=== PATIENT | male | born 1935 | race Caucasian/White ===

== ENCOUNTER 2016-05-10 13:24 | Inpatient (IN) | payer OTHER ==
[~2016-05-10] VITALS: Ht 167.6 cm; Wt 73.0 kg
[~2016-05-10 13:24] MED LIST: ACET-1256 PO; AMLO2.5T PO; ASPEC81 PO; ATRIN6 NAE; AZIT250T5 PO; CALCTAB13 PO; EVER0.5T PO; MAGNTAB4 PO; MULT-506 PO; OMEP40CA PO; PRAV20TA PO; PRED-301 PO; REPA1TAB42 PO; SULF1TAB92 PO; TACR1CAP PO; TAMS0.4C59 PO; TERA5CAP PO; [UNRECOGNIZED DRUG - OTHER] PO
[2016-05-10] MEDS ORDERED: SODIUM CHLORIDE 0.9% 1000ML 1,000 ML IV STA ×2 (14:53)
[2016-05-10] MEDS ORDERED: ONDANSETRON INJ 2 MG/ML 2 ML VIAL IV STA (14:53)
[2016-05-10] MEDS ORDERED: PROMETHAZINE HCL INJ 12.5 MG in SODIUM CHLORIDE 0.9% 50ML 50 ML IV STA ×2 (14:54→18:03)
--- NOTE | 2016-05-10 15:19 | DIAGNOSTIC IMAGING REPORT ---
CHEST ONE VIEW PORTABLE CLINICAL HISTORY: Weakness. Nausea. COMPARISON STUDY: 05/15/2014 FINDINGS: The heart is enlarged. There are surgical clips in the left hilar region. There is persistent extensive right lung airspace opacification. There is a mobile right pleural fluid present.[ IMPRESSION: 1. Persistent right lung volume loss, interstitial thickening, airspace opacities, and probable pleural fluid. 2. No evidence of focal pulmonary consolidation within the left lung 3. The examination remains essentially unchanged. Electronically signed by: Paul Weinstein M.D. 05/10/2016 3:18 PM
[2016-05-10] MEDS ORDERED: REPA2TAB13 PO ×2 (15:24→15:25)
[2016-05-10] MEDS ORDERED: AMLO-110 PO (15:26)
[2016-05-10] MEDS ORDERED: PRAV20TA PO (15:31)
[2016-05-10] MEDS ORDERED: TACR1CAP PO (15:39)
[2016-05-10 16:03] LABS: BASO % 0.1 %; BASO ABS # 0.01 K/uL (0-0.2); COMPLETE YES; HEMATOCRIT 44.1 % (42-52); IG% 0.3 %; LYMPH % 2.6 %; LYMPH ABS # 0.27 K/uL (1.2-3.4); MEAN CELL VOLUME 80.6 fL (80-100); MEAN CORPUSCULAR HEMOGLOBIN 28.9 pg (25-34); MEAN CORPUSCULAR HGB CONC 35.8 g/dl (32-36); MEAN PLATELET VOLUME 9.3 fL (7.4-10.4); MONO % 3.8 %; NEUT % 92.2 %; PLATELET COUNT 143 K/uL (130-400); RED BLOOD COUNT 5.47 M/uL (4.7-6.1); WHITE BLOOD COUNT 10.23 K/uL (4.8-10.8)
[2016-05-10 16:11] LABS: PROTHROMBIN TIME (PATIENT) 10.7 SECONDS (9.0-12.0)
[2016-05-10 16:13] LABS: ALT/SGPT 29 U/L (12-78); BLOOD UREA NITROGEN 42 mg/dl (7-18); BUN/CREATININE RATIO 18.1 (10-20); CALCIUM 9.4 mg/dl (8.5-10.1); CARBON DIOXIDE 28 mmol/L (21-32); CHLORIDE 100 mmol/L (98-107); GLUCOSE 174 mg/dl (70-99); MAGNESIUM 1.8 mg/dl (1.8-2.4); POTASSIUM 4.7 mmol/L (3.5-5.1); SODIUM 137 mmol/L (136-145)
[2016-05-10 16:22] LABS: ALKALINE PHOSPHATASE 82 U/L (45-117); AST/SGOT 25 U/L (15-37); THYROID STIMULATING HORMONE 0.938 uIu/ml (0.300-4.500)
[2016-05-10] MEDS ORDERED: SODIUM CHLORIDE 0.9% 1000ML 1,000 ML IV SCH (20:00)
[2016-05-10] MEDS ORDERED: ONDANSETRON INJ 2 MG/ML 2 ML VIAL IV PRN (20:30)
[2016-05-10] MEDS ORDERED: ALUMINUM/MAGNESIUM/SIMETH (MAALOX MAX) 30 ML UDC PO PRN (20:30)
[2016-05-10] MEDS ORDERED: MAGNESIUM HYDROXIDE SUSP 30 ML UDC PO PRN (20:30)
[2016-05-10] MEDS ORDERED: ACETAMINOPHEN 325 MG TAB PO PRN (20:30)
[2016-05-10] MEDS: INSULIN ASPART 100 UNITS/ML 3 ML PEN SC SCH (21:00)
[2016-05-10] MEDS ORDERED: GLUCOSE 10 TABS/TUBE PO PRN (21:30)
[2016-05-10] MEDS ORDERED: DEXTROSE 50% 50 ML SYR IV PRN (21:30)
[2016-05-10] MEDS ORDERED: GLUCAGON FOR INJ 1 MG VIAL SQ PRN (21:30)
[2016-05-10] MEDS ORDERED: GLUCOSE 40% GEL 15 GM TUBE PO PRN (21:30)
[2016-05-10 21:59] VITALS: BP 182/79; PULSE 100; TEMP 38.4; O2SAT 93
[2016-05-10] MEDS: MAGNESIUM CHLORIDE 64MG DELAYED REL TAB PO SCH (22:25)
[2016-05-10] MEDS: TACROLIMUS 1 MG CAP PO SCH (22:25)
[2016-05-10] MEDS: ASPIRIN 81 MG ECTAB PO SCH (22:25)
[2016-05-10] MEDS: HYDROCORTISONE IV 100 MG in SYRINGE 0 ML IV SCH (22:25)
[2016-05-10] MEDS: HEPARIN SOD 5000 UNIT/0.5 ML CARP SQ SCH (22:31)
[2016-05-10] MEDS: SODIUM CHLORIDE 0.9% 1000ML 1,000 ML IV SCH (22:32)
[2016-05-10 23:02] VITALS: Ht 167.6 cm; Wt 73.0 kg
[2016-05-10 23:31] VITALS: BP 149/84; PULSE 92; TEMP 38.4; O2SAT 96
--- NOTE | 2016-05-10 23:36 | HISTORY & PHYSICAL EXAMINATION ---
DATE OF ADMISSION: 05/10/2016 REASON FOR ADMISSION: SIRS syndrome and gastroenteritis possibly infectious. CHIEF COMPLAINT: Chills, diarrhea. HISTORY OF PRESENT ILLNESS: Mr. 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 Reportedly, the patient and his who also has an admission to our facility began feeling ill approximately one day ago with abdominal pain and diffuse watery diarrhea. The patient has no real new pulmonary symptoms. He frequently has a cough, productive of white to yellow sputum. It has only been mildly different for him. The patient and his are both travelling for the last two days prior to admission and then they did return home and ate a leftover turkey. The patient and his both began having epigastric pain and diarrhea. This patient, however, began vomiting also; the vomitus was clear. He was having shakes and rigors in the ER when I evaluated him. 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 He has dyslipidemia. He is on rotating antibiotics. He has got GERD. He has got BPH. SOCIAL HISTORY: He has no history of drugs, cigarettes or alcohol use. He is and resides with his . FAMILY HISTORY: Also positive for pulmonary fibrosis, cardiac disease and diabetes. HOME MEDICATIONS: Azithromycin 250 three times a week; Bactrim 400/80 two times a week; multivitamin once a day; prednisone 5 a day; Prandin 2 mg at lunch, 4 mg at breakfast and supper; calcium D; ipratropium nasal spray, amlodipine 5 a day; aspirin 81 a day; magnesium chloride 64 a day; omeprazole 40 a day; pravastatin 40 a day; tacrolimus 1.5 mg in the morning and 1 mg at night; tamsulosin 0.4 a day and terazosin 5 a day. REVIEW OF SYSTEMS: Currently positive for abdominal pain, nausea, vomiting, diarrhea and shaking chills. PHYSICAL EXAMINATION: GENERAL: He looks ill. VITAL SIGNS: Temperature 38.4, pulse 100, respirations 22, BP 182/79 and O2 sats 93. HEENT: PERRL. EOMI. Oropharynx has dry mucous membranes. NECK: Without lymphadenopathy. Trachea is midline. LUNGS: He has transmitted breath sounds to the right lung although it is absent. His left lung has good breath sounds. No focal air loss. ABDOMEN: With normoactive bowel sounds, it is soft. It is minorly tender in the periumbilical area. There is no rebound or guarding. EXTREMITIES: With edema just below his sock line on both feet. Otherwise, there is no cyanosis. NEUROLOGIC: Awake, alert and appropriate. Cranial nerves II-XII are intact. Blood cultures are obtained. Stool cultures are pending. Chest x-ray shows as mentioned the obliterated right lung with volume loss, interstitial thickening and possible pleural fluid. The left lung is without consolidation. ASSESSMENT: This is an 81-year-old male, who is immunosuppressed; here with systemic inflammatory response syndrome like picture with diarrheal illness. PLAN: Because of the patient is immunosuppressed state and possibility that his atrophic right lung could create an infectious process, given the fact that he has got some minor changes in his sputum he will be covered broadly with antibiotics currently until his disease cultures are obtained. We will use levofloxacin and cefepime at this point in time. Stool cultures will be obtained including C. diff and blood cultures are pending. For his acute on chronic renal failure, he will be hydrated with intravenous fluids. His baseline creatinine is around 1.7. He is currently at 2.3. Regarding his immunosuppressed state, we will continue his tacrolimus. We will hold his rotating antibiotics, being that he is on new antibiotics. We will cover him with stress dose steroids He is on prednisone 5 mg a day. The stress dose steroids would be 100 mg q. 8 hours. DVT prevention is heparin. The patient is a full code. MTDD
[2016-05-10 23:57] LABS: URINE APPEARANCE CLEAR (CLEAR); URINE BILIRUBIN NEG (NEG); URINE COLOR YELLOW; URINE NITRITE NEG (NEG); URINE PH 6.5 (4.5-7.5); URINE SPECIFIC GRAVITY 1.016 (1.000-1.030); UROBILINOGEN NEG (NEG)
[2016-05-10 23:59] LABS: MANUAL MICROSCOPIC REQUIRED? NO; REVIEW REQ? NO
[2016-05-11] MEDS: PANTOprazole INJ 40 MG in SYRINGE 0 ML IV SCH ×3 (00:15→21:05)
--- NOTE | 2016-05-11 01:00 | EMERGENCY ROOM VISIT NOTE ---
History Report prepared by Tyeibpiter: Mona Mariee Under the Supervision of: Dr. Bijan Porras M.D. First contact with patient: 14:36 Chief Complaint: DIARRHEA Stated Complaint: NAUSEA, DIARRHEA-TRANSPLANT PATEINT Nursing Triage Summary: Triage Note: Pt reports nausea, vomitting, diarrhea since 0700 today. History of Present Illness The patient is an 81 year old male who presents to the Emergency Room with complaints of persistent vomiting and diarrhea that started around 0700 this morning. He is accompanied by his , who is also sick, and his daughter. The patient reports he experienced episodes of both vomiting and diarrhea "at least 50 times". He complains of some minor back pain that was worsened by the vomiting. He also feels "extremely weak" and has still been vomiting here in the ED. The patient's states they both ate leftover turkey with gravy recently, and she thinks that may have caused their symptoms. The patient underwent a single lung transplant 11 years ago at [facility] for a history of pulmonary fibrosis, and is still on medications for the transplant. He states he did not take any medications at home for his symptoms. His daughter notes he was sick with similar symptoms about 2 years ago, and had to eventually be transferred to [facility]. He denies LOC, headache, fevers, chills, diaphoresis, visual changes, neck pain, chest pain, breathing difficulties, abdominal pain, melena, hematochezia, urinary symptoms, numbness, lymphadenopathy, rash, or other complaints. The patient's also reports his legs have been swelling more than normal recently. Source of History: patient, family, spouse/significant other () Onset: 0700 this morning Position: abdomen Timing: other (persistent) Associated Symptoms: + back pain, + nausea, + weakness Review of Systems See HPI for pertinent positives and negatives. A total of ten systems were reviewed and were otherwise negative. Past Medical & Surgical Medical Problems: (1) DIAB LORRAINE WO COMPL, TYPE II OR UNSPEC TYPE, UNCONTROLLED (2) HX-BRONCHOGENIC MALIGNAN (3) IDIOPATHIC PULMONARY FIBROSIS (4) LUNG TRANSPLANT STATUS (5) SIRS (systemic inflammatory response syndrome) Social History Smoking Status: Never Smoker Smokeless Tobacco Use: No Alcohol Use: none Drug Use: none Marital Status: Housing Status: lives with significant other Occupation Status: retired Current/Historical Medications Scheduled Amlodipine (Norvasc), 5 MG PO DAILY Aspirin Enteric Coated (Ecotrin Or Generic *), 81 MG PO QPM Azithromycin (Zithromax), 250 MG PO 3XWK Calcium Carbonate-Vitamin D (Os-Javier 500 Plus D), 500 MG PO BID Magnesium Chloride (Slow-Mag Tab), 64 MG PO BID Multivitamin (Multivitamin), 1 TAB PO DAILY Omeprazole (Prilosec), 40 MG PO DAILY Pravastatin (Pravachol ), 40 MG PO DAILY Prednisone (Prednisone), 5 MG PO DAILY Repaglinide (Prandin), 4 MG PO BID Repaglinide (Prandin), 2 MG PO DAILY Tacrolimus (Prograf Unknown Dose), 1.5 MG PO DAILY Tacrolimus (Prograf), 1 MG PO QPM Tamsulosin Hcl (Flomax), 0.4 MG PO DAILY Terazosin (Hytrin), 5 MG PO DAILY Trimethoprim/Sulfamethoxazole (Bactrim 400MG/80MG), 1 TAB PO 2XWK Scheduled PRN Ipratropium [place] (Ipratropium [place]), 2 SPRAYS RENAN QID PRN for Nasal Congestion Allergies Coded Allergies: No Known Allergies (Verified , 05/10/16) Physical Exam Vital Signs Date Time Temp Pulse Resp B/P Pulse Ox O2 Delivery O2 Flow Rate FiO2 05/10/16 20:04 100 20 93 05/10/16 20:01 149/97 05/10/16 19:34 98 19 95 05/10/16 19:28 182/104 05/10/16 19:04 89 27 95 05/10/16 18:59 166/95 05/10/16 18:34 90 17 05/10/16 18:29 139/86 05/10/16 18:24 92 30 05/10/16 17:59 164/90 05/10/16 17:54 88 26 92 05/10/16 17:29 150/95 05/10/16 17:24 89 26 96 05/10/16 17:03 101 16 163/93 97 05/10/16 16:58 163/93 05/10/16 16:54 94 25 97 05/10/16 16:28 170/91 05/10/16 16:25 90 05/10/16 16:24 90 27 95 05/10/16 15:58 144/89 05/10/16 15:54 91 Room Air 05/10/16 13:46 36.9 78 18 147/90 92 Room Air Physical Exam GENERAL: Awake, alert, tired-appearing, in no acute distress HENT: Normocephalic, atraumatic. Oropharynx unremarkable. Dry mucous membranes. EYES: Normal conjunctiva. Sclera non-icteric. NECK: Supple. No nuchal rigidity. FROM. No JVD. RESPIRATORY: Clear to auscultation. CARDIAC: Regular rate, normal rhythm. Extremities warm and well perfused. Pulses equal. ABDOMEN: Soft, non-distended. No tenderness to palpation. No rebound or guarding. No masses. RECTAL: Deferred. MUSCULOSKELETAL: Chest examination reveals no tenderness. The back is symmetrical on inspection without obvious abnormality. There is no CVA tenderness to palpation. No joint edema. LOWER EXTREMITIES: Calves are equal size bilaterally and non-tender. 1+ pedal edema. No discoloration. NEURO: Normal sensorium. No sensory or motor deficits noted. SKIN: No rash or jaundice noted. Medical Decision & Procedures ER Provider Diagnostic Interpretation: This X-Ray was reviewed and interpreted by myself and the radiologist. CHEST ONE VIEW PORTABLE CLINICAL HISTORY: Weakness. Nausea. COMPARISON STUDY: 05/15/2014 FINDINGS: The heart is enlarged. There are surgical clips in the left hilar region. There is persistent extensive right lung airspace opacification. There is a mobile right pleural fluid present. IMPRESSION: 1. Persistent right lung volume loss, interstitial thickening, airspace opacities, and probable pleural fluid. 2. No evidence of focal pulmonary consolidation within the left lung 3. The examination remains essentially unchanged. Electronically signed by: Paul Weinstein M.D. 05/10/2016 3:18 PM Laboratory Results 05/10/16 15:41 Red Blood Count 5.47, Mean Corpuscular Volume 80.6, Mean Corpuscular Hemoglobin 28.9, Mean Corpuscular Hemoglobin Concent 35.8, Mean Platelet Volume 9.3, Neutrophils (%) (Auto) 92.2, Lymphocytes (%) (Auto) 2.6, Monocytes (%) (Auto) 3.8, Eosinophils (%) (Auto) 1.0, Basophils (%) (Auto) 0.1, Neutrophils # (Auto) 9.43, Lymphocytes # (Auto) 0.27, Monocytes # (Auto) 0.39, Eosinophils # (Auto) 0.10, Basophils # (Auto) 0.01 05/10/16 15:41 Test 05/10/16 15:41 White Blood Count 10.23 K/uL (4.8-10.8) Red Blood Count 5.47 M/uL (4.7-6.1) Hemoglobin 15.8 g/dL (14.0-18.0) Hematocrit 44.1 % (42-52) Mean Corpuscular Volume 80.6 fL (80-100) Mean Corpuscular Hemoglobin 28.9 pg (25-34) Mean Corpuscular Hemoglobin Concent 35.8 g/dl (32-36) Platelet Count 143 K/uL (130-400) Mean Platelet Volume 9.3 fL (7.4-10.4) Neutrophils (%) (Auto) 92.2 % Lymphocytes (%) (Auto) 2.6 % Monocytes (%) (Auto) 3.8 % Eosinophils (%) (Auto) 1.0 % Basophils (%) (Auto) 0.1 % Neutrophils # (Auto) 9.43 K/uL (1.4-6.5) Lymphocytes # (Auto) 0.27 K/uL (1.2-3.4) Monocytes # (Auto) 0.39 K/uL (0.11-0.59) Eosinophils # (Auto) 0.10 K/uL (0-0.5) Basophils # (Auto) 0.01 K/uL (0-0.2) RDW Standard Deviation 43.6 fL (36.4-46.3) RDW Coefficient of Variation 15.1 % (11.5-14.5) Immature Granulocyte % (Auto) 0.3 % Immature Granulocyte # (Auto) 0.03 K/uL (0.00-0.02) Prothrombin Time 10.7 SECONDS (9.0-12.0) Prothromb Time International Ratio 1.0 (0.9-1.1) Activated Partial Thromboplast Time 26.6 SECONDS (21.0-31.0) Partial Thromboplastin Ratio 1.0 Anion Gap 9.0 mmol/L (3-11) Est Creatinine Clear Calc Drug Dose 23.6 ml/min Estimated GFR () 29.8 Estimated GFR (Non- 25.7 BUN/Creatinine Ratio 18.1 (10-20) Calcium Level 9.4 mg/dl (8.5-10.1) Magnesium Level 1.8 mg/dl (1.8-2.4) Total Bilirubin 0.7 mg/dl (0.2-1) Direct Bilirubin 0.2 mg/dl (0-0.2) Aspartate Amino Transf (AST/SGOT) 25 U/L (15-37) Alanine Aminotransferase (ALT/SGPT) 29 U/L (12-78) Alkaline Phosphatase 82 U/L (45-117) Total Creatine Kinase 55 U/L (39-308) Creatine Kinase MB < 0.5 ng/ml (0.5-3.6) Creatine Kinase MB Ratio (0-3.0) Troponin I < 0.015 ng/ml (0-0.045) Total Protein 7.6 gm/dl (6.4-8.2) Albumin 4.1 gm/dl (3.4-5.0) Lipase 258 U/L (73-393) Thyroid Stimulating Hormone (TSH) 0.938 uIu/ml (0.300-4.500) Laboratory results reviewed by me Medications Administered Medications (Trade) Dose Ordered Sig/Ernie Route Start Time Stop Time Status Last Admin Dose Admin Sodium Chloride 1,000 ml @ 125 mls/hr Q8H STAT IV 05/10/16 14:53 05/10/16 21:55 DC 05/10/16 18:14 125 MLS/HR Sodium Chloride 1,000 ml @ 999 mls/hr Q1H1M STAT IV 05/10/16 14:53 05/10/16 15:53 DC 05/10/16 14:53 999 MLS/HR Promethazine HCl 12.5 mg/Sodium Chloride 50.5 ml @ 204 mls/hr NOW STAT IV 05/10/16 14:54 05/10/16 15:08 DC 05/10/16 14:54 204 MLS/HR Promethazine HCl/ Sodium Chloride (Phenergan Inj/ Nss 50ml) 50.5 ml @ 204 mls/hr NOW STAT IV 05/10/16 18:03 05/10/16 18:17 DC 05/10/16 18:03 204 MLS/HR ECG Indication: other (Flu like symptoms) Rate (beats per minute): 94 Rhythm: normal sinus (normal sinus rhythm) Findings: no acute ischemic change, no ectopy Comparison ECG Date: Prolonged QT is no longer present when compared to previous EKG ED Course 1441: The patient was evaluated in room C11B. A complete history and physical exam was performed. 1453: Zofran 4 mg IV, NSS 1000 ml @ 999 mls/hr IV, NSS 1000 ml @ 125 mls/hr IV. 1454: Promethazine HCl 12.5 mg/NSS 50.5 ml @ 204 mls/hr IV. 1628: I reevaluated the patient. He is feeling a little bit better and resting comfortably. 1800: I reevaluated the patient. He has just vomited again. I will put in more medication orders. I discussed my plan for him to remain in the hospital for further evaluation and management and he and his family verbalized complete understanding and agreement. 1803: Promethazine HCl 12.5 mg/NSS 50.5 ml @ 204 mls/hr IV. 1808: I discussed the patient's case with Dr. Taveras, [facility] Hospitalist. The patient will be further evaluated. Medical Decision Triage Nursing notes reviewed. The patient's presentation and history were concerning for nausea, vomiting, and diarrhea. Etiologies such as gastroenteritis, food borne illness, infections, obstruction , pancreatitis, appendicitis, diverticulitis, inflammatory bowel disease, GI bleed, biliary pathology, toxicologic as well as others were entertained. The patient was evaluated. The patient was hydrated. He was given IV Phenergan. On reassessment he was feeling somewhat better. The patient had an unremarkable CBC. He did have acute kidney injury noted on his chemistry panel with a creatinine going from 1.7-2.3. LFTs and lipase were unremarkable. Cardiac markers were negative. The patient then developed additional nausea and vomiting. He was given additional IV Phenergan. Given his history of immunosuppression and symptoms with his acute kidney injury further evaluation and management was felt to be appropriate in the hospital. The family was in agreement as well as the patient. Consultation was made with internal medicine for further management. I gave my usual and customary discussion regarding this issue. The chart was completed utilizing [employer] voice recognition software. Grammatical errors, random word insertions, pronoun errors, and incomplete sentences are an occasional consequence of this system due to software limitations, ambient noise, and hardware issues. Any formal questions or concerns about the content, text, or information contained within the body of this dictation should be directly addressed to the physician for clarification. Consults Time Called: 1801 Consulting Physician: Dr. Taveras, [facility] Hospitalist Returned Call: 1807 I discussed the patients case with Dr. Taveras [facility] Hospitalist. The patient will be further evaluated. Impression Primary Impression: Nausea, vomiting, and diarrhea Additional Impressions: Dehydration, Acute kidney injury Scribe Attestation The scribe's documentation has been prepared under my direction and personally reviewed by me in its entirety. I confirm that the note above accurately reflects all work, treatment, procedures, and medical decision making performed by me. Departure Information Dispostion Being Evaluated By Hospitalist Referrals Eber Sands M.D. (PCP) Patient Instructions A Signature Page, My [facility]
[2016-05-11 04:24] VITALS: TEMP 36.7
[2016-05-11] MEDS: HYDROCORTISONE IV 100 MG in SYRINGE 0 ML IV SCH ×2 (06:24→14:28)
[2016-05-11] MEDS: SODIUM CHLORIDE 0.9% 1000ML 1,000 ML IV SCH ×2 (06:25→15:38)
[2016-05-11 07:40] VITALS: BP 147/73; PULSE 52; TEMP 36.3; O2SAT 96
[2016-05-11 08:34] LABS: HEMATOCRIT 36.5 % (42-52); MEAN CORPUSCULAR HEMOGLOBIN 28.1 pg (25-34); MEAN CORPUSCULAR HGB CONC 34.2 g/dl (32-36); PLATELET COUNT 126 K/uL (130-400); RED BLOOD COUNT 4.45 M/uL (4.7-6.1); WHITE BLOOD COUNT 6.87 K/uL (4.8-10.8)
[2016-05-11 08:50] LABS: BUN/CREATININE RATIO 18.4 (10-20); CALCIUM 8.1 mg/dl (8.5-10.1); CREATININE 2.3 mg/dl (0.60-1.40); MAGNESIUM 1.8 mg/dl (1.8-2.4); POTASSIUM 4.7 mmol/L (3.5-5.1)
[2016-05-11] MEDS: AMLODIPINE BESYLATE 5 MG TAB PO SCH (08:51)
[2016-05-11] MEDS: TAMSULOSIN HCL 0.4 MG CAP PO SCH (08:51)
[2016-05-11] MEDS: TACROLIMUS 0.5 MG CAP PO SCH (08:52)
[2016-05-11] MEDS: MAGNESIUM CHLORIDE 64MG DELAYED REL TAB PO SCH ×2 (08:52→21:05)
[2016-05-11] MEDS: INSULIN ASPART 100 UNITS/ML 3 ML PEN SC SCH ×4 (09:00→21:03)
[2016-05-11] MEDS ORDERED: PRAVASTATIN SOD 40 MG TAB PO SCH (09:00)
[2016-05-11] MEDS ORDERED: PANTOprazole SOD 40 MG TAB PO SCH (09:00)
[2016-05-11] MEDS: HEPARIN SOD 5000 UNIT/0.5 ML CARP SQ SCH ×2 (09:01→21:01)
--- NOTE | 2016-05-11 11:55 | Pulmonary Consultation ---
History General Date of Service: May 11, 2016. Stated Complaint: Food poisoning HPI The patient is a 81 year old male who presents to [facility] with complaints of SIRS. The patient's primary care provider is Eber Sands M.D.. Very pleasant 81-year-old gentleman admitted for nausea, vomiting and associated diarrhea. 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 Patient was admitted after he and his within an hour of each other started having severe nausea, vomiting and diarrhea. This was notably after ingesting turkey saved from the holidays. There was no associated prodromal syndrome such as fever, chills, sore throat, mucous production or productive sputum. The patient had no change in his respiratory status over the last week. With the current interventions over the last 24 outpatient notes he is 90% better and almost back to his baseline. Review of Systems Constitutional: reports: weakness Eyes: reports: no symptoms ENT: reports: no symptoms Cardiovascular: reports: no symptoms Respiratory: reports: no symptoms Gastrointestinal: reports: as stated in HPI Genitourinary - Male: reports: no symptoms Musculoskeletal: reports: no symptoms Integumentary: reports: no symptoms Neurologic: reports: no symptoms Psychiatric: reports: no symptoms Endocrine: no symptoms Hematologic / Lymphatic: no symptoms Allergic / Immunologic: no symptoms Past Medical History Past Medical History: 1) Lung transplant August/2005 2) Usual interstitial pneumonitis 3) adenocarcinoma of the lung (T4N1M0: IIIA) a. Right upper lobe lobectomy 2008 b. 4 rounds of chemotherapy therapy 4) Diabetes 2 5) Dyslipidemia 6) GERD 7) Benign prostatic hypertrophy 8) Chronic kidney disease stage III with baseline creatinine 1.9 10) nonocclusive coronary artery disease with history of paroxysmal atrial fibrillation 11) hypertension 12) rectal leakage Past Surgical History: 1) Left hemithorax pulmonary transplant 2005 2) Right upper lobe lobectomy 2008 Family History 1) Pulmonary fibrosis 2) Cardiac disease 3) Diabetes Social History 1) and lives with his 2) No history of cigarette or alcohol use 3) retired Hx Tobacco Use In Past Year?: No Smoking Status: Never Smoker Marital status: Occupational Status: retired Immunizations History of Influenza Vaccine: No Influenza Vaccine Date: Feb 16, 2005 History of Tetanus Vaccine?: Unknown History of Pneumococcal: Yes Pneumococcal Date: Feb 22, 2011 History of Hepatitis B Vaccine: Unknown History of MDRO History of MDRO: No Allergies Coded Allergies: No Known Allergies (Verified , 05/10/16) Current Medications Reported Home Medications Medications Dose Route/Sig Max Daily Dose Days Date Category Dose Instructions Prograf (Tacrolimus) 1 Mg Cap 1 Mg PO QPM 05/10/16 Reported Pravachol (Pravastatin Sodium) 20 Mg Tab 40 Mg PO DAILY 05/10/16 Reported Norvasc (Amlodipine Besylate) 5 Mg Tab 5 Mg PO DAILY 05/10/16 Reported Prandin (Repaglinide) 2 Mg Tab 2 Mg PO DAILY 05/10/16 Reported take 2 mg at supper Prandin (Repaglinide) 2 Mg Tab 4 Mg PO BID 05/10/16 Reported take 4 mg in the morning and at lunch time Prilosec (Omeprazole) 40 Mg Capcr 40 Mg PO DAILY 05/15/14 Reported Ipratropium [place] 75 Sprays/15 Ml [place] 2 Sprays RENAN QID PRN 05/13/14 Reported Prograf Unknown Dose (Tacrolimus) Cap 1.5 Mg PO DAILY 02/22/12 Reported Slow-Mag Tab (Magnesium Chloride) 64 Mg Tabcr 64 Mg PO BID 02/22/[address] IN LUNCH AND DINNER FOR THE WEEK BEGINNING EACH FRIDAY Bactrim 400MG/80MG (Trimethoprim/Sulfamethoxazole) Tab 1 Tab PO 2XWK 02/22/12 Reported TAKES 80MG MON. and .FRI Hytrin (Terazosin HCl) 5 Mg Cap 5 Mg PO DAILY 02/22/12 Reported Os-Javier 500 Plus D (Calcium Carbonate-Vitamin D) 1 Tab Tab 500 Mg PO BID 02/22/12 Reported Flomax (Tamsulosin Hcl) 0.4 Mg Cap 0.4 Mg PO DAILY 02/22/12 Reported Zithromax (Azithromycin) 250 Mg Tab 250 Mg PO 3XWK 02/22/12 Reported [id number] Multivitamin (Multivitamins) Tab 1 Tab PO DAILY 02/17/08 Reported Prednisone 5 Mg Tab 5 Mg PO DAILY 02/17/08 Reported Ecotrin Or Generic * (Aspirin) 81 Mg Ectab 81 Mg PO QPM 02/17/08 Reported Physical Physical Exam Vital Signs: Date Time Temp Pulse Resp B/P Pulse Ox O2 Delivery O2 Flow Rate FiO2 05/11/16 08:00 Room Air 05/11/16 07:40 36.3 52 18 147/73 96 Room Air 05/11/16 04:24 36.7 05/11/16 00:15 Room Air 05/10/16 23:31 38.4 92 21 149/84 96 Room Air 05/10/16 23:02 Room Air 05/10/16 21:59 38.4 100 22 182/79 93 Room Air 05/10/16 21:28 36.9 99 22 145/86 95 05/10/16 20:40 99 05/10/16 20:34 96 22 95 05/10/16 20:28 145/86 05/10/16 20:04 100 20 93 05/10/16 20:01 149/97 05/10/16 19:34 98 19 95 05/10/16 19:28 182/104 05/10/16 19:04 89 27 95 05/10/16 18:59 166/95 05/10/16 18:34 90 17 05/10/16 18:29 139/86 05/10/16 18:24 92 30 05/10/16 17:59 164/90 05/10/16 17:54 88 26 92 05/10/16 17:29 150/95 05/10/16 17:24 89 26 96 05/10/16 17:03 101 16 163/93 97 05/10/16 16:58 163/93 05/10/16 16:54 94 25 97 05/10/16 16:28 170/91 05/10/16 16:25 90 05/10/16 16:24 90 27 95 05/10/16 15:58 144/89 05/10/16 15:54 91 Room Air 05/10/16 13:46 36.9 78 18 147/90 92 Room Air General Appearance: WELL-APPEARING Head: NORMOCEPHALIC, ATRAUMATIC Eyes: PERRLA, NO DISCHARGE, EOMI, SCLERAE NORMAL, CONJUNCTIVAE NORMAL ENT: NORMAL EAR EXAM, NORMAL NASAL EXAM, NORMAL MOUTH EXAM, NORMAL THROAT EXAM , NORMAL DENTAL EXAM, NORMAL SINUS EXAM Neck: NORMAL RANGE OF MOTION, NO TENDERNESS, TRACHEA MIDLINE, NO STRIDOR, SUPPLE Respiratory: other (left side within normal limits/right-sided global bronchi) Abdomen: NON TENDER, NORMAL BOWEL SOUNDS, NO REBOUND, NO MASSES, NO GUARDING, NO ORGANOMEGALY, NORMAL RECTAL EXAM, NO HEMORRHOIDS Genitourinary - Male: EXTERNAL GENITALIA NORMAL Back: NORMAL INSPECTION, NO MIDLINE TENDERNESS, NO CVA TENDERNESS, NO PARAVERTEBRAL TTP Upper Extremities: NO EDEMA, NO DEFORMITY, NORMAL ROM Lower Extremities: NO EDEMA, NO DEFORMITY, NORMAL ROM Pulses: carotid (R) (2+), carotid (L) (2+), dorsalis pedis (R) (1+), dorsalis pedis (L) (1+) Neuro: ALERT, ORIENTED x 3, NORMAL MOTOR EXAM, NORMAL SENSATION, NORMAL CEREBELLAR EXAM Reflexes: biceps (R) (2+), bicpes (L) (2+) Babinski Testing: right (downgoing), left (downgoing) Psychiatric: NORMAL AFFECT, NO SUICIDAL IDEATION, CONTRACTS FOR SAFETY Diagnostics Labs Results Past 24 Hours Test 05/10/16 15:41 05/10/16 22:44 05/10/16 23:20 05/11/16 07:53 Range/Units White Blood Count 10.23 6.87 4.8-10.8 K/uL Red Blood Count 5.47 4.45 4.7-6.1 M/uL Hemoglobin 15.8 12.5 14.0-18.0 g/dL Hematocrit 44.1 36.5 42-52 % Mean Corpuscular Volume 80.6 82.0 80-100 fL Mean Corpuscular Hemoglobin 28.9 28.1 25-34 pg Mean Corpuscular Hemoglobin Concent 35.8 34.2 32-36 g/dl Platelet Count 143 126 130-400 K/uL Mean Platelet Volume 9.3 9.0 7.4-10.4 fL Neutrophils (%) (Auto) 92.2 % Lymphocytes (%) (Auto) 2.6 % Monocytes (%) (Auto) 3.8 % Eosinophils (%) (Auto) 1.0 % Basophils (%) (Auto) 0.1 % Neutrophils # (Auto) 9.43 1.4-6.5 K/uL Lymphocytes # (Auto) 0.27 1.2-3.4 K/uL Monocytes # (Auto) 0.39 0.11-0.59 K/uL Eosinophils # (Auto) 0.10 0-0.5 K/uL Basophils # (Auto) 0.01 0-0.2 K/uL RDW Standard Deviation 43.6 46.4 36.4-46.3 fL RDW Coefficient of Variation 15.1 15.5 11.5-14.5 % Immature Granulocyte % (Auto) 0.3 % Immature Granulocyte # (Auto) 0.03 0.00-0.02 K/uL Prothrombin Time 10.7 9.0-12.0 SECONDS Prothromb Time International Ratio 1.0 0.9-1.1 Activated Partial Thromboplast Time 26.6 21.0-31.0 SECONDS Partial Thromboplastin Ratio 1.0 Sodium Level 137 141 136-145 mmol/L Potassium Level 4.7 4.7 3.5-5.1 mmol/L Chloride Level 100 107 98-107 mmol/L Carbon Dioxide Level 28 23 21-32 mmol/L Anion Gap 9.0 11.0 3-11 mmol/L Blood Urea Nitrogen 42 42 7-18 mg/dl Creatinine 2.30 2.30 0.60-1.40 mg/dl Est Creatinine Clear Calc Drug Dose 23.6 22.7 ml/min Estimated GFR () 29.8 29.8 Estimated GFR (Non- 25.7 25.7 BUN/Creatinine Ratio 18.1 18.4 10-20 Random Glucose 174 153 70-99 mg/dl Calcium Level 9.4 8.1 8.5-10.1 mg/dl Magnesium Level 1.8 1.8 1.8-2.4 mg/dl Total Bilirubin 0.7 0.2-1 mg/dl Direct Bilirubin 0.2 0-0.2 mg/dl Aspartate Amino Transf (AST/SGOT) 25 15-37 U/L Alanine Aminotransferase (ALT/SGPT) 29 12-78 U/L Alkaline Phosphatase 82 45-117 U/L Total Creatine Kinase 55 39-308 U/L Creatine Kinase MB < 0.5 0.5-3.6 ng/ml Creatine Kinase MB Ratio 0-3.0 Troponin I < 0.015 0-0.045 ng/ml Total Protein 7.6 6.4-8.2 gm/dl Albumin 4.1 3.4-5.0 gm/dl Lipase 258 73-393 U/L Thyroid Stimulating Hormone (TSH) 0.938 0.300-4.500 uIu/ml Bedside Glucose 135 70-99 mg/dl Urine Color YELLOW Urine Appearance CLEAR CLEAR Urine pH 6.5 4.5-7.5 Urine Specific [place] 1.016 1.000-1.030 Urine Protein 2+ NEG Urine Glucose (UA) NEG NEG Urine Ketones TRACE NEG Urine Occult Blood 2+ NEG Urine Nitrite NEG NEG Urine Bilirubin NEG NEG Urine Urobilinogen NEG NEG Urine Leukocyte Esterase NEG NEG Urine WBC (Auto) 1-5 0-5 /hpf Urine RBC (Auto) 10-30 0-4 /hpf Urine Hyaline Casts (Auto) 1-5 0-5 /lpf Urine Epithelial Cells (Auto) 10-20 0-5 /lpf Urine Bacteria (Auto) NEG NEG Test 05/11/16 08:01 Range/Units Bedside Glucose 157 70-99 mg/dl Microbiology Results 05/10/16 Blood Culture, Received Pending 05/10/16 Blood Culture, Received Pending 05/10/16 C.difficile Toxin B Gene (PCR) - Final, Complete No C. difficile toxin B gene detected 05/10/16 Shiga Toxin Test, Received Pending 05/10/16 Stool Culture, Received Pending 05/10/16 Urine Culture, Received Pending Diagnostic Radiology Chest x-ray 05/10/2016: No acute changes as compared to 05/15/2014. Patient showing volume loss in the right side with shift to trachea diffuse infiltrate/ collapse and bronchiectasis of the right hemithorax. Impression Assessment and Plan 81-year-old gentleman admitted for nausea vomiting diarrhea/food poisoning: #1 respiratory: Patient is status post lung transplant 11 years ago with chronic therapeutic Prograft, azithromycin and Bactrim. Bactrim for PCP prophylaxis given one dose today and then reinitiating on Friday and Fridays. At this time I would switch the patient to levofloxacin 500 mg orally for 3 day window. This should cover atypical infections and replaces chronic azithromycin therapy over the weekend and reinitiate azithromycin on Wednesdays and Fridays #2 GI: Is a patient his had signs and symptoms within one hour of each other and the patient has dramatically improved over the last 12-24 hours is highly likely food poisoning. As stated above I would switch to levofloxacin 500 mg orally once per day for 3 day window and discontinue. #3 renal: We'll continue aggressive rehydration as patient's baseline creatinine is 1.9 currently at 2.3. At this time the most pressing concern is history of renal insufficiency. Follow-up: We'll follow up this patient is in house thank you for this consultation
[2016-05-11] MEDS ORDERED: LEVOFLOXACIN 500 MG TAB PO ONE (15:00)
[2016-05-11] MEDS ORDERED: AZITHROMYCIN 250 MG TAB PO SCH (15:00)
--- NOTE | 2016-05-11 15:06 | Progress Note ---
Subjective Date of Service: May 11, 2016. Subjective Pt evaluation today including: conversation w/ patient, physical exam, lab review, review of inpatient medication list Pain: no pain PO Intake: improved appetite Voiding: no voiding problems patient feels 90% better per his words more energy, no vomiting or diarrhea, appetite improved and he would like to try food for lunch d/w pulmonary, appreciate recommendations Problem List Medical Problems: (1) Acute kidney injury Status: Acute (2) Dehydration Status: Acute (3) Nausea, vomiting, and diarrhea Status: Acute Review of Systems Constitutional: + fatigue, + weakness All Other Systems: Reviewed and Negative Medications Current Inpatient Medications Medications (Trade) Dose Ordered Sig/Ernie Route Start Time Stop Time Status Last Admin Dose Admin Amlodipine Besylate (Norvasc Tab) 5 mg DAILY PO 05/11/16 09:00 06/10/16 08:59 05/11/16 08:51 5 MG Aspirin (Ecotrin Tab) 81 mg QPM PO 05/10/16 21:00 06/09/16 20:59 05/10/16 22:25 81 MG Magnesium Chloride (Slow-Mag Tab) 64 mg BID PO 05/10/16 21:00 06/09/16 20:59 05/11/16 08:52 64 MG Tacrolimus (Prograf Cap) 1 mg QPM PO 05/10/16 21:00 06/09/16 20:59 05/10/16 22:25 1 MG Tamsulosin HCl (Flomax Cap) 0.4 mg DAILY PO 05/11/16 09:00 06/10/16 08:59 05/11/16 08:51 0.4 MG Terazosin HCl (Hytrin Cap) 5 mg DAILY PO 05/11/16 09:00 06/10/16 08:59 05/11/16 08:53 5 MG Tacrolimus 1.5 mg 1.5 mg DAILY PO 05/11/16 09:00 06/10/16 08:59 05/11/16 08:52 1.5 MG Hydrocortisone Sodium Succinate/ Syringe (Solu-Cortef IV/ Syringe) 2 ml @ 4 mls/min Q8 IV 05/10/16 22:00 06/09/16 21:59 05/11/16 14:28 4 MLS/MIN Insulin Aspart (novoLOG ASPART) SLIDING SCALE PARAMETER ACHS SC 05/10/16 21:00 06/09/16 20:59 05/11/16 12:55 2 UNITS Acetaminophen (Tylenol Tab) 650 mg Q4H PRN PO 05/10/16 20:30 06/09/16 20:29 05/11/16 00:15 650 MG Al Hydrox/Mg Hydrox/Simethicone (Maalox Max Susp) 15 ml Q4H PRN PO 05/10/16 20:30 06/09/16 20:29 Magnesium Hydroxide (Milk Of Magnesia Susp) 30 ml Q6H PRN PO 05/10/16 20:30 06/09/16 20:29 Ondansetron HCl (Zofran Inj) 4 mg Q6H PRN IV 05/10/16 20:30 06/09/16 20:29 Heparin Sodium (Porcine) 5000 unit 5,000 unit Q12H SQ 05/10/16 22:00 06/09/16 21:59 05/11/16 09:01 5,000 UNIT Sodium Chloride 1,000 ml @ 75 mls/hr [id number] IV 05/10/16 21:30 05/11/16 06:25 125 MLS/HR Pantoprazole Sodium/Syringe (Protonix Inj/ Syringe) 10 ml @ 5 mls/min DAILY@09,21 IV 05/10/16 21:00 06/09/16 20:59 05/11/16 08:50 5 MLS/MIN Glucose (Glucose 40% Gel) 15-30 GRAMS 15 GRAMS... UD PRN PO 05/10/16 21:30 06/09/16 21:29 Glucose (Glucose Chew Tab) 4-8 Tablets 4 Tabl... UD PRN PO 05/10/16 21:30 06/09/16 21:29 Dextrose (Dextrose 50% 50ML Syringe) 25-50ML OF 50% DW IV FOR... UD PRN IV 05/10/16 21:30 06/09/16 21:29 Glucagon (Glucagon Inj) 1 mg UD PRN SQ 05/10/16 21:30 06/09/16 21:29 Levofloxacin (Levaquin Tab) 500 mg DAILY@11 PO 05/12/16 11:00 05/22/16 10:59 UNV Levofloxacin (Levaquin Tab) 500 mg 1500 ONCE PO 05/11/16 15:00 05/11/16 15:01 Objective Vital Signs Date Time Temp Pulse Resp B/P Pulse Ox O2 Delivery O2 Flow Rate FiO2 05/11/16 08:00 Room Air 05/11/16 07:40 36.3 52 18 147/73 96 Room Air 05/11/16 04:24 36.7 05/11/16 00:15 Room Air 05/10/16 23:31 38.4 92 21 149/84 96 Room Air 05/10/16 23:02 Room Air 05/10/16 21:59 38.4 100 22 182/79 93 Room Air 05/10/16 21:28 36.9 99 22 145/86 95 05/10/16 20:40 99 05/10/16 20:34 96 22 95 05/10/16 20:28 145/86 05/10/16 20:04 100 20 93 05/10/16 20:01 149/97 05/10/16 19:34 98 19 95 05/10/16 19:28 182/104 05/10/16 19:04 89 27 95 05/10/16 18:59 166/95 05/10/16 18:34 90 17 05/10/16 18:29 139/86 05/10/16 18:24 92 30 05/10/16 17:59 164/90 05/10/16 17:54 88 26 92 05/10/16 17:29 150/95 05/10/16 17:24 89 26 96 05/10/16 17:03 101 16 163/93 97 05/10/16 16:58 163/93 05/10/16 16:54 94 25 97 05/10/16 16:28 170/91 05/10/16 16:25 90 05/10/16 16:24 90 27 95 05/10/16 15:58 144/89 05/10/16 15:54 91 Room Air Physical Exam General Appearance: WD/WN, no apparent distress Neck: supple, no adenopathy, no JVD, trachea midline Respiratory/Chest: chest non-tender, lungs clear, normal breath sounds, no respiratory distress, no accessory muscle use Cardiovascular: regular rate, rhythm, no edema, no gallop, no JVD, no murmur Abdomen: normal bowel sounds, non tender, soft, no organomegaly Extremities: normal range of motion, non-tender, normal inspection, no pedal edema, no calf tenderness Neurologic/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: 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, no motor/sensory deficits, alert, normal mood/affect, oriented x 3 Skin: normal color, warm/dry, no rash Laboratory Results Last 24 Hours Test 05/10/16 15:41 05/10/16 22:44 05/10/16 23:20 05/11/16 07:53 White Blood Count 10.23 K/uL 6.87 K/uL Red Blood Count 5.47 M/uL 4.45 M/uL Hemoglobin 15.8 g/dL 12.5 g/dL Hematocrit 44.1 % 36.5 % Mean Corpuscular Volume 80.6 fL 82.0 fL Mean Corpuscular Hemoglobin 28.9 pg 28.1 pg Mean Corpuscular Hemoglobin Concent 35.8 g/dl 34.2 g/dl Platelet Count 143 K/uL 126 K/uL Mean Platelet Volume 9.3 fL 9.0 fL Neutrophils (%) (Auto) 92.2 % Lymphocytes (%) (Auto) 2.6 % Monocytes (%) (Auto) 3.8 % Eosinophils (%) (Auto) 1.0 % Basophils (%) (Auto) 0.1 % Neutrophils # (Auto) 9.43 K/uL Lymphocytes # (Auto) 0.27 K/uL Monocytes # (Auto) 0.39 K/uL Eosinophils # (Auto) 0.10 K/uL Basophils # (Auto) 0.01 K/uL RDW Standard Deviation 43.6 fL 46.4 fL RDW Coefficient of Variation 15.1 % 15.5 % Immature Granulocyte % (Auto) 0.3 % Immature Granulocyte # (Auto) 0.03 K/uL Prothrombin Time 10.7 SECONDS Prothromb Time International Ratio 1.0 Activated Partial Thromboplast Time 26.6 SECONDS Partial Thromboplastin Ratio 1.0 Sodium Level 137 mmol/L 141 mmol/L Potassium Level 4.7 mmol/L 4.7 mmol/L Chloride Level 100 mmol/L 107 mmol/L Carbon Dioxide Level 28 mmol/L 23 mmol/L Anion Gap 9.0 mmol/L 11.0 mmol/L Blood Urea Nitrogen 42 mg/dl 42 mg/dl Creatinine 2.30 mg/dl 2.30 mg/dl Est Creatinine Clear Calc Drug Dose 23.6 ml/min 22.7 ml/min Estimated GFR () 29.8 29.8 Estimated GFR (Non- 25.7 25.7 BUN/Creatinine Ratio 18.1 18.4 Random Glucose 174 mg/dl 153 mg/dl Calcium Level 9.4 mg/dl 8.1 mg/dl Magnesium Level 1.8 mg/dl 1.8 mg/dl Total Bilirubin 0.7 mg/dl Direct Bilirubin 0.2 mg/dl Aspartate Amino Transf (AST/SGOT) 25 U/L Alanine Aminotransferase (ALT/SGPT) 29 U/L Alkaline Phosphatase 82 U/L Total Creatine Kinase 55 U/L Creatine Kinase MB < 0.5 ng/ml Creatine Kinase MB Ratio Troponin I < 0.015 ng/ml Total Protein 7.6 gm/dl Albumin 4.1 gm/dl Lipase 258 U/L Thyroid Stimulating Hormone (TSH) 0.938 uIu/ml Bedside Glucose 135 mg/dl Urine Color YELLOW Urine Appearance CLEAR Urine pH 6.5 Urine Specific Reading 1.016 Urine Protein 2+ Urine Glucose (UA) NEG Urine Ketones TRACE Urine Occult Blood 2+ Urine Nitrite NEG Urine Bilirubin NEG Urine Urobilinogen NEG Urine Leukocyte Esterase NEG Urine WBC (Auto) 1-5 /hpf Urine RBC (Auto) 10-30 /hpf Urine Hyaline Casts (Auto) 1-5 /lpf Urine Epithelial Cells (Auto) 10-20 /lpf Urine Bacteria (Auto) NEG Test 05/11/16 08:01 05/11/16 11:39 Bedside Glucose 157 mg/dl 184 mg/dl Assessment and Plan 81 yo male with history of left lung transplant, UIP, lung cancer s/p resection and chemotherapy as well as CKD, presented with acute gastroenteritis and renal failure - Acute kidney injury on CKD stage III: Cr and BUN still elevated at 41/2.3 despite IV fluids patient eating and drinking well, continue fluids but at 75cc/hr hold all nephrotoxins, repeat labs in the AM, if Cr improving will d/c home - Acute gastroenteritis: improving quickly, likely due to eating turkey leftovers, toxic poisoning self resolving, give Levaquin per pulmonary recommendations - Lung transplant: continue immunosuppressant, stop stress dose steroids and resume Prednisone give Levaquin 500mg daily x 3 days and then resume the Zithromax and Bactrim on Friday - Lung cancer s/p resection and chemo: follows with [facility] q 6 months DVT prevention is heparin. The patient is a full code.
[2016-05-11 15:13] VITALS: BP 152/74; PULSE 65; TEMP 36.6; O2SAT 97
[2016-05-11 19:12] VITALS: BP 152/78; PULSE 62; TEMP 36.5; O2SAT 97
[2016-05-11 20:05] VITALS: O2SAT 97
[2016-05-11] MEDS: TACROLIMUS 1 MG CAP PO SCH (21:05)
[2016-05-11] MEDS: ASPIRIN 81 MG ECTAB PO SCH (21:06)
[2016-05-11] MEDS ORDERED: CIPROFLOXACIN / D5W 400 MG in PREMIXED IN D5W 200 ML IV SCH (23:00)
[2016-05-11 23:19] VITALS: BP 161/78; PULSE 59; TEMP 36.6; O2SAT 96
[2016-05-12] MEDS: SODIUM CHLORIDE 0.9% 1000ML 1,000 ML IV SCH (04:45)
[2016-05-12 08:13] VITALS: BP 160/77; PULSE 55; TEMP 36.5; O2SAT 96
[2016-05-12] MEDS: AMLODIPINE BESYLATE 5 MG TAB PO SCH (08:16)
[2016-05-12] MEDS: TACROLIMUS 0.5 MG CAP PO SCH (08:17)
[2016-05-12] MEDS: PANTOprazole INJ 40 MG in SYRINGE 0 ML IV SCH (08:17)
[2016-05-12] MEDS: TAMSULOSIN HCL 0.4 MG CAP PO SCH (08:17)
[2016-05-12] MEDS: MAGNESIUM CHLORIDE 64MG DELAYED REL TAB PO SCH (08:18)
[2016-05-12 08:33] LABS: BUN/CREATININE RATIO 21.2 (10-20); CALCIUM 8.2 mg/dl (8.5-10.1); POTASSIUM 3.7 mmol/L (3.5-5.1)
[2016-05-12] MEDS: INSULIN ASPART 100 UNITS/ML 3 ML PEN SC SCH ×2 (08:34→12:42)
[2016-05-12] MEDS: HEPARIN SOD 5000 UNIT/0.5 ML CARP SQ SCH (09:40)
[2016-05-12] MEDS ORDERED: LEVOFLOXACIN 500 MG TAB PO SCH (11:00)
[2016-05-12] MEDS ORDERED: CHOL4POW11 PO (12:13)
--- NOTE | 2016-05-12 12:20 | Discharge Instructions ---
Discharge Instructions Admission Reason for Admission: Acute gastroenteritis causing dehydration Discharge Discharge Diagnosis / Problem: Acute gastroenteritis causing dehydration Discharge Goals Goal(s): Decrease discomfort, Improve function Activity Recommendations Activity Limitations: resume your previous activity Lifting Limitations: none Exercise/Sports Limitations: as tolerated May Resume Sexual Activity: when tolerated Shower/Bathe: no limitations Driving or Machine Use: no limitations . Instructions / Follow-Up Instructions / Follow-Up Medications: - QUESTRAN: use this to treat diarrhea if it causes you problems, works to bulk up stools. Take once a day. Very important that you DO NOT TAKE AT THE SAME TIME as your other oral medications as it can interfere with absorption. Wait at least one hour after taking other oral medications before you would take this. Also, after you take Questran, wait 4-6 hours before taking any other medications Stay well hydrated, the gastroenteritis should be self limiting FOLLOW UP - call office of Dr. Sands for appointment in one week for hospital follow up / transition of care Current Hospital Diet Patient's current hospital diet: Diabetes Type 2 Diet, Low Fiber Diet Discharge Diet Recommended Diet: Diabetes Type 2 Diet Pending Studies Studies pending at discharge: no Laboratory Results Last Resulted CBC 05/11/16 07:53 Last Resulted BMP 05/12/16 07:33 Hemoglobin A1c Test 02/27/16 15:20 Range/Units Estimated Average Glucose 137 mg/dl Hemoglobin A1c 6.4 H 4.5-5.6 % Lipid Panel Test 04/09/16 09:08 Range/Units Triglycerides Level 65 0-150 mg/dl Cholesterol Level 195 0-200 mg/dl HDL Cholesterol 105 mg/dl Cholesterol/HDL Ratio 1.9 LDL Cholesterol, Calculated 77 mg/dl Medical Emergencies . Who to Call and When: Medical Emergencies: If at any time you feel your situation is an emergency, please call 911 immediately. . Non-Emergent Contact Non-Emergency issues call your: Primary Care Provider Call Non-Emergent contact if: you have a fever, you have any medication questions . . "Provider Documentation" section prepared by Harish Tan. VTE Core Measure Inpt VTE Proph given/why not?: Unfractionated heparin SQ [place] Drug Monitoring Program Search Results: no issues identified
--- NOTE | 2016-05-12 12:39 | Pulmonology Progress Note ---
Pulmonary Progress Note Date of Service May 12, 2016. Attending MD. Dominick Fernandez Subjective Patient is no active pulmonary complaints but does note GI upset with 2 episodes of diarrhea. Objective Patient is standing up a left complete sentences he notes no pulmonary complaints showing no signs of increased work of breathing. He does note a history of inability to sleep on his right side as he becomes hypoxic requiring him to sleep on his left side which BP consistent with his lung physiology and VQ mismatching. Vital: Within normal limits Respiratory: Patient with notable rhonchi and inspiratory expiratory right hemithorax, within normal limits on the left hemithorax Cardiac: S1-S2 regular rate and rhythm Abdomen: Positive bowel sounds soft nontender Skin: Within normal limits Assessment & Plan 81-year-old gentleman status post left hemithorax lung transplantation admitted for gastroenteritis: #1 pulmonary transplant: Patient is doing well today with decreasing creatinine. At this time we have initiated him on Prograf 1.5 mg in the morning 1.0 mg in the evening and start him back on his azithromycin(Friday, Friday, Friday) as well as his Bactrim (Friday, Friday). #2 sleep: Patient notes poor sleeping habits as well waking up mornings very fatigued. Dr. Andres perez of the sleep department will be on discuss this with the patient tomorrow morning. Data Medications: Current Inpatient Medications Medications (Trade) Dose Ordered Sig/Ernie Route Start Time Stop Time Status Last Admin Dose Admin Amlodipine Besylate (Norvasc Tab) 5 mg DAILY PO 05/11/16 09:00 06/10/16 08:59 05/12/16 08:16 5 MG Aspirin (Ecotrin Tab) 81 mg QPM PO 05/10/16 21:00 06/09/16 20:59 05/11/16 21:06 81 MG Magnesium Chloride (Slow-Mag Tab) 64 mg BID PO 05/10/16 21:00 06/09/16 20:59 05/12/16 08:18 64 MG Tacrolimus (Prograf Cap) 1 mg QPM PO 05/10/16 21:00 06/09/16 20:59 05/11/16 21:05 1 MG Tamsulosin HCl (Flomax Cap) 0.4 mg DAILY PO 05/11/16 09:00 06/10/16 08:59 05/12/16 08:17 0.4 MG Terazosin HCl (Hytrin Cap) 5 mg DAILY PO 05/11/16 09:00 06/10/16 08:59 05/12/16 08:16 5 MG Tacrolimus (Prograf Cap) 1.5 mg DAILY PO 05/11/16 09:00 06/10/16 08:59 05/12/16 08:17 1.5 MG Insulin Aspart (novoLOG ASPART) SLIDING SCALE PARAMETER ACHS SC 05/10/16 21:00 06/09/16 20:59 05/11/16 21:03 3 UNITS Acetaminophen (Tylenol Tab) 650 mg Q4H PRN PO 05/10/16 20:30 06/09/16 20:29 05/11/16 00:15 650 MG Al Hydrox/Mg Hydrox/Simethicone (Maalox Max Susp) 15 ml Q4H PRN PO 05/10/16 20:30 06/09/16 20:29 Magnesium Hydroxide (Milk Of Magnesia Susp) 30 ml Q6H PRN PO 05/10/16 20:30 06/09/16 20:29 Ondansetron HCl (Zofran Inj) 4 mg Q6H PRN IV 05/10/16 20:30 06/09/16 20:29 Heparin Sodium (Porcine) 5000 unit 5,000 unit Q12H SQ 05/10/16 22:00 06/09/16 21:59 05/12/16 09:40 5,000 UNIT Sodium Chloride 1,000 ml @ 75 mls/hr [id number] IV 05/10/16 21:30 05/12/16 04:45 75 MLS/HR Pantoprazole Sodium/Syringe (Protonix Inj/ Syringe) 10 ml @ 5 mls/min DAILY@ IV 05/10/16 21:00 06/09/16 20:59 05/12/16 08:17 5 MLS/MIN Glucose (Glucose 40% Gel) 15-30 GRAMS 15 GRAMS... UD PRN PO 05/10/16 21:30 06/09/16 21:29 Glucose (Glucose Chew Tab) 4-8 Tablets 4 Tabl... UD PRN PO 05/10/16 21:30 06/09/16 21:29 Dextrose (Dextrose 50% 50ML Syringe) 25-50ML OF 50% DW IV FOR... UD PRN IV 05/10/16 21:30 06/09/16 21:29 Glucagon (Glucagon Inj) 1 mg UD PRN SQ 05/10/16 21:30 06/09/16 21:29 Levofloxacin (Levaquin Tab) 500 mg DAILY@11 PO 05/12/16 11:00 05/21/16 10:59 Prednisone (PredniSONE TAB) 5 mg DAILY PO 05/12/16 09:00 06/11/16 08:59 05/12/16 08:16 5 MG I & O: 24-Hour Column 05/12/16 08:00 Intake Total 3163 ml Output Total 150 ml Balance 3013 ml Vital Signs: Date Time Temp Pulse Resp B/P Pulse Ox O2 Delivery O2 Flow Rate FiO2 05/12/16 08:15 Room Air 05/12/16 08:13 36.5 55 18 160/77 96 Room Air 05/12/16 00:05 Room Air 05/11/16 23:19 36.6 59 16 161/78 96 Room Air 05/11/16 20:05 97 Room Air 05/11/16 19:12 36.5 62 16 152/78 97 Room Air 05/11/16 15:13 36.6 65 18 152/74 97 Room Air Laboratory Results: Last 24 Hours Test 05/11/16 16:51 05/11/16 20:17 05/12/16 07:33 05/12/16 07:46 Bedside Glucose 177 mg/dl 225 mg/dl 82 mg/dl Sodium Level 142 mmol/L Potassium Level 3.7 mmol/L Chloride Level 108 mmol/L Carbon Dioxide Level 23 mmol/L Anion Gap 11.0 mmol/L Blood Urea Nitrogen 42 mg/dl Creatinine 2.00 mg/dl Est Creatinine Clear Calc Drug Dose 26.1 ml/min Estimated GFR () 35.2 Estimated GFR (Non- 30.4 BUN/Creatinine Ratio 21.2 Random Glucose 78 mg/dl Calcium Level 8.2 mg/dl Test 05/12/16 11:25 Bedside Glucose 108 mg/dl
[2016-05-12 13:06] VITALS: BP 160/77; PULSE 55; TEMP 36.5; O2SAT 96
--- NOTE | 2016-05-12 15:13 | Discharge Summary ---
Discharge Summary Admission Date: May 10, 2016 at 20:27 Discharge Date: May 12, 2016 Discharge Disposition: Home Principal Diagnosis: Acute kidney injury on CKD Problems/Secondary Diagnoses: Acute gastroenteritis h/o lung transplant h/o lung cancer Immunizations: Have You Had Influenza Vaccine: No Influenza Vaccine Date: Feb 16, 2005 History of Tetanus Vaccine?: Unknown History of Pneumococcal: Yes Pneumococcal Date: Feb 22, 2011 History of Hepatitis B Vaccine: Unknown Procedures: none Consultations: Pulmonology Medication Reconciliation New Medications: Cholestyramine (Questran) 4 Gm Pow 4 GM PO DAILY, #1 BTL 0 Refills Continued Medications: Amlodipine (Norvasc) 5 Mg Tab 5 MG PO DAILY, TAB Aspirin Enteric Coated (Ecotrin Or Generic *) 81 Mg Ectab 81 MG PO QPM, 0 Refills Azithromycin (Zithromax) 250 Mg Tab 250 MG PO 3XWK, #4 [id number] Calcium Carbonate-Vitamin D (Os-Javier 500 Plus D) 1 Tab Tab 500 MG PO BID Ipratropium [place] (Ipratropium [place]) 75 Sprays/15 Ml [place] 2 SPRAYS RENAN QID PRN for Nasal Congestion, #15 Magnesium Chloride (Slow-Mag Tab) 64 Mg Tabcr [address] IN LUNCH AND DINNER FOR THE WEEK BEGINNING EACH FRIDAY Multivitamin (Multivitamin) Tab 1 TAB PO DAILY, 0 Refills Omeprazole (Prilosec) 40 Mg Capcr 40 MG PO DAILY Pravastatin (Pravachol ) 20 Mg Tab 40 MG PO DAILY, TAB Prednisone (Prednisone) 5 Mg Tab 5 MG PO DAILY, 0 Refills Repaglinide (Prandin) 2 Mg Tab 4 MG PO BID, TAB take 4 mg in the morning and at lunch time Repaglinide (Prandin) 2 Mg Tab 2 MG PO DAILY, TAB take 2 mg at supper Tacrolimus (Prograf Unknown Dose) Cap 1.5 MG PO DAILY Tacrolimus (Prograf) 1 Mg Cap 1 MG PO QPM, CAP Tamsulosin Hcl (Flomax) 0.4 Mg Cap 0.4 MG PO DAILY Terazosin (Hytrin) 5 Mg Cap 5 MG PO DAILY Trimethoprim/Sulfamethoxazole (Bactrim 400MG/80MG) Tab 1 TAB PO 2XWK TAKES 80MG MON. and .FRI Discharge Exam Patient feeling okay today, had two episodes of diarrhea today but no more, no vomiting, tolerating regular diet. Drinking well. Review of Systems: Constitutional: No chills, No fatigue, No fever, No problem reported, No sweats, No weakness, No weight loss Eyes: No diplopia, No discharge, No eye pain, No problem reported, No redness, No worsening of vision ENT: No dental problems, No hearing loss, No nasal symptoms, No problem reported, No sore throat, No tinnitus, No trouble swallowing, No unusual epistaxis Respiratory: No cough, No dyspnea at rest, No dyspnea on exertion, No hemoptysis, No problem reported, No shortness of breath, No sputum, No wheezing Cardiovascular: No PND, No chest pain, No claudication, No edema, No orthopnea, No palpitations, No problem reported Abdomen: + diarrhea, No GI bleeding, No constipation, No nausea, No pain, No vomiting Musculoskeletal: No calf pain, No joint pain, No muscle pain, No problem reported, No swelling Genitourinary - Male: No dysuria, No hematuria, No urinary frequency, No urinary urgency Neurologic: + weakness, No balance problems, No memory loss, No numbness/ tingling, No paralysis, No problem reported, No vertigo Psychiatric: No anhedonism, No anxiety, No depression symptoms, No insomnia , No problem reported, No substance abuse Endocrine: No excessive thirst, No excessive urination, No fatigue, No problem reported Hematologic / Lymphatic: No abnormal bleeding/bruising, No clotting problems , No night sweats, No problem reported, No swollen lymph nodes Integumentary: No bleeding, No color change, No itch, No new/changing skin lesions, No problem reported, No rash Physical Exam: General Appearance: WD/WN, no apparent distress Eyes: normal inspection, EOMI, sclerae normal ENT: normal ENT inspection, hearing grossly normal, pharynx normal Neck: supple, no adenopathy, no JVD, trachea midline Respiratory/Chest: chest non-tender, lungs clear, normal breath sounds, no respiratory distress, no accessory muscle use Cardiovascular: regular rate, rhythm, no edema, no gallop, no JVD, no murmur , normal peripheral pulses Abdomen / GI: normal bowel sounds, non tender, soft, no organomegaly Extremities: normal inspection, no calf tenderness, normal capillary refill , no pedal edema, normal range of motion Neurologic/Psychiatric: outreach rep II-XII nml as tested, no motor/sensory deficits , alert, normal mood/affect, normal reflexes, oriented x 3 Skin: normal color, warm/dry, no rash Lymphatic: no adenopathy Hospital Course 81 yo male with history of left lung transplant, UIP, lung cancer s/p resection and chemotherapy as well as CKD, presented with acute gastroenteritis and renal failure - Acute kidney injury on CKD stage III: Cr and BUN improved today, Cr down to 2.0, baseline is 1.7-1.9 patient eating and drinking well, no further need for IV fluids will d/c to home with PCP follow up - Acute gastroenteritis: improving quickly, likely due to eating turkey leftovers, toxic poisoning some diarrhea this morning, two episodes, no vomiting, eating regular diet will provide with Questran to use as needed for diarrhea, instructed to take 1 hour after other oral medications - Lung transplant: continue immunosuppressant, stop stress dose steroids and resume Prednisone give Levaquin 500mg daily x 2 days (done) and then resume the Zithromax and Bactrim on Friday - Lung cancer s/p resection and chemo: follows with [facility] q 6 months DVT prevention is heparin. The patient is a full code. Plan: d/c to home with PCP follow up this week Total Time Spent: Greater than 30 minutes This includes examination of the patient, discharge planning, medication reconciliation, and communication with other providers. Discharge Instructions Please refer to the electronic Patient Visit Report (Discharge Instructions) for additional information. Follow-Up Dr. Eber Sands this week Dr. Doron Mahmood on Friday (previously scheduled) Additional Copies To Eber Sands M.D.
== END 2016-05-12 15:57 | disposition home or self-care (01) | DRG 683 ==
LOC: ENRESERVDT → ENRESERVTM → C.EDB 13:25 → C.MED 20:27
PROVIDERS: ADMIT Internal Medicine; ATTEND Internal Medicine
DX: N17.9 Acute kidney failure, unspecified (principal); Z94.2 Lung transplant status; T86.819 Unspecified complication of lung transplant; K52.9 Noninfective gastroenteritis and colitis, unspecified; N18.3 Chronic kidney disease, stage 3 (moderate); E11.22 Type 2 diabetes mellitus with diabetic chronic kidney disease; I12.9 Hypertensive chronic kidney disease with stage 1 through stage 4 chronic kidney disease, or unspecified chronic kidney disease; Z79.899 Other long term (current) drug therapy; Z79.82 Long term (current) use of aspirin; Z79.52 Long term (current) use of systemic steroids; Z85.118 Personal history of other malignant neoplasm of bronchus and lung; E83.42 Hypomagnesemia; J84.112 Idiopathic pulmonary fibrosis

== ENCOUNTER → 2016-06-27 | Outpatient (CLI) | payer OTHER ==
[~2016-06-27] MED LIST changes: -ACET-1256 PO; +AMLO-110 PO; -AMLO2.5T PO; +APR25 PO; +ASPI81TA28 PO; +CALC500C70 PO; +CHOL4POW11 PO; -EVER0.5T PO; +HYT/2 PO; +IMD2X PO; +MULT-897 PO; +OMEP40CA41 PO; +OXYC1TAB3 PO; +PRED20TA PO; +PSYL0.524 PO; -REPA1TAB42 PO; +REPA2TAB13 PO; +TACR0.5C3 PO; +TAMS0.4C38 PO
--- NOTE | 2016-06-27 13:23 | DIAGNOSTIC IMAGING REPORT ---
KUB HISTORY: BPH, ELEVATED PSA, LOW BACK PAIN COMPARISON: None. FINDINGS: The bowel gas pattern is unremarkable. There are no dilated loops of small bowel to suggest an obstruction. No renal calculi. No ureteral calculi. Calcifications in the deep pelvis likely represent phleboliths. Moderate well-formed stool seen within the colon. Right lower lobe consolidation persists IMPRESSION: No evidence for bowel obstruction. Moderate well-formed stool seen within the colon. No renal calculi. Right lower lobe consolidation persists. Electronically signed by: Rosales Spears M.D. 06/27/2016 1:21 PM Dictated Date/Time: 06/27/2016 1:19 PM
[2016-06-27 13:30] LABS: BASO % 0.3 %; BASO ABS # 0.02 K/uL (0-0.2); COMPLETE YES; EOS % 3.6 %; HEMATOCRIT 36.3 % (42-52); IG% 0.1 %; LYMPH % 16.6 %; LYMPH ABS # 1.25 K/uL (1.2-3.4); MEAN CELL VOLUME 82.7 fL (80-100); MEAN CORPUSCULAR HEMOGLOBIN 28.2 pg (25-34); MEAN CORPUSCULAR HGB CONC 34.2 g/dl (32-36); MEAN PLATELET VOLUME 9.3 fL (7.4-10.4); MONO % 12.3 %; NEUT % 67.1 %; PLATELET COUNT 146 K/uL (130-400); RED BLOOD COUNT 4.39 M/uL (4.7-6.1); WHITE BLOOD COUNT 7.51 K/uL (4.8-10.8)
[2016-06-27 13:34] LABS: URINE APPEARANCE CLEAR (CLEAR); URINE BILIRUBIN NEG (NEG); URINE COLOR YELLOW; URINE NITRITE NEG (NEG); URINE SPECIFIC GRAVITY 1.014 (1.000-1.030); UROBILINOGEN NEG (NEG)
[2016-06-27 13:36] LABS: MANUAL MICROSCOPIC REQUIRED? NO; REVIEW REQ? NO
--- NOTE | 2016-06-27 13:37 | DIAGNOSTIC IMAGING REPORT ---
SI JOINTS 3 OR MORE VIEWS CLINICAL HISTORY: BPH, ELEVATED PSA, LOW BACK PAIN COMPARISON STUDY: No previous studies for comparison. FINDINGS: The sacroiliac joints are intact without evidence for ankylosis. No erosions are identified. No suspicious lesions are identified by radiography. Mild arthritis of both sacroiliac joints is noted. 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 Electronically signed by: Grant Mistry M.D. 06/27/2016 1:35 PM Dictated Date/Time: 06/27/2016 1:32 PM
--- NOTE | 2016-06-27 13:56 | DIAGNOSTIC IMAGING REPORT ---
LUMBAR SPINE 5 VIEWS CLINICAL HISTORY: Low back pain of several days' duration. FINDINGS: Five views of the lumbar spine are obtained. No prior studies are available for comparison at the time of dictation. The skeletal structures are osteopenic. There is no radiographic evidence of fracture or malalignment. Vertebral body height and alignment are preserved throughout the lumbar spine. There is mild straightening of the lumbar lordosis. The transverse and spinous processes appear intact. There is no evidence of spondylolysis. Mild facet arthropathy is noted in the lower lumbar region. Small anterior osteophytes are seen throughout. There is moderate degenerative disc space narrowing at L5-S1 with associated endplate sclerosis. The remaining disc spaces appear preserved. The bony pelvis is intact as visualized. Mild degenerative sclerosis is noted in the sacroiliac joints. There is a nonobstructed abdominal bowel gas pattern noting moderate constipation. Atherosclerotic calcification is present in the abdominal aorta. IMPRESSION: 1. No acute bony abnormality is seen involving the lumbosacral spine. 2. Osteopenia and mild spondylotic change as above. 3. Moderate constipation. Dictated: 06/27/2016 1:11 PM Transcribed: 06/27/2016 1:56 PM [email or web address]_Arron Electronically signed by: Dread Joshi M.D. 06/27/2016 2:00 PM Dictated Date/Time: 06/27/2016 1:11 PM
[2016-06-27 14:00] LABS: BLOOD UREA NITROGEN 43 mg/dl (7-18); BUN/CREATININE RATIO 19.4 (10-20); CALCIUM 8.6 mg/dl (8.5-10.1); CARBON DIOXIDE 24 mmol/L (21-32); CHLORIDE 100 mmol/L (98-107); GLUCOSE 88 mg/dl (70-99); POTASSIUM 4.2 mmol/L (3.5-5.1); SODIUM 135 mmol/L (136-145)
== END | disposition home or self-care (01) ==
LOC: C.RADBC 12:05
PROVIDERS: ATTEND Internal Medicine Geriatric Medicine
DX: N40.0 Benign prostatic hyperplasia without lower urinary tract symptoms (principal); M54.5 Low back pain; R97.20 Elevated prostate specific antigen [PSA]; M85.88 Other specified disorders of bone density and structure, other site; K59.00 Constipation, unspecified; M53.3 Sacrococcygeal disorders, not elsewhere classified

== ENCOUNTER 2016-06-30 10:55 | Emergency (ER) | payer OTHER ==
[~2016-06-30] VITALS: Ht 170.2 cm; Wt 74.3 kg
[~2016-06-30 10:55] MED LIST changes: -APR25 PO; -ASPI81TA28 PO; -CALC500C70 PO; -HYT/2 PO; -IMD2X PO; -MULT-897 PO; -OMEP40CA41 PO; -OXYC1TAB3 PO; -PRED20TA PO; -PSYL0.524 PO; -TACR0.5C3 PO; -TAMS0.4C38 PO
[2016-06-30 11:04] VITALS: TEMP 36.5; Ht 170.2 cm; Wt 74.3 kg
[2016-06-30] MEDS ORDERED: OXYCODONE HCL IR 5 MG TAB (IMMEDIATE RELEASE) PO STA (12:08)
--- NOTE | 2016-06-30 12:09 | EMERGENCY ROOM VISIT NOTE ---
History Report prepared by Jaye: Aric Schmid Under the Supervision of: Dr. Servando Miguel M.D. First contact with patient: 11:57 Chief Complaint: BACK PAIN Stated Complaint: SEVERE BACK PAIN History of Present Illness The patient is an 81 year old male who presents to the Emergency Room with complaints of persistent back pain that started a few days ago. Per the patient' s , the patient started getting a bad cough 6 days ago, and went to his doctor's office 5 days ago. He also started getting severe back pain that radiates down his right leg. The patient then went to his doctor's office again 3 days ago. He also complains of a runny nose, and weakness in his right leg. He has a history of a lung transplant, and is on Azithromycin and Bactrim. The patient denies any history of back issues. He is still able to walk currently. The patient denies any loss of bladder of bowel control. The patient's notes that she also caught the cough. He does not take any pain medications on a regular basis. Source of History: patient, spouse/significant other Onset: A few days ago Position: back Symptom Intensity: severe Timing: other (persistent) Associated Symptoms: + cough, + weakness (right leg) Note: Associated symptoms: Right leg pain, runny nose. Denies loss of bladder or bowel control. Review of Systems See HPI for pertinent positives & negatives. A total of 10 systems reviewed and were otherwise negative. Past Medical & Surgical Medical Problems: (1) DIAB LORRAINE WO COMPL, TYPE II OR UNSPEC TYPE, UNCONTROLLED (2) HX-BRONCHOGENIC MALIGNAN (3) IDIOPATHIC PULMONARY FIBROSIS (4) LUNG TRANSPLANT STATUS (5) SIRS (systemic inflammatory response syndrome) Family History Family history omitted secondary to age. Social History Smoking Status: Never Smoker Alcohol Use: none Drug Use: none Marital Status: Housing Status: lives with significant other Occupation Status: retired Current/Historical Medications Scheduled Amlodipine (Norvasc), 5 MG PO DAILY Aspirin Enteric Coated (Ecotrin Or Generic *), 81 MG PO QPM Azithromycin (Zithromax), 250 MG PO 3XWK Calcium Carbonate-Vitamin D (Os-Javier 500 Plus D), 500 MG PO BID Magnesium Chloride (Slow-Mag Tab), 64 MG PO BID Multivitamin (Multivitamin), 1 TAB PO DAILY Omeprazole (Prilosec), 40 MG PO DAILY Pravastatin (Pravachol ), 40 MG PO DAILY Prednisone (Prednisone), 5 MG PO DAILY Prednisone (Prednisone), 3 TAB PO DAILY Repaglinide (Prandin), 4 MG PO BID Repaglinide (Prandin), 2 MG PO DAILY Tacrolimus (Prograf Unknown Dose), 1.5 MG PO DAILY Tacrolimus (Prograf), 1 MG PO QPM Tamsulosin Hcl (Flomax), 0.4 MG PO DAILY Terazosin (Hytrin), 5 MG PO DAILY Trimethoprim/Sulfamethoxazole (Bactrim 400MG/80MG), 1 TAB PO 2XWK Scheduled PRN Ipratropium [place] (Ipratropium [place]), 2 SPRAYS RENAN QID PRN for Nasal Congestion Oxycodone Immediate Rel Tab (Roxicodone Ir), 1-2 TAB PO Q4H PRN for Severe Pain Allergies Coded Allergies: Hydralazine (Unverified Allergy, Unknown, DIZZY, OVER ALL SICK FEELING, ) Lisinopril (Unverified Allergy, Unknown, NAUSEA, STOMACH UPSET, DEATHLY SICK, 06/30/16) Metronidazole (Unverified Allergy, Unknown, NEUROPATY,, 06/30/16) Simvastatin (Unverified Allergy, Unknown, UNKOWN , 06/30/16) Physical Exam Vital Signs Date Time Temp Pulse Resp B/P Pulse Ox O2 Delivery O2 Flow Rate FiO2 06/30/16 15:16 70 20 170/84 100 06/30/16 14:16 55 20 170/85 97 06/30/16 13:21 58 20 174/81 98 06/30/16 11:04 36.5 61 16 182/90 97 Room Air Physical Exam GENERAL: Patient is uncomfortable appearing and in mild distress. HEENT: No acute trauma, normocephalic atraumatic, mucous membranes moist, no nasal congestion, no scleral icterus. NECK: No stridor, no adenopathy, no meningismus, trachea is midline. LUNGS: Decreased breath sounds in the right lower lobe. Runny nose and cough. HEART: Regular rate and rhythm. No murmurs, rubs, gallops appreciated. ABDOMEN: Soft, nontender, bowel sounds positive, no masses appreciated, no peritonitis. BACK: No midline tenderness, no CVA tenderness EXTREMITIES: Normal motion all extremities, no cyanosis, no edema. NEUROLOGIC: Alert and oriented, no acute motor or sensory deficits, no focal weakness, cranial nerves grossly intact. SKIN: No rash, no jaundice, no diaphoresis. Medical Decision & Procedures ER Provider Diagnostic Interpretation: X ray results are stated below per my interpretation and the radiologist's interpretation. CHEST ONE VIEW PORTABLE CLINICAL HISTORY: cough, h/o lung txt dyspnea COMPARISON STUDY: 05/10/2016 FINDINGS: No significant change radiographically compared to the prior exam. Chronic changes right hemithorax including pleural thickening and associated volume loss. This is unchanged from the prior exam. Left lung is considered clear. There is at least one old left rib fracture. Postoperative changes to the left hilum are stable IMPRESSION: Unchanged evaluation of chest compared to the prior study of 05/10/2016. Chronic changes right hemithorax are unaltered Electronically signed by: Luis Townsend M.D. 06/30/2016 12:56 PM Dictated Date/Time: 06/30/2016 12:54 PM Laboratory Results 06/30/16 13:00 06/30/16 13:00 Test 06/30/16 13:00 06/30/16 13:22 Red Blood Count 4.43 M/uL (4.7-6.1) Mean Corpuscular Volume 80.8 fL (80-100) Mean Corpuscular Hemoglobin 28.7 pg (25-34) Mean Corpuscular Hemoglobin Concent 35.5 g/dl (32-36) RDW Standard Deviation 42.1 fL (36.4-46.3) RDW Coefficient of Variation 14.2 % (11.5-14.5) Mean Platelet Volume 8.8 fL (7.4-10.4) Anion Gap 11.0 mmol/L (3-11) Est Creatinine Clear Calc Drug Dose 27.1 ml/min Estimated GFR () 35.2 Estimated GFR (Non- 30.4 BUN/Creatinine Ratio 18.4 (10-20) Calcium Level 8.7 mg/dl (8.5-10.1) Influenza Type A Antigen Neg for Influ A (NEG) Influenza Type B Antigen Neg for Influ B (NEG) Laboratory results as reviewed by me. Medications Administered Medications (Trade) Dose Ordered Sig/Ernie Route Start Time Stop Time Status Last Admin Dose Admin Oxycodone HCl (Roxicodone Immediate Rel Tab) 5 mg NOW STAT PO 06/30/16 12:08 06/30/16 12:09 DC 06/30/16 13:17 5 MG Fentanyl Citrate (Fentanyl Inj) 50 mcg NOW STAT IV 06/30/16 13:56 06/30/16 13:57 DC 06/30/16 14:13 50 MCG Oxycodone HCl (Roxicodone Immediate Rel 5MG Home Pack) 1 homepack UD ONCE PO 06/30/16 14:45 06/30/16 14:46 DC 06/30/16 15:14 1 HOMEPACK Prednisone (PredniSONE TAB) 60 mg NOW STAT PO 06/30/16 14:43 06/30/16 14:44 DC 06/30/16 15:05 60 MG ED Course 1200: The patient was evaluated in room C7. A complete history and physical exam was performed. 1208: Ordered Roxicodone Immediate Rel Tab 5 mg PO. 1355: I reevaluated the patient and he notes that his back pain is only a little bit better. 1356: Ordered Fentanyl Inj 50 mcg IV. 1439: I reevaluated the patient and he feels much better and would like to go home. The patient verbally expressed understanding and agreement of the treatment plan. The patient will be discharged. 1443: Ordered Prednisone Tab 60 mg PO. 1445: Ordered Roxicodone Immediate Rel 5MG Home Pack 1 homepack PO. Medical Decision Differential: Musculoskeletal, Disc Herniation, Fracture, Cord Compression, Discitis, Infectious, Aortic Pathology, Renal Colic, UTI/Pyelonephritis, Acute Exacerbation of Chronic Pain, Sciatica, Cauda Equina, amongst other pathologies entertained. Pleasant 81 yr old male who notes harsh cough earlier in week and spontaneous right low back pain radiating to toes. Notes weakness though on exam 5.5 strength and neuro intact. No urinary bowel control issues. Labs unremarkable. No fevers and no midline TTP low back. CXR is unchanged from normal. He is now on two separate abx. Chronically on 5mg Pred which we will bump to 60 and taper down. Likely back pain is sciatica in nature and at this time patient does not meet criteria for MRI. Pulses equal bilaterally. No abdominal pain. No fevers here. Feeling much improved. Wishes to go home which seems reasonable. Stressed PCP follow up. RTED if worsening or other concerns. Impression Primary Impression: Low back pain with right-sided sciatica Additional Impression: Cough Scribe Attestation The scribe's documentation has been prepared under my direction and personally reviewed by me in its entirety. I confirm that the note above accurately reflects all work, treatment, procedures, and medical decision making performed by me. Departure Information Dispostion Home / Self-Care Prescriptions Oxycodone Immediate Rel Tab (ROXICODONE IR) 5 Mg Tab 1-2 TAB PO Q4H Y for Severe Pain, #12 TAB Prov: Servando Miguel M.D. 06/30/16 Prednisone (Prednisone) 20 Mg Tab 3 TAB PO DAILY, #12 TAB Take 3 tabs for 2 days, then 2 tabs for 3 days, then 1 tab for 3 days. Then return to your normal prednisone dose. Prov: Servando Miguel M.D. 06/30/16 Referrals Eber Sands M.D. (PCP) Patient Instructions ED Sciatica, My [facility] Additional Instructions You have received a narcotic pain medication prescription. These medications may cause drowsiness and should not be used with other sedative medications. Do not drive, drink alcohol, perform dangerous activities, nor make important decisions after taking these medications. terminal block assembler use or inappropriate use may lead to addiction. Problem Qualifiers Primary Impression: Low back pain with right-sided sciatica Chronicity: acute Back pain laterality: right Qualified Codes: M54.41 - Lumbago with sciatica, right side
--- NOTE | 2016-06-30 12:57 | DIAGNOSTIC IMAGING REPORT ---
CHEST ONE VIEW PORTABLE CLINICAL HISTORY: cough, h/o lung txt dyspnea COMPARISON STUDY: 05/10/2016 FINDINGS: No significant change radiographically compared to the prior exam. Chronic changes right hemithorax including pleural thickening and associated volume loss. This is unchanged from the prior exam. Left lung is considered clear. There is at least one old left rib fracture. Postoperative changes to the left hilum are stable IMPRESSION: Unchanged evaluation of chest compared to the prior study of 05/10/2016. Chronic changes right hemithorax are unaltered Electronically signed by: Luis Townsend M.D. 06/30/2016 12:56 PM Dictated Date/Time: 06/30/2016 12:54 PM
[2016-06-30 13:10] LABS: HEMATOCRIT 35.8 % (42-52); MEAN CELL VOLUME 80.8 fL (80-100); MEAN CORPUSCULAR HEMOGLOBIN 28.7 pg (25-34); MEAN CORPUSCULAR HGB CONC 35.5 g/dl (32-36); MEAN PLATELET VOLUME 8.8 fL (7.4-10.4); PLATELET COUNT 144 K/uL (130-400); RED BLOOD COUNT 4.43 M/uL (4.7-6.1); WHITE BLOOD COUNT 5.78 K/uL (4.8-10.8)
[2016-06-30 13:27] LABS: BUN/CREATININE RATIO 18.4 (10-20); CALCIUM 8.7 mg/dl (8.5-10.1); POTASSIUM 3.9 mmol/L (3.5-5.1)
[2016-06-30] MEDS ORDERED: FENTANYL CITRATE INJ 50 MCG/1 ML 2 ML VIAL IV STA (13:56)
[2016-06-30] MEDS ORDERED: PRED20TA PO (14:42)
[2016-06-30] MEDS ORDERED: OXYC1TAB3 PO (14:42)
[2016-06-30] MEDS ORDERED: OXYCODONE IR HOME PACK PO ONE (14:45)
[2016-06-30 15:16] VITALS: BP 170/84; PULSE 70; O2SAT 100
== END 2016-06-30 15:17 | disposition home or self-care (01) ==
LOC: C.EDB 10:57 → C.EDC 15:17
DX: M54.41 Lumbago with sciatica, right side (principal); J84.112 Idiopathic pulmonary fibrosis; Z94.2 Lung transplant status; Z85.118 Personal history of other malignant neoplasm of bronchus and lung; Z79.2 Long term (current) use of antibiotics; Z79.52 Long term (current) use of systemic steroids; Z79.82 Long term (current) use of aspirin; Z79.899 Other long term (current) drug therapy

== ENCOUNTER → 2016-07-02 | Outpatient (CLI) | payer OTHER ==
[~2016-07-02] MED LIST changes: +APR25 PO; +ASPI81TA28 PO; +CALC500C70 PO; -CHOL4POW11 PO; +HYT/2 PO; +IMD2X PO; +MULT-897 PO; +OMEP40CA41 PO; +OXYC1TAB3 PO; +PRED20TA PO; +PSYL0.524 PO; +TACR0.5C3 PO; +TAMS0.4C38 PO
--- NOTE | 2016-07-03 08:09 | DIAGNOSTIC IMAGING REPORT ---
MRI OF THE LUMBAR SPINE WITHOUT CONTRAST CLINICAL HISTORY: Osteopenia. Low back pain radiating into right lower extremity. History of lung cancer. COMPARISON STUDY: Lumbar spine radiographs June 27, 2016. TECHNIQUE: Utilizing a 1.5 Raine magnet and dedicated coil, multiplanar, multiecho imaging of the lumbar spine was performed without IV contrast. FINDINGS: For purposes of numbering on this exam, the L5-S1 disc space is assigned to axial image 27 of 30. Alignment of the lumbar spine is anatomic. Vertebral body heights are maintained. There is no marrow replacement or marrow edema. The conus terminates at the mid L1 level. There is no intracanalicular mass or fluid collection. Paravertebral soft tissues are unremarkable. L1-2: The central canal and neural foramen are patent. There is a tiny right paracentral disc protrusion. L2-3: The central canal and neural foramen are patent. L3-4: The central canal and neural foramen are patent. There is mild facet arthrosis. L4-5: The central canal and neural foramen are patent. There is mild facet arthrosis. L5-S1: There is disc space narrowing with a disc bulge. Facet arthrosis is present. There is mild narrowing of the central canal and lateral recesses. There is mild to moderate narrowing of the right neural foramen. IMPRESSION: 1. 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 2. Disc space narrowing with disc bulge at L5-S1 and facet arthrosis. Mild narrowing of the central canal and lateral recesses with mild to moderate narrowing of the right neural foramen. 3. No evidence of metastatic disease within the lumbar spine. Electronically signed by: Grant Mistry M.D. 07/03/2016 8:08 AM Dictated Date/Time: 07/02/2016 8:51 PM
== END | disposition home or self-care (01) ==
LOC: C.MRI 18:00
PROVIDERS: ATTEND Internal Medicine
DX: M51.36 Other intervertebral disc degeneration, lumbar region (principal); M85.80 Other specified disorders of bone density and structure, unspecified site

== ENCOUNTER 2016-07-30 23:47 | Emergency (ER) | payer OTHER ==
[~2016-07-30] VITALS: Ht 170.2 cm; Wt 74.7 kg
[~2016-07-30 23:47] MED LIST changes: -APR25 PO; -ASPI81TA28 PO; -CALC500C70 PO; -HYT/2 PO; -IMD2X PO; -MULT-897 PO; -OMEP40CA41 PO; -PSYL0.524 PO; -TACR0.5C3 PO; -TAMS0.4C38 PO
[2016-07-30 23:55] VITALS: TEMP 36.3; Ht 170.2 cm; Wt 74.7 kg
[2016-07-31] MEDS ORDERED: ONDANSETRON INJ 2 MG/ML 2 ML VIAL IV STA (00:23)
[2016-07-31] MEDS ORDERED: MoRPHine SULFATE 4 MG/ML 1 ML CARP\\VIAL IV STA ×3 (00:23→02:36)
--- NOTE | 2016-07-31 00:25 | EMERGENCY ROOM VISIT NOTE ---
History Report prepared by Jaye: Maikol Torres Under the Supervision of: Dr. Abner Ye M.D. First contact with patient: 00:06 Chief Complaint: BACK PAIN Stated Complaint: BACK AND LEG PAIN History of Present Illness The patient is a 81 year old male who presents to the Emergency Room with complaints of worsening right sided lower back pain that began 1 month ago. The patient rates his pain a 10/10 in severity. The patient was seen two weeks ago in the ED. He was given an MRI which showed disc space narrowing and a bulging disc. The patient's pain is radiating into his hip and down his entire right leg. He notes some right leg weakness. He is also experiencing chills. The patient takes Oxycodone 5 mg PO for the pain, but states that it did not help tonight. He would take more, but he does not want to become addicted to it. He usually gets Cortisone shots in his back for the pain. It is too soon for him to receive another one. He denies any fever, cough, abdominal pain, bowel trouble, numbness, or urinary symptoms. Source of History: patient, family, spouse/significant other Onset: 1 month ago Position: back (lower), leg (right) Symptom Intensity: 10/10 Quality: sharp Timing: worsening Associated Symptoms: + chills, + weakness, No SOB, No abdominal pain, No chest pain, No cough, No diarrhea, No fevers, No hematochezia, No melena, No numbness, No urinary symptoms Review of Systems See HPI for pertinent positives & negatives. A total of 10 systems reviewed and were otherwise negative. Past Medical & Surgical Medical Problems: (1) DIAB LORRAINE WO COMPL, TYPE II OR UNSPEC TYPE, UNCONTROLLED (2) HX-BRONCHOGENIC MALIGNAN (3) IDIOPATHIC PULMONARY FIBROSIS (4) LUNG TRANSPLANT STATUS (5) SIRS (systemic inflammatory response syndrome) Old medical records were reviewed. Nurse's notes were reviewed and I agree with. Family History Omitted secondary to age. Social History Smoking Status: Never Smoker Alcohol Use: none Drug Use: none Marital Status: Housing Status: lives with significant other Occupation Status: retired Current/Historical Medications Scheduled Amlodipine (Norvasc), 5 MG PO QAM Aspirin (Aspirin Ec), 81 MG PO QPM Azithromycin (Zithromax), 250 MG PO 3XWK Calcium/Vitamin D (Os-Javier 500 Plus D), 500 MG PO BID Hydralazine Hcl (Apresoline), 0.5 TAB PO TID Loperamide Hcl (Imodium), 2 MG PO QAM Magnesium Chloride (Slow-Mag Tab), 64 MG PO BID Multiple Vitamin (One Daily), 1 TAB PO DAILYBB Omeprazole (Prilosec), 40 MG PO QAM Pravastatin (Pravachol ), 40 MG PO HS Prednisone (Prednisone), 5 MG PO QAM Psyllium (Metamucil), 2 TBS PO QAM Repaglinide (Prandin), 4 MG PO BID Repaglinide (Prandin), 2 MG PO DAILY Tacrolimus (Prograf), 1 MG PO QAM Tacrolimus (Prograf), 1.5 MG PO QPM Tamsulosin Hcl (Flomax), 0.4 MG PO HS Terazosin Hcl (Hytrin), 2 MG PO TID Trimethoprim/Sulfamethoxazole (Bactrim 400MG/80MG), 1 TAB PO 2XWK Scheduled PRN Ipratropium Barnet (Ipratropium Barnet), 2 SPRAYS RENAN QID PRN for Nasal Congestion Allergies Coded Allergies: Hydralazine (Unverified Allergy, Unknown, DIZZY, OVER ALL SICK FEELING, ) Lisinopril (Unverified Allergy, Unknown, NAUSEA, STOMACH UPSET, DEATHLY SICK, 07/30/16) Metronidazole (Unverified Allergy, Unknown, NEUROPATY,, 07/30/16) Simvastatin (Unverified Allergy, Unknown, UNKOWN , 07/30/16) Physical Exam Vital Signs Date Time Temp Pulse Resp B/P Pulse Ox O2 Delivery O2 Flow Rate FiO2 07/31/16 03:49 82 149/92 07/31/16 01:30 74 20 190/99 94 Room Air 07/30/16 23:55 36.3 79 20 163/86 92 Room Air Physical Exam General: Non ill appearing older male. Ambulating without difficulty. Well developed well nourished in no acute distress, breathing comfortably on room air. Normal speech HEENT: Normal cephalic atraumatic. Pupils are equal round and reactive to light. Extraocular movements are intact. Oropharynx is pink with moist mucous membranes. No swelling of the mouth lips or tongue. Neck: Supple with a midline trachea. No meningeal signs or stiffness, no JVD or bruits. No Stridor. Chest: Clear to auscultation bilaterally. No wheezes or rhonchi. No increased work of breathing. Heart: regular rate and rhythm. Abdomen: Soft nontender, nondistended without rebound guarding or rigidity. Extremities: No cyanosis or clubbing. No calf tenderness or assymetry. Trace to 1+ bilateral lower extremity edema. Spine/Back. Non tender to palpation. No CVA tenderness. Mild increase in pain secondary to right leg raise. Skin: Good turgor without rashes. Neurologic exam: Cranial nerves two through 12 are intact. Motor and sensation are intact and symmetrical throughout. Medical Decision & Procedures ER Provider Diagnostic Interpretation: Radiology results as stated below per my review and radiologist interpretation: CT ABDOMEN & PELVIS Colonic diverticulosis without evidence of acute diverticulitis. Moderate feces in the colon. Prostate invaginates into the base of the bladder and bladder is distended. Multiple degenerative changes of the lumbar spine. Vacuum disc phenomenon at L5- S1. L5-S1 disc/osteophyte complex and facet arthropathy cause [id number] foraminal narrowing bilaterally. Posterior disc bulge and facet arthropathy/ minus hypertrophy. L4-L5 cause mild to moderate canal and moderate left foraminal narrowing. L4-L5 spinous process about each other, suggesting Baastrup 's disease. Resection of the right lower lobe. Severe bronchiectasis of the remaining right lung without normal intervening lung parenchyma. Small right pleural effusion. Trace perisplenic fluid. Left renal cyst. Normal appendix. Coronary artery and aortic valve calcifications. Atherosclerotic calcifications of aorta and its branches. Radiologist: Servando Garcia MD Laboratory Results 07/31/16 00:35 Red Blood Count 4.65, Mean Corpuscular Volume 83.9, Mean Corpuscular Hemoglobin 29.7, Mean Corpuscular Hemoglobin Concent 35.4, Mean Platelet Volume 8.7, Neutrophils (%) (Auto) 58.9, Lymphocytes (%) (Auto) 29.6, Monocytes (%) (Auto) 8.6, Eosinophils (%) (Auto) 2.1, Basophils (%) (Auto) 0.2, Neutrophils # (Auto) 3.90, Lymphocytes # (Auto) 1.96, Monocytes # (Auto) 0.57, Eosinophils # (Auto) 0.14, Basophils # (Auto) 0.01 07/31/16 00:35 Test 07/31/16 00:35 07/31/16 00:45 White Blood Count 6.62 K/uL (4.8-10.8) Red Blood Count 4.65 M/uL (4.7-6.1) Hemoglobin 13.8 g/dL (14.0-18.0) Hematocrit 39.0 % (42-52) Mean Corpuscular Volume 83.9 fL (80-100) Mean Corpuscular Hemoglobin 29.7 pg (25-34) Mean Corpuscular Hemoglobin Concent 35.4 g/dl (32-36) Platelet Count 143 K/uL (130-400) Mean Platelet Volume 8.7 fL (7.4-10.4) Neutrophils (%) (Auto) 58.9 % Lymphocytes (%) (Auto) 29.6 % Monocytes (%) (Auto) 8.6 % Eosinophils (%) (Auto) 2.1 % Basophils (%) (Auto) 0.2 % Neutrophils # (Auto) 3.90 K/uL (1.4-6.5) Lymphocytes # (Auto) 1.96 K/uL (1.2-3.4) Monocytes # (Auto) 0.57 K/uL (0.11-0.59) Eosinophils # (Auto) 0.14 K/uL (0-0.5) Basophils # (Auto) 0.01 K/uL (0-0.2) RDW Standard Deviation 42.7 fL (36.4-46.3) RDW Coefficient of Variation 14.0 % (11.5-14.5) Immature Granulocyte % (Auto) 0.6 % Immature Granulocyte # (Auto) 0.04 K/uL (0.00-0.02) Anion Gap 8.0 mmol/L (3-11) Est Creatinine Clear Calc Drug Dose 24.6 ml/min Estimated GFR () 31.4 Estimated GFR (Non- 27.1 BUN/Creatinine Ratio 22.8 (10-20) Calcium Level 8.8 mg/dl (8.5-10.1) Urine Color YELLOW Urine Appearance CLEAR (CLEAR) Urine pH 6.5 (4.5-7.5) Urine Specific [place] 1.010 (1.000-1.030) Urine Protein 1+ (NEG) Urine Glucose (UA) NEG (NEG) Urine Ketones NEG (NEG) Urine Occult Blood NEG (NEG) Urine Nitrite NEG (NEG) Urine Bilirubin NEG (NEG) Urine Urobilinogen NEG (NEG) Urine Leukocyte Esterase NEG (NEG) Urine WBC (Auto) 0 /hpf (0-5) Urine RBC (Auto) 0-4 /hpf (0-4) Urine Hyaline Casts (Auto) 1-5 /lpf (0-5) Urine Epithelial Cells (Auto) 0-5 /lpf (0-5) Urine Bacteria (Auto) NEG (NEG) Laboratory studies as stated above per my review. Medications Administered Medications (Trade) Dose Ordered Sig/Ernie Route Start Time Stop Time Status Last Admin Dose Admin Morphine Sulfate (MoRPHine SULFATE INJ) 4 mg NOW STAT IV 07/31/16 00:23 07/31/16 00:25 DC 07/31/16 00:40 4 MG Ondansetron HCl (Zofran Inj) 4 mg NOW STAT IV 07/31/16 00:23 07/31/16 00:25 DC 07/31/16 00:40 4 MG Morphine Sulfate (MoRPHine SULFATE INJ) 4 mg NOW STAT IV 07/31/16 01:55 07/31/16 01:56 DC 07/31/16 02:03 4 MG Morphine Sulfate (MoRPHine SULFATE INJ) 4 mg NOW STAT IV 07/31/16 02:36 07/31/16 04:02 DC 07/31/16 04:06 4 MG ED Course 0006: Past medical records reviewed. The patient was evaluated in room A3, and a complete history and physical examination were performed. 0023: Zofran Inj 4 mg IV, Morphine Sulfate 4 mg IV 0155: Morphine Sulfate 4 mg IV 0236: Morphine Sulfate 4 mg IV 0237: I ordered a CT at this time. 0420: Upon reevaluation, the patient is resting. I discussed the results and treatment plan with him. He verbalized agreement of the treatment plan. The patient was discharged home. Medical Decision Differentials include disc disease, infection, inflammation, electrolyte or metabolic abnormality, and musculoskeletal. This patient comes in as described above. He was placed in room A3. He looks well on exam. He's been having low back pain for about a month because down his right leg. It is worse with movement. He's had a couple pain injections by Dr. Mcpherson that did help for a little bit but the pain comes back.he did have an MRI recently which shows some disc disease. He does have a history of lung transplant. IV access established and he was given IV morphine several times here and did feel better after taking this but the pain would come back eventually. He has no neurologic deficits. he has nothing to suggest cauda equina syndrome. He has baseline renal insufficiency with a creatinine of 2.2. He has no fever or white count to suggest an infectious. urinalysis does not not suggest that she has UTI. He is on OxyIR at home but has not been taking very much. I encouraged him to take it more regularly and follow-up with his regular doctor tomorrow for recheck and further pain management or evaluation. I did also CAT scan. There are no other anterior abdominal abnormalities to explain his symptoms at this point. I think it is likely related his lumbar spine. He will be discharged to home. Impression Primary Impression: Lower back pain Scribe Attestation The scribe's documentation has been prepared under my direction and personally reviewed by me in its entirety. I confirm that the note above accurately reflects all work, treatment, procedures, and medical decision making performed by me. Departure Information Dispostion Home / Self-Care Referrals Eber Sands M.D. (PCP) Forms HOME CARE DOCUMENTATION FORM, IMPORTANT VISIT INFORMATION Patient Instructions My [facility] Additional Instructions Rest Continue to use your pain medications Return if: worsening symptoms, increasing pain, fever, numbness or weakness, any new problems or concerns Follow up with your doctor tomorrow for a recheck
[2016-07-31 00:43] LABS: BASO % 0.2 %; BASO ABS # 0.01 K/uL (0-0.2); COMPLETE YES; EOS % 2.1 %; IG% 0.6 %; LYMPH % 29.6 %; LYMPH ABS # 1.96 K/uL (1.2-3.4); MEAN CELL VOLUME 83.9 fL (80-100); MEAN CORPUSCULAR HEMOGLOBIN 29.7 pg (25-34); MEAN CORPUSCULAR HGB CONC 35.4 g/dl (32-36); MEAN PLATELET VOLUME 8.7 fL (7.4-10.4); MONO % 8.6 %; NEUT % 58.9 %; PLATELET COUNT 143 K/uL (130-400); RED BLOOD COUNT 4.65 M/uL (4.7-6.1); WHITE BLOOD COUNT 6.62 K/uL (4.8-10.8)
[2016-07-31 01:07] LABS: BUN/CREATININE RATIO 22.8 (10-20); CALCIUM 8.8 mg/dl (8.5-10.1); CREATININE 2.2 mg/dl (0.60-1.40); POTASSIUM 4.4 mmol/L (3.5-5.1)
[2016-07-31 01:08] LABS: URINE APPEARANCE CLEAR (CLEAR); URINE BILIRUBIN NEG (NEG); URINE COLOR YELLOW; URINE EPITHELIAL CELL AUTO 0-5 /lpf (0-5); URINE NITRITE NEG (NEG); URINE PH 6.5 (4.5-7.5); UROBILINOGEN NEG (NEG)
[2016-07-31 01:13] LABS: MANUAL MICROSCOPIC REQUIRED? NO; REVIEW REQ? NO
[2016-07-31 01:30] VITALS: O2SAT 94
[2016-07-31] MEDS ORDERED: OMEP40CA41 PO (02:35)
[2016-07-31] MEDS ORDERED: ASPI81TA28 PO (02:35)
[2016-07-31] MEDS ORDERED: TACR1CAP PO (02:38)
[2016-07-31] MEDS ORDERED: TACR0.5C3 PO (02:38)
[2016-07-31] MEDS ORDERED: MULT-897 PO (02:45)
[2016-07-31] MEDS ORDERED: IMD2X PO (02:45)
[2016-07-31] MEDS ORDERED: TAMS0.4C38 PO (02:45)
[2016-07-31] MEDS ORDERED: CALC500C70 PO (02:45)
[2016-07-31] MEDS ORDERED: APR25 PO (02:50)
[2016-07-31] MEDS ORDERED: PSYL0.524 PO (02:51)
[2016-07-31] MEDS ORDERED: HYT/2 PO (02:52)
[2016-07-31 03:49] VITALS: BP 149/92; PULSE 82
--- NOTE | 2016-07-31 08:00 | DIAGNOSTIC IMAGING REPORT ---
CT SCAN OF THE ABDOMEN AND PELVIS WITHOUT IV CONTRAST CLINICAL HISTORY: Back pain. COMPARISON STUDY: Renal ultrasound dated 09/26/2015. Chest x-ray dated 06/30/2016. TECHNIQUE: CT scan of the abdomen and pelvis is performed from the lung bases to the proximal femora. Images are reviewed in the axial, sagittal, and coronal planes. IV contrast was not administered for this examination as per the referring clinician. Note that the examination was performed and significant suboptimal fashion without oral and IV contrast. Automated dose control exposure was utilized. CT DOSE: 751.75 mGy.cm FINDINGS: Lung bases: The heart is mildly enlarged and without pericardial effusion. The coronary arteries are densely calcified. There is marked volume loss in the right lung with rightward shift the mediastinum. Fibrotic change and consolidation is noted at the right lung base and these findings are unchanged from the 06/30/2016 chest x-ray. A chronic appearing pleural collection with associated pleural thickening at the right lung base measures approximately 3 x 7.5 cm. There is compensatory hyperinflation of the left lung, and the left lung base appears clear noting emphysema. A small hiatal hernia is observed. Liver: The unenhanced liver is normal in size, contour, and attenuation. There is no intrahepatic biliary ductal dilatation. Gallbladder: Unremarkable. Spleen: Normal in size and attenuation. There are small calcified splenic granulomas. Pancreas: The unenhanced pancreas is moderately atrophic and grossly unremarkable. Adrenal glands: Unremarkable. Kidneys: The unenhanced kidneys are atrophic and without hydronephrosis. There are no renal calculi identified. A 3 cm cyst arises from the left upper pole. Abdominal vasculature: The abdominal aorta is normal in course and caliber noting moderate atherosclerotic calcification. Bowel: The small bowel and colon are normal in course and caliber. There is mild colonic diverticulosis without CT evidence of acute diverticulitis. Moderate colonic fecal retention is observed. The appendix is well-visualized and normal. Peritoneum: There is no intraperitoneal free air. Trace perisplenic ascites is noted. Lymphadenopathy: None. Pelvic viscera: The prostate gland is enlarged and heterogeneous, measuring 5.4 cm in transverse diameter. There is median lobe hypertrophy. The bladder is distended. The bladder wall appears mildly thickened and trabeculated suggesting chronic outlet obstruction. Skeletal structures: The skeletal structures are osteopenic. There is mild lumbosacral spondylosis. Posterior disc bulge is suggested at L4-L5 and L5-S1. No lytic or blastic lesions are seen. IMPRESSION: 1. Suboptimal examination without oral and IV contrast. 2. There are no acute infectious or inflammatory findings in the abdomen or pelvis. 3. Moderate constipation. 4. Mild colonic diverticulosis without CT evidence of acute diverticulitis. 5. Chronic fibrotic change with a chronic appearing pleural collection at the right lung base with associated volume loss in the right lung and compensatory hyperinflation of the left lung is likely unchanged from previous. 6. Prostatomegaly with evidence of chronic bladder outlet obstruction. 7. There is trace perisplenic ascites. 8. Additional findings as above. Electronically signed by: Dread Joshi M.D. 07/31/2016 7:59 AM Dictated Date/Time: 07/31/2016 7:52 AM
== END 2016-07-31 04:23 | disposition home or self-care (01) ==
LOC: C.EDB 23:48 → C.EDA 07-31 04:23
DX: M54.5 Low back pain (principal); E11.9 Type 2 diabetes mellitus without complications; Z94.2 Lung transplant status; Z79.82 Long term (current) use of aspirin; Z79.899 Other long term (current) drug therapy

== ENCOUNTER → 2016-08-12 | Outpatient (CLI) | payer OTHER ==
[~2016-08-12] MED LIST changes: +APR25 PO; -ASPEC81 PO; +ASPI81TA28 PO; +AZIT-60 PO; -AZIT250T5 PO; +CALC500C70 PO; -CALCTAB13 PO; +FLUT0.15 NAE; +HYDR-4716 PO; +HYT/2 PO; +IMD2X PO; -MULT-506 PO; +MULT-897 PO; -OMEP40CA PO; +OMEP40CA41 PO; -OXYC1TAB3 PO; -PRED20TA PO; +PSYL0.524 PO; +REPA2TAB12 PO; -REPA2TAB13 PO; +SLWMEC PO; +TACR0.5C3 PO; +TAMS0.4C38 PO; -TAMS0.4C59 PO; -TERA5CAP PO; -[UNRECOGNIZED DRUG - OTHER] PO
== END | disposition home or self-care (01) ==
LOC: C.LAB 07:56
PROVIDERS: ATTEND Urology
DX: R97.20 Elevated prostate specific antigen [PSA] (principal)

== ENCOUNTER → 2016-11-11 | Outpatient (CLI) | payer OTHER ==
[~2016-11-11] MED LIST changes: +APR/25 PO; -AZIT-60 PO; +AZIT250T5 PO; -HYDR-4716 PO; -REPA2TAB12 PO; +REPA2TAB13 PO
[2016-11-11 10:42] LABS: BASO % 0.1 %; BASO ABS # 0.01 K/uL (0-0.2); EOS % 3.3 %; HEMATOCRIT 22.6 % (42-52); IG% 0.6 %; LYMPH % 20.1 %; LYMPH ABS # 1.56 K/uL (1.2-3.4); MEAN CELL VOLUME 84.6 fL (80-100); MEAN CORPUSCULAR HEMOGLOBIN 29.6 pg (25-34); MEAN PLATELET VOLUME 8.7 fL (7.4-10.4); MONO % 9.5 %; NEUT % 66.4 %; PLATELET COUNT 324 K/uL (130-400); RED BLOOD COUNT 2.67 M/uL (4.7-6.1); WHITE BLOOD COUNT 7.77 K/uL (4.8-10.8)
[2016-11-11 10:46] LABS: BLOOD UREA NITROGEN 42 mg/dl (7-18); CALCIUM 9.4 mg/dl (8.5-10.1); CARBON DIOXIDE 25 mmol/L (21-32); CHLORIDE 100 mmol/L (98-107); GLUCOSE 80 mg/dl (70-99); MAGNESIUM 1.8 mg/dl (1.8-2.4); SODIUM 134 mmol/L (136-145)
[2016-11-11 11:20] LABS: COMPLETE YES
[2016-11-13 08:26] LABS: FK506 TACROLIMUS HIGHLY SENS 7.8 MCG/L (5-20)
== END | disposition home or self-care (01) ==
LOC: C.LABSPEC 10:21
PROVIDERS: ATTEND Internal Medicine Pulmonary Disease
DX: J18.9 Pneumonia, unspecified organism (principal); Z94.2 Lung transplant status

== ENCOUNTER → 2016-12-10 | Outpatient (CLI) | payer OTHER ==
--- NOTE | 2016-12-10 16:29 | DIAGNOSTIC IMAGING REPORT ---
MRI OF LUMBAR SPINE WITHOUT IV CONTRAST CLINICAL HISTORY: Right foot drop post surgery. COMPARISON STUDY: MRI of lumbar spine dated 07/02/2016. TECHNIQUE: MRI of lumbar spine is performed utilizing various T1 and T2-weighted sequences in the axial and sagittal planes. IV contrast was not administered for this examination. FINDINGS: Lumbar spine: Vertebral body height and alignment are maintained throughout the lumbar spine. Normal marrow signal intensity is preserved. Tiny anterior osteophytes are seen throughout. There are postoperative changes from laminectomy at L5, new from 07/02/2016. The remaining spinous processes as well as the transverse processes appear intact. There is no evidence of spondylolysis. No destructive bony lesion is seen. Intervertebral discs: Degenerative disc desiccation is seen throughout the lumbar spine. Moderate loss of height is noted L5-S1. The remaining disc spaces appear preserved. Spinal cord and central canal: The partially imaged spinal cord is normal in morphology and signal intensity. The conus medullaris terminates at the level of L1. The nerve roots of the cauda equina are normal in morphology. There is no evidence of epidural fluid collection. L1-L2: Unremarkable. L2-L3: Unremarkable. L3-L4: Unremarkable. L4-L5: Facet arthropathy is of no consequence. The central canal and neural foramina are patent. L5-S1: There is posterior disc bulge with annular fissure. There is no significant acquired compromise of the central canal. This causes severe bilateral subarticular stenosis, right greater than left. There is probable impingement on the exiting right L5 nerve root. The disc bulge also abuts the transiting bilateral sacral nerve roots. Facet arthropathy causes minimal neural foraminal stenosis, right greater than left. Sacrum: Visualized sacrum is normal in morphology and signal intensity. Soft tissues: Postoperative change is seen within the posterior soft tissues at L5-S1. There is a tiny fluid collection at the operative site posterior to the thecal sac seen on axial image #22. This measures up to 13 mm and likely represents a tiny seroma. The partially imaged retroperitoneal structures are grossly unremarkable but incompletely assessed. IMPRESSION: 1. There is evidence of interval laminectomy at L5-S1 as compared to the 07/02/2016 examination. There is no significant acquired compromise of the central canal at this level. 2. Disc bulge at L5-S1 causes severe bilateral subarticular stenosis. This likely impinges on the exiting right L5 nerve root, and also abuts the transiting bilateral sacral nerve roots. 3. Only minimal spondylotic change at additional levels as detailed above. 4. A 13 mm fluid collection is seen posterior to the thecal sac at L5. This likely represents a tiny postoperative seroma and is of doubtful significance. Dictated: 12/10/2016 3:53 PM Transcribed: 12/10/2016 4:28 PM [email or web address] Electronically signed by: Dread Joshi M.D. 12/10/2016 4:29 PM Dictated Date/Time: 12/10/2016 3:53 PM
== END | disposition home or self-care (01) ==
LOC: C.MRIBC 14:50
PROVIDERS: ATTEND Specialist
DX: M21.371 Foot drop, right foot (principal); Z98.890 Other specified postprocedural states; M48.07 Spinal stenosis, lumbosacral region; M51.27 Other intervertebral disc displacement, lumbosacral region

== ENCOUNTER 2017-02-17 09:04 | Emergency (ER) | payer OTHER ==
[~2017-02-17] VITALS: Ht 170.2 cm; Wt 74.1 kg
[~2017-02-17 09:04] MED LIST changes: -APR/25 PO; -FLUT0.15 NAE; -SLWMEC PO
[2017-02-17 09:09] VITALS: TEMP 36.6; Ht 170.2 cm; Wt 74.1 kg
[2017-02-17] MEDS ORDERED: ALBUT/IPRATROP 3MG/0.5MG NEB 3 ML VIAL INH STA (09:56)
[2017-02-17 10:05] VITALS: O2SAT 95
[2017-02-17 10:17] LABS: BASO % 0.5 %; BASO ABS # 0.03 K/uL (0-0.2); COMPLETE YES; EOS % 4.2 %; HEMATOCRIT 39.1 % (42-52); IG% 0.3 %; LYMPH % 21.3 %; LYMPH ABS # 1.28 K/uL (1.2-3.4); MEAN CELL VOLUME 84.8 fL (80-100); MEAN CORPUSCULAR HEMOGLOBIN 30.2 pg (25-34); MEAN CORPUSCULAR HGB CONC 35.5 g/dl (32-36); MEAN PLATELET VOLUME 9.8 fL (7.4-10.4); MONO % 9.7 %; PLATELET COUNT 154 K/uL (130-400); RED BLOOD COUNT 4.61 M/uL (4.7-6.1)
[2017-02-17 10:23] LABS: BUN/CREATININE RATIO 19.3 (10-20); CALCIUM 9.3 mg/dl (8.5-10.1); CREATININE 1.9 mg/dl (0.60-1.40); POTASSIUM 4.3 mmol/L (3.5-5.1)
--- NOTE | 2017-02-17 10:24 | EMERGENCY ROOM VISIT NOTE ---
History Report prepared by Jaye: Carlos Simons Under the Supervision of: Dr. Johnnie Donaldson M.D. First contact with patient: 09:30 Chief Complaint: HYPERTENSION Stated Complaint: HIGH BLOOD PRESSURE History of Present Illness The patient is a 82 year old white male with a past medical history of hypertension, HLD, diabetes, back surgery, and a lung transplant who presents to the ED with a cc of hypertension beginning yesterday. Positive cough recently and new stressors. Negative caffeine use or medication changes. He states that he is eating, drinking, urinating, and having normal bowel movements. He has chronic drop foot and leg pain and is on oxycodone. He also states that he has been using Flonase recently for his congestion. Source of History: patient Onset: yesterday Position: other (global) Quality: other (hypertension) Timing: constant Associated Symptoms: + cough Review of Systems See HPI for pertinent positives and negatives. A total of ten systems were reviewed and were otherwise negative. Past Medical & Surgical Medical Problems: (1) DIAB LORRAINE WO COMPL, TYPE II OR UNSPEC TYPE, UNCONTROLLED (2) HX-BRONCHOGENIC MALIGNAN (3) IDIOPATHIC PULMONARY FIBROSIS (4) LUNG TRANSPLANT STATUS (5) SIRS (systemic inflammatory response syndrome) Social History Smoking Status: Never Smoker Alcohol Use: none Drug Use: none Marital Status: Housing Status: lives with significant other Occupation Status: retired Current/Historical Medications Scheduled Aspirin (Aspirin Ec), 81 MG PO QPM Azithromycin (Zithromax), 250 MG PO 3XWK Fluticasone Propionate (Nasal) (Flonase Allergy Relief), 1 SPRAY RENAN DAILY Hydralazine HCl (Hydralazine HCl), 12.5 MG PO BID Hydralazine Hcl (Apresoline), 25 MG PO QAM Magnesium Chloride (Slow-Mag Tab), 64 MG PO BIDM Multiple Vitamin (One Daily), 1 TAB PO DAILYBB Omeprazole (Prilosec), 40 MG PO QAM Pravastatin (Pravachol ), 40 MG PO HS Prednisone (Prednisone), 5 MG PO QAM Repaglinide (Prandin), 4 MG PO BID Repaglinide (Prandin), 2 MG PO DAILY Tacrolimus (Prograf), 1 MG PO QPM Tacrolimus (Prograf), 1.5 MG PO QAM Tamsulosin Hcl (Flomax), 0.4 MG PO HS Terazosin Hcl (Hytrin), 2 MG PO DAILY Trimethoprim/Sulfamethoxazole (Bactrim 400MG/80MG), 1 TAB PO 2XWK Scheduled PRN Ipratropium Mas[place] (Ipratropium Masury), 2 SPRAYS RENAN QID PRN for Nasal Congestion Allergies Coded Allergies: Lisinopril (Unverified Allergy, Unknown, NAUSEA, STOMACH UPSET, DEATHLY SICK, 02/17/17) Metronidazole (Unverified Allergy, Unknown, NEUROPATY,, 02/17/17) Simvastatin (Unverified Allergy, Unknown, UNKOWN , 02/17/17) Physical Exam Vital Signs Date Time Temp Pulse Resp B/P (MAP) Pulse Ox O2 Delivery O2 Flow Rate FiO2 02/17/17 11:37 72 18 188/104 97 02/17/17 11:04 75 20 196/140 97 Room Air 02/17/17 10:45 70 16 185/101 96 Room Air 02/17/17 10:05 95 Room Air 02/17/17 10:05 53 16 207/103 95 Room Air 02/17/17 09:35 Room Air 02/17/17 09:28 60 02/17/17 09:09 36.6 66 20 185/94 96 Room Air Physical Exam GENERAL: Awake, alert, well-appearing, NAD HENT: Normocephalic, atraumatic. Scarring to the nose EYES: Normal conjunctiva. Sclera non-icteric. NECK: Supple. No nuchal rigidity. FROM. RESPIRATORY Mild inspiratory and expiratory wheezes, no rhonchi, crackles CARDIAC: RRR, no RG. Systolic ejection murmur ABDOMEN: Soft, NTND, BS+ MSK: No chest wall TTP, no LE edema. Scarring to the upper back. NEURO: GCS 15, CN 2-12 intact, moves all 4s on command. No sensory deficits in bilateral LE. Able to flex and extend at the knee. Foot drop in the RLE which is chronic. SKIN: No rash or jaundice noted. Medical Decision & Procedures ER Provider Diagnostic Interpretation: Radiology results as stated below per my review and radiologist interpretation: CHEST 2 VIEWS ROUTINE CLINICAL HISTORY: Hypertension. Atypical chest pain. COMPARISON STUDY: 06/30/2016 FINDINGS: The cardiac and mediastinal contours remain stable. There is persistent volume loss in the right hemithorax. There is right-sided pleural thickening. There are diffuse right lung airspace opacities, unchanged the prior study. Postsurgical changes are also evident on the left.[ IMPRESSION: No significant change from the prior study. Persistent right-sided volume loss, right lung airspace opacities, and right sided pleural thickening. Electronically signed by: Paul Weinstein M.D. 02/17/2017 10:39 AM Dictated Date/Time: 02/17/2017 10:37 AM Laboratory Results 02/17/17 09:30 Red Blood Count 4.61, Mean Corpuscular Volume 84.8, Mean Corpuscular Hemoglobin 30.2, Mean Corpuscular Hemoglobin Concent 35.5, Mean Platelet Volume 9.8, Neutrophils (%) (Auto) 64.0, Lymphocytes (%) (Auto) 21.3, Monocytes (%) (Auto) 9.7, Eosinophils (%) (Auto) 4.2, Basophils (%) (Auto) 0.5, Neutrophils # (Auto) 3.84, Lymphocytes # (Auto) 1.28, Monocytes # (Auto) 0.58, Eosinophils # (Auto) 0.25, Basophils # (Auto) 0.03 02/17/17 09:30 Test 02/17/17 09:30 White Blood Count 6.00 K/uL (4.8-10.8) Red Blood Count 4.61 M/uL (4.7-6.1) Hemoglobin 13.9 g/dL (14.0-18.0) Hematocrit 39.1 % (42-52) Mean Corpuscular Volume 84.8 fL (80-100) Mean Corpuscular Hemoglobin 30.2 pg (25-34) Mean Corpuscular Hemoglobin Concent 35.5 g/dl (32-36) Platelet Count 154 K/uL (130-400) Mean Platelet Volume 9.8 fL (7.4-10.4) Neutrophils (%) (Auto) 64.0 % Lymphocytes (%) (Auto) 21.3 % Monocytes (%) (Auto) 9.7 % Eosinophils (%) (Auto) 4.2 % Basophils (%) (Auto) 0.5 % Neutrophils # (Auto) 3.84 K/uL (1.4-6.5) Lymphocytes # (Auto) 1.28 K/uL (1.2-3.4) Monocytes # (Auto) 0.58 K/uL (0.11-0.59) Eosinophils # (Auto) 0.25 K/uL (0-0.5) Basophils # (Auto) 0.03 K/uL (0-0.2) RDW Standard Deviation 40.2 fL (36.4-46.3) RDW Coefficient of Variation 13.1 % (11.5-14.5) Immature Granulocyte % (Auto) 0.3 % Immature Granulocyte # (Auto) 0.02 K/uL (0.00-0.02) Anion Gap 6.0 mmol/L (3-11) Est Creatinine Clear Calc Drug Dose 28.0 ml/min Estimated GFR () 37.2 Estimated GFR (Non- 32.1 BUN/Creatinine Ratio 19.3 (10-20) Calcium Level 9.3 mg/dl (8.5-10.1) Laboratory results reviewed by me Medications Administered Medications (Trade) Dose Ordered Sig/Ernie Route Start Time Stop Time Status Last Admin Dose Admin Albuterol/ Ipratropium (Duoneb) 3 ml NOW STAT INH 02/17/17 09:56 02/17/17 09:58 DC 02/17/17 10:05 3 ML ECG Indication: other (hypertension) Rate (beats per minute): 58 Rhythm: normal sinus Findings: 1st degree AV block, other (T wave flattening in lead 3. No other STS changes or TWI) ED Course 0946: The patient was evaluated in room A11. A complete history and physical exam was performed. 1112: I reevaluated the patient. Discussed results and discharge instructions: He verbalized understanding and agreement. The patient is ready for discharge. Medical Decision The patient is a 82 year old white male with a past medical history of hypertension, HLD, diabetes, back surgery, and a lung transplant who presents to the ED with a cc of hypertension beginning yesterday. Positive cough recently and new stressors. Negative caffeine use or medication changes. He states that he is eating, drinking, urinating, and having normal bowel movements. He has chronic drop foot and leg pain and is on oxycodone. He also states that he has been using Flonase recently for his congestion. Differential diagnosis: Etiologies such as benign hypertension, hypertensive emergency, cardiovascular pathology, pheochromocytoma, electrolyte abnormality, renal disease, endorgan damage, as well as others were entertained. Patient was seen and evaluated the bedside. She poorly has had some increased stresses at home. No recent changes in his medications. Patient does take hydralazine. Patient was complaining of some productive cough with some clear or hazy sputum that was not colored. Patient has been taking some Mucinex and Flonase with only mild relief. Patient's chest x-ray is unchanged he has a fair amount of right-sided opacities. Patient was given a DuoNeb for mild inspiratory and expiratory wheezing. Patient is not tachycardic nor hypoxic and does not have an elevated white count. We'll not treat with antibiotics at this time. Patient creatinine from 1.7 -> 1.9. Patient was informed of all findings. Patient was told to continue to take his blood pressures as we described at home. If he has 3 successive days he can consider taking an extra dose of hydralazine in the morning if his blood pressure still above 160. 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 Patient was given strict follow-up, discharge, and return precautions. Patient agreeable plan of care was safely discharged home. Medication Reconcilliation Current Medication List: was personally reviewed by me Blood Pressure Screening Patient's blood pressure: Elevated blood pressure Blood pressure disposition: Referred to PCP Impression Primary Impression: ESSENTIAL (PRIMARY) HYPERTENSION Scribe Attestation The scribe's documentation has been prepared under my direction and personally reviewed by me in its entirety. I confirm that the note above accurately reflects all work, treatment, procedures, and medical decision making performed by me. Departure Information Dispostion Home / Self-Care Referrals Eber Sands M.D. (PCP) Patient Instructions Hypertension Control, Hypertension Dc, My [facility] Additional Instructions Please return to the emergency department if you have worsening or recurrent symptoms not amenable to at-home treatment. Please call for a follow-up appointment with her primary care physician. Please take your medications as prescribed. If you have other concerns and/or complaints please feel free to also call your primary care physician's office or return the ED for further evaluation, management, and treatment. You have been examined and treated today on an emergency basis only. This is not a substitute for, or an effort to provide, complete comprehensive medical care. It is impossible to recognize and treat all injuries or illnesses in a single emergency department visit. It is therefore important that you follow up closely with [facility]. Call as soon as possible for an appointment. Thank you for your time and consideration. I look forward to speaking with you again soon. Please don't hesitate to call us if you have any questions.
[2017-02-17] MEDS ORDERED: SLWMEC PO (10:26)
[2017-02-17] MEDS ORDERED: APR/25 PO (10:26)
[2017-02-17] MEDS ORDERED: TACR0.5C3 PO (10:26)
[2017-02-17] MEDS ORDERED: FLUT0.15 NAE (10:26)
--- NOTE | 2017-02-17 10:40 | DIAGNOSTIC IMAGING REPORT ---
CHEST 2 VIEWS ROUTINE CLINICAL HISTORY: Hypertension. Atypical chest pain. COMPARISON STUDY: 06/30/2016 FINDINGS: The cardiac and mediastinal contours remain stable. There is persistent volume loss in the right hemithorax. There is right-sided pleural thickening. There are diffuse right lung airspace opacities, unchanged the prior study. Postsurgical changes are also evident on the left.[ IMPRESSION: No significant change from the prior study. Persistent right-sided volume loss, right lung airspace opacities, and right sided pleural thickening. Electronically signed by: Paul Weinstein M.D. 02/17/2017 10:39 AM Dictated Date/Time: 02/17/2017 10:37 AM
[2017-02-17 11:37] VITALS: BP 188/104; PULSE 72; O2SAT 97
== END 2017-02-17 11:38 | disposition home or self-care (01) ==
LOC: C.EDB 09:06 → C.EDA 11:38
DX: I10 Essential (primary) hypertension (principal); E78.5 Hyperlipidemia, unspecified; E11.9 Type 2 diabetes mellitus without complications; Z94.2 Lung transplant status; Z85.118 Personal history of other malignant neoplasm of bronchus and lung; J84.112 Idiopathic pulmonary fibrosis; Z79.82 Long term (current) use of aspirin; Z79.899 Other long term (current) drug therapy

== ENCOUNTER → 2017-04-15 | Outpatient (CLI) | payer OTHER ==
[~2017-04-15] MED LIST changes: -AMLO-110 PO; +AZIT-60 PO; -AZIT250T5 PO; -CALC500C70 PO; +FLUT0.15 NAE; +HYDR-4716 PO; -IMD2X PO; -MAGNTAB4 PO; -PSYL0.524 PO; +REPA2TAB12 PO; -REPA2TAB13 PO; +SLWMEC PO
[2017-04-15 10:18] LABS: BASO % 0.3 %; BASO ABS # 0.02 K/uL (0-0.2); COMPLETE YES; EOS % 2.5 %; IG% 0.4 %; LYMPH % 21.7 %; LYMPH ABS # 1.66 K/uL (1.2-3.4); MEAN CELL VOLUME 85.7 fL (80-100); MEAN CORPUSCULAR HEMOGLOBIN 29.1 pg (25-34); MEAN PLATELET VOLUME 9.5 fL (7.4-10.4); MONO % 8.9 %; NEUT % 66.2 %; PLATELET COUNT 149 K/uL (130-400); RED BLOOD COUNT 4.67 M/uL (4.7-6.1); WHITE BLOOD COUNT 7.66 K/uL (4.8-10.8)
[2017-04-15 10:36] LABS: ESTIMATED AVERAGE GLUCOSE 137 mg/dl; HA1C FLAG Normal (Normal)
[2017-04-15 10:51] LABS: BLOOD UREA NITROGEN 33 mg/dl (7-18); BUN/CREATININE RATIO 19.5 (10-20); CALCIUM 9.1 mg/dl (8.5-10.1); CARBON DIOXIDE 26 mmol/L (21-32); CHLORIDE 102 mmol/L (98-107); GLUCOSE 101 mg/dl (70-99); SODIUM 136 mmol/L (136-145)
--- NOTE | 2017-04-15 11:17 | DIAGNOSTIC IMAGING REPORT ---
CHEST 2 VIEWS ROUTINE HISTORY: 82 years-old Male BILATERAL LEG PAIN,PRE-OP TEST,LUMBAR RADICULOPATH acute bilateral leg pain COMPARISON: Chest radiograph 02/17/2017 TECHNIQUE: PA and lateral views of the chest FINDINGS: Cardiac silhouette is mildly enlarged, unchanged. Surgical clips project over the left hilum. Left lung is generally clear. Persistent volume loss throughout the right hemithorax redemonstrated with associated pleural thickening and multifocal alveolar opacities. No significant change from prior. The bones are grossly intact. IMPRESSION: 1. No acute cardiopulmonary process. 2. Persistent volume loss with pleural thickening and multifocal alveolar opacities throughout the right lung. The above report was generated using voice recognition software. It may contain grammatical, syntax or spelling errors. Electronically signed by: Chepe Mooney M.D. 04/15/2017 11:16 AM Dictated Date/Time: 04/15/2017 11:14 AM
--- NOTE | 2017-04-15 12:03 | DIAGNOSTIC IMAGING REPORT ---
ULTRASOUND BILATERAL LOWER EXTREMITY VENOUS CLINICAL HISTORY: Bilateral leg pain. COMPARISON STUDY: No priors. TECHNIQUE: Real-time, grayscale, and color Doppler sonography of the deep veins of the right and left lower extremity was performed from the inguinal crease to the calf. Compression and augmentation were utilized. FINDINGS: There is no sonographic evidence of deep venous thrombosis identified in the right or left lower extremity. The common femoral, superficial femoral, and popliteal veins are patent and normally compressible bilaterally. The greater saphenous vein and the profunda femoris vein at the junction with the common femoral vein are clear in both legs. The visualized calf veins are patent bilaterally. IMPRESSION: There is no sonographic evidence of deep venous thrombosis identified in the right or left lower extremity. Electronically signed by: Dread Joshi M.D. 04/15/2017 12:01 PM Dictated Date/Time: 04/15/2017 12:01 PM
== END | disposition home or self-care (01) ==
LOC: C.ULTR 09:30
PROVIDERS: ATTEND Specialist
DX: Z01.818 Encounter for other preprocedural examination (principal); M54.16 Radiculopathy, lumbar region; M79.605 Pain in left leg

== ENCOUNTER → 2017-05-19 | Outpatient (CLI) | payer OTHER ==
[2017-05-19 09:44] LABS: BASO % 0.1 %; BASO ABS # 0.01 K/uL (0-0.2); EOS % 2.2 %; EOS ABS # 0.16 K/uL (0-0.5); HEMATOCRIT 36.5 % (42-52); HEMOGLOBIN 12.5 g/dL (14.0-18.0); IG# 0.02 K/uL (0.00-0.02); LYMPH % 24.8 %; LYMPH ABS # 1.84 K/uL (1.2-3.4); MEAN CELL VOLUME 85.3 fL (80-100); MEAN CORPUSCULAR HEMOGLOBIN 29.2 pg (25-34); MEAN CORPUSCULAR HGB CONC 34.2 g/dl (32-36); MEAN PLATELET VOLUME 9.4 fL (7.4-10.4); MONO ABS # 0.67 K/uL (0.11-0.59); NEUT % 63.6 %; NEUT ABS # 4.72 K/uL (1.4-6.5); PLATELET COUNT 157 K/uL (130-400); RED CELL DISTRIBUTION WIDTH CV 13.6 % (11.5-14.5); RED CELL DISTRIBUTION WIDTH SD 41.9 fL (36.4-46.3); WHITE BLOOD COUNT 7.42 K/uL (4.8-10.8)
[2017-05-19 10:05] LABS: HEMOGLOBIN A1C 6.7 % (4.5-5.6)
== END | disposition home or self-care (01) ==
LOC: C.LAB 08:45
PROVIDERS: ATTEND Physician Assistant Medical
DX: I25.10 Atherosclerotic heart disease of native coronary artery without angina pectoris (principal); N40.0 Benign prostatic hyperplasia without lower urinary tract symptoms; N18.3 Chronic kidney disease, stage 3 (moderate); E11.9 Type 2 diabetes mellitus without complications

== ENCOUNTER → 2017-05-19 | Outpatient (CLI) | payer OTHER ==
--- NOTE | 2017-05-19 11:19 | DIAGNOSTIC IMAGING REPORT ---
MRI OF THE BRAIN WITHOUT CONTRAST CLINICAL HISTORY: Dizziness, lightheadedness, weakness. COMPARISON STUDY: 09/27/2010 FINDINGS: Sagittal T1, axial diffusion, proton density and T2 weighted axial, coronal FLAIR, and axial T1-weighted images were acquired. No intra or extra-axial mass lesions are visualized Axial diffusion-weighted images reveal no evidence of acute or subacute infarction. There is no evidence of ventricular dilatation. Proton density T2-weighted and FLAIR images reveal scattered foci of increased T2 signal within the white matter, likely on a small vessel basis. These remain similar to the prior 2010 study There are no abnormal flow voids. IMPRESSION: No significant change from the prior 2010 study. No evidence of intracranial mass. No evidence of acute or subacute infarction. Electronically signed by: Paul Weinstein M.D. 05/19/2017 11:18 AM Dictated Date/Time: 05/19/2017 11:15 AM
== END | disposition home or self-care (01) ==
LOC: C.MRIBC 10:31
PROVIDERS: ATTEND Physician Assistant Medical
DX: R42 Dizziness and giddiness (principal)

== ENCOUNTER → 2017-05-30 | Outpatient (CLI) | payer OTHER | END | disposition home or self-care (01) | LOC: C.RADBC 15:38 | DX: Z98.1 Arthrodesis status (principal); M21.371 Foot drop, right foot ==

== ENCOUNTER 2020-10-17 11:29 | Inpatient (IN) ==
--- NOTE | 2020-10-16 10:48 | Anesthesiology Consultation ---
Date of Service October 16, 2020 Assessment & Plan (1) Encounter for pre-operative examination: Chart Review Chart Review: Acceptable Risk for Surgery (pending anesthesia evaluation DOS and stat EKG DOS ) and Patient NOT seen in Pre Admission Testing - Check BSG AM DOS. Stat EKG ordered for AM of surgery. - Will leave to anesthesiologist discretion AM of surgery if repeat PRP needed DOS (to recheck kidney function and/or Na) -Discussed case with Dr. Jerez- CT findings re: right lung are similar to CT findings from 2017 (pt s/p right lung lobectomy in 2008). Also discussed severe - due to procedure being urgent- will proceed as scheduled- did send message to sand cutting machine operator to make aware of recent ECHO findings and to see if patient needs to follow up sooner post op as outpatient with cardio. Per last cardio note- pt had no symptoms of syncope or dizziness. Per cardio phone note 10/16/20= "Cardiology is aware of his echocardiogramand appointments. Ejection fraction has not changed. Prior reported ejection fraction 62%, current study 55-59% Aortic stenosis is borderline severe but not yet surgical severity. Patient should complete necessary procedure (cardiology referred patient to gastroenterology due to dysphagia)" Per nursing assessment 10/16/2020, patient denies any recent travel. No known Covid infection in the past 90 days. No known Covid positive contacts or Covid related symptoms. Covid test 10/13/20= negative. Patient fully vaccinated for COVID-19. EGD 09/29/20= Done under MAC- no anesthesia issues noted per anesthesia record. Patient last seen by cardiology 09/05/2020 = seen for routine follow-up. History of moderate nonrheumatic aortic stenosis. Denies any specific cardiac complaints. Notes no chest pains, tachypalpitations, syncope or near syncope. Has been having symptoms in his mid epigastric region with food and swallowing with pain now becoming very limiting and only eating soft foods due to discomfort. Cardiac status appears stable no signs of arrhythmia or edema. Plan to be referred to gastroenterology for further assessment of complaints, barium swallow versus EGD. Continue current cardiac medications, follow-up echocardiogram per routine. Follow-up in 6 months. History Surgery Operation Date: 10/17/20 13:30 Proposed Procedures p Upper Endoscopic Ultrasonography - Brady Melendez MD s Esophagogastroduodenoscopy - Brady Melendez MD Height/Weight Height: 5 ft 7 in Weight: 73.482 kg Allergies Allergy/AdvReac Type Severity Reaction Status Date / Time metronidazole Allergy Severe NEUROPATHY Verified 10/16/20 11:38 LEG lisinopril Allergy Intermediate NAUSEA, Verified 10/16/20 11:38 STOMACH UPSET, DEATHLY SICK Medications Home Medications Medication Instructions Recorded Confirmed Last Taken amlodipine 2.5 mg PO QAM #30 tab 07/27/18 10/16/20 09/28/20 08:00 amlodipine 5 mg PO QPM 07/27/18 10/16/20 09/28/20 21:00 aspirin 81 mg PO QPM 07/27/18 10/16/20 09/15/20 21:00 calcium carbonate-vitamin D3 2 tabs PO BID 07/27/18 10/16/20 09/28/20 21:00 [Calcium 500 + D] hydralazine 50 mg PO QID 07/27/18 10/16/20 09/28/20 21:00 omeprazole 20 mg PO QAM 07/27/18 10/16/20 09/28/20 08:00 pravastatin 40 mg PO HS 07/27/18 10/16/20 09/28/20 21:00 prednisone 5 mg PO QDL 07/27/18 10/16/20 09/28/20 08:00 sulfamethoxazole-trimethoprim 1 tab PO 2XWK 07/27/18 10/16/20 09/25/20 21:00 Multi-Day Plus Minerals 1 tab PO QAM 10/23/18 10/16/20 09/28/20 08:00 ipratropium bromide 42 mcg (0.06 2 spray INTRANASAL TID PRN ml 03/16/19 10/16/20 Unknown %) nasal spray magnesium chloride 64 mg 64 mg PO BID #354 tab 05/25/19 10/16/20 09/28/20 21:00 (magnesium chloride) tablet,delayed release azithromycin 250 mg tablet 250 mg PO 3XWK #36 tab 10/20/19 10/16/20 09/28/20 21:00 blood sugar diagnostic #100 ea 10/20/19 05/17/20 Unknown doxycycline monohydrate 100 mg 100 mg PO UD PRN 10/20/19 10/16/20 Unknown capsule lancets #100 ea 10/20/19 05/17/20 Unknown repaglinide 2 mg tablet See Rx Instructions PO TID tab 10/20/19 10/16/20 09/28/20 18:00 tacrolimus 0.5 mg capsule, 0.5 mg PO QPM cap 10/20/19 10/16/20 09/28/20 21:00 immediate-release tacrolimus 1 mg capsule, 1 mg PO QAM cap 10/20/19 10/16/20 09/29/20 10:00 immediate-release tamsulosin 0.4 mg capsule 0.8 mg PO QPM #180 cap 01/13/20 10/16/20 09/28/20 08:00 losartan 25 mg tablet 25 mg PO HS tab 05/17/20 10/16/20 09/28/20 21:00 Past Medical History Medical History Aortic stenosis Severe aortic stenosis is presentpeak CW Doppler velocities 4 m/s, mean gradient 39 mmHg, calculated SHANTAL =0.8 cm. 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 Past Family History Family History Mother Family hx of colon cancer Family history of diabetes mellitus Father Family history of diabetes mellitus Brother Family hx of colon cancer Other Family history non-contributory No family history of adverse response to anesthesia Past Surgical History Surgical History (Updated 10/16/20 @ 12:14 by Mell Hurtado PA-C) History of anesthesia reaction "SLOW TO WAKE UP" PER SPOUSE History of back surgery X 2-INCLUDING FUSION > LUMBAR History of bronchoscopy History of cardiac cath 2005 NO STENTS-BEFORE LUNG TRANSPLANT SURGERY History of cataract surgery R/L History of colonoscopy History of esophagogastroduodenoscopy (EGD) History of lobectomy of lung 2009- right upper for cancer History of tooth extraction Lung transplant recipient LEFT 2005 [place] Social History Smoking Status: Never smoker Hx Alcohol Use: No substance use type: does not use Lab Results Anesthesia Preop Results Results Anesthesia Widget: WBC 5.11 K/uL (4.8-10.8) 09/18/20 Hgb 12.1 g/dL (14.0-18.0) L 09/18/20 Hct 34.8 % (42-52) L 09/18/20 Plt 152 K/uL (130-400) 09/18/20 Na 131 mmol/L (136-145) L 09/18/20 K 4.8 mmol/L (3.5-5.1) 09/18/20 Cl 98 mmol/L (98-107) 09/18/20 CO2 26 mmol/L (21-32) 09/18/20 Glucose Level 133 mg/dl (70-99) H 09/18/20 POC Glucose 123 mg/dl (70-99) H 09/29/20 Lab Comments: Chronic mild hyponatremia - nephrology aware of Na of 131 on 09/18/20 Testing Laboratory Results 10/05/20= CREAT: 2.1 (chronically elevated/stable since at least 2018) BUN: 41 GFR: 28.7 (chronic and stable- fluctuates) Echocardiogram Date: 10/05/20 EF: 55-59% LV Function: normal RWMA: + none Other Findings: + LVH (Mild/concentric) and + diastolic dysfunction (Grade 2) Left atrium mildly enlarged. Severe aortic stenosis is presentpeak CW Doppler velocities 4 m/s, mean gradient 39 mmHg, calculated SHANTAL =0.8 cm. Proximal ascending thoracic aorta is mildly enlarged with diameter 4.1 cm. Compared to prior study dated 04/15/2019severity of aortic valve stenosis has progressed, proximal ascending aorta diameter was 3.9 cm on prior study as compared now to 4.1 cm, grade 2 diastolic dysfunction is now noted. Other Testing CT of chest without contrast 09/28/2020 = masslike esophageal enlargement up to 3 cm. There is a concern for malignancy and gastroenterology consultation is advised. No proximal esophageal fluid level or pathologic enlargement. Small right pleural effusion in the essentially completed collapsed right lung. Pulmonary consultation is advised. Consider pleural fluid sampling if there is a concern for malignancy. Left lung is hyperexpanded and clear. (CT of thorax without contrast from 10/31/2016 scanned [address] 2017 CT scan also showed a small right effusion and complete collapse/consolidation of right lung with underlying pulmonary fibrosis. Patient with history of right lung lobectomy)
[~2020-10-17 11:29] MED LIST changes: -APR25 PO; -ASPI81TA28 PO; -ATRIN6 NAE; -AZIT-60 PO; -FLUT0.15 NAE; -HYDR-4716 PO; -HYT/2 PO; -MULT-897 PO; -OMEP40CA41 PO; -PRAV20TA PO; -PRED-301 PO; -REPA2TAB12 PO; -SLWMEC PO; +SODIUM CHLORIDE 0.9% 1000ML IV SCH; -SULF1TAB92 PO; -TACR0.5C3 PO; -TACR1CAP PO; -TAMS0.4C38 PO
--- NOTE | 2020-10-17 12:42 | History & Physical Report ---
Date of Service October 17, 2020 Assessment & Plan (1) Encounter for pre-operative examination: History of Present Illness Primary Care Provider: Eber Sands MD EUS FNA of an esophageal mass and Esophageal stent placement for severe stenosis Allergies Allergy/AdvReac Type Severity Reaction Status Date / Time metronidazole Allergy Severe NEUROPATHY Verified 10/17/20 12:01 LEG lisinopril Allergy Intermediate NAUSEA, Verified 10/17/20 12:01 STOMACH UPSET, DEATHLY SICK Home Medications Medication Instructions Recorded Confirmed Type amlodipine 2.5 mg PO QAM #30 tab 07/27/18 10/17/20 Rx amlodipine 5 mg PO QPM 07/27/18 10/17/20 History aspirin 81 mg PO QPM 07/27/18 10/17/20 History calcium carbonate-vitamin D3 2 tabs PO BID 07/27/18 10/17/20 History [Calcium 500 + D] hydralazine 50 mg PO QID 07/27/18 10/17/20 History omeprazole 20 mg PO QAM 07/27/18 10/17/20 History pravastatin 40 mg PO HS 07/27/18 10/17/20 History prednisone 5 mg PO QDL 07/27/18 10/17/20 History sulfamethoxazole-trimethoprim 1 tab PO 2XWK 07/27/18 10/17/20 History Multi-Day Plus Minerals 1 tab PO QAM 10/23/18 10/16/20 History ipratropium bromide 42 mcg (0.06 2 spray INTRANASAL TID PRN ml 03/16/19 10/17/20 History %) nasal spray magnesium chloride 64 mg 64 mg PO BID #354 tab 05/25/19 10/17/20 Rx (magnesium chloride) tablet,delayed release azithromycin 250 mg tablet 250 mg PO 3XWK #36 tab 10/20/19 10/17/20 Rx blood sugar diagnostic #100 ea 10/20/19 05/17/20 Rx doxycycline monohydrate 100 mg 100 mg PO UD PRN 10/20/19 10/16/20 History capsule lancets #100 ea 10/20/19 05/17/20 Rx repaglinide 2 mg tablet See Rx Instructions PO TID tab 10/20/19 10/17/20 History tacrolimus 0.5 mg capsule, 0.5 mg PO QPM cap 10/20/19 10/17/20 History immediate-release tacrolimus 1 mg capsule, 1 mg PO QAM cap 10/20/19 10/17/20 History immediate-release tamsulosin 0.4 mg capsule 0.8 mg PO QPM #180 cap 01/13/20 10/17/20 Rx losartan 25 mg tablet 25 mg PO HS tab 05/17/20 10/17/20 History Past Med/Surg History Medical History Aortic stenosis Severe aortic stenosis is presentpeak CW Doppler velocities 4 m/s, mean gradient 39 mmHg, calculated SHANTAL =0.8 cm. 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 Surgical History (Updated 10/16/20 @ 12:14 by Mell Hurtado PA-C) History of anesthesia reaction "SLOW TO WAKE UP" PER SPOUSE History of back surgery X 2-INCLUDING FUSION > LUMBAR History of bronchoscopy History of cardiac cath 2005 NO STENTS-BEFORE LUNG TRANSPLANT SURGERY History of cataract surgery R/L History of colonoscopy History of esophagogastroduodenoscopy (EGD) History of lobectomy of lung 2008- right upper for cancer History of tooth extraction Lung transplant recipient LEFT 2005 PROSPECT Family History Mother Family hx of colon cancer Family history of diabetes mellitus Father Family history of diabetes mellitus Brother Family hx of colon cancer Other Family history non-contributory No family history of adverse response to anesthesia Social History Smoking Status: Never smoker Second Hand Exposure: No; Hx Alcohol Use: No Preferred Language: Finnish Communication Ability: Effective Visual Impairment: Limited Hearing Ability: Use of Hearing Aid Local Delivery Driver Required: No Beliefs That Will Affect Care: None marital status: Current Living Situation: Spouse current occupational status: retired Feels Safe at Home: Yes Safety Concerns: Feels Safe At This Time Childhood Exposure to Second-Hand Smoke: No caffeine: No Dental Care, Regularly: Yes Physical Activity Frequency: 1-2 Times per Week Seatbelt Use: always Sunscreen Use: Yes Assistive Devices: Cane and Hearing Aid - Bilateral Review of Systems All systems reviewed & are unremarkable except as noted in HPI & below Physical Exam Constitutional: comfortable; no acute distress Respiratory: normal respiratory effort, lungs clear to auscultation Cardiovascular: RRR, no murmur, no edema Gastrointestinal (Abdomen): normal bowel sounds, soft, nontender, no hepatosplenomegaly Results & Data ([facility]) Vital Signs (Past 12 Hours) Vital Signs Temp Pulse Resp BP Pulse Ox 10/17/20 12:13 36.7 C 69 18 158/79 H 96
[2020-10-17] MEDS ORDERED: DEXAMETHASONE SOD INJ 4 MG/ML VIAL ONE (13:08)
[2020-10-17] MEDS ORDERED: PROPOFOL IV EMULSION 10 MG/ML 20 ML VIAL IV ONE (13:08)
[2020-10-17] MEDS ORDERED: fentaNYL citrate 100 MCG/2 ML VIAL ONE ×2 (13:08→16:35)
[2020-10-17] MEDS ORDERED: ONDANSETRON INJ 2 MG/ML 2 ML VIAL ONE (13:08)
[2020-10-17] MEDS ORDERED: LIDOCAINE 2% 2 ML VIAL/AMP(20MG/ML) INFIL ONE (13:08)
[2020-10-17] MEDS ORDERED: ONDANSETRON INJ 2 MG/ML 2 ML VIAL IV PRN (13:38)
[2020-10-17] MEDS ORDERED: fentaNYL citrate 100 MCG/2 ML VIAL IV PRN (13:38)
[2020-10-17] MEDS ORDERED: ATROPINE SULFATE 0.1 MG/ML 10ML SYR IV PRN (13:38)
[2020-10-17] MEDS ORDERED: ETOMIDATE 2 MG/ML 20 ML VIAL IV ONE (14:06)
[2020-10-17] MEDS ORDERED: SUCCINYLCHOLINE CHLORIDE 20 MG/ML 10 ML VIAL IV ONE (14:06)
[2020-10-17] MEDS ORDERED: ePHEDrine sulfate 50 MG/ML SYR ONE (14:07)
--- NOTE | 2020-10-17 14:39 | Operative Report ---
Post Operative Report Pre & Post Diagnosis Operation Date: 10/17/20 13:30 Pre-Op Diagnosis: Dysphagia, Stricture and Stenosis of Esophagus, esophageal mass Post-Op Diagnosis: Dysphagia, Stricture and Stenosis of Esophagus, esophageal mass I identified the patient and participated in the time-out.: Yes Procedure Operation Date: 10/17/20 13:30 Actual Procedures p Upper Endoscopic Ultrasonography(Not Applicable) - Brady Melendez MD s Esophagogastroduodenoscopy, Esophageal Stent(Not Applicable) - Brady Melendez MD Surgeon Brady Melendez MD Metal Roofer None Estimated Blood Loss 0 Findings See Below (Esophageal mass, biopsies, esophageal stenosis, stent placed) Specimens Esophageal mass Description of Procedure EUS I attest to the content of the Intraoperative Record and any orders documented therein. Any exceptions are noted below.
--- NOTE | 2020-10-17 15:02 | GI REPORT ---
Patient Name: Nicola Banks Procedure Date: 10/17/2020 1:15 PM Date of : 1935 Admit Type: Preadmit Age: 85 Gender: Male Attending MD: Brady Melendez MD Procedure: Upper EUS Providers: Brady Melendez MD Referring MD: Eber Sands Indications: Suspected mass in esophagus on chest CT Medicines: General Anesthesia Complications: No immediate complications. Estimated Blood Loss: Estimated blood loss: none. Procedure: Pre-Anesthesia Assessment: - Prior to the procedure, a History and Physical was performed, and patient medications, allergies and sensitivities were reviewed. The patient's tolerance of previous anesthesia was reviewed. - The risks and benefits of the procedure and the sedation options and risks were discussed with the patient. All questions were answered and informed consent was obtained. - Patient identification and proposed procedure were verified prior to the procedure by the physician and the nurse. The procedure was verified in the procedure room. - Pre-procedure physical examination revealed no contraindications to sedation. After obtaining informed consent, the endoscope was passed under direct vision. Throughout the procedure, the patient's blood pressure, pulse, and oxygen saturations were monitored continuously. The Endosonoscope was introduced through the mouth, and advanced to the middle third of esophagus. The upper EUS was accomplished without difficulty. The patient tolerated the procedure well. Findings: ENDOSONOGRAPHIC FINDING: : The scope could not traverse the mass due to severe luminal stenosis. A round intramural lesion was found in the middle third of the esophagus. It was encountered at 25 cm from the incisors. The lesion was hypoechoic. The lesion also appeared to involve the following wall layer(s): submucosa (Layer 3), muscularis propria (Layer 4) and adventitia (Layer 5). The mass measured up to 10 mm in thickness. The endosonographic borders were well-defined. Fine needle aspiration for cytology was performed. Color Doppler imaging was utilized prior to needle puncture to confirm a lack of significant vascular structures within the needle path. Four passes were made with the 25 gauge needle using a transesophageal approach. A stylet was used. A horticultural specialty grower field was present and performed a preliminary cytologic examination. The cellularity of the specimen was adequate. Final cytology results are pending. Verification of patient identification for the specimen was done by the physician and nurse using the patient's name and date. Impression: - An intramural lesion was found in the middle third of the esophagus, r/o metastatic disease given prior history of lung cancer. Fine needle aspiration performed. Recommendation: - Perform an upper GI endoscopy today for esophageal stent placement. Brady Melendez MD 10/17/2020 3:01:55 PM This report has been signed electronically. Note Initiated On: 10/17/2020 1:15 PM Number of Addenda: 0 I attest to the content of the Intraoperative Record and orders documented therein, exceptions below {[id number]}
--- NOTE | 2020-10-17 15:08 | GI REPORT ---
Patient Name: iNcola Banks Procedure Date: 10/17/2020 1:14 PM Date of : 1935 Admit Type: Preadmit Age: 85 Gender: Male Attending MD: Brady Melendez MD Procedure: Upper GI endoscopy Providers: Brady Melendez MD Referring MD: Eber Sands Indications: Dysphagia Medicines: General Anesthesia Complications: No immediate complications. Estimated Blood Loss: Estimated blood loss: none. Procedure: Pre-Anesthesia Assessment: - Prior to the procedure, a History and Physical was performed, and patient medications, allergies and sensitivities were reviewed. The patient's tolerance of previous anesthesia was reviewed. - The risks and benefits of the procedure and the sedation options and risks were discussed with the patient. All questions were answered and informed consent was obtained. - Patient identification and proposed procedure were verified prior to the procedure by the physician and the nurse. The procedure was verified in the procedure room. - Pre-procedure physical examination revealed no contraindications to sedation. After obtaining informed consent, the endoscope was passed under direct vision. Throughout the procedure, the patient's blood pressure, pulse, and oxygen saturations were monitored continuously. The Scope was introduced through the mouth, and advanced to the middle third of esophagus. The upper GI endoscopy was accomplished without difficulty. The patient tolerated the procedure well. Findings: One extrinsic severe (stenosis; an endoscope cannot pass) stenosis was found 25 cm from the incisors. This stenosis measured 4 mm (inner diameter). The stenosis was not traversed. Placement of a 0.035 inch straight standard wire was attempted. This passed successfully. This was stented with a 20 mm x 10 cm Evolution partially covered controlled-release stent with a 25 mm flange under fluoroscopic guidance. For location marking and anchoring the stent, one hemostatic clip was successfully placed (MR conditional). I personally interpreted the fluoroscopy images. Impression: - Severe esophageal stenosis. Partially covered esophageal stent placed. Recommendation: - Discharge patient to home. - Clear liquid diet today then full liquids tomorrow then follow post stent diet. - Refer to an oncologist. - Return to referring physician. Brady Melendez MD 10/17/2020 3:07:33 PM This report has been signed electronically. Note Initiated On: 10/17/2020 1:14 PM Number of Addenda: 0 I attest to the content of the Intraoperative Record and orders documented therein, exceptions below {[id number]}
--- NOTE | 2020-10-17 15:23 | Anesthesiology Progress Note ---
Date of Service October 17, 2020 Anesthesia Post Procedure Vital Signs Vital Signs: Temp Pulse Pulse Resp BP Pulse Ox 10/17/20 15:20 69 18 154/80 H 97 10/17/20 15:10 67 18 174/80 H 98 10/17/20 15:00 68 18 149/60 H 100 10/17/20 14:50 36.1 C L 73 18 174/93 H 100 10/17/20 12:13 36.7 C 69 18 158/79 H 96 Transfer of Care Handoff Completed per policy Notes Mental Status: alert / awake / arousable Patient Amnestic to Procedure: Yes Nausea / Vomiting: adequately controlled Pain: adequately controlled Airway Patency, RR, SpO2: stable & adequate BP & HR: stable & adequate Hydration State: stable & adequate Anesthetic Complications: no major complications apparent
[2020-10-17] MEDS ORDERED: fentaNYL citrate 100 MCG/2 ML VIAL IV STA (16:38)
--- NOTE | 2020-10-17 16:40 | XRay Report ---
XR chest 1V portable CLINICAL HISTORY: Chest pain. Status post esophageal stent placement. COMPARISON STUDY: Chest radiograph April 15, 2017. FINDINGS: Interval placement of a metallic stent within the esophagus is noted. Mild narrowing of the mid aspect of the stent is due to the mass which was shown on outside CT. There is no pneumothorax. No pneumomediastinum is identified. Transplant left lung appears unremarkable. Appearance of the righ t hemithorax which is largely opacified is unchanged with volume loss. Cardiomediastinal silhouette i s stable. IMPRESSION: 1. Expected findings following placement of a metallic esophageal stent, as described above. No pneum othorax. No pneumomediastinum identified. 2. Otherwise, unchanged appearance of the chest with right lung volume loss and extensive right hemit horax opacification. Clear transplanted left lung. ACT 112: Negative or not required by law. Electronically signed by: Grant Mistry M.D. 10/17/2020 4:39 PM
[2020-10-17] MEDS ORDERED: oxyCODONE/ACETAMINOPHEN 5mg/325mg TAB PO ONE (17:11)
[2020-10-17] MEDS ORDERED: oxyCODONE/ACETAMINOPHEN 5mg/325mg TAB PO STA (17:24)
--- NOTE | 2020-10-17 18:11 | Gastroenterology Progress Note ---
Date of Service October 17, 2020 Subjective Patient with Hx of lung cancer s/p right sided pneumonectomy, s/p left sided lung transplant due to lung fibrosis, recently developed severe dysphagia and found with severe esophageal stenosis, CT scan showed a 3 cm esophageal mass which is infiltrating the esophageal wall, today underwent EUS with FNA and prelim is malignant. Also had esophageal stent placed . Post procedure he reported chest pain which is very common after esophageal stenting. CXR unchanged and stent in place. He was given PO Percocet however due to his age and underlying comorbids, I prefer to observe him overnight in the hospital and adequately control his pain as the stent typically achieves full expansion in 24 hrs then the pain may hopefully settle down. Spoke to the admitting hospitalist. On exam he is comfortable in bed with normal vital signs. Recommend: Clear liquid diet. IV hydration as needed. IV pain control. Results & Data ([facility]) Vital Signs (Past 12 Hours) Vital Signs Temp Pulse Pulse Resp BP Pulse Ox 10/17/20 17:40 73 18 147/73 H 97 10/17/20 16:40 71 18 147/76 H 98 10/17/20 16:10 70 18 137/57 L 96 10/17/20 15:40 36.0 C L 72 18 158/74 H 97 10/17/20 15:30 36.2 C L 73 18 152/85 H 96 10/17/20 15:20 69 18 154/80 H 97 10/17/20 15:10 67 18 174/80 H 98 10/17/20 15:00 68 18 149/60 H 100 10/17/20 14:50 36.1 C L 73 18 174/93 H 100 10/17/20 12:13 36.7 C 69 18 158/79 H 96
[2020-10-17] MEDS ORDERED: MoRPHine SULFATE 2 MG/ML CARP IV STA (20:29)
[2020-10-17] MEDS ORDERED: MoRPHine SULFATE 2 MG/ML CARP ONE (20:33)
[2020-10-17] MEDS ORDERED: GLUCOSE 40% GEL 15 GM TUBE PO PRN (20:43)
[2020-10-17] MEDS ORDERED: CARBOHYDRATES FOR HYPOGLYCEMIA PO PRN (20:43)
[2020-10-17] MEDS ORDERED: GLUCOSE 10 TABS/TUBE PO PRN (20:43)
[2020-10-17] MEDS ORDERED: ACETAMINOPHEN 325 MG TAB PO PRN (20:43)
[2020-10-17] MEDS ORDERED: GLUCAGON FOR INJ 1 MG VIAL SQ PRN (20:43)
[2020-10-17] MEDS ORDERED: DEXTROSE 50% 50 ML SYRINGE IV PRN (20:43)
--- NOTE | 2020-10-17 20:55 | History & Physical Report ---
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 Patient found with esophageal mass during workup for ongoing dysphagia. S/p EGD/EUS with FNA performed by Dr. Melendez today. Procedure was well tolerated with no complications identified. Patient complaining of chest pain while in recovery, recurrent upon arrival to the floor. Upon further questioning pain is more diffuse across the chest as well as abdominal discomfort. Most likely post-procedural discomfort. CXR confirms placement of stent. EKG with no ischemic changes -Check troponin -Pain control with Tylenol PRN as well as Morphine -Zofran PRN nausea -Will hold PM ASA dose (2) H/O lung transplant: Patient s/p right pneumonectomy for malignancy, s/p left lung transplant for pulmonary fibrosis - 2005 at [facility]. -Continue Tacrolimus - patient to get dose tonight -Continue antibiotic prophylaxis with Bactrim 1tab twice weekly and [id number] three times weekly -Continue Prednisone (3) HTN (hypertension): Blood pressure mildly elevated at 149/78 in setting of pain, recent procedure -Resume home medications -Amlodipine 5mg po qPM and 2.5mg po qAM -Hydralazine 50mg po QID -Losartan 25mg po qHS -Continue to monitor Present on Admission?: Yes (4) Diabetes mellitus: Elevated POC BSG following procedure at 298. Paitent is on Repaglinide daily. Last Hgb A1C=6.1 in December -Hold Repaglinide for now -Fingersticks -ISS for now - will wait to see what next fingerstick is before adding long acting insulin -Goal blood sugar 100 - 140 Present on Admission?: Yes (5) Chronic kidney disease with symptom management only, stage 3 (moderate): Chronic -Check chemistry panel -Avoid nephrotoxic agents Present on Admission?: Yes (6) Hypomagnesemia: Chronic -Check Mg level -Supplement as needed Present on Admission?: Yes (7) Aortic stenosis: Patient with severe -Cautious fluid balance F/E/N - Checking labs - BMP/CBC/Mg - will initiate IVF pending results, Clear liquids as tolerated Ppx - SCDs Code - Full Dispo - Admit to medical Present on Admission?: Yes Admission and Anticipated Discharge Date Admission Date: October 17, 2020 History of Present Illness Chief Complaint: s/p endoscopic biopsy Primary Care Provider: Eber Sands MD Nicola Banks is an 85yo male with history of right pneumonectomy secondary to lung cancer, s/p 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 Patient developed severe dysphagia. He was found to have a focal short segment of high-grade stenosis at the midesophagus at the level of the aortic knob on barium swallow 09/27/20. Patient had a CT scan on 10/11/20 which revealed a 3cm mass like esophageal structure. He had EGD/EUS performed today by Dr. Melendez which revealed a mass resulting in luminal stenosis of the middle 1/3 of the esophagus. FNA performed - preliminary read suggests malignancy. Dr. Melendez placed an esophageal stent. Post-procedure CXR confirmed proper placement. Patient was complaining of post-procedure chest discomfort. Due to age and underlying medical comorbidities, overnight observational hospital stay was advised. Patient resting in bed during my encounter. He reports diffuse pain mostly substernal and epigastric region but also involving the abdomen as well. Patient states the discomfort is 10/10 in severity, pressure. Discomfort is nonpositional and nonpleuritic. Patient has taken small sips of water which made the pain worse. No additional complaints - he denies diaphoresis, palpitations, SOB, dizziness. He had some nausea with one episode of non-bloody emesis while in recovery but denies nausea presently. EKG performed which was negative for acute ischemic changes. Patient administered Morphine x 1mg Allergies Allergy/AdvReac Type Severity Reaction Status Date / Time metronidazole Allergy Severe NEUROPATHY Verified 10/17/20 12:01 LEG lisinopril Allergy Intermediate NAUSEA, Verified 10/17/20 12:01 STOMACH UPSET, DEATHLY SICK Home Medications Medication Instructions Recorded Confirmed Type amlodipine 2.5 mg PO QAM #30 tab 07/27/18 10/17/20 Rx amlodipine 5 mg PO QPM 07/27/18 10/17/20 History aspirin 81 mg PO QPM 07/27/18 10/17/20 History calcium carbonate-vitamin D3 2 tabs PO BID 07/27/18 10/17/20 History [Calcium 500 + D] hydralazine 50 mg PO QID 07/27/18 10/17/20 History omeprazole 20 mg PO QAM 07/27/18 10/17/20 History pravastatin 40 mg PO HS 07/27/18 10/17/20 History prednisone 5 mg PO QDL 07/27/18 10/17/20 History sulfamethoxazole-trimethoprim 1 tab PO 2XWK 07/27/18 10/17/20 History Multi-Day Plus Minerals 1 tab PO QAM 10/23/18 10/16/20 History ipratropium bromide 42 mcg (0.06 2 spray INTRANASAL TID PRN ml 03/16/19 10/17/20 History %) nasal spray magnesium chloride 64 mg 64 mg PO BID #354 tab 05/25/19 10/17/20 Rx (magnesium chloride) tablet,delayed release azithromycin 250 mg tablet 250 mg PO 3XWK #36 tab 10/20/19 10/17/20 Rx blood sugar diagnostic #100 ea 10/20/19 05/17/20 Rx doxycycline monohydrate 100 mg 100 mg PO UD PRN 10/20/19 10/16/20 History capsule lancets #100 ea 10/20/19 05/17/20 Rx repaglinide 2 mg tablet See Rx Instructions PO TID tab 10/20/19 10/17/20 History tacrolimus 0.5 mg capsule, 0.5 mg PO QPM cap 10/20/19 10/17/20 History immediate-release tacrolimus 1 mg capsule, 1 mg PO QAM cap 10/20/19 10/17/20 History immediate-release tamsulosin 0.4 mg capsule 0.8 mg PO QPM #180 cap 01/13/20 10/17/20 Rx losartan 25 mg tablet 25 mg PO HS tab 05/17/20 10/17/20 History Past Med/Surg History Medical History Aortic stenosis Severe aortic stenosis is presentpeak CW Doppler velocities 4 m/s, mean gradient 39 mmHg, calculated SHANTAL =0.8 cm. 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 Surgical History History of anesthesia reaction "SLOW TO WAKE UP" PER SPOUSE History of back surgery X 2-INCLUDING FUSION > LUMBAR History of bronchoscopy History of cardiac cath 2005 NO STENTS-BEFORE LUNG TRANSPLANT SURGERY History of cataract surgery R/L History of colonoscopy History of esophagogastroduodenoscopy (EGD) History of lobectomy of lung 2009- right upper for cancer History of tooth extraction Lung transplant recipient LEFT 2005 [place] Family History Mother Family hx of colon cancer Family history of diabetes mellitus Father Family history of diabetes mellitus Brother Family hx of colon cancer Other Family history non-contributory No family history of adverse response to anesthesia Social History Smoking Status: Never smoker Second Hand Exposure: No; Hx Alcohol Use: No Preferred Language: [place] Communication Ability: Effective Visual Impairment: Limited Hearing Ability: Use of Hearing Aid Shank Paperer Required: No Beliefs That Will Affect Care: None marital status: Current Living Situation: Spouse current occupational status: retired Feels Safe at Home: Yes Safety Concerns: Feels Safe At This Time Childhood Exposure to Second-Hand Smoke: No caffeine: No Dental Care, Regularly: Yes Physical Activity Frequency: 1-2 Times per Week Seatbelt Use: always Sunscreen Use: Yes Assistive Devices: Cane and Hearing Aid - Bilateral Review of Systems Review of Systems: All systems reviewed & are unremarkable except as noted in HPI & below Physical Exam Physical Exam: General: patient resting comfortably, NAD, non-toxic in appearance, AA&O x 4 Skin: warm, dry, intact, no rashes or lesions HEENT: NC/AT, PERRL, EOMI, anicteric sclera, conjunctiva without injection, external ear normal to inspection and nontender, nares patent, moist mucus membranes, dentition intact, no oropharyngeal lesions, neck supple, trachea midline, no LAD, no thyromegaly, no JVD Heart: +S1/S2, regular, 5/6 GABBI at LSB with radiation across the precordium and to bilateral carotid arteries Lungs: equal air entry bilaterally, no rales/rhonchi/wheezes Abd: +BS, soft, ND, epigastric tenderness without rebound/guarding/peritonitis, no masses/organomegaly/ascites Ext: warm, 2+ pulses in UE/LE bilaterally, no clubbing/cyanosis or edema Neuro: nonfocal, patient AA&O x 4, speech intact, no facial droop, moving all extremities on command with equal strength 5/5 Results & Data Results & Data ([facility]) Vital Signs (Past 12 Hours) Vital Signs Temp Pulse Pulse Resp BP Pulse Ox 10/17/20 19:30 36.5 C 94 H 18 149/78 H 95 10/17/20 17:40 73 18 147/73 H 97 10/17/20 16:40 71 18 147/76 H 98 10/17/20 16:10 70 18 137/57 L 96 10/17/20 15:40 36.0 C L 72 18 158/74 H 97 10/17/20 15:30 36.2 C L 73 18 152/85 H 96 10/17/20 15:20 69 18 154/80 H 97 10/17/20 15:10 67 18 174/80 H 98 10/17/20 15:00 68 18 149/60 H 100 10/17/20 14:50 36.1 C L 73 18 174/93 H 100 10/17/20 12:13 36.7 C 69 18 158/79 H 96 Laboratory Results Laboratory Results POC Glucose 238 mg/dl (70-99) H 10/17/20 19:44 COVID-19 Eval Order Covid19 IDNow [facility] 10/17/20 Unknown SARS-CoV-2, RNA, NAAT NEGATIVE (NEGATIVE) 10/17/20 Unknown Impressions Chest X-Ray 10/17/20 16:15 XR chest 1V portable CLINICAL HISTORY: Chest pain. Status post esophageal stent placement. COMPARISON STUDY: Chest radiograph April 15, 2017. FINDINGS: Interval placement of a metallic stent within the esophagus is noted. Mild narrowing of the mid aspect of the stent is due to the mass which was shown on outside CT. There is no pneumothorax. No pneumomediastinum is identified. Transplant left lung appears unremarkable. Appearance of the right hemithorax which is largely opacified is unchanged with volume loss. Cardiomediastinal silhouette is stable. IMPRESSION: 1. Expected findings following placement of a metallic esophageal stent, as described above. No pneumothorax. No pneumomediastinum identified. 2. Otherwise, unchanged appearance of the chest with right lung volume loss and extensive right hemithorax opacification. Clear transplanted left lung. ACT 112: Negative or not required by law. Electronically signed by: Grant Mistry M.D. 10/17/2020 4:39 PM Code Status & VTE Plan VTE Prophylaxis Plan VTE Prophylaxis will be ordered: Yes PG Care Time/CCT Total # of Minutes Spent Total Time Spent with Patient: Total time spent is greater than 50% in coordination of care (as documented) at patient's floor/unit and/or counseling patient: Coding Level of Care Code 71357 Initial Inpt Care Lvl 3 Diagnoses Chest pain R07.9 Chest pain type: unspecified H/O lung transplant Z94.2 HTN (hypertension) I10 Hypertension type: essential hypertension Diabetes mellitus E11.22; N18.3 Diabetes mellitus type: type 2 Diabetes mellitus halfway insulin use: without termite helper use Diabetes mellitus complication status: with kidney complications Diabetes mellitus complication detail: with chronic kidney disease Chronic kidney disease stage: stage 3 (moderate) Chronic kidney disease with symptom management only, stage 3 (moderate) N18.3 Hypomagnesemia E83.42 Aortic stenosis I35.0 Cardiac valve disease etiology: etiology unspecified (1) HTN (hypertension) Hypertension type: essential hypertension Qualified Code(s): I10 - Essential (primary) hypertension (2) Diabetes mellitus Diabetes mellitus type: type 2 Diabetes mellitus termite helper insulin use: without termite helper use Diabetes mellitus complication status: with kidney complications Diabetes mellitus complication detail: with chronic kidney disease Chronic kidney disease stage: stage 3 (moderate) Qualified Code(s): E11.22 - Type 2 diabetes mellitus with diabetic chronic kidney disease; N18.3 - Chronic kidney disease, stage 3 (moderate) (3) Aortic stenosis Cardiac valve disease etiology: etiology unspecified Qualified Code(s): I35.0 - Nonrheumatic aortic (valve) stenosis (4) Chest pain Chest pain type: unspecified Qualified Code(s): R07.9 - Chest pain, unspecified
[2020-10-17] MEDS ORDERED: FAMOTIDINE 20 MG in SYRINGE 3 ML IV SCH (21:00)
[2020-10-17] MEDS ORDERED: AZITHROMYCIN 250 MG TAB PO SCH (21:00)
[2020-10-17 21:26] LABS: Hemoglobin 11.5 g/dL (14.0-18.0); Immature Granulocytes # (auto) 0.01 K/uL (0.00-0.02); Immature Granulocytes % (auto) 0.3 %; Lymphocytes # (auto) 0.15 K/uL (1.2-3.4); Lymphocytes % (auto) 4.1 %; Mean Corpuscular Hemoglobin 29.2 pg (25-34); Mean Corpuscular Hgb Conc 34.8 g/dL (32-36); Mean Corpuscular Volume 83.8 fL (80-100); Mean Platelet Volume 9.3 fL (7.4-10.4); Monocytes # (auto) 0.05 K/uL (0.11-0.59); Monocytes % (auto) 1.4 %; Neutrophils # (auto) 3.47 K/uL (1.4-6.5); Neutrophils % (auto) 94.2 %; Platelet Count 117 K/uL (130-400); RDW Coefficient of Variation 13.8 % (11.5-14.5); RDW Standard Deviation 42.2 fL (36.4-46.3); Red Blood Count 3.94 M/uL (4.7-6.1); White Blood Count 3.68 K/uL (4.8-10.8)
[2020-10-17] MEDS: ONDANSETRON INJ 2 MG/ML 2 ML VIAL IV PRN (21:28)
[2020-10-17 21:32] LABS: Acanthocytes 1+
[2020-10-17 21:39] LABS: BUN Creatinine Ratio 15.8 (10-20); Blood Urea Nitrogen 26 mg/dl (7-18); Calcium 9.1 mg/dl (8.5-10.1); Carbon Dioxide 20 mmol/L (21-32); Chloride 96 mmol/L (98-107); Creatinine Clr Calc Pharmacy 30.6 ml/min; Est GFR (African American) 43.2 ml/min; Est GFR (Non-African American) 37.3 ml/min; Glucose 276 mg/dl (70-99); Magnesium 1.7 mg/dl (1.8-2.4); Potassium 4.4 mmol/L (3.5-5.1); Sodium 129 mmol/L (136-145)
[2020-10-17 21:44] LABS: Troponin I < 0.015 ng/ml (0-0.045)
[2020-10-17] MEDS: INSULIN ASPART 100 UNITS/ML 3 ML PEN SC SCH (21:49)
[2020-10-17] MEDS: amLODIPine BESYLATE 5 MG TAB PO SCH (21:58)
[2020-10-17] MEDS: hydrALAZINE TAB 50 MG TAB PO SCH (21:58)
[2020-10-17] MEDS: TACROLIMUS 0.5 MG CAP PO SCH (21:58)
[2020-10-17] MEDS: LOSARTAN POTASSIUM 25 MG TAB PO SCH (21:58)
[2020-10-17] MEDS: TAMSULOSIN HCL 0.4 MG CAP PO SCH (21:58)
[2020-10-17] MEDS: MAGNESIUM SULFATE / D5W 1 GM/100 ML BAG IV SCH (23:05)
[2020-10-17] MEDS: INSULIN GLARGINE SOLOSTAR 100 UNITS/ML 3 ML PEN SC SCH (23:06)
[2020-10-17] MEDS: SODIUM CHLORIDE 0.9% 1000ML 1,000 ML IV SCH (23:14)
[2020-10-17] MEDS: MoRPHine SULFATE 2 MG/ML CARP IV PRN (23:20)
[2020-10-18] MEDS: MAGNESIUM SULFATE / D5W 1 GM/100 ML BAG IV SCH (01:32)
[2020-10-18] MEDS ORDERED: PROMETHAZINE HCL 6.25 MG in SODIUM CHLORIDE 0.9% 50 ML IV PRN (02:29)
[2020-10-18] MEDS ORDERED: KETOROLAC TROMETHAMINE 15 MG/ML VIAL IV STA (02:37)
--- NOTE | 2020-10-18 06:24 | Electrocardiogram Report ---
Test Reason : Blood Pressure : / mmHG Vent. Rate : 068 BPM Atrial Rate : 068 BPM P-R Int : 224 ms QRS Dur : 096 ms QT Int : 384 ms P-R-T Axes : 054 066 045 degrees QTc Int : 408 ms Sinus rhythm with 1st degree A-V block with occasional Premature ventricular complexes Otherwise normal ECG When compared with ECG of 27-JUL-2018 15:31, Premature ventricular complexes are now Present Premature atrial complexes are no longer Present Confirmed by Fede Larson ([id number]) on 10/18/2020 6:23:57 AM Referred By: Brady Melendez Confirmed By:Fede Larson
[2020-10-18 07:10] LABS: Hematocrit (blood only) 30.7 % (42-52); Hemoglobin 10.7 g/dL (14.0-18.0); Lymphocytes % (auto) 19.5 %; Mean Corpuscular Hgb Conc 34.9 g/dL (32-36); Mean Corpuscular Volume 83.2 fL (80-100); Mean Platelet Volume 9.3 fL (7.4-10.4); Monocytes # (auto) 0.14 K/uL (0.11-0.59); Monocytes % (auto) 5.4 %; Neutrophils # (auto) 1.93 K/uL (1.4-6.5); Neutrophils % (auto) 75.1 %; Platelet Count 122 K/uL (130-400); RDW Coefficient of Variation 13.8 % (11.5-14.5); RDW Standard Deviation 41.8 fL (36.4-46.3); Red Blood Count 3.69 M/uL (4.7-6.1); White Blood Count 2.57 K/uL (4.8-10.8)
[2020-10-18 07:49] LABS: Estimated Average Glucose 128 mg/dl; Hemoglobin A1C 6.1 % (4.5-5.6)
[2020-10-18 07:54] LABS: BUN Creatinine Ratio 15.4 (10-20); Calcium 8.2 mg/dl (8.5-10.1); Creatinine Clr Calc Pharmacy 34.1 ml/min; Est GFR (African American) 49.3 ml/min; Est GFR (Non-African American) 42.5 ml/min; Magnesium 2.3 mg/dl (1.8-2.4); Potassium 4.7 mmol/L (3.5-5.1)
[2020-10-18] MEDS: INSULIN GLARGINE SOLOSTAR 100 UNITS/ML 3 ML PEN SC SCH ×2 (08:46→21:46)
[2020-10-18] MEDS: TACROLIMUS 1 MG CAP PO SCH (08:46)
[2020-10-18] MEDS: hydrALAZINE TAB 50 MG TAB PO SCH ×4 (08:46→21:55)
[2020-10-18] MEDS: INSULIN ASPART 100 UNITS/ML 3 ML PEN SC SCH ×4 (08:46→21:44)
[2020-10-18] MEDS: amLODIPine BESYLATE 5 MG TAB PO SCH ×2 (08:47→21:55)
[2020-10-18] MEDS: SODIUM CHLORIDE 0.9% 1000ML 1,000 ML IV SCH (08:49)
--- NOTE | 2020-10-18 09:46 | CT Scan Report ---
CT OF THE CHEST WITHOUT IV CONTRAST CLINICAL HISTORY: Chest pain. Recent procedure. COMPARISON STUDY: Chest radiograph April 15, 2017 and October 17, 2020. TECHNIQUE: Axial images of the chest were obtained without IV contrast. Images were reviewed in the axial, sagittal, and coronal planes. IV contrast was not administered for this examination. Automat ed exposure control was utilized for the study. A dose lowering technique was utilized adhering to t he principles of ALARA. FINDINGS: A metallic stent within the esophagus is noted. There is no pneumomediastinum. No pneumoth orax is present. Note is made of wall thickening of the proximal to mid thoracic esophagus within the adjacent infiltration. There are numerous small mediastinal lymph nodes. Index right paratracheal ly mph node measures 8 mm. Postoperative findings consistent with right lower lobectomy are noted. A sma ll right pleural effusion is likely chronic. Pleural thickening is likely chronic within the right he mithorax. Air bronchograms within the right upper and right middle lobes are noted with markedly dimi nished aeration of the right lung which is chronic. Transplanted left lung is clear. There is a trace left pleural effusion. No suspicious osseous lesions within the bony thorax are noted. Moderate card iomegaly is noted. There is extensive coronary artery calcification. The abdomen and pelvis will be r eported separately. IMPRESSION: 1. Esophageal stent in place. No pneumomediastinum. Wall thickening of the proximal to mid thoracic e sophagus with adjacent infiltration. This is indeterminate and may be neoplastic. 2. Clear transplanted left lung. Chronic with upper findings within the right hemithorax with markedl y diminished aeration status post right lower lobectomy chronic right pleural effusion. 3. Numerous small indeterminate mediastinal and right hilar lymph nodes. ACT 112: Negative or not required by law. Electronically signed by: Grant Mistry M.D. 10/18/2020 9:45 AM
--- NOTE | 2020-10-18 09:51 | Gastroenterology Progress Note ---
Date of Service October 18, 2020 Assessment & Plan (1) Chest pain: Pt is a 85 yo male with history of Right pneumonectomy secondary to lung ca, s/p L lung transplant secondary to pulmonary fibrosis, who had been having dysphagia symptoms. EGD/EUS performed by Dr. Melendez 10/17 showed intramural lesion on middle third esophagus, FNA performed, partially covered esophageal stent placed. Post procedure, pt was c/o chest pain and he was admitted overnight for observation. No signs of perforation noted on imaging studies, labs stable. Pt clinically improved this AM. - CL diet rest of today; may advance to [place] diet starting tomorrow - Symptomatic management - No contraindication for DC home from GI standpoint Admission and Anticipated Discharge Date Admission Date: October 17, 2020 Supervising Physician Co-Signing Physician Notes I performed a history and physical examination of the patient today, including specifically on physical exam - soft abdomen. I have discussed the patient's management with the advanced practitioner. Please refer to the nurse practitioner's note for the documented findings and plan of care. pain resolved after using Toradol. Tolerating clear liquids. CT scan with no issues. Discharge home from my standpoint. Subjective Pt reports chest pain is improved, currently more localized along mid chest area. No n/v. Is tolerating CL diet. Review of Systems Review of Systems: All systems reviewed & are unremarkable except as noted in HPI & below Physical Exam Constitutional: WD/WN, vitals as above well groomed, cooperative and comfortable Eyes: PERRL, conjunctivae normal, anicteric sclerae ENMT: external ear and nose normal, oropharynx normal Respiratory: normal respiratory effort, lungs clear to auscultation Cardiovascular: RRR, no murmur, no edema Gastrointestinal (Abdomen): normal bowel sounds, soft, nontender, no hepatosplenomegaly Skin: no rashes, warm and dry no jaundice Psychiatric: A+Ox3, euthymic affect Lymphatic: no lymphedema Results & Data ([facility]) Vital Signs (Past 12 Hours) Vital Signs Temp Pulse Pulse Pulse Resp BP BP 10/18/20 07:38 37.1 C 84 17 153/81 H 10/18/20 03:11 36.7 C 88 16 147/72 H 10/17/20 23:40 36.7 C 87 20 150/74 H 10/17/20 21:56 99 H 144/71 H Pulse Ox 10/18/20 07:38 94 10/18/20 03:11 94 10/17/20 23:40 93 10/17/20 21:56 (1) Chest pain Chest pain type: unspecified Qualified Code(s): R07.9 - Chest pain, unspecified
--- NOTE | 2020-10-18 09:55 | CT Scan Report ---
CT OF THE ABDOMEN AND PELVIS WITHOUT CONTRAST CLINICAL HISTORY: Abdominal pain. COMPARISON STUDY: CT of the abdomen and pelvis July 31, 2016. Abdominal ultrasound August 30, 2020. TECHNIQUE: Axial images of the abdomen and pelvis were obtained without IV contrast. Images were revi ewed in the axial, sagittal, and coronal planes. Automated exposure control was utilized for the nichelle dy. A dose lowering technique was utilized adhering to the principles of ALARA. FINDINGS: Please note that the chest CT will be reported separately. Postoperative findings within th e right hemithorax with a right pleural effusion are better depicted on that exam. No pneumatosis, fr ee air or portal venous gas is present. Evaluation of the abdomen and pelvis is suboptimal on this un enhanced exam. The liver, spleen, adrenal glands and right kidney are unremarkable. A water attenuati on 3.6 cm lesion within the upper pole the left kidney favors a cyst. There are parenchymal calcifica tions within the pancreas. No peripancreatic fluid collection is present. There is no evidence for a bowel obstruction. Colonic diverticulosis is noted without evidence for acute diverticulitis. Apparen t diffuse colonic wall thickening is probably due to underdistention. The appendix is normal. Prostat e is enlarged. Bladder wall thickening is likely chronic. Postoperative findings within the spine are noted. No acute fracture or suspicious lesion is identified within the visualized skeletal structure s. IMPRESSION: 1. Apparent diffuse colonic wall thickening. This is likely due to underdistention. Nonspecific colit is could appear similar. Colonic diverticulosis with evidence for acute diverticulitis. 2. No bowel obstruction. 3. No urinary calculi or hydronephrosis. ACT 112: Negative or not required by law. Electronically signed by: Grant Mistry M.D. 10/18/2020 9:54 AM
[2020-10-18] MEDS: predniSONE 5 MG TAB PO SCH (11:24)
[2020-10-18] MEDS ORDERED: ALUMINUM/MAGNESIUM SUSP 30 ML UDC PO STA (12:47)
[2020-10-18] MEDS ORDERED: traMADol HCL 50 MG TABLET PO STA (16:15)
--- NOTE | 2020-10-18 18:45 | Hospitalist Progress Note ---
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 Patient found with esophageal mass during workup for ongoing dysphagia. S/p EGD/EUS with FNA performed by Dr. Melendez 10/17. Procedure was well tolerated with no complications identified. Patient complaining of chest pain while in recovery, recurrent upon arrival to the floor. Upon further questioning pain is more diffuse across the chest as well as abdominal discomfort. Most likely post-procedural discomfort. CXR confirms placement of stent. EKG with no ischemic changes -serial troponins negative -Pain control with Tylenol PRN as well as Morphine -Zofran PRN nausea -Will hold PM ASA dose Trial of acetaminophen and Maalox unsuccessful. Will start tramadol. Patient unable to drink currently therefore unsafe for discharge a the current time. (2) H/O lung transplant: Patient s/p right pneumonectomy for malignancy, s/p left lung transplant for pulmonary fibrosis - 2005 at [facility]. -Continue Tacrolimus - patient to get dose tonight -Continue antibiotic prophylaxis with Bactrim 1tab twice weekly and [id number] three times weekly -Continue Prednisone (3) HTN (hypertension): Blood pressure mildly elevated at 149/78 in setting of pain, recent procedure -Resume home medications -Amlodipine 5mg po qPM and 2.5mg po qAM -Hydralazine 50mg po QID -Losartan 25mg po qHS -Continue to monitor (4) Diabetes mellitus: Elevated POC BSG following procedure at 298. Paitent is on Repaglinide daily. Last Hgb A1C=6.1 in December -Hold Repaglinide for now -Fingersticks -ISS for now - will wait to see what next fingerstick is before adding long acting insulin -Goal blood sugar 100 - 140 HbA1C 6.1. (5) Chronic kidney disease with symptom management only, stage 3 (moderate): Chronic -Check chemistry panel -Avoid nephrotoxic agents (6) Hypomagnesemia: Chronic -Check Mg 2.3 -Supplement as needed (7) Aortic stenosis: Patient with severe -Cautious fluid balance D/C further IV fluids Ppx - SCDs Code - Full Dispo - Continue on medical until eating and drinking adequately Admission and Anticipated Discharge Date Admission Date: October 17, 2020 Subjective Patient having continued pain during the day limiting his ability to swallow at present time. Acetaminophen and Maalox without significant relief. Review of Systems Review of Systems: All systems reviewed & are unremarkable except as noted in HPI & below Physical Exam Constitutional: WD/WN, vitals as above Eyes: + anicteric sclerae; normal pupil size ENMT: external ear and nose normal, oropharynx normal Cardiovascular: Rate/Rhythm: regular rate and regular rhythm Heart Sounds: + murmur Extremities: normal capillary refill; no calf tenderness and no pedal edema Gastrointestinal (Abdomen): normal bowel sounds, soft, nontender, no hepatosplenomegaly Musculoskeletal: no cyanosis or clubbing, extremities motor strength 5/5 Skin: no rashes, warm and dry Neurologic: moves all extremities and awake; not confused Results & Data Results & Data ([facility]) Vital Signs (Past 12 Hours) Vital Signs Temp Pulse Pulse Resp BP BP Pulse Ox 10/18/20 17:14 71 158/69 H 10/18/20 15:48 36.9 C 66 16 151/67 H 96 10/18/20 12:42 73 136/52 L 10/18/20 07:38 37.1 C 84 17 153/81 H 94 PG Care Time/CCT Total # of Minutes Spent Total Time Spent with Patient: Total time spent is greater than 50% in coordination of care (as documented) at patient's floor/unit and/or counseling patient: Coding Level of Care Code 52028 Subseq Hosp Care Lvl 2 Diagnoses Chest pain R07.9 Chest pain type: unspecified H/O lung transplant Z94.2 HTN (hypertension) I10 Hypertension type: essential hypertension Diabetes mellitus E11.22; N18.3 Chronic kidney disease stage: stage 3 (moderate) Diabetes mellitus complication detail: with chronic kidney disease Diabetes mellitus complication status: with kidney complications Diabetes mellitus 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: without [facility] use Diabetes mellitus type: type 2 Chronic kidney disease with symptom management only, stage 3 (moderate) N18.3 Hypomagnesemia E83.42 Aortic stenosis I35.0 Cardiac valve disease etiology: etiology unspecified (1) Diabetes mellitus Chronic kidney disease stage: stage 3 (moderate) Diabetes mellitus complication detail: with chronic kidney disease Diabetes mellitus complication status: with kidney complications Diabetes mellitus chcf insulin use: without chcf use Diabetes mellitus type: type 2 Qualified Code(s): E11.22 - Type 2 diabetes mellitus with diabetic chronic kidney disease; N18.3 - Chronic kidney disease, stage 3 (moderate) (2) Aortic stenosis Cardiac valve disease etiology: etiology unspecified Qualified Code(s): I35.0 - Nonrheumatic aortic (valve) stenosis (3) Chest pain Chest pain type: unspecified Qualified Code(s): R07.9 - Chest pain, unspecified (4) HTN (hypertension) Hypertension type: essential hypertension Qualified Code(s): I10 - Essential (primary) hypertension
[2020-10-18] MEDS: TAMSULOSIN HCL 0.4 MG CAP PO SCH (21:54)
[2020-10-18] MEDS: TACROLIMUS 0.5 MG CAP PO SCH (21:54)
[2020-10-18] MEDS: LOSARTAN POTASSIUM 25 MG TAB PO SCH (21:55)
[2020-10-18] MEDS ORDERED: traMADol HCL 50 MG TABLET PO PRN (22:46)
[2020-10-19] MEDS: MoRPHine SULFATE 2 MG/ML CARP IV PRN (02:22)
[2020-10-19] MEDS: hydrALAZINE TAB 50 MG TAB PO SCH ×3 (08:44→17:02)
[2020-10-19] MEDS: amLODIPine BESYLATE 5 MG TAB PO SCH (08:44)
[2020-10-19] MEDS: TACROLIMUS 1 MG CAP PO SCH (08:44)
[2020-10-19] MEDS: INSULIN GLARGINE SOLOSTAR 100 UNITS/ML 3 ML PEN SC SCH (08:45)
[2020-10-19] MEDS: INSULIN ASPART 100 UNITS/ML 3 ML PEN SC SCH ×3 (08:51→17:59)
[2020-10-19] MEDS: ONDANSETRON INJ 2 MG/ML 2 ML VIAL IV PRN (08:57)
[2020-10-19 08:58] LABS: Basophils # (auto) 0.01 K/uL (0-0.2); Basophils % (auto) 0.1 %; Eosinophils # (auto) 0.02 K/uL (0-0.5); Eosinophils % (auto) 0.2 %; Hematocrit (blood only) 34.9 % (42-52); Hemoglobin 12.1 g/dL (14.0-18.0); Immature Granulocytes # (auto) 0.01 K/uL (0.00-0.02); Immature Granulocytes % (auto) 0.1 %; Lymphocytes # (auto) 1.57 K/uL (1.2-3.4); Lymphocytes % (auto) 16.5 %; Mean Corpuscular Hemoglobin 28.8 pg (25-34); Mean Corpuscular Hgb Conc 34.7 g/dL (32-36); Mean Corpuscular Volume 83.1 fL (80-100); Mean Platelet Volume 9.2 fL (7.4-10.4); Monocytes % (auto) 9.5 %; Neutrophils # (auto) 7.01 K/uL (1.4-6.5); Neutrophils % (auto) 73.6 %; Platelet Count 123 K/uL (130-400); RDW Coefficient of Variation 14.1 % (11.5-14.5); RDW Standard Deviation 42.5 fL (36.4-46.3); White Blood Count 9.52 K/uL (4.8-10.8)
[2020-10-19 09:35] LABS: BUN Creatinine Ratio 17.4 (10-20); Calcium 9.1 mg/dl (8.5-10.1); Creatinine Clr Calc Pharmacy 40.7 ml/min; Est GFR (African American) 61.1 ml/min; Est GFR (Non-African American) 52.7 ml/min; Potassium 3.6 mmol/L (3.5-5.1)
[2020-10-19] MEDS ORDERED: PANTOprazole 40 MG in SYRINGE 0 ML IV SCH (11:00)
[2020-10-19] MEDS ORDERED: ALUMINUM/MAGNESIUM SUSP 18 ML, LIDOCAINE VISCOUS 2% SOLN 6 ML, BARCODE IDENTIFIER 1 EA PO ONE (12:34)
[2020-10-19] MEDS: predniSONE 5 MG TAB PO SCH (12:44)
--- NOTE | 2020-10-19 17:49 | Gastroenterology Progress Note ---
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 He already requested appointment at [facility] with his Cancer team who treated his lung cancer. Recommend using viscous Lidocaine, Tylenol and as needed Opioids to control pain however this type of post esophageal stent pain may last for weeks/months before it resolves. Results & Data ([facility]) Vital Signs (Past 12 Hours) Vital Signs Temp Pulse Pulse Resp BP Pulse Ox 10/19/20 16:15 37.1 C 90 16 152/77 H 93 10/19/20 08:02 37.3 C 79 16 162/80 H 95
[2020-10-19] MEDS ORDERED: oxyCODONE IR HOME PACK PO ONE (18:29)
--- NOTE | 2020-10-19 18:30 | Discharge Summary ---
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 Patient developed severe dysphagia. He was found to have a focal short segment of high-grade stenosis at the midesophagus at the level of the aortic knob on barium swallow 09/27/20. Patient had a CT scan on 10/11/20 which revealed a 3cm mass like esophageal structure. He had EGD/EUS performed today by Dr. Melendez which revealed a mass resulting in luminal stenosis of the middle 1/3 of the esophagus. FNA performed - preliminary read suggests malignancy. Dr. Meelndez placed an esophageal stent. Post-procedure CXR confirmed proper placement. Patient was complaining of post-procedure chest discomfort. Due to age and underlying medical comorbidities, overnight observational hospital stay was advised. Patient resting in bed during my encounter. He reports diffuse pain mostly substernal and epigastric region but also involving the abdomen as well. Patient states the discomfort is 10/10 in severity, pressure. Discomfort is nonpositional and nonpleuritic. Patient has taken small sips of water which made the pain worse. No additional complaints - he denies diaphoresis, palpitations, SOB, dizziness. He had some nausea with one episode of non-bloody emesis while in recovery but denies nausea presently. EKG performed which was negative for acute ischemic changes. Patient administered Morphine x 1mg Admission Exam Per Admitting Provider Constitutional: comfortable; no acute distress Respiratory: normal respiratory effort, lungs clear to auscultation Cardiovascular: RRR, no murmur, no edema Gastrointestinal (Abdomen): normal bowel sounds, soft, nontender, no hepatosplenomega Principal Diagnosis Post operative esophageal stent pain Discharge Exam Constitutional WD/WN, vitals as above Eyes + anicteric sclerae; normal pupil size ENMT external ear and nose normal, oropharynx normal Cardiovascular Rate/Rhythm: regular rate and regular rhythm Heart Sounds: + murmur Extremities: normal capillary refill; no calf tenderness and no pedal edema Gastrointestinal (Abdomen) normal bowel sounds, soft, nontender, no hepatosplenomegaly Musculoskeletal no cyanosis or clubbing, extremities motor strength 5/5 Skin no rashes, warm and dry Neurologic moves all extremities and awake; not confused Discharge Data Allergies Allergy/AdvReac Type Severity Reaction Status Date / Time metronidazole Allergy Severe NEUROPATHY Verified 10/30/20 13:55 LEG lisinopril Allergy Intermediate NAUSEA, Verified 10/30/20 13:55 STOMACH UPSET, DEATHLY SICK Procedures Performed Operation Date: 10/17/20 13:30 Actual Procedures p Upper Endoscopic Ultrasonography(Not Applicable) - Brady Melendez MD s Esophagogastroduodenoscopy, Esophageal Stent(Not Applicable) - Brady Melendez MD Ordered Studies 10/17/20 10:42 US upper EUS PACS images Routine 10/17/20 13:30 FL esophageal dilatation Routine 10/17/20 22:16 CT abd pelvis wo con Urgent 10/17/20 22:20 CT chest diagnostic wo con Urgent Hospital Course (1) Chest pain: 85 year old male admission after esophageal stent placement due to post stent pain. Improved over the course of 2 days and is now tolerating a full liquid diet. He will be provided with viscus lidocaine on discharge for c ontinued management of this. (2) H/O lung transplant: (3) HTN (hypertension): (4) Diabetes mellitus: (5) Chronic kidney disease with symptom management only, stage 3 (moderate): (6) Hypomagnesemia: (7) Aortic stenosis: Total Time Total Time Spent Total Time Spent (In Minutes): 35 Total Time Includes: Examination of the Patient, Discharge Planning and Medication Reconciliation Discharge Plan Discharge Items Patient Disposition: Home - Self-Care Reason For Visit: Dysphagia, Stricture and Stenosis of Esophagus Discharge Diagnosis: Esophageal mass and stenosis Biopsied and stented Activity: Resume your previous activity Non-emergency contact: [employer] Call non-emergency contact if: you have any medication questions Follow-up/Referrals: Eber Sands MD [Primary Care Provider] - Brady Melendez MD [Hospitalist] - Diet: Other - See Diet Comment Diet Comment: Clear liquids today, full liquid diet tomorrow Addtl Attending Provider Instructions: IF YOU EXPERIENCE ANY OF THE FOLLOWING SYMPTOMS AFTER YOUR PROCEDURE CALL YOUR PRIMARY CARE PHYSICIAN IMMEDIATELY OR SEEK MEDICAL ATTENTION AT YOUR NEAREST EMERGENCY ROOM: 1. SEVERE abdominal pain or bloating 2. FEVER greater than 101.1 degrees within 24 hours after the procedure 3. LARGE AMOUNTS OF BLEEDING greater than 2-3 tablespoons. If you had a polyp/s removed or have hemorrhoids, a small amount of blood from the rectum is to be expected. 4. A localized irritation of the vein may occur at the site of the IV injection. Hot moist packs to the vein applied 4-6 times per day may reduce pain and irritation. A tender lump may develop and remain for several weeks to several months, but goes away eventually. If the area continues to be painful or becomes red and hot to the touch. For routine questions call [facility] at [phone]. * Avoid the use of alcohol and sedatives for 24 hours. Pending Studies at Discharge: No Stand-Alone Forms: Anesthesia/Sedation, Adult, [facility] Medications and DC Order Prescriptions: New lidocaine HCl [Lidocaine Viscous] 2 % solution 10 ml PO TID PRN (Reason: esophageal pain) Qty: 100 RF: 0 Continued magnesium chloride 64 mg tablet,delayed release (DR/EC) 64 mg PO BID Qty: 354 RF: 3 (DME) OneTouch Ultra Blue Test Strip Strip See Dose Instructions .ROUTE .MEDSUPPLY Qty: 100 RF: 11 (DME) lancets [OneTouch UltraSoft Lancets] Misc See Rx Instructions .ROUTE .MEDSUPPLY Qty: 100 RF: 11 tamsulosin 0.4 mg capsule 0.8 mg PO QPM Qty: 180 RF: 3 repaglinide [Prandin] 2 mg tablet See Rx Instructions PO TID RF: 0 azithromycin 250 mg tablet 250 mg PO 3XWK Qty: 36 RF: 0 losartan 25 mg tablet 25 mg PO HS RF: 0 pravastatin 40 mg tablet 40 mg PO HS RF: 0 sulfamethoxazole-trimethoprim 400-80 mg tablet 1 tab PO 2XWK RF: 0 prednisone 5 mg tablet 5 mg PO QDL RF: 0 amlodipine 5 mg tablet 5 mg PO QPM RF: 0 aspirin 81 mg Tablet,Delayed Release (Dr/Ec) 81 mg PO QPM RF: 0 omeprazole 20 mg capsule,delayed release(DR/EC) 20 mg PO QAM RF: 0 hydralazine 50 mg tablet 50 mg PO QID RF: 0 calcium carbonate-vitamin D3 [Calcium 500 + D] 500 mg(1,250mg) -400 unit Tablet 2 tabs PO BID RF: 0 amlodipine 2.5 mg tablet 2.5 mg PO QAM Qty: 30 RF: 0 ipratropium bromide 42 mcg (0.06 %) spray,non-aerosol 2 spray Intranasal TID PRN (Reason: Allergy Symptoms) RF: 0 Multi-Day Plus Minerals 18 mg iron-400 mcg-25 mcg Tablet 1 tab PO QAM RF: 0 doxycycline monohydrate 100 mg capsule 100 mg PO UD PRN (Reason: Other) RF: 0 tacrolimus [Prograf] 1 mg capsule 1 mg PO QAM RF: 0 tacrolimus [Prograf] 0.5 mg capsule 0.5 mg PO QPM RF: 0 No Action acetaminophen-codeine 120 mg-12 mg /5 mL (5 mL) solution 2.5 ml PO Q8H PRN (Reason: pain) Qty: 100 RF: 0 (DME) Feeding Tube Attachment Device Misc See Rx Instructions .ROUTE .MEDSUPPLY Qty: 1 RF: 0 Discharge Orders: Discharge Order (Routine); Ordered 10/19/20 Ordered By: Jeferson Burks/Other Patient Handouts: Managing Type 2 Diabetes, A1C Admission Data Admit Date/Time: 10/17/20 17:56 Attending Provider: Jeferson Pope Admit Provider: Brady Melendez Primary Care Provider: Eber Sands Other Providers: Brady Melendez Other Interventions: Discharge Summary Assessment (RN) Last Done: 10/19/20 18:51 Coding Level of Care Code D/C Day Management >30 mins Diagnoses Chest pain R07.9 Chest pain type: unspecified H/O lung transplant Z94.2 HTN (hypertension) I10 Hypertension type: essential hypertension Diabetes mellitus E11.22; N18.3 Chronic kidney disease stage: stage 3 (moderate) Diabetes mellitus complication detail: with chronic kidney disease Diabetes mellitus complication status: with kidney complications 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
--- NOTE | 2020-10-20 05:31 | Electrocardiogram Report ---
Test Reason : Blood Pressure : / mmHG Vent. Rate : 084 BPM Atrial Rate : 084 BPM P-R Int : 220 ms QRS Dur : 102 ms QT Int : 376 ms P-R-T Axes : 010 058 035 degrees QTc Int : 444 ms Sinus rhythm with sinus arrhythmia with 1st degree A-V block Nonspecific ST abnormality When compared with ECG of 17-OCT-2020 11:56, Premature ventricular complexes are no longer Present Confirmed by Fede Larson ([id number]) on 10/20/2020 5:30:31 AM Referred By: Brady Melendez Confirmed By:Fede Larson
--- NOTE | 2020-10-20 05:33 | Electrocardiogram Report ---
Test Reason : Blood Pressure : / mmHG Vent. Rate : 091 BPM Atrial Rate : 091 BPM P-R Int : 244 ms QRS Dur : 102 ms QT Int : 368 ms P-R-T Axes : 034 069 043 degrees QTc Int : 452 ms Sinus rhythm with 1st degree A-V block with Premature atrial complexes Otherwise normal ECG When compared with ECG of 17-OCT-2020 18:13, Premature atrial complexes are now Present Confirmed by Fede Larson ([id number]) on 10/20/2020 5:33:35 AM Referred By: Brady Melendez Confirmed By:Fede Larson
[2020-10-20] MEDS ORDERED: SULFA/TRIMETH 400/80MG TAB PO SCH (21:00)
== END 2020-10-19 21:57 | disposition home or self-care (01) | DRG 375 ==
LOC: ASU 11:29 → 3W 17:56 → SUATTDRO 17:56

== ENCOUNTER 2021-01-15 10:11 | Inpatient (IN) ==
[2021-01-15] MEDS ORDERED: ONDANSETRON INJ 2 MG/ML 2 ML VIAL IV STA (11:37)
[2021-01-15] MEDS ORDERED: PANTOPRAZOLE BOLUS/DRIP 1 EA IV STA (11:37)
[2021-01-15] MEDS ORDERED: PANTOprazole 80 MG in DEXTROSE 5% 100 ML IV ONE (11:37)
--- NOTE | 2021-01-15 11:42 | Emergency Department Note ---
Impression & Plan Esophageal stricture, Lung transplant recipient, Immunosuppression, Dysphagia, Esophageal cancer ED Provider Note NAME: TWYLA ROLLINS AGE: 86 SEX: M : 1935 ARRIVES VIA: Walk-In INFORMANT: Patient, ED PROVIDER(S): Johnnie Donaldson MD Chief Complaint: Abdominal pain, vomiting blood HPI: Patient does present with the above symptoms that have been ongoing since last night. The patient primarily complains of upper abdominal pain near the patient's PEG tube insertion site. He describes it as sharp and constant. Patient did not take anything for it at home. Patient did have a stent placed by Dr. Melendez in October 2020. Patient subsequently had a PEG placed and the esophageal stent was removed by Dr. Melendez on October 30 as the patient was having persistent chest discomfort. The patient primarily has sore throat. The patient states that he only uses the PEG tube and does not take anything by m outh. The patient denies any fevers or chills. The patient's pain is sharp and in the upper abdomen. Nonradiating. Patient has not had any blood coming from the PEG tube site. Patient not take anything for pain prior. The patient is scheduled to have chemoradiation therapy completed tomorrow. The patient does have a known history of lung transplant and is on immunosuppressant therapy. The patient did get a Covid vaccine but is unsure as to whether not he makes antibodies given his immunosuppressive therapy. Patient does follow with Dr. Joiner for oncology. ROS: See HPI for pertinent positives and negatives. A total of 10 systems were reviewed and otherwise negative. Past medical history: See below Surgical history: See below Social history: See below Physical Exam: GENERAL: Mildly ill in appearance, spitting into a vomit bag EYE EXAM: Normal conjunctiva. PERRL, no anisocoria and EOM's grossly intact w/o pain. OROPHARYNX: Moist mucus membranes. Grossly normal dentition. NECK: Supple, no nuchal rigidity, no adenopathy, non-tender. No signs of meningismus. LUNGS: Clear to auscultation. Normal chest wall mechanics. HEART: NSR, no MRG. ABDOMEN: Abdomen soft, epigastric pain just superior to the PEG tube in the left mid abdomen, no surrounding erythema induration or drainage., normo-active bowel sounds, no masses, no rebound or guarding. BACK: No CVA TTP. SKIN: No rashes and no bruising. UPPER EXTREMITIES: Upper extremities are grossly normal. LOWER EXTREMITIES: Grossly normal, no edema. NEURO EXAM: A&O x3, cranial nerves II-XII grossly intact, normal speech, moves all 4 extremities on command w/o issue. Differential diagnoses: Appendicitis, testicular torsion, infections, diverticulitis, UTI, obstruction, mesenteric ischemia, aortic pathology, inflammatory bowel disease, renal colic, PUD, pancreatitis, biliary pathology, hernia, volvulus, constipation, as well as other pathologies. Course: Patient was seen and evaluated the bedside. Full history physical exam was performed. EKG interpreted by me Normal sinus rhythm, rate of 91, normal intervals, normal axis, no ST elevations. Imaging Studies: See Below Cardiac monitoring: An order was placed for continuous cardiac monitoring. The monitor shows a rate of 84 with sinus rhythm. MDM: Patient did present with concern for abdominal pain and vomiting blood. Patient does have a complicated complicated past medical history. I was concerned about the possibility that the patient's esophageal carcinoma had worsened causing occlusion of his esophagus resulting in his inability to tolerate his secretions. I did speak with the on-call radiologist who recommended a CT of the chest with IV contrast for further evaluation. Given the patient's pain near the PEG tube site CT abdomen pelvis also ordered. The patient does have significant leukopenia and neutropenia. The patient has not had fevers empiric antibiotics were not given. Hemoglobin 9.5. Hemoglobin fairly chronic and stable. The patient does have thrombocytopenia. The patient does get chemo therapy. Patient has had intermittent thrombocytopenia. The patient's kidney function does show creatinine 1.4. The patient likely does have dehydration as the patient does have elevated BUN. Patient did receive IV fluids and pain medication. The patient had improvement in symptoms. I did speak the on-call lodging facilities attendant Dr. Graham who did speak with the patient's primary lodging facilities attendant Dr. Melendez. The patient may consider having the stent replaced. There are unfortunately unlikely to be any better treatment options at this time. The only other recommendation was glycopyrrolate to help with secretions. This was ordered. The patient did have improvement in that regard. I did convey this to both the patient the patient's son at bedside. They understand. The patient is likely a poor surgical candidate.Patient's CT of the chest and abdomen pelvis does show the similar esophageal carcinoma which likely causes complete occlusion of the esophageal lumen. The patient does have fluid within the esophagus. Patient's transplanted left lung appears clear. Patient may have pleural collection at the right base. G-tube is in place. I did discuss these findings with Dr. Graham again who stated that the patient likely would not benefit from an NG tube at this time. There would be risk of placing the NG as it would not be able to be advanced into the stomach. I did speak with the on-call hospitalist VICENTE Chen and the patient was admitted by Dr. Olivares. Past Med/Surg History Medical History (Updated 01/15/21 @ 17:43 by Johnnie Donaldson MD) Aortic stenosis Per 09/2020 echo, Severe aortic stenosis is presentpeak CW Doppler velocities 4 m/s, mean gradient 39 mmHg, calculated SHANTAL =0.8 cm. Cardiology aware, not yet surgical severity. Atrial fibrillation In the past- paroxysmal- no recurrence per cardio records. Pt not anticoagulated. 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 LEFT 2005 [place] Nausea, vomiting, and diarrhea Pulmonary fibrosis 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 Right foot drop related to spine surgery in 2017 Severe aortic stenosis SIRS (systemic inflammatory response syndrome) Surgical History H/O lung transplant (2005) LEFT History of anesthesia reaction "SLOW TO WAKE UP" PER SPOUSE History of back surgery (2016) X 2-INCLUDING FUSION > LUMBAR History of bronchoscopy (06/19/05) Thoracoscopy with Lung Biopsy History of cardiac cath 2005 NO STENTS-BEFORE LUNG TRANSPLANT SURGERY History of cataract surgery R/L History of colonoscopy History of esophagogastroduodenoscopy (EGD) (10/17/20) and EUS with FNA of Esophageal Mass History of incision and drainage (03/29/09) Groin Abscess History of lobectomy of lung (2008) right upper for cancer History of tooth extraction Status post insertion of percutaneous endoscopic gastrostomy (PEG) tube Family History Mother , Passed age 83 of Stomach Cancer Colon cancer Father , Passed age 73 of Leukemia No problems noted. Brother , Passed age 68 of metastatic colon cancer Colon cancer Stomach cancer Brother , Passed age 68 of smoke inhalation complications (lung problems) No problems noted. Brother Prostate cancer, Onset Age: 90 metastatic to bone - currently being worked up Sister , Passed age 42 of Lung Cancer No problems noted. Sister , Passed age 94 of "bowel cancer" Breast cancer, Onset Age: 60 Mastectomy Sister , Passed age 73 of Lung Cancer No problems noted. Sister , Passed age 68 of Pulmonary Fibrosis No problems noted. Sister , Passed age 17 of seizure complications (drowned) No problems noted. Sister , Passed age 94 of Alzheimer's Complications No problems noted. Son No problems noted. Son Melanoma Excised and doing well currently Daughter Dermatomyositis Currently being worked up for at [facility] Other Family history non-contributory No family history of adverse response to anesthesia Social History Smoking Status: Never smoker Second Hand Exposure: No; Hx Alcohol Use: No Preferred Language: Uruguayan Communication Ability: Effective Visual Impairment: Limited Hearing Ability: Use of Hearing Aid Cinder Block Mason Required: No Beliefs That Will Affect Care: None marital status: Current Living Situation: Spouse current occupational status: retired 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 / [employer] Feels Safe at Home: Yes Childhood Exposure to Second-Hand Smoke: No Diet Comment: Tube Feedings Glucerna QID, does still have "soft & slippery foods" caffeine: No Dental Care, Regularly: Yes Physical Activity Frequency: 1-2 Times per Week Seatbelt Use: always Sunscreen Use: Yes Assistive Devices: Cane and Hearing Aid - Bilateral Allergies Allergies Allergy/AdvReac Type Severity Reaction Status Date / Time metronidazole Allergy Severe NEUROPATHY Verified 01/15/21 16:00 LEG lisinopril Allergy Intermediate NAUSEA, Verified 01/15/21 16:00 STOMACH UPSET, DEATHLY SICK Home Meds Home Medications Medication Instructions Recorded Confirmed amlodipine 5 mg tablet 5 mg FEEDING TUBE QPM 07/27/18 01/15/21 aspirin 81 mg tablet,delayed 81 mg FEEDING TUBE QPM 07/27/18 01/15/21 release calcium carbonate 500 mg (1,250 2 tabs FEEDING TUBE BID 07/27/18 01/15/21 mg)-vitamin D3 400 unit tablet (Calcium 500 + D) hydralazine 50 mg tablet 50 mg FEEDING TUBE QID 07/27/18 01/15/21 omeprazole 20 mg capsule,delayed 20 mg FEEDING TUBE QAM 07/27/18 01/15/21 release ipratropium bromide 42 mcg (0.06 2 spray INTRANASAL TID PRN ml 03/16/19 01/15/21 %) nasal spray repaglinide 2 mg tablet (Prandin) See Rx Instructions PO TID tab 10/20/19 01/15/21 losartan 25 mg tablet 25 mg FEEDING TUBE HS tab 05/17/20 01/15/21 pravastatin 40 mg tablet 20 mg FEEDING TUBE HS tab 11/22/20 01/15/21 ciclopirox 8 % topical solution 1 applic TOPICAL DAILY 12/07/20 01/15/21 fluorouracil 5 % topical cream 1 applic TOPICAL BID PRN 12/07/20 01/15/21 (Efudex) magnesium chloride 64 mg 95 mg PO QID tab 12/07/20 01/15/21 (magnesium chloride) tablet,delayed release nutrition tx glu 237 ea FEEDING TUBE QID ml 12/07/20 01/15/21 intol,lac-free,soy-fiber 0.08 gram-1.5 kcal/mL liquid (Glucerna 1.5 Javier) sulfamethoxazole 400 1 tab FEEDING TUBE 2XWK tab 12/07/20 01/15/21 mg-trimethoprim 80 mg tablet Tacrolimus Liquid 3 ml FEEDING TUBE BID 01/15/21 01/15/21 amlodipine 2.5 mg tablet 2.5 mg FEEDING TUBE QAM 01/15/21 01/15/21 azithromycin 250 mg tablet 250 mg FEEDING TUBE 3XWK 01/15/21 01/15/21 glipizide 5 mg tablet 5 mg FEEDING TUBE UD 01/15/21 01/15/21 ondansetron HCl 4 mg/5 mL oral 4 mg FEEDING TUBE Q8H PRN 01/15/21 01/15/21 solution prednisone 5 mg/5 mL oral solution 5 mg FEEDING TUBE DAILY 01/15/21 01/15/21 Previous Rx's Medication Instructions Recorded tamsulosin 0.4 mg capsule 0.8 mg PO QPM #180 cap 01/13/20 Results & Data (ED) Vital Signs Vital Signs - 24 hr 01/15/21 10:41 01/15/21 11:04 01/15/21 11:30 Temperature 37.2 C Temperature Source Oral Pulse Rate 91 H 85 95 H Pulse Rate from SpO2 Sensor 86 95 H Pulse Rhythm Respiratory Rate 18 22 22 Blood Pressure 95/63 L 121/76 142/83 H Blood Pressure Mean 73 91 102 Pulse Oximetry 97 97 100 Oxygen Delivery Method Room Air Room Air Room Air Sepsis Recent Fever Within 48 Hours No Sepsis New/Unexplained Change in Mental Status No Sepsis Action Taken by Nursing No Action Required 01/15/21 11:52 01/15/21 12:01 01/15/21 12:10 Temperature Temperature Source Pulse Rate 93 H 104 H 91 H Pulse Rate from SpO2 Sensor 103 H 92 H Pulse Rhythm Regular Respiratory Rate 22 22 23 Blood Pressure 127/76 Blood Pressure Mean 93 Pulse Oximetry 100 98 99 Oxygen Delivery Method Room Air Room Air Room Air Sepsis Recent Fever Within 48 Hours Sepsis New/Unexplained Change in Mental Status Sepsis Action Taken by Nursing 01/15/21 12:30 01/15/21 13:00 01/15/21 13:30 Temperature Temperature Source Pulse Rate 82 87 91 H Pulse Rate from SpO2 Sensor 82 87 91 H Pulse Rhythm Respiratory Rate 18 18 18 Blood Pressure 139/78 124/68 149/72 H Blood Pressure Mean 98 86 97 Pulse Oximetry 93 96 97 Oxygen Delivery Method Room Air Room Air Room Air Sepsis Recent Fever Within 48 Hours Sepsis New/Unexplained Change in Mental Status Sepsis Action Taken by Nursing 01/15/21 14:00 01/15/21 14:30 01/15/21 15:00 Temperature Temperature Source Pulse Rate 102 H 98 H 94 H Pulse Rate from SpO2 Sensor 102 H 99 H 94 H Pulse Rhythm Respiratory Rate 22 14 22 Blood Pressure 140/78 115/70 140/71 Blood Pressure Mean 98 85 94 Pulse Oximetry 97 95 93 Oxygen Delivery Method Room Air Room Air Room Air Sepsis Recent Fever Within 48 Hours Sepsis New/Unexplained Change in Mental Status Sepsis Action Taken by Nursing 01/15/21 15:30 Temperature Temperature Source Pulse Rate 90 Pulse Rate from SpO2 Sensor 91 H Pulse Rhythm Respiratory Rate 22 Blood Pressure 133/73 Blood Pressure Mean 93 Pulse Oximetry 94 Oxygen Delivery Method Room Air Sepsis Recent Fever Within 48 Hours Sepsis New/Unexplained Change in Mental Status Sepsis Action Taken by [facility] Medications Current Medication List: was personally reviewed by me Laboratory Data Attestation: I reviewed the patient's lab results. Result diagrams: 01/15/21 11:56 01/15/21 11:56 Lab Results 01/15/21 01/15/21 01/15/21 Range/Units 11:53 11:56 11:56 WBC 0.75 L* (4.8-10.8) K/uL RBC 3.23 L (4.7-6.1) M/uL Hgb 9.5 L (14.0-18.0) g/dL Hct 27.7 L (42-52) % MCV 85.8 (80-100) fL MCH 29.4 (25-34) pg MCHC 34.3 (32-36) g/dL RDW Std Deviation 44.1 (36.4-46.3) fL RDW Coeff of Flavia 14.1 (11.5-14.5) % Plt Count 97 L (130-400) K/uL MPV 9.6 (7.4-10.4) fL Immature Gran % (Auto) 0.0 % Neut % (Auto) 39.9 % Lymph % (Auto) 46.7 % Spalding % (Auto) 10.7 % Eos % (Auto) 2.7 % Baso % (Auto) 0.0 % Neut # (Auto) 0.30 L* (1.4-6.5) K/uL Lymph # (Auto) 0.35 L (1.2-3.4) K/uL [place] # (Auto) 0.08 L (0.11-0.59) K/uL Eos # (Auto) 0.02 (0-0.5) K/uL Baso # (Auto) 0.00 (0-0.2) K/uL Immature Gran # (Auto) 0.00 (0.00-0.02) K/uL Dohle Bodies 1+ Platelet Estimate Decreased L (Normal) PT 9.6 (9.0-12.0) Seconds INR 0.9 (0.9-1.1) APTT 26.1 (21.0-31.0) Seconds PTT Ratio 1.0 Sodium (136-145) mmol/L Potassium (3.5-5.1) mmol/L Chloride (98-107) mmol/L Carbon Dioxide (21-32) mmol/L Anion Gap (3-11) BUN (7-18) mg/dl Creatinine (0.6-1.4) mg/dl Est Cr Clr Drug Dosing ml/min Est GFR ( Amer) ml/min Est GFR (Non-Af Amer) ml/min BUN/Creatinine Ratio (10-20) Glucose (70-99) mg/dl Calcium (8.5-10.1) mg/dl Total Bilirubin (0.2-1) mg/dl AST (15-37) U/L ALT (12-78) U/L Alkaline Phosphatase (45-117) U/L Total Protein (6.4-8.2) gm/dl Albumin (3.4-5.0) gm/dl Globulin (2.5-4.0) gm/dl Albumin/Globulin Ratio (0.9-2) Blood Type B Positive Antibody Screen NEGATIVE 01/15/21 Range/Units 11:56 WBC (4.8-10.8) K/uL RBC (4.7-6.1) M/uL Hgb (14.0-18.0) g/dL Hct (42-52) % MCV (80-100) fL MCH (25-34) pg MCHC (32-36) g/dL RDW Std Deviation (36.4-46.3) fL RDW Coeff of Flavia (11.5-14.5) % Plt Count (130-400) K/uL MPV (7.4-10.4) fL Immature Gran % (Auto) % Neut % (Auto) % Lymph % (Auto) % [place] % (Auto) % Eos % (Auto) % Baso % (Auto) % Neut # (Auto) (1.4-6.5) K/uL Lymph # (Auto) (1.2-3.4) K/uL [place] # (Auto) (0.11-0.59) K/uL Eos # (Auto) (0-0.5) K/uL Baso # (Auto) (0-0.2) K/uL Immature Gran # (Auto) (0.00-0.02) K/uL Dohle Bodies Platelet Estimate (Normal) PT (9.0-12.0) Seconds INR (0.9-1.1) APTT (21.0-31.0) Seconds PTT Ratio Sodium 133 L (136-145) mmol/L Potassium 4.8 (3.5-5.1) mmol/L Chloride 98 (98-107) mmol/L Carbon Dioxide 28 (21-32) mmol/L Anion Gap 7.0 (3-11) BUN 68 H (7-18) mg/dl Creatinine 1.48 H (0.6-1.4) mg/dl Est Cr Clr Drug Dosing 32.3 ml/min Est GFR ( Amer) 49.0 ml/min Est GFR (Non-Af Amer) 42.2 ml/min BUN/Creatinine Ratio 46.0 H (10-20) Glucose 140 H (70-99) mg/dl Calcium 9.0 (8.5-10.1) mg/dl Total Bilirubin 0.7 (0.2-1) mg/dl AST 14 L (15-37) U/L ALT 22 (12-78) U/L Alkaline Phosphatase 64 (45-117) U/L Total Protein 5.9 L (6.4-8.2) gm/dl Albumin 2.9 L (3.4-5.0) gm/dl Globulin 3.0 (2.5-4.0) gm/dl Albumin/Globulin Ratio 1.0 (0.9-2) Blood Type Antibody Screen Administered Medications Discontinued Medications Glycopyrrolate (Glycopyrrolate 0.2 Mg/Ml Vial) 0.2 mg IV NOW ONE Stop: 01/15/21 12:46 Last Admin: 01/15/21 14:00 Dose: 0.2 mg Documented by: [id number] Sodium Chloride (Nss) 500 mls @ 999 mls/hr IV .Q31M SHELLI Stop: 01/15/21 12:15 Last Infusion: 01/15/21 12:39 Dose: 0 mls/hr Documented by: [id number] Admin: 01/15/21 12:08 Dose: 999 mls/hr Documented by: [id number] Pantoprazole Sodium (Protonix Bolus/Drip) 0 mls @ 1 mls/hr IV ONE STA Stop: 01/15/21 11:38 Last Admin: 01/15/21 12:50 Dose: Not Given Documented by: [id number] Pantoprazole Sodium 40 mg/ (Dextrose) 100 mls @ 20 mls/hr IV Q5H SHELLI Stop: 02/14/21 11:59 Last Admin: 01/15/21 12:55 Dose: 8 mg/hr, 20 mls/hr Documented by: [id number] Pantoprazole Sodium 80 mg/ (Dextrose) 120 mls @ 400 mls/hr IV NOW ONE Stop: 01/15/21 11:54 Last Infusion: 01/15/21 12:31 Dose: 0 mls/hr Documented by: [id number] Admin: 01/15/21 12:13 Dose: 400 mls/hr Documented by: [id number] Sodium Chloride (Nss 1000ml) 500 mls @ 999 mls/hr IV .Q31M ONE Stop: 01/15/21 15:04 Last Infusion: 01/15/21 15:21 Dose: 0 mls/hr Documented by: [id number] Admin: 01/15/21 14:49 Dose: 999 mls/hr Documented by: [id number] Ioversol (Optiray 320 100ml) 94 ml IV ONCE ONE Stop: 01/15/21 13:18 Last Admin: 01/15/21 13:17 Dose: 94 ml Documented by: [id number] Morphine Sulfate (Morphine Sulfate 2 Mg/Ml Carp) 2 mg IV NOW STA Stop: 01/15/21 12:09 Last Admin: 01/15/21 12:18 Dose: 2 mg Documented by: [id number] Morphine Sulfate (Morphine Sulfate 2 Mg/Ml Carp) 2 mg IV NOW STA Stop: 01/15/21 14:35 Last Admin: 01/15/21 14:52 Dose: 2 mg Documented by: [id number] Ondansetron HCl (Ondansetron Inj 2 Mg/Ml 2 Ml Vial) 4 mg IV ONE STA Stop: 01/15/21 11:38 Last Admin: 01/15/21 12:05 Dose: 4 mg Documented by: [id number] Imaging Data Radiologist's Impression: Abdomen/Pelvis CT 01/15/21 12:31 CT SCAN OF THE CHEST, ABDOMEN, AND PELVIS WITH IV CONTRAST CLINICAL HISTORY: Esophageal tumor. Vomiting. Generalized abdominal pain. COMPARISON STUDY: CT scan of the chest, abdomen, and pelvis dated 10/17/2020. PET/CT dated 11/20/2020. TECHNIQUE: Following the IV administration of 94 of Optiray 320, CT scan of the chest, abdomen, and pelvis was performed from the thoracic inlet to the proximal femora. Images are reviewed in the axial, sagittal, and coronal planes. IV con trast was administered without complication. A dose lowering technique was utilized adhering to the principles of ALARA. CT DOSE: 718.38 mGy.cm FINDINGS: CHEST: Thyroid: Imaged portions of the thyroid gland are normal in size and attenuation. Thoracic aorta: There is atherosclerotic calcification of the thoracic aorta, which is normal in caliber and demonstrates standard 3-vessel arch anatomy. No dissection is seen. Pulmonary vasculature: The pulmonary trunk is normal in caliber. There are no filling defects identified in the central pulmonary vessels to indicate pulmonary embolus. Note that this examination was not protocoled for evaluation of the pulmonary arteries. Heart: The heart is normal in size and without pericardial effusion. The coronary arteries and aortic valve leaflets are densely calcified. Lungs and pleural spaces: Again seen is postoperative change from right lower lobe resection. A thick-walled pleural collection at the right lung base is likely chronic and unchanged from previous. There is complete fibrosis/consolidation of the right upper lobe. This is also unchanged. The left lung transplant appears hyperaerated and clear. Secretions are noted within the right mainstem bronchus. The trachea appears clear. Mediastinum: Prominent lymph nodes in the superior mediastinum measure up to 8 mm. Esophagus: An esophageal stent has been removed as compared to previous. Metallic fiducial are suggested. There an approximately 4 cm segment of wall thickening involving the proximal to mid esophagus, likely corresponding to the patient's known esophageal carcinoma. This may completely occluded esophageal alli men as seen on image #95. The proximal esophagus above this point is distended and filled with fluid to the thoracic inlet. The distal esophagus is decompressed. Chelo: Clear. Axillae: There is no axillary lymphadenopathy. Bony thorax: The skeletal structures are osteopenic. Spondylotic change is seen throughout the thoracic spine. Arthritic change is noted in the shoulders. No lytic or blastic lesions are identified. ABDOMEN AND PELVIS: Liver: The contrast-enhanced liver is normal in size, contour, and attenuation. There is no intra- or extrahepatic biliary ductal dilatation. The hepatic veins and portal veins are patent. Gallbladder: Unremarkable. Spleen: Normal in size and attenuation. There are calcified splenic granulomas. Pancreas: There is moderate glandular atrophy of the pancreas. Numerous microcalcifications suggest chronic pancreatitis. Adrenal glands: Unremarkable. Kidneys: The contrast enhanced kidneys are atrophic and without hydronephrosis. The kidneys enhance symmetrically. A 3.6 cm cyst arises from the left upper pole. Abdominal vasculature: The abdominal aorta is normal in course and caliber noting moderate to advanced atherosclerotic calcification. Stomach and bowel: A gastrostomy tube is noted in the stomach. There is mild to moderate colonic diverticulosis without CT evidence of acute diverticulitis. No bowel obstruction is seen. Mild to moderate fecal retention is noted throughout the colon. The appendix is well-visualized and normal. Peritoneum: There is trace perisplenic ascites. No intraperitoneal free air is identified. There is loculated fluid anterior to the liver, seen on image #64. This is extraperitoneal located above the diaphragm, and measures approximately 11 x 3.5 cm. Lymphadenopathy: None. Pelvic viscera: The prostate gland is markedly enlarged and heterogeneous noting median lobe hypertrophy. The bladder is distended. The bladder wall appears thickened and trabeculated indicating chronic outlet obstruction. Skeletal structures: The skeletal structures are osteopenic. Spondylotic and postoperative change is noted in the lumbar spine. No lytic or blastic lesions are seen. IMPRESSION: 1. An approximately 4 cm segment of wall thickening of the proximal to mid esophagus is similar in appearance to prior studies and likely corresponds to the patient's known esophageal carcinoma. 2. This likely causes complete occlusion of the esophageal lumen. 3. The esophagus above this lesion is distended and filled with fluid to the thoracic inlet. Note that this may place the patient at risk for aspiration. 4. Postoperative change and complete fibrosis/consolidation of the remaining right lung parenchyma is similar to previous. 5. The transplanted left lung appears hyperinflated and clear. 6. A chronic loculated pleural collection at the right lung base has been present on multiple prior studies and is chronic. 7. There is increasing loculated fluid anterior to the liver as compared to 11/20/2020 which is extraperitoneal and appears to be located above the diaphragm. This may represent increasing pleural fluid. 8. Subcentimeter mediastinal lymph nodes are similar to previous. 9. No acute infectious or inflammatory findings are seen in the abdomen or pelvis. 10. Trace perisplenic ascites. 11. Colonic diverticulosis without CT evidence of acute diverticulosis. 12. A gastrostomy tube is in place. 13. An additional findings as above. ACT 112: Negative or not required by law. Electronically signed by: Dread Joshi M.D. 01/15/2021 1:[address] 01/15/21 12:33 CT SCAN OF THE CHEST, ABDOMEN, AND PELVIS WITH IV CONTRAST CLINICAL HISTORY: Esophageal tumor. Vomiting. Generalized abdominal pain. COMPARISON STUDY: CT scan of the chest, abdomen, and pelvis dated 10/17/2020. PET/CT dated 11/20/2020. TECHNIQUE: Following the IV administration of 94 of Optiray 320, CT scan of the chest, abdomen, and pelvis was performed from the thoracic inlet to the proximal femora. Images are reviewed in the axial, sagittal, and coronal planes. IV contrast was administered without complication. A dose lowering technique was utilized adhering to the principles of ALARA. CT DOSE: 718.38 mGy.cm FINDINGS: CHEST: Thyroid: Imaged portions of the thyroid gland are normal in size and attenuation. Thoracic aorta: There is atherosclerotic calcification of the thoracic aorta, which is normal in caliber and demonstrates standard 3-vessel arch anatomy. No dissection is seen. Pulmonary vasculature: The pulmonary trunk is normal in caliber. There are no filling defects identified in the central pulmonary vessels to indicate pu lmonary embolus. Note that this examination was not protocoled for evaluation of the pulmonary arteries. Heart: The heart is normal in size and without pericardial effusion. The coronary arteries and aortic valve leaflets are densely calcified. Lungs and pleural spaces: Again seen is postoperative change from right lower lobe resection. A thick-walled pleural collection at the right lung base is likely chronic and unchanged from previous. There is complete fibrosis/consolidation of the right upper lobe. This is also unchanged. The left lung transplant appears hyperaerated and clear. Secretions are noted within the right mainstem bronchus. The trachea appears clear. Mediastinum: Prominent lymph nodes in the superior mediastinum measure up to 8 mm. Esophagus: An esophageal stent has been removed as compared to previous. Metallic fiducial are suggested. There an approximately 4 cm segment of wall thickening involving the proximal to mid esophagus, likely corresponding to the patient's known esophageal carcinoma. This may completely occluded esophageal lumen as seen on image #95. The proximal esophagus above this point is distended and filled with fluid to the thoracic inlet. The distal esophagus is decompressed. Chelo: Clear. Axillae: There is no axillary lymphadenopathy. Bony thorax: The skeletal structures are osteopenic. Spondylotic change is seen throughout the thoracic spine. Arthritic change is noted in the shoulders. No lytic or blastic lesions are identified. ABDOMEN AND PELVIS: Liver: The contrast-enhanced liver is normal in size, contour, and attenuation. There is no intra- or extrahepatic biliary ductal dilatation. The hepatic veins and portal veins are patent. Gallbladder: Unremarkable. Spleen: Normal in size and attenuation. There are calcified splenic granulomas. Pancreas: There is moderate glandular atrophy of the pancreas. Numerous microcalcifications suggest chronic pancreatitis. Adrenal glands: Unremarkable. Kidneys: The contrast enhanced kidneys are atrophic and without hydronephrosis. The kidneys enhance symmetrically. A 3.6 cm cyst arises from the left upper pole. Abdominal vasculature: The abdominal aorta is normal in course and caliber no ting moderate to advanced atherosclerotic calcification. Stomach and bowel: A gastrostomy tube is noted in the stomach. There is mild to moderate colonic diverticulosis without CT evidence of acute diverticulitis. No bowel obstruction is seen. Mild to moderate fecal retention is noted throughout the colon. The appendix is well-visualized and normal. Peritoneum: There is trace perisplenic ascites. No intraperitoneal free air is identified. There is loculated fluid anterior to the liver, seen on image #64. This is extraperitoneal located above the diaphragm, and measures approximately 11 x 3.5 cm. Lymphadenopathy: None. Pelvic viscera: The prostate gland is markedly enlarged and heterogeneous noting median lobe hypertrophy. The bladder is distended. The bladder wall appears thickened and trabeculated indicating chronic outlet obstruction. Skeletal structures: The skeletal structures are osteopenic. Spondylotic and postoperative change is noted in the lumbar spine. No lytic or blastic lesions are seen. IMPRESSION: 1. An approximately 4 cm segment of wall thickening of the proximal to mid e sophagus is similar in appearance to prior studies and likely corresponds to the patient's known esophageal carcinoma. 2. This likely causes complete occlusion of the esophageal lumen. 3. The esophagus above this lesion is distended and filled with fluid to the thoracic inlet. Note that this may place the patient at risk for aspiration. 4. Postoperative change and complete fibrosis/consolidation of the remaining right lung parenchyma is similar to previous. 5. The transplanted left lung appears hyperinflated and clear. 6. A chronic loculated pleural collection at the right lung base has been present on multiple prior studies and is chronic. 7. There is increasing loculated fluid anterior to the liver as compared to 11/20/2020 which is extraperitoneal and appears to be located above the diaphragm. This may represent increasing pleural fluid. 8. Subcentimeter mediastinal lymph nodes are similar to previous. 9. No acute infectious or inflammatory findings are seen in the abdomen or pelvis. 10. Trace perisplenic ascites. 11. Colonic diverticulosis without CT evidence of acute diverticulosis. 12. A gastrostomy tube is in place. 13. An additional findings as above. ACT 112: Negative or not required by law. Electronically signed by: Dread Joshi M.D. 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
[2021-01-15] MEDS ORDERED: SODIUM CHLORIDE 0.9% 500 ML IV SCH (11:45)
[2021-01-15] MEDS ORDERED: MoRPHine SULFATE 2 MG/ML CARP IV STA ×2 (12:08→14:34)
[2021-01-15 12:20] LABS: INR 0.9 (0.9-1.1); Partial Thromboplastin Time 26.1 Seconds (21.0-31.0); Prothrombin Time 9.6 Seconds (9.0-12.0)
[2021-01-15 12:31] LABS: Albumin Level 2.9 gm/dl (3.4-5.0); Creatinine Clr Calc Pharmacy 32.3 ml/min; Est GFR (Non-African American) 42.2 ml/min; Potassium 4.8 mmol/L (3.5-5.1)
[2021-01-15 12:34] LABS: Bilirubin,Total 0.7 mg/dl (0.2-1); Total Protein 5.9 gm/dl (6.4-8.2)
[2021-01-15] MEDS ORDERED: GLYCOPYRROLATE 0.2 MG/ML VIAL IV ONE (12:45)
[2021-01-15] MEDS: PANTOprazole 40 MG in DEXTROSE 5% 100 ML IV SCH ×2 (12:55→18:27)
[2021-01-15 12:56] LABS: Hematocrit (blood only) 27.7 % (42-52); Hemoglobin 9.5 g/dL (14.0-18.0); Mean Corpuscular Hemoglobin 29.4 pg (25-34); Mean Corpuscular Hgb Conc 34.3 g/dL (32-36); Mean Corpuscular Volume 85.8 fL (80-100); Mean Platelet Volume 9.6 fL (7.4-10.4); Platelet Count 97 K/uL (130-400); RDW Coefficient of Variation 14.1 % (11.5-14.5); RDW Standard Deviation 44.1 fL (36.4-46.3); Red Blood Count 3.23 M/uL (4.7-6.1); White Blood Count 0.75 K/uL (4.8-10.8)
[2021-01-15 12:57] LABS: Dohle Bodies 1+; Eosinophils # (auto) 0.02 K/uL (0-0.5); Eosinophils % (auto) 2.7 %; Lymphocytes # (auto) 0.35 K/uL (1.2-3.4); Lymphocytes % (auto) 46.7 %; Monocytes # (auto) 0.08 K/uL (0.11-0.59); Monocytes % (auto) 10.7 %; Neutrophils % (auto) 39.9 %; Platelet Estimate Decreased (Normal)
[2021-01-15] MEDS ORDERED: OPTIRAY 320 100ml IV ONE (13:17)
--- NOTE | 2021-01-15 13:56 | CT Scan Report ---
CT SCAN OF THE CHEST, ABDOMEN, AND PELVIS WITH IV CONTRAST CLINICAL HISTORY: Esophageal tumor. Vomiting. Generalized abdominal pain. COMPARISON STUDY: CT scan of the chest, abdomen, and pelvis dated 10/17/2020. PET/CT dated 11/20/2020. TECHNIQUE: Following the IV administration of 94 of Optiray 320, CT scan of the chest, abdomen, and p waldo was performed from the thoracic inlet to the proximal femora. Images are reviewed in the axial, sagittal, and coronal planes. IV contrast was administered without complication. A dose lowering te [place]nique was utilized adhering to the principles of ALARA. CT DOSE: 718.38 mGy.cm FINDINGS: CHEST: Thyroid: Imaged portions of the thyroid gland are normal in size and attenuation. Thoracic aorta: There is atherosclerotic calcification of the thoracic aorta, which is normal in federico panda and demonstrates standard 3-vessel arch anatomy. No dissection is seen. Pulmonary vasculature: The pulmonary trunk is normal in caliber. There are no filling defects identif ied in the central pulmonary vessels to indicate pulmonary embolus. Note that this examination was no t protocoled for evaluation of the pulmonary arteries. Heart: The heart is normal in size and without pericardial effusion. The coronary arteries and aortic valve leaflets are densely calcified. Lungs and pleural spaces: Again seen is postoperative change from right lower lobe resection. A thick -walled pleural collection at the right lung base is likely chronic and unchanged from previous. Ther e is complete fibrosis/consolidation of the right upper lobe. This is also unchanged. The left lung t ransplant appears hyperaerated and clear. Secretions are noted within the right mainstem bronchus. Th e trachea appears clear. Mediastinum: Prominent lymph nodes in the superior mediastinum measure up to 8 mm. Esophagus: An esophageal stent has been removed as compared to previous. Metallic fiducial are sugges brooklynn. There an approximately 4 cm segment of wall thickening involving the proximal to mid esophagus, likely corresponding to the patient's known esophageal carcinoma. This may completely occluded esopha geal lumen as seen on image #95. The proximal esophagus above this point is distended and filled with fluid to the thoracic inlet. The distal esophagus is decompressed. Chelo: Clear. Axillae: There is no axillary lymphadenopathy. Bony thorax: The skeletal structures are osteopenic. Spondylotic change is seen throughout the thorac ic spine. Arthritic change is noted in the shoulders. No lytic or blastic lesions are identified. ABDOMEN AND PELVIS: Liver: The contrast-enhanced liver is normal in size, contour, and attenuation. There is no intra- or extrahepatic biliary ductal dilatation. The hepatic veins and portal veins are patent. Gallbladder: Unremarkable. Spleen: Normal in size and attenuation. There are calcified splenic granulomas. Pancreas: There is moderate glandular atrophy of the pancreas. Numerous microcalcifications suggest c hronic pancreatitis. Adrenal glands: Unremarkable. Kidneys: The contrast enhanced kidneys are atrophic and without hydronephrosis. The kidneys enhance s ymmetrically. A 3.6 cm cyst arises from the left upper pole. Abdominal vasculature: The abdominal aorta is normal in course and caliber noting moderate to advance d atherosclerotic calcification. Stomach and bowel: A gastrostomy tube is noted in the stomach. There is mild to moderate colonic dive rticulosis without CT evidence of acute diverticulitis. No bowel obstruction is seen. Mild to moderat e fecal retention is noted throughout the colon. The appendix is well-visualized and normal. Peritoneum: There is trace perisplenic ascites. No intraperitoneal free air is identified. There is l oculated fluid anterior to the liver, seen on image #64. This is extraperitoneal located above the di aphragm, and measures approximately 11 x 3.5 cm. Lymphadenopathy: None. Pelvic viscera: The prostate gland is markedly enlarged and heterogeneous noting median lobe hypertro phy. The bladder is distended. The bladder wall appears thickened and trabeculated indicating chronic outlet obstruction. Skeletal structures: The skeletal structures are osteopenic. Spondylotic and postoperative change is noted in the lumbar spine. No lytic or blastic lesions are seen. IMPRESSION: 1. An approximately 4 cm segment of wall thickening of the proximal to mid esophagus is similar in ap pearance to prior studies and likely corresponds to the patient's known esophageal carcinoma. 2. This likely causes complete occlusion of the esophageal lumen. 3. The esophagus above this lesion is distended and filled with fluid to the thoracic inlet. Note lisandro t this may place the patient at risk for aspiration. 4. Postoperative change and complete fibrosis/consolidation of the remaining right lung parenchyma is similar to previous. 5. The transplanted left lung appears hyperinflated and clear. 6. A chronic loculated pleural collection at the right lung base has been present on multiple prior s tudies and is chronic. 7. There is increasing loculated fluid anterior to the liver as compared to 11/20/2020 which is extrap eritoneal and appears to be located above the diaphragm. This may represent increasing pleural fluid. 8. Subcentimeter mediastinal lymph nodes are similar to previous. 9. No acute infectious or inflammatory findings are seen in the abdomen or pelvis. 10. Trace perisplenic ascites. 11. Colonic diverticulosis without CT evidence of acute diverticulosis. 12. A gastrostomy tube is in place. 13. An additional findings as above. ACT 112: Negative or not required by law. Electronically signed by: Dread Joshi M.D. 01/15/2021 1:54 PM
--- NOTE | 2021-01-15 14:30 | History & Physical Report ---
Date of Service January 15, 2021 Assessment & Plan (1) Esophageal stricture: Plan: NPO- continue use and feeding through PEG tube - GI consultation for evaluation of re-stenting- appreciate GI consultation - Glycopyrolate 0.1mg IV q12- can change if needed- for secretion management - Continue with enteral nutritional support through PEG tube- Glucerna or equivalent while in house- follow blood glucose levels and adjust based on nutrition/CHO3 intake based on our enteral formulation (2) Hematemesis: Plan: Protonix 40mg IV BID - discontinue protonix drip once admitted to floor - not sure of source at this time- esophageal vs. 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: Plan: As per HIP undergoing chemo/radiation - WIll likely miss this weeks treatment will have to coordinate upon discharge (5) 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 - 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 as well as RUL wedge biopsy in 2008 Continue tacrolimus, prednisone, doxy (6) Immunosuppression: Plan: As above (7) Chronic kidney disease: Plan: Stable at this time CKD III b - avoid further nephrotoxic mediations (8) Aortic stenosis: Plan: Follow hemodynamic status and volume status while in house - no new or worsening symptoms- recent ECHO classified as severe (9) DMII (diabetes mellitus, type 2): Plan: Insulin sliding scale aspart while in house - 100-140 CF 20 with 0 carb ratio for now - adjust insulin need in regards to enteral nutrition type as above History of Present Illness Chief Complaint: vomiting Primary Care Provider: Eber Sands MD 86 YOM with past medical history of: Esophageal adenocarcinoma, 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 Patient was found to have high grade stenosis of midesophagus on barium swallow in September 2020, following a benign biopsy of that mass compressing the esophagus the patient underwent stenting of the esophagus by [facility] Gastroenter[facility]. The patient had chest pain following that procedure and was admitted overnight for observation, there was no complications and the patient was discharged home. He subsequently had the stent removed in October as he continued to have chest discomfort, he also had a PEG tube inserted following the removal of the stent. The patient states he has been doing fine and continues to go through chemoradiation weekly with Paclitaxel and Carboplatin and radiation. His next scheduled treatment was to be on 01/16/21. Patient comes to the EMD today for complaints of nausea/vomiting and stomach pain last night that resulted in some- coughing up/emesis of blood tinged sputum which patient states went on for an hour. He feels that there was allot of mucous in his throat at that time and when he got it out there was "mostly blood with thick sputum". In the EMD the patient had a CT scan of his chest and abdomen performed. The CT scan of his chest and abdomen again show collapse of the esop hagus and wall thickening of the proximal to mid esophagus. Patient will be admitted for Gastroenterology consultation for evaluation of/benefit of stenting again, symptom control with glycopyrrolate BID, Protonix IV BID. No evidence of hemodynamic instability or active bleeding at this time. Will keep NPO after midnight. He has been typed and crossed already as well. Patient has received both his COVID vaccines and his COVID test on admission is NEGATIVE. Allergies Allergy/AdvReac Type Severity Reaction Status Date / Time metronidazole Allergy Severe NEUROPATHY Verified 01/15/21 16:00 LEG lisinopril Allergy Intermediate NAUSEA, Verified 01/15/21 16:00 STOMACH UPSET, DEATHLY SICK Home Medications Medication Instructions Recorded Confirmed Type amlodipine 5 mg tablet 5 mg FEEDING TUBE QPM 07/27/18 01/15/21 History aspirin 81 mg tablet,delayed 81 mg FEEDING TUBE QPM 07/27/18 01/15/21 History release calcium carbonate 500 mg (1,250 2 tabs FEEDING TUBE BID 07/27/18 01/15/21 History mg)-vitamin D3 400 unit tablet (Calcium 500 + D) hydralazine 50 mg tablet 50 mg FEEDING TUBE QID 07/27/18 01/15/21 History omeprazole 20 mg capsule,delayed 20 mg FEEDING TUBE QAM 07/27/18 01/15/21 History release ipratropium bromide 42 mcg (0.06 2 spray INTRANASAL TID PRN ml 03/16/19 01/15/21 History %) nasal spray repaglinide 2 mg tablet (Prandin) See Rx Instructions PO TID tab 10/20/19 0 01/15/21 History tamsulosin 0.4 mg capsule 0.8 mg PO QPM #180 cap 01/13/20 01/15/21 Rx losartan 25 mg tablet 25 mg FEEDING TUBE HS tab 05/17/20 01/15/21 History pravastatin 40 mg tablet 20 mg FEEDING TUBE HS tab 11/22/20 01/15/21 History ciclopirox 8 % topical solution 1 applic TOPICAL DAILY 12/07/20 01/15/21 History fluorouracil 5 % topical cream 1 applic TOPICAL BID PRN 12/07/20 01/15/21 History (Efudex) magnesium chloride 64 mg 95 mg PO QID tab 12/07/20 01/15/21 History (magnesium chloride) tablet,delayed release nutrition tx glu 237 ea FEEDING TUBE QID ml 12/07/20 01/15/21 History intol,lac-free,soy-fiber 0.08 gram-1.5 kcal/mL liquid (Glucerna 1.5 Javier) sulfamethoxazole 400 1 tab FEEDING TUBE 2XWK tab 12/07/20 01/15/21 History mg-trimethoprim 80 mg tablet Tacrolimus Liquid 3 ml FEEDING TUBE BID 01/15/21 01/15/21 History amlodipine 2.5 mg tablet 2.5 mg FEEDING TUBE QAM 01/15/21 01/15/21 History azithromycin 250 mg tablet 250 mg FEEDING TUBE 3XWK 01/15/21 01/15/21 History glipizide 5 mg tablet 5 mg FEEDING TUBE UD 01/15/21 01/15/21 History ondansetron HCl 4 mg/5 mL oral 4 mg FEEDING TUBE Q8H PRN 01/15/21 01/15/21 His tory solution prednisone 5 mg/5 mL oral solution 5 mg FEEDING TUBE DAILY 01/15/21 01/15/21 History Past Med/Surg History Medical History (Updated 01/15/21 @ 18:56 by VICENTE Lucas) Aortic stenosis Per 09/2020 echo, Severe aortic stenosis is presentpeak CW Doppler velocities 4 m/s, mean gradient 39 mmHg, calculated SHANTAL =0.8 cm. Cardiology aware, not yet surgical severity. Atrial fibrillation In the past- paroxysmal- no recurrence per cardio records. Pt not anticoagulated. 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 LEFT 2005 [place] Nausea, vomiting, and diarrhea Pulmonary fibrosis 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 Right foot drop related to spine surgery in 2017 Severe aortic stenosis SIRS (systemic inflammatory response syndrome) Surgical History H/O lung transplant (2005) LEFT History of anesthesia reaction "SLOW TO WAKE UP" PER SPOUSE History of back surgery (2016) X 2-INCLUDING FUSION > LUMBAR History of bronchoscopy (06/19/05) Thoracoscopy with Lung Biopsy History of cardiac cath 2005 NO STENTS-BEFORE LUNG TRANSPLANT SURGERY History of cataract surgery R/L History of colonoscopy History of esophagogastroduodenoscopy (EGD) (10/17/20) and EUS with FNA of Esophageal Mass History of incision and drainage (03/29/09) Groin Abscess History of lobectomy of lung (2008) right upper for cancer History of tooth extraction Status post insertion of percutaneous endoscopic gastrostomy (PEG) tube Family History Mother , Passed age 83 of Stomach Cancer Colon cancer Father , Passed age 73 of Leukemia No problems noted. Brother , Passed age 68 of metastatic colon cancer Colon cancer Stomach cancer Brother , Passed age 68 of smoke inhalation complications (lung problems) No problems noted. Brother Prostate cancer, Onset Age: 90 metastatic to bone - currently being worked up Sister , Passed age 42 of Lung Cancer No problems noted. Sister , Passed age 94 of "bowel cancer" Breast cancer, Onset Age: 60 Mastectomy Sister , Passed age 73 of Lung Cancer No problems noted. Sister , Passed age 68 of Pulmonary Fibrosis No problems noted. Sister , Passed age 17 of seizure complications (drowned) No problems noted. Sister , Passed age 94 of Alzheimer's Complications No problems noted. Son No problems noted. 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 Pneumatic Required: No Beliefs That Will Affect Care: None marital status: Current Living Situation: Spouse current occupational status: retired 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 Feels Safe at Home: Yes Safety Concerns: Feels Safe At This Time Childhood Exposure to Second-Hand Smoke: No Diet Comment: Tube Feedings Glucerna QID, does still have "soft & slippery foods" caffeine: No Dental Care, Regularly: Yes Physical Activity Frequency: 1-2 Times per Week Seatbelt Use: always Sunscreen Use: Yes Assistive Devices: Cane and Hearing Aid - Bilateral Review of Systems Review of Systems: REVIEW OF SYSTEMS: Constitutional: No fever, sweats or chills Eyes: No diplopia, no worsening or blurred vision ENT: normal hearing, (+) trouble swallowing Respiratory: (+) cough, sputum, NO dyspnea at rest or on exertion Cardiovascular: No chest pain, tightness or palpitations Abdomen: N(+) pain, nausea, vomiting, NO diarrhea or constipation Musculoskeletal: No joint pain, calf pain, swelling Neurologic: No weakness, numbness/tingling, or balance problems Psychiatric: No anxiety or depression Skin: No rash or itch Physical Exam Physical Exam: PHYSICAL EXAM: General: awake, alert, no apparent distress Head: Normocephalic, atraumatic ENT: PERRL, EOMI, no pharyngeal exudate, mucous membranes moist Neuro: AAO x 3, speech clear and appropriate, strength intact bilaterally 5/5, sensation intact and equal all extremities and dermatomes, no pronator drift Chest: equal rise and fall of the chest, no accessory muscle use, no heaves or thrills, Clear to auscultation- left lung, on room air, Cardiac: Regular rate and rhythm, telemetry reviewed, skin warm dry, cap refill <3 seconds, peripheral pulses +2 no JVD, systolic murmur, no JVD, no edema GI: NABS x 4 quadrants, soft, nontender to palpation, no rebound, guarding or tenderness, PEG tube intact no blood in peg tube : Spontaneously voiding, no pain, no CVA tenderness, Extremities: Normal inspection, no peripheral edema or erythema, calfs nontender to palpation Psych: Normal mood and affect Skin: no rash or erythema Results & Data Results & Data ([facility]) Vital Signs (Past 12 Hours) Vital Signs Temp Pulse Resp BP Pulse Ox 01/15/21 14:00 102 H 22 140/78 97 01/15/21 13:30 91 H 18 149/72 H 97 01/15/21 13:00 87 18 124/68 96 01/15/21 12:30 82 18 139/78 93 01/15/21 12:10 91 H 23 127/76 99 01/15/21 12:01 104 H 22 98 01/15/21 11:52 93 H 22 100 01/15/21 11:30 95 H 22 142/83 H 100 01/15/21 11:04 85 22 121/76 97 01/15/21 10:41 37.2 C 91 H 18 95/63 L 97 Laboratory Results Abnormal Labs 01/15/21 01/15/21 11:56 11:56 WBC 0.75 L* RBC 3.23 L Hgb 9.5 L Hct 27.7 L Plt Count 97 L Neut # (Auto) 0.30 L* Lymph # (Auto) 0.35 L Frederick # (Auto) 0.08 L Platelet Estimate Decreased L Sodium 133 L BUN 68 H Creatinine 1.48 H BUN/Creatinine Ratio 46.0 H Glucose 140 H AST 14 L Total Protein 5.9 L Albumin 2.9 L Diagnostic Findings Abdomen/Pelvis CT 01/15/21 12:31 CT SCAN OF THE CHEST, ABDOMEN, AND PELVIS WITH IV CONTRAST CLINICAL HISTORY: Esophageal tumor. Vomiting. Generalized abdominal pain. COMPARISON STUDY: CT scan of the chest, abdomen, and pelvis dated 10/17/2020. PET/CT dated 11/20/2020. TECHNIQUE: Following the IV administration of 94 of Optiray 320, CT scan of the chest, abdomen, and pelvis was performed from the thoracic inlet to the proximal femora. Images are reviewed in the axial, sagittal, and coronal planes. IV contrast was administered without complication. A dose lowering technique was utilized adhering to the principles of ALARA. CT DOSE: 718.38 mGy.cm FINDINGS: CHEST: Thyroid: Imaged portions of the thyroid gland are normal in size and a ttenuation. Thoracic aorta: There is atherosclerotic calcification of the thoracic aorta, which is normal in caliber and demonstrates standard 3-vessel arch anatomy. No dissection is seen. Pulmonary vasculature: The pulmonary trunk is normal in caliber. There are no filling defects identified in the central pulmonary vessels to indicate pulmonary embolus. Note that this examination was not protocoled for evaluation of the pulmonary arteries. Heart: The heart is normal in size and without pericardial effusion. The coronary arteries and aortic valve leaflets are densely calcified. Lungs and pleural spaces: Again seen is postoperative change from right lower lobe resection. A thick-walled pleural collection at the right lung base is likely chronic and unchanged from previous. There is complete fibrosis/consolidation of the right upper lobe. This is also unchanged. The left lung transplant appears hyperaerated and clear. Secretions are noted within the right mainstem bronchus. The trachea appears clear. Mediastinum: Prominent lymph nodes in the superior mediastinum measure up to 8 mm. Esophagus: An esophageal stent has been removed as compared to previous. Metallic fiducial are suggested. There an approximately 4 cm segment of wall thickening involving the proximal to mid esophagus, likely corresponding to the patient's known esophageal carcinoma. This may completely occluded esophageal lumen as seen on image #95. The proximal esophagus above this point is distended and filled with fluid to the thoracic inlet. The distal esophagus is decompressed. Chelo: Clear. Axillae: There is no axillary lymphadenopathy. Bony thorax: The skeletal structures are osteopenic. Spondylotic change is seen throughout the thoracic spine. Arthritic change is noted in the shoulders. No lytic or blastic lesions are identified. ABDOMEN AND PELVIS: Liver: The contrast-enhanced liver is normal in size, contour, and attenuation. There is no intra- or extrahepatic biliary ductal dilatation. The hepatic veins and portal veins are patent. Gallbladder: Unremarkable. Spleen: Normal in size and attenuation. There are calcified splenic granulomas. Pancreas: There is moderate glandular atrophy of the pancreas. Numerous microcalcifications suggest chronic pancreatitis. Adrenal glands: Unremarkable. Kidneys: The contrast enhanced kidneys are atrophic and without hydronephrosis. The kidneys enhance symmetrically. A 3.6 cm cyst arises from the left upper pole. Abdominal vasculature: The abdominal aorta is normal in course and caliber noti ng moderate to advanced atherosclerotic calcification. Stomach and bowel: A gastrostomy tube is noted in the stomach. There is mild to moderate colonic diverticulosis without CT evidence of acute diverticulitis. No bowel obstruction is seen. Mild to moderate fecal retention is noted throughout the colon. The appendix is well-visualized and normal. Peritoneum: There is trace perisplenic ascites. No intraperitoneal free air is identified. There is loculated fluid anterior to the liver, seen on image #64. This is extraperitoneal located above the diaphragm, and measures approximately 11 x 3.5 cm. Lymphadenopathy: None. Pelvic viscera: The prostate gland is markedly enlarged and heterogeneous noting median lobe hypertrophy. The bladder is distended. The bladder wall appears thickened and trabeculated indicating chronic outlet obstruction. Skeletal structures: The skeletal structures are osteopenic. Spondylotic and postoperative change is noted in the lumbar spine. No lytic or blastic lesions are seen. IMPRESSION: 1. An approximately 4 cm segment of wall thickening of the proximal to mid esophagus is similar in appearance to prior studies and likely corresponds to the patient's known esophageal carcinoma. 2. This likely causes complete occlusion of the esophageal lumen. 3. The esophagus above this lesion is distended and filled with fluid to the thoracic inlet. Note that this may place the patient at risk for aspiration. 4. Postoperative change and complete fibrosis/consolidation of the remaining right lung parenchyma is similar to previous. 5. The transplanted left lung appears hyperinflated and clear. 6. A chronic loculated pleural collection at the right lung base has been present on multiple prior studies and is chronic. 7. There is increasing loculated fluid anterior to the liver as compared to 11/20/2020 which is extraperitoneal and appears to be located above the diaphragm. This may represent increasing pleural fluid. 8. Subcentimeter mediastinal lymph nodes are similar to previous. 9. No acute infectious or inflammatory findings are seen in the abdomen or pelvis. 10. Trace perisplenic ascites. 11. Colonic diverticulosis without CT evidence of acute diverticulosis. 12. A gastrostomy tube is in place. 13. An additional findings as above. ACT 112: Negative or not required by law. Electronically signed by: Dread Joshi M.D. 01/15/2021 1:[address] 01/15/21 12:33 CT SCAN OF THE CHEST, ABDOMEN, AND PELVIS WITH IV CONTRAST CLINICAL HISTORY: Esophageal tumor. Vomiting. Generalized abdominal pain. COMPARISON STUDY: CT scan of the chest, abdomen, and pelvis dated 10/17/2020. PET/CT dated 11/20/2020. TECHNIQUE: Following the IV administration of 94 of Optiray 320, CT scan of the chest, abdomen, and pelvis was performed from the thoracic inlet to the proximal femora. Images are reviewed in the axial, sagittal, and coronal planes. IV contrast was administered without complication. A dose lowering technique was utilized adhering to the principles of ALARA. CT DOSE: 718.38 mGy.cm FINDINGS: CHEST: Thyroid: Imaged portions of the thyroid gland are normal in size and attenuation. Thoracic aorta: There is atherosclerotic calcification of the thoracic aorta, which is normal in caliber and demonstrates standard 3-vessel arch anatomy. No dissection is seen. Pulmonary vasculature: The pulmonary trunk is normal in caliber. There are no filling defects identified in the central pulmonary vessels to indicate pulmonary embolus. Note that this examination was not protocoled for evaluation of the pulmonary arteries. Heart: The heart is normal in size and without pericardial effusion. The coronary arteries and aortic valve leaflets are densely calcified. Lungs and pleural spaces: Again seen is postoperative change from right lower lobe resection. A thick-walled pleural collection at the right lung base is like ly chronic and unchanged from previous. There is complete fibrosis/consolidation of the right upper lobe. This is also unchanged. The left lung transplant appears hyperaerated and clear. Secretions are noted within the right mainstem bronchus. The trachea appears clear. Mediastinum: Prominent lymph nodes in the superior mediastinum measure up to 8 mm. Esophagus: An esophageal stent has been removed as compared to previous. Metallic fiducial are suggested. There an approximately 4 cm segment of wall thickening involving the proximal to mid esophagus, likely corresponding to the patient's known esophageal carcinoma. This may completely occluded esophageal lumen as seen on image #95. The proximal esophagus above this point is distended and filled with fluid to the thoracic inlet. The distal esophagus is decompressed. Chelo: Clear. Axillae: There is no axillary lymphadenopathy. Bony thorax: The skeletal structures are osteopenic. Spondylotic change is seen throughout the thoracic spine. Arthritic change is noted in the shoulders. No lytic or blastic lesions are identified. ABDOMEN AND PELVIS: Liver: The contrast-enhanced liver is normal in size, contour, and attenuation. There is no intra- or extrahepatic biliary ductal dilatation. The hepatic veins and portal veins are patent. Gallbladder: Unremarkable. Spleen: Normal in size and attenuation. There are calcified splenic granulomas. Pancreas: There is moderate glandular atrophy of the pancreas. Numerous microcalcifications suggest chronic pancreatitis. Adrenal glands: Unremarkable. Kidneys: The contrast enhanced kidneys are atrophic and without hydronephrosis. The kidneys enhance symmetrically. A 3.6 cm cyst arises from the left upper pole. Abdominal vasculature: The abdominal aorta is normal in course and caliber noting moderate to advanced atherosclerotic calcification. Stomach and bowel: A gastrostomy tube is noted in the stomach. There is mild to moderate colonic diverticulosis without CT evidence of acute diverticulitis. No bowel obstruction is seen. Mild to moderate fecal retention is noted throughout the colon. The appendix is well-visualized and normal. Peritoneum: There is trace perisplenic ascites. No intraperitoneal free air is identified. There is loculated fluid anterior to the liver, seen on image #64. This is extraperitoneal located above the diaphragm, and measures approximately 11 x 3.5 cm. Lymphadenopathy: None. Pelvic viscera: The prostate gland is markedly enlarged and heterogeneous noting median lobe hypertrophy. The bladder is distended. The bladder wall appears thickened and trabeculated indicating chronic outlet obstruction. Skeletal structures: The skeletal structures are osteopenic. Spondylotic and postoperative change is noted in the lumbar spine. No lytic or blastic lesions are seen. IMPRESSION: 1. An approximately 4 cm segment of wall thickening of the proximal to mid esophagus is similar in appearance to prior studies and likely corresponds to the patient's known esophageal carcinoma. 2. This likely causes complete occlusion of the esophageal lumen. 3. The esophagus above this lesion is distended and filled with fluid to the thoracic inlet. Note that this may place the patient at risk for aspiration. 4. Postoperative change and complete fibrosis/consolidation of the remaining right lung parenchyma is similar to previous. 5. The transplanted left lung appears hyperinflated and clear. 6. A chronic loculated pleural collection at the right lung base has been present on multiple prior studies and is chronic. 7. There is increasing loculated fluid anterior to the liver as compared to 11/20/2020 which is extraperitoneal and appears to be located above the diaphragm. This may represent increasing pleural fluid. 8. Subcentimeter mediastinal lymph nodes are similar to previous. 9. No acute infectious or inflammatory findings are seen in the abdomen or pelvis. 10. Trace perisplenic ascites. 11. Colonic diverticulosis without CT evidence of acute diverticulosis. 12. A gastrostomy tube is in place. 13. An additional findings as above. ACT 112: Negative or not required by law. Electronically signed by: Dread Joshi M.D. 01/15/2021 1:54 PM Medications Administered Home Medications amlodipine 2.5 mg tablet 2.5 mg PO QAM #30 tab 07/27/18 [Rx Confirmed 11/22/20] amlodipine 5 mg tablet 5 mg PO QPM 07/27/18 [History Confirmed 11/22/20] aspirin 81 mg tablet,delayed release 81 mg PO QPM 07/27/18 [History Confirmed 11/22/20] calcium carbonate 500 mg (1,250 mg)-vitamin D3 400 unit tablet (Calcium 500 + D) 2 tabs PO BID 07/27/18 [History Confirmed 11/22/20] hydralazine 50 mg tablet 50 mg PO QID 07/27/18 [History Confirmed 11/22/20] omeprazole 20 mg capsule,delayed release 20 mg PO QAM 07/27/18 [History Confirmed 11/22/20] prednisone 5 mg tablet 5 mg PO QDL 07/27/18 [History Confirmed 11/22/20] multivit with minerals-iron 18 mg-folic ac 400 mcg-vit K 25 mcg tablet (Multi- Day Plus Minerals) 1 tab PO QAM 10/23/18 [History Confirmed 11/22/20] ipratropium bromide 42 mcg (0.06 %) nasal spray 2 spray INTRANASAL TID PRN ml 03/16/19 [History Confirmed 11/22/20] azithromycin 250 mg tablet 250 mg PO 3XWK #36 tab 10/20/19 [Rx Confirmed 11/22/20] blood sugar diagnostic (FlirqTouch Ultra Blue Test Strip) #100 ea 10/20/19 [Rx Confirmed 11/22/20] doxycycline monohydrate 100 mg capsule 100 mg PO UD PRN 10/20/19 [History Confirmed 11/22/20] repaglinide 2 mg tablet (Prandin) See Rx Instructions PO TID tab 10/20/19 [History Confirmed 11/22/20] tacrolimus 0.5 mg capsule, immediate-release (Prograf) 0.5 mg PO QPM cap 10/20/19 [History Confirmed 11/22/20] tacrolimus 1 mg capsule, immediate-release (Prograf) 1 mg PO QAM cap 10/20/19 [History Confirmed 11/22/20] tamsulosin 0.4 mg capsule 0.8 mg PO QPM #180 cap 01/13/20 [Rx Confirmed 11/22/20] losartan 25 mg tablet 25 mg PO HS tab 05/17/20 [History Confirmed 11/22/20] miscellaneous medical supply (Feeding Tube Attachment Device) #1 ea 11/02/20 [Rx Confirmed 11/22/20] pravastatin 40 mg tablet 20 mg PO HS tab 11/22/20 [History Confirmed 11/22/20] ondansetron HCl 4 mg/5 mL oral solution 4 mg PO Q8H PRN #50 ml 11/23/20 [Rx] lancets (OneTouch UltraSoft Lancets) #100 ea 11/29/20 [Rx] ciclopirox 8 % topical solution TOPICAL 12/07/20 [History] fluorouracil 5 % topical cream (Efudex) 1 applic TOPICAL BID 12/07/20 [History] magnesium chloride 64 mg (magnesium chloride) tablet,delayed release 95 mg PO QID tab 12/07/20 [History] nutrition tx glu intol,lac-free,soy-fiber 0.08 gram-1.5 kcal/mL liquid (Glucerna 1.5 Javier) 237 ea FEEDING TUBE QID ml 12/07/20 [History] olopatadine 0.6 % nasal spray 2 spray INTRANASAL BID 12/07/20 [History] sulfamethoxazole 400 mg-trimethoprim 80 mg tablet 1 tab PO HS tab 12/07/20 [History] Active Medications Pantoprazole Sodium 40 mg/ (Dextrose) 100 mls @ 20 mls/hr IV Q5H SHELLI Stop: 02/14/21 11:59 Last Admin: 01/15/21 12:55 Dose: 8 mg/hr, 20 mls/hr Documented by: Pantoprazole Sodium 40 mg/ (Dextrose) 100 mls @ 20 mls/hr IV Q5H SHELLI Stop: 02/14/21 11:59 Last Admin: 01/15/21 12:55 Dose: 8 mg/hr, 20 mls/hr Documented by: [id number] Discontinued Medications Glycopyrrolate (Glycopyrrolate 0.2 Mg/Ml Vial) 0.2 mg IV NOW ONE Stop: 01/15/21 12:46 Last Admin: 01/15/21 14:00 Dose: 0.2 mg Documented by: [id number] Sodium Chloride (Nss) 500 mls @ 999 mls/hr IV .Q31M SHELLI Stop: 01/15/21 12:15 Last Infusion: 01/15/21 12:39 Dose: 0 mls/hr Documented by: [id number] Admin: 01/15/21 12:08 Dose: 999 mls/hr Documented by: [id number] Pantoprazole Sodium (Protonix Bolus/Drip) 0 mls @ 1 mls/hr IV ONE STA Stop: 01/15/21 11:38 Last Admin: 01/15/21 12:50 Dose: Not Given Documented by: [id number] Pantoprazole Sodium 80 mg/ (Dextrose) 120 mls @ 400 mls/hr IV NOW ONE Stop: 01/15/21 11:54 Last Infusion: 01/15/21 12:31 Dose: 0 mls/hr Documented by: [id number] Admin: 01/15/21 12:13 Dose: 400 mls/hr Documented by: [id number] Sodium Chloride (Nss 1000ml) 500 mls @ 999 mls/hr IV .Q31M ONE Stop: 01/15/21 15:04 Last Infusion: 01/15/21 15:21 Dose: 0 mls/hr Documented by: [id number] Admin: 01/15/21 14:49 Dose: 999 mls/hr Documented by: [id number] Ioversol (Optiray 320 100ml) 94 ml IV ONCE ONE Stop: 01/15/21 13:18 Last Admin: 01/15/21 13:17 Dose: 94 ml Documented by: [id number] Morphine Sulfate (Morphine Sulfate 2 Mg/Ml Carp) 2 mg IV NOW STA Stop: 01/15/21 12:09 Last Admin: 01/15/21 12:18 Dose: 2 mg Documented by: [id number] Morphine Sulfate (Morphine Sulfate 2 Mg/Ml Carp) 2 mg IV NOW STA Stop: 01/15/21 14:35 Last Admin: 01/15/21 14:52 Dose: 2 mg Documented by: [id number] Ondansetron HCl (Ondansetron Inj 2 Mg/Ml 2 Ml Vial) 4 mg IV ONE STA Stop: 01/15/21 11:38 Last Admin: 01/15/21 12:05 Dose: 4 mg Documented by: [id number] Additional Comments: Normal sinus rhythm Nonspecific T wave abnormality Abnormal ECG When compared with ECG of 17-OCT-2020 20:35, Premature atrial complexes are no longer Present GA interval has decreased Nonspecific T wave abnormality now evident in Lateral lead Code Status & VTE Plan Code Status CODE: FULL VTE: SCD's, Ambulation Supervising Physician Co-Signing Physician Notes During face to face encounter with patient, obtained a physical and history. My history and physcial examination did not differ from above. I reviewed above note and agree with it. I discussed plan with FIFI Bernstein and the patient. All questions were answered. Patient will be admitted for esophageal stricture. Will likely need esophageal stent replaced. will consult GI. Patient is unsure if he would like to hold of stent being placed. 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
[2021-01-15] MEDS ORDERED: SODIUM CHLORIDE 0.9% 1000ML 500 ML IV ONE (14:34)
[2021-01-15] MEDS ORDERED: ONDANSETRON INJ 2 MG/ML 2 ML VIAL IV PRN (17:31)
[2021-01-15] MEDS ORDERED: NUT TX GLUC INTOL LF SOY FIBER feeding tube SCH (17:31)
[2021-01-15] MEDS ORDERED: GLUCERNA PEG SCH (17:31)
[2021-01-15] MEDS ORDERED: MoRPHine SULFATE 2 MG/ML CARP IV PRN (17:31)
[2021-01-15] MEDS ORDERED: IPRATROPIUM BROMIDE NASAL SPRAY 0.06% 15ML PRN (17:31)
[2021-01-15] MEDS ORDERED: [UNRECOGNIZED DRUG - OTHER] feeding tube SCH (17:31)
[2021-01-15] MEDS ORDERED: ACETAMINOPHEN SUSP 325 MG/10.15 ML UDC PEG PRN (17:36)
[2021-01-15] MEDS: hydrALAZINE TAB 50 MG TAB PEG SCH ×2 (18:32→20:59)
[2021-01-15] MEDS ORDERED: DEXTROSE 50% 50 ML SYRINGE IV PRN (18:48)
[2021-01-15] MEDS ORDERED: GLUCOSE 40% GEL 15 GM TUBE PO PRN (18:48)
[2021-01-15] MEDS ORDERED: GLUCAGON FOR INJ 1 MG VIAL SQ PRN (18:48)
[2021-01-15] MEDS ORDERED: GLUCOSE 10 TABS/TUBE PO PRN (18:48)
[2021-01-15] MEDS ORDERED: CARBOHYDRATES FOR HYPOGLYCEMIA PO PRN (18:48)
[2021-01-15] MEDS: PEPTAMEN 1.5 CAL 1,000 ML BAG PO SCH (20:53)
[2021-01-15] MEDS: amLODIPine BESYLATE 5 MG TAB PEG SCH (20:55)
[2021-01-15] MEDS: GLYCOPYRROLATE 0.2 MG/ML VIAL IV SCH (20:56)
[2021-01-15] MEDS: PANTOprazole 40 MG in SYRINGE 0 ML IV SCH (20:57)
[2021-01-15] MEDS ORDERED: SULFAMETHOXAZOLE/TRIMETHOPRIM 200MG/40MG/5ML SUSP PO SCH (21:00)
[2021-01-15] MEDS: SULFAMETHOXAZOLE/TRIMETHOPRIM 200MG/40MG/5ML SUSP PO SCH (21:01)
[2021-01-15] MEDS: NON-FORMULARY PATIENT'S OWN MED PEG SCH (21:02)
[2021-01-15] MEDS: INSULIN ASPART 100 UNITS/ML 3 ML PEN SC SCH (21:27)
[2021-01-15 22:35] LABS: Hematocrit (blood only) 30.2 % (42-52); Hemoglobin 10.4 g/dL (14.0-18.0); Mean Corpuscular Hemoglobin 29.5 pg (25-34); Mean Corpuscular Hgb Conc 34.4 g/dL (32-36); Mean Corpuscular Volume 85.8 fL (80-100); Mean Platelet Volume 9.9 fL (7.4-10.4); Platelet Count 104 K/uL (130-400); RDW Coefficient of Variation 14.1 % (11.5-14.5); RDW Standard Deviation 43.8 fL (36.4-46.3); Red Blood Count 3.52 M/uL (4.7-6.1); White Blood Count 0.82 K/uL (4.8-10.8)
[2021-01-15] MEDS ORDERED: SODIUM CHLORIDE 0.9% 500 ML IV ONE (22:48)
[2021-01-15] MEDS ORDERED: METOPROLOL TARTRATE 1 MG/ML VIAL IV STA (22:48)
[2021-01-15 23:00] LABS: Dohle Bodies 1+; Eosinophils # (auto) 0.01 K/uL (0-0.5); Eosinophils % (auto) 1.2 %; Giant Platelets 1+; Immature Granulocytes # (auto) 0.01 K/uL (0.00-0.02); Immature Granulocytes % (auto) 1.2 %; Lymphocytes # (auto) 0.34 K/uL (1.2-3.4); Lymphocytes % (auto) 41.5 %; Monocytes # (auto) 0.03 K/uL (0.11-0.59); Monocytes % (auto) 3.7 %; Neutrophils # (auto) 0.43 K/uL (1.4-6.5); Neutrophils % (auto) 52.4 %
[2021-01-16] MEDS: PEPTAMEN 1.5 CAL 1,000 ML BAG PO SCH (01:13)
[2021-01-16 07:38] LABS: Hematocrit (blood only) 24.5 % (42-52); Hemoglobin 8.3 g/dL (14.0-18.0); Mean Corpuscular Hgb Conc 33.9 g/dL (32-36); Mean Corpuscular Volume 85.7 fL (80-100); Mean Platelet Volume 9.8 fL (7.4-10.4); Platelet Count 93 K/uL (130-400); RDW Standard Deviation 43.7 fL (36.4-46.3); Red Blood Count 2.86 M/uL (4.7-6.1); White Blood Count 0.89 K/uL (4.8-10.8)
[2021-01-16 08:08] LABS: BUN Creatinine Ratio 36.5 (10-20); Calcium 7.9 mg/dl (8.5-10.1); Creatinine Clr Calc Pharmacy 34.7 ml/min; Dohle Bodies 1+; Est GFR (African American) 53.3 ml/min; Lymphocytes # (auto) 0.15 K/uL (1.2-3.4); Lymphocytes % (auto) 16.9 %; Magnesium 1.5 mg/dl (1.8-2.4); Monocytes # (auto) 0.06 K/uL (0.11-0.59); Monocytes % (auto) 6.7 %; Neutrophils # (auto) 0.68 K/uL (1.4-6.5); Neutrophils % (auto) 76.4 %; Potassium 4.4 mmol/L (3.5-5.1); Toxic Granulation 1+
--- NOTE | 2021-01-16 08:20 | Electrocardiogram Report ---
Test Reason : Blood Pressure : / mmHG Vent. Rate : 091 BPM Atrial Rate : 091 BPM P-R Int : 190 ms QRS Dur : 090 ms QT Int : 330 ms P-R-T Axes : 037 072 045 degrees QTc Int : 405 ms Normal sinus rhythm Nonspecific T wave abnormality Anterolateral leads Abnormal ECG When compared with ECG of 17-OCT-2020 20:35, Premature atrial complexes are no longer Present AK interval has decreased Nonspecific T wave abnormality now evident in Anterolateral leads Confirmed by Sravan Dumont ([id number]) on 01/16/2021 8:20:17 AM Referred By: REFERRED SELF Confirmed By:Sravan Dumont
[2021-01-16 08:21] LABS: Beta-Hydroxybutyrate 2.3 mg/dl (0.2-2.81)
[2021-01-16] MEDS: INSULIN ASPART 100 UNITS/ML 3 ML PEN SC SCH ×5 (08:54→21:31)
[2021-01-16] MEDS: amLODIPine BESYLATE 5 MG TAB PEG SCH ×2 (08:57→20:07)
[2021-01-16] MEDS: hydrALAZINE TAB 50 MG TAB PEG SCH ×4 (08:58→20:07)
[2021-01-16] MEDS: GLYCOPYRROLATE 0.2 MG/ML VIAL IV SCH ×2 (08:59→20:20)
[2021-01-16] MEDS: PANTOprazole 40 MG in SYRINGE 0 ML IV SCH ×2 (09:00→20:02)
[2021-01-16] MEDS: NON-FORMULARY PATIENT'S OWN MED PEG SCH ×3 (09:01→19:56)
[2021-01-16] MEDS: MAGNESIUM SULFATE / D5W 1 GM/100 ML BAG IV SCH ×3 (09:50→14:38)
--- NOTE | 2021-01-16 10:17 | Gastrointestinal Consultation ---
Date of Consultation January 16, 2021 Assessment & Plan (1) Hematemesis: Esophageal cancers are often very vascular and irritated with friable tissue. The blood in the in the emesis most likely represents some slow, continual bleeding from the tumor. It is unlikely that any endoscopic treatment would improve the bleeding. -Twice daily PPI. -Continue glycopyrrolate -If symptoms are not improved with 2 days of glycopyrrolate could consider EGD with possible balloon dilation but it would be unlikely provide relief from symptoms for a significant amount of time. -Patient tells us he prefers not to repeat esophageal stenting. -Continue antiemetics, which seem effective for his nausea. -Continue PEG tube feedings. (2) Dysphagia: (3) Phlegm in throat: Supervising Physician Co-Signing Physician Notes I saw and evaluated the patient with Ms. Tan. We are consulted with regard to possible esophageal stent placment for a history of esopahgeal cancer. the patient's nutrition is via a peg that was placed in October as he was intolerant of a prio esopahgeal stent due to pain. He does have problems with clearing secretions and continues to have an obstructing esophageal mass despite a trial of chemo and radition. PE: elderly male in NAD Abd: soft IMpression: patient with continued problems due to an obstruction from a know esophageal cancer. Unfortunately our only palliative option would be placement of a new esopahgeal stent. The patient is reluctant to have this done as he had intolerable chest pain in the past with another device. Given this we will have him try Robinul to see if this dries his secretions, if not the patient may need to reconsider his palliative options. History of Present Illness Reason for Consultation: distal esophageal stenting evaluation Requesting Physician: Dr. Olivares/VICENTE Ambriz Attending Physician: Margie Barnett MD History of Present Illness Mr. Nicola Banks is an 86 yr old male pt of Dr. 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 An esophageal stent have been placed for tx of esophageal dysphagia related to the esophageal adenocarcinoma, but he was unable to tolerate associated discomfort and he underwent EGD stent removal and PEG tube insertion by Dr. Melendez in October. The patient tells us that he presented yesterday to the ED because he was having a lot of phlegm in the bottom of his throat, that there was some blood in this when he is able to cough it up. He tells us it is the phlegm that is really bothering him. He also reports that he has ongoing nausea but the antiemetic medication is effective for this. He has a feeling of need to vomit about twice a week which is very uncomfortable for him as he will feel the stomach fam and some reflux of stomach contents are trapped in the abdomen, unable to, up, not producing any emesis. He has a PEG tube in place. He tells me that he is able to tolerate the liquid tube feedings 4 times daily, and that his throat/phlegm symptoms do not worsened after giving himself a bolus feed. GI is consulted to consider stenting the esophagus, however, the patient tells us that he was not able to tolerate having a stent in the esophagus when it was placed earlier this year. Having the stent cause chest pain. He had relief of that pain whenever the stent was removed. Allergies Allergy/AdvReac Type Severity Reaction Status Date / Time metronidazole Allergy Severe NEUROPATHY Verified 01/15/21 16:00 LEG lisinopril Allergy Intermediate NAUSEA, Verified 01/15/21 16:00 STOMACH UPSET, DEATHLY SICK Home Medications Medication Instructions Recorded Confirmed Type amlodipine 5 mg tablet 5 mg FEEDING TUBE QPM 07/27/18 01/15/21 History aspirin 81 mg tablet,delayed 81 mg FEEDING TUBE QPM 07/27/18 01/15/21 History release calcium carbonate 500 mg (1,250 2 tabs FEEDING TUBE BID 07/27/18 01/15/21 History mg)-vitamin D3 400 unit tablet (Calcium 500 + D) hydralazine 50 mg tablet 50 mg FEEDING TUBE QID 07/27/18 01/15/21 History omeprazole 20 mg capsule,delayed 20 mg FEEDING TUBE QAM 07/27/18 01/15/21 History release ipratropium bromide 42 mcg (0.06 2 spray INTRANASAL TID PRN ml 03/16/19 01/15/21 History %) nasal spray repaglinide 2 mg tablet (Prandin) See Rx Instructions PO TID tab 10/20/19 01/15/21 History tamsulosin 0.4 mg capsule 0.8 mg PO QPM #180 cap 01/13/20 01/15/21 Rx losartan 25 mg tablet 25 mg FEEDING TUBE HS tab 05/17/20 01/15/21 History pravastatin 40 mg tablet 20 mg FEEDING TUBE HS tab 11/22/20 01/15/21 History ciclopirox 8 % topical solution 1 applic TOPICAL DAILY 12/07/20 01/15/21 History fluorouracil 5 % topical cream 1 applic TOPICAL BID PRN 12/07/20 01/15/21 History (Efudex) magnesium chloride 64 mg 95 mg PO QID tab 12/07/20 01/15/21 History (magnesium chloride) tablet,delayed release nutrition tx glu 237 ea FEEDING TUBE QID ml 12/07/20 01/15/21 History intol,lac-free,soy-fiber 0.08 gram-1.5 kcal/mL liquid (Glucerna 1.5 Javier) sulfamethoxazole 400 1 tab FEEDING TUBE 2XWK tab 12/07/20 01/15/21 History mg-trimethoprim 80 mg tablet Tacrolimus Liquid 3 ml FEEDING TUBE BID 01/15/21 01/15/21 History amlodipine 2.5 mg tablet 2.5 mg FEEDING TUBE QAM 01/15/21 01/15/21 History azithromycin 250 mg tablet 250 mg FEEDING TUBE 3XWK 01/15/21 01/15/21 History glipizide 5 mg tablet 5 mg FEEDING TUBE UD 01/15/21 01/15/21 History ondansetron HCl 4 mg/5 mL oral 4 mg FEEDING TUBE Q8H PRN 01/15/21 01/15/21 History solution prednisone 5 mg/5 mL oral solution 5 mg FEEDING TUBE DAILY 01/15/21 01/15/21 History Patient History Medical History (Updated 01/16/21 @ 13:44 by VICENTE Hyde) Aortic stenosis Per 09/2020 echo, Severe aortic stenosis is presentpeak CW Doppler velocities 4 m/s, mean gradient 39 mmHg, calculated SHANTAL =0.8 cm. Cardiology aware, not yet surgical severity. Atrial fibrillation In the past- paroxysmal- no recurrence per cardio records. Pt not anticoagulated. 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 LEFT 2005 [place] Nausea, vomiting, and diarrhea Pulmonary fibrosis 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 Right foot drop related to spine surgery in 2016 Severe aortic stenosis SIRS (systemic inflammatory response syndrome) Surgical History H/O lung transplant (2005) LEFT History of anesthesia reaction "SLOW TO WAKE UP" PER SPOUSE History of back surgery (2016) X 2-INCLUDING FUSION > LUMBAR History of bronchoscopy (06/19/05) Thoracoscopy with Lung Biopsy History of cardiac cath 2005 NO STENTS-BEFORE LUNG TRANSPLANT SURGERY History of cataract surgery R/L History of colonoscopy History of esophagogastroduodenoscopy (EGD) (10/17/20) and EUS with FNA of Esophageal Mass History of incision and drainage (03/29/09) Groin Abscess History of lobectomy of lung (2008) right upper for cancer History of tooth extraction Status post insertion of percutaneous endoscopic gastrostomy (PEG) tube Family History Mother , Passed age 83 of Stomach Cancer Colon cancer Father , Passed age 73 of Leukemia No problems noted. Brother , Passed age 68 of metastatic colon cancer Colon cancer Stomach cancer Brother , Passed age 68 of smoke inhalation complications (lung problems) No problems noted. Brother Prostate cancer, Onset Age: 90 metastatic to bone - currently being worked up Sister , Passed age 42 of Lung Cancer No problems noted. Sister , Passed age 94 of "bowel cancer" Breast cancer, Onset Age: 60 Mastectomy Sister , Passed age 73 of Lung Cancer No problems noted. Sister , Passed age 68 of Pulmonary Fibrosis No problems noted. Sister , Passed age 17 of seizure complications (drowned) No problems noted. Sister , Passed age 94 of Alzheimer's Complications No problems noted. Son No problems noted. Son Melanoma Excised and doing well currently Daughter Dermatomyositis Currently being worked up for at [facility] Other Family history non-contributory No family history of adverse response to anesthesia Social History Smoking Status: Never smoker Second Hand Exposure: No; Hx Alcohol Use: No Hx Substance Use: No Preferred Language: Mauritanian Communication Ability: Effective Communication Ability Comment: pt voice very hoarse Visual Impairment: Limited Hearing Ability: Use of Hearing Aid [employer] Professor Required: No Beliefs That Will Affect Care: None marital status: Current Living Situation: Spouse current occupational status: retired 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 Cardio: No palpitations/irregular beats, no chest pain GI: As per HPI otherwise (-) : Denies pain on urination Skin: No jaundice, itching or new rashes Physical Exam Constitutional: + ill appearing, + thin, well groomed, cooperative and + underweight; not edematous Eyes: PERRL, conjunctivae normal, anicteric sclerae ENMT: external ear and nose normal, oropharynx normal Neck: trachea midline, no thyromegaly Respiratory: no respiratory distress Audible rhonchi with some mild scattered wheezing. He throat clearing but is not able to produce strong cough, Cardiovascular: Rate/Rhythm: regular rate and regular rhythm Heart Sounds: + murmur 2-3/6 systolic murmur Gastrointestinal (Abdomen): PEG tube in place, no redness or irritation at insertion site, no evidence of leaking Skin: + pallor; no rashes Neurologic: PERRL, EOMI, accommodation nl, no face palsy, no dysarthria Psychiatric: A+Ox3, euthymic affect Lymphatic: no cervical or axillary lymphadenopathy Results & Data ([place]) Vital Signs (Past 12 Hours) Vital Signs Temp Pulse Pulse Resp BP BP BP 01/16/21 07:18 37.6 C H 93 H 20 108/68 01/16/21 03:13 37.6 C H 109 H 20 156/84 H 01/15/21 23:14 124 H 161/83 H 01/15/21 23:00 135 H 01/15/21 22:46 37.4 C 135 H 18 138/79 Pulse Ox 01/16/21 07:18 99 01/16/21 03:13 94 01/15/21 23:14 01/15/21 23:00 01/15/21 22:46 93 Laboratory Results WBC 0.89, Hb 8.3, HCT 24, PLT S 93, NA 134, K4.4, CL 102, CO2 24, BUN 50, CR 1.38, glucose 325 Diagnostic Findings CTAP with IV contrast 01/15/2021: 1. An approximately 4 cm segment of wall thickening of the proximal to mid esophagus is similar in appearance to prior studies and likely corresponds to the patient's known esophageal carcinoma. 2. This likely causes complete occlusion of the esophageal lumen. 3. The esophagus above this lesion is distended and filled with fluid to the thoracic inlet. Note that this may place the patient at risk for aspiration. 4. Postoperative change and complete fibrosis/consolidation of the remaining right lung parenchyma is similar to previous. 5. The transplanted left lung appears hyperinflated and clear. 6. A chronic loculated pleural collection at the right lung base has been present on multiple prior studies and is chronic. 7. There is increasing loculated fluid anterior to the liver as compared to 11/20/2020 which is extraperitoneal and appears to be located above the diaphragm. This may represent increasing pleural fluid. 8. Subcentimeter mediastinal lymph nodes are similar to previous. 9. No acute infectious or inflammatory findings are seen in the abdomen or pelvis. 10. Trace perisplenic ascites. 11. Colonic diverticulosis without CT evidence of acute diverticulosis. 12. A gastrostomy tube is in place. EUS 10/17/20 Dr. Melendez: - An intramural lesion was found in the middle third of the esophagus, r/o metastatic disease given prior history of lung cancer. Fine needle aspiration performed. EGD 10/30/20 Dr. Melendez: - Pre-existing esophageal stent, removed. - Normal stomach. - Normal duodenal bulb and second portion of the duodenum. - An externally removable PEG placement was successfully completed. (1) Dysphagia Dysphagia type: unspecified Qualified Code(s): R13.10 - Dysphagia, unspecified
[2021-01-16] MEDS: INSULIN GLARGINE SOLOSTAR 100 UNITS/ML 3 ML PEN SC SCH (10:31)
[2021-01-16] MEDS: PEPTAMEN 1.5 CAL 1,000 ML BAG PEG SCH ×3 (12:17→22:02)
[2021-01-16] MEDS: TUBE FEEDING WATER FLUSH GT SCH ×6 (12:17→23:03)
--- NOTE | 2021-01-16 17:39 | Hospitalist Progress Note ---
Date of Service January 16, 2021 Assessment & Plan (1) Esophageal stricture: Plan: Secondary to esophageal cancer making it difficult to handle his secretions Some blood in the secretions due to oozing from the tumor most likely Continue NPO-feeding through the PEG tube - GI consultation for evaluation of re-stenting- appreciate GI consultation- patient declines esophageal stenting-only other option is palliation and trial of Robinul which does seem to be helping somewhat -Continue Glycopyrolate 0.1mg IV [id number] can be converted to 2 mg per PEG tube every 12 hours and can be crushed as I confirmed with the pharmacist - Continue with enteral nutritional support through PEG tube- Glucerna or equivalent while in house- follow blood glucose levels and adjust based on nutrition/CHO3 intake based on our enteral formulation (2) Hematemesis: Plan: Protonix 40mg IV BID is provided Most likely secondary to oozing from the tumor Has resolved (3) Dysphagia: Plan: As above- appreciate GI consultation Continue tube feeds (4) 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: Plan: As per HIP undergoing chemo/radiation Missed today's chemotherapy session with oncology-will need to be rescheduled Contacted radiation oncology-we will see if they can continue his radiation therapy here tomorrow while inpatient (5) DMII (diabetes mellitus, type 2): Plan: With significant hyperglycemia shortly after admission in the 300s Added Lantus 8 units once daily Increase correction factor NovoLog and added carbohydrate coverage for tube feeds Continue to follow closely (6) Urinary retention: Plan: Had straight catheterization for 1250 mL overnight and then Boyd catheter placed this morning for 800 mL of urine Did receive IV morphine as well as Robinul which could both be contributing Start Flomax Maintain Boyd catheter for now Hopefully with starting Flomax and no further morphine, he will be able to urinate on his own even with Robinul on board, however he is reported even an antihistamine in the past has caused him urinary retention May need to have urology follow-up (7) Antineoplastic chemotherapy induced pancytopenia: Plan: Pancytopenia with neutropenia Secondary to chemotherapy Follow CBC in the morning Some blood loss anemia likely as well No transfusion needed at this point (8) 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 - 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 as well as RUL wedge biopsy in 2008 Continue tacrolimus, prednisone, Bactrim Continue supplemental O2 (9) Chronic kidney disease: Plan: Stable at this time CKD III b - avoid further nephrotoxic mediations (10) Aortic stenosis: Plan: Follow hemodynamic status and volume status while in house - no new or worsening symptoms- recent ECHO classified as severe (11) Immunosuppression: Plan: As above Plan: DVT prophylaxis-no anticoagulation due to ongoing bleeding, SCDs only Disposition-continued stay, but may be able to discharge home tomorrow Admission and Anticipated Discharge Date Admission Date: January 15, 2021 Subjective Patient does not think his secretions are much better although he is no longer spitting anything up which is an improvement. He does not like the way that it sounds in his throat. He is also upset about having to be catheterized for urinary retention and blames this on the Robinul. He does not want another esophageal stent placed. We discussed that without doing this, there is not much else that can be done for him. I called his and discussed his care with her on the phone at his request. She is also requesting that he continue with his radiation therapy while he is in the hospital. His blood sugars have been elevated today and he is not receiving his usual glucose control tube feeds he reports. He denies any abdominal pains. No chest pains or shortness of breath. Telemetry with normal sinus rhythm and PVCs Review of Systems Review of Systems: All systems reviewed & are unremarkable except as noted in HPI & below Physical Exam Constitutional: WD/WN, vitals as above Eyes: + anicteric sclerae Neck: trachea midline, no thyromegaly Respiratory: normal respiratory effort Auscultation: + crackles (Right lung throughout) and + rhonchi (Coarse loud upper airway sounds) Cardiovascular: RRR, no murmur, no edema Chest (Breasts): Chest: normal inspection of chest Gastrointestinal (Abdomen): normal bowel sounds, soft, nontender, no hepatosplenomegaly Inspection/Auscultation: + abdomen abnormal to inspection (PEG tube in place) Musculoskeletal: Extremities: extremities normal to inspection; no cyanosis and no clubbing Skin: no rashes, warm and dry Neurologic: moves all extremities and awake; no focal motor deficits Psychiatric: A+Ox3, euthymic affect Lymphatic: no lymphedema Results & Data Results & Data ([facility]) Vital Signs (Past 12 Hours) Vital Signs Temp Pulse Pulse Resp BP BP Pulse Ox 01/16/21 15:24 71 01/16/21 15:22 36.7 C 82 20 107/61 98 01/16/21 12:37 107 H 01/16/21 11:33 36.9 C 96 H 20 100/58 L 99 01/16/21 07:18 37.6 C H 93 H 20 108/68 99 Laboratory Results 01/16/21 01/16/21 01/16/21 Range/Units 16:30 11:30 07:26 WBC (4.8-10.8) K/uL RBC (4.7-6.1) M/uL Hgb (14.0-18.0) g/dL Hct (42-52) % MCV (80-100) fL MCH (25-34) pg MCHC (32-36) g/dL RDW Std Deviation (36.4-46.3) fL RDW Coeff of Flavia (11.5-14.5) % Plt Count (130-400) K/uL MPV (7.4-10.4) fL Immature Gran % (Auto) % Neut % (Auto) % Lymph % (Auto) % [place] % (Auto) % Eos % (Auto) % Baso % (Auto) % Neut # (Auto) (1.4-6.5) K/uL Lymph # (Auto) (1.2-3.4) K/uL [place] # (Auto) (0.11-0.59) K/uL Eos # (Auto) (0-0.5) K/uL Baso # (Auto) (0-0.2) K/uL Immature Gran # (Auto) (0.00-0.02) K/uL Toxic Granulation Dohle Bodies Giant Platelets Sodium (136-145) mmol/L Potassium (3.5-5.1) mmol/L Chloride (98-107) mmol/L Carbon Dioxide (21-32) mmol/L Anion Gap (3-11) BUN (7-18) mg/dl Creatinine (0.6-1.4) mg/dl Est Cr Clr Drug Dosing ml/min Est GFR ( Amer) ml/min Est GFR (Non-Af Amer) ml/min BUN/Creatinine Ratio (10-20) Glucose (70-99) mg/dl POC Glucose 262 H 109 H 365 H* (70-99) mg/dl Calcium (8.5-10.1) mg/dl Magnesium (1.8-2.4) mg/dl Beta-Hydroxybutyric Acd (0.2-2.81) mg/dl 01/16/21 01/16/21 01/16/21 Range/Units 07:25 06:57 06:57 WBC 0.89 L* (4.8-10.8) K/uL RBC 2.86 L (4.7-6.1) M/uL Hgb 8.3 L (14.0-18.0) g/dL Hct 24.5 L (42-52) % MCV 85.7 (80-100) fL MCH 29.0 (25-34) pg MCHC 33.9 (32-36) g/dL RDW Std Deviation 43.7 (36.4-46.3) fL RDW Coeff of Flavia 14.0 (11.5-14.5) % Plt Count 93 L (130-400) K/uL MPV 9.8 (7.4-10.4) fL Immature Gran % (Auto) 0.0 % Neut % (Auto) 76.4 % Lymph % (Auto) 16.9 % [place] % (Auto) 6.7 % Eos % (Auto) 0.0 % Baso % (Auto) 0.0 % Neut # (Auto) 0.68 L* (1.4-6.5) K/uL Lymph # (Auto) 0.15 L (1.2-3.4) K/uL [place] # (Auto) 0.06 L (0.11-0.59) K/uL Eos # (Auto) 0.00 (0-0.5) K/uL Baso # (Auto) 0.00 (0-0.2) K/uL Immature Gran # (Auto) 0.00 (0.00-0.02) K/uL Toxic Granulation 1+ Dohle Bodies 1+ Giant Platelets Sodium 134 L (136-145) mmol/L Potassium 4.4 (3.5-5.1) mmol/L Chloride 102 (98-107) mmol/L Carbon Dioxide 24 (21-32) mmol/L Anion Gap 8.0 (3-11) BUN 50 H (7-18) mg/dl Creatinine 1.38 (0.6-1.4) mg/dl Est Cr Clr Drug Dosing 34.7 ml/min Est GFR ( Amer) 53.3 ml/min Est GFR (Non-Af Amer) 46.0 ml/min BUN/Creatinine Ratio 36.5 H (10-20) Glucose 325 H* (70-99) mg/dl POC Glucose 364 H* (70-99) mg/dl Calcium 7.9 L (8.5-10.1) mg/dl Magnesium 1.5 L (1.8-2.4) mg/dl Beta-Hydroxybutyric Acd 2.30 (0.2-2.81) mg/dl 01/15/21 01/15/21 01/15/21 Range/Units 23:05 22:19 20:25 WBC 0.82 L* (4.8-10.8) K/uL RBC 3.52 L (4.7-6.1) M/uL Hgb 10.4 L (14.0-18.0) g/dL Hct 30.2 L (42-52) % MCV 85.8 (80-100) fL MCH 29.5 (25-34) pg MCHC 34.4 (32-36) g/dL RDW Std Deviation 43.8 (36.4-46.3) fL RDW Coeff of Flavia 14.1 (11.5-14.5) % Plt Count 104 L (130-400) K/uL MPV 9.9 (7.4-10.4) fL Immature Gran % (Auto) 1.2 % Neut % (Auto) 52.4 % Lymph % (Auto) 41.5 % [place] % (Auto) 3.7 % Eos % (Auto) 1.2 % Baso % (Auto) 0.0 % Neut # (Auto) 0.43 L* (1.4-6.5) K/uL Lymph # (Auto) 0.34 L (1.2-3.4) K/uL [place] # (Auto) 0.03 L (0.11-0.59) K/uL Eos # (Auto) 0.01 (0-0.5) K/uL Baso # (Auto) 0.00 (0-0.2) K/uL Immature Gran # (Auto) 0.01 (0.00-0.02) K/uL Toxic Granulation Dohle Bodies 1+ Giant Platelets 1+ Sodium (136-145) mmol/L Potassium (3.5-5.1) mmol/L Chloride (98-107) mmol/L Carbon Dioxide (21-32) mmol/L Anion Gap (3-11) BUN (7-18) mg/dl Creatinine (0.6-1.4) mg/dl Est Cr Clr Drug Dosing ml/min Est GFR ( Amer) ml/min Est GFR (Non-Af Amer) ml/min BUN/Creatinine Ratio (10-20) Glucose (70-99) mg/dl POC Glucose 191 H 204 H (70-99) mg/dl Calcium (8.5-10.1) mg/dl Magnesium (1.8-2.4) mg/dl Beta-Hydroxybutyric Acd (0.2-2.81) mg/dl PG Care Time/CCT Total # of Minutes Spent Total Time Spent with Patient: Total time spent is greater than 50% in coordination of care (as documented) at patient's floor/unit and/or counseling patient: Coding Level of Care Code 95350 Subseq Hosp Care Lvl 2 Diagnoses Esophageal stricture K22.2 Hematemesis K92.0 Dysphagia R13.10 Dysphagia type: unspecified 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
[2021-01-16] MEDS ORDERED: Nursing to Pharmacy Communication SCH (19:30)
[2021-01-16] MEDS: TAMSULOSIN HCL 0.4 MG CAP PEG SCH (20:20)
[2021-01-17] MEDS: DOCUSATE SODIUM SYRUP 100 MG/10 ML UDC PEG PRN (05:49)
[2021-01-17] MEDS: NON-FORMULARY PATIENT'S OWN MED PEG SCH ×3 (06:32→20:01)
[2021-01-17 07:14] LABS: Hematocrit (blood only) 24.9 % (42-52); Hemoglobin 8.5 g/dL (14.0-18.0); Mean Corpuscular Hemoglobin 29.5 pg (25-34); Mean Corpuscular Hgb Conc 34.1 g/dL (32-36); Mean Corpuscular Volume 86.5 fL (80-100); Nucleated RBC # (auto) 0.02 K/uL (0-0); Nucleated RBC % (auto) 1.1 %; RDW Coefficient of Variation 14.5 % (11.5-14.5); RDW Standard Deviation 45.3 fL (36.4-46.3); Red Blood Count 2.88 M/uL (4.7-6.1); White Blood Count 1.68 K/uL (4.8-10.8)
[2021-01-17 07:25] LABS: Mean Platelet Volume 9.5 fL (7.4-10.4); Platelet Count 97 K/uL (130-400)
[2021-01-17] MEDS: PANTOprazole 40 MG in SYRINGE 0 ML IV SCH ×2 (07:36→21:54)
[2021-01-17] MEDS: GLYCOPYRROLATE 0.2 MG/ML VIAL IV SCH ×2 (07:36→21:06)
[2021-01-17] MEDS: amLODIPine BESYLATE 5 MG TAB PEG SCH ×2 (07:36→21:05)
[2021-01-17] MEDS: hydrALAZINE TAB 50 MG TAB PEG SCH ×4 (07:40→21:06)
[2021-01-17] MEDS: PROSOURCE NO CARB 30 ML/PKT PEG SCH (07:42)
[2021-01-17 07:49] LABS: BUN Creatinine Ratio 33.2 (10-20); Calcium 8.1 mg/dl (8.5-10.1); Creatinine Clr Calc Pharmacy 30.5 ml/min; Est GFR (African American) 45.6 ml/min; Est GFR (Non-African American) 39.3 ml/min; Magnesium 2.3 mg/dl (1.8-2.4); Potassium 4.2 mmol/L (3.5-5.1)
[2021-01-17 07:59] LABS: Dohle Bodies 1+; Immature Granulocytes # (auto) 0.01 K/uL (0.00-0.02); Immature Granulocytes % (auto) 0.6 %; Lymphocytes # (auto) 0.27 K/uL (1.2-3.4); Lymphocytes % (auto) 16.1 %; Monocytes % (auto) 11.9 %; Neutrophils % (auto) 71.4 %; Toxic Granulation 1+
[2021-01-17] MEDS: TUBE FEEDING WATER FLUSH GT SCH ×8 (09:01→22:41)
[2021-01-17] MEDS: INSULIN ASPART 100 UNITS/ML 3 ML PEN SC SCH ×4 (09:02→21:55)
[2021-01-17] MEDS: INSULIN GLARGINE SOLOSTAR 100 UNITS/ML 3 ML PEN SC SCH (09:03)
[2021-01-17] MEDS: PEPTAMEN 1.5 CAL 1,000 ML BAG PEG SCH ×4 (09:05→22:06)
[2021-01-17] MEDS ORDERED: PHARMACY GLYCEMIC MGMT CONSULT PRN (09:14)
[2021-01-17] MEDS ORDERED: INSULIN GLARGINE SOLOSTAR 100 UNITS/ML 3 ML PEN SC ONE (09:45)
--- NOTE | 2021-01-17 09:49 | Pharmacy Report ---
Pharmacy Glycemic Short Note 2 - Date of Service January 17, 2021 - Glycemic Short BSG Results (Last 24 hours): 01/16/21 01/16/21 01/16/21 11:30 16:30 20:20 Glucose POC Glucose 109 H 262 H 263 H 01/17/21 01/17/21 01/17/21 02:16 06:57 07:24 Glucose 231 H POC Glucose 188 H 291 H OUTPATIENT ANTIDIABETIC REGIMEN: * Repaglinide * Glipizide w/ chemotherapy * HbA1c: 6.1% (10/18/20) ASSESSMENT: * DY is an 86 year old male with complicated past medical history including CKD, s/p lung transplant secondary to pulmonary fibrosis, and esophageal adenocarcinoma * Presented with abdominal pain and hematemesis * BSGs were elevated yesterday, ranging 109-364 mg/dL * Pharmacy consulted for glycemic management this morning 01/17/21 for BSG of 291 mg/dL * Bolus tube feeds with Peptamen 1.5 QID (~58 g carbs/feed) * Will increase Lantus and tighten Novolog parameters PLAN FOR INPATIENT GLYCEMIC CONTROL: * Hold outpatient oral diabetes medications * Basal insulin * Lantus 12 units SC this morning * Lantus scale this evening to provide 0-12 units (see EHR for details) * Bolus insulin * NovoLog per scale ACHS or Q6hrs while NPO * Goal Range: Low 110 mg/dL - High 140 mg/dL * Correction Factor: 25 mg/dL/unit * Nutritional / Prandial insulin per carb ratio of 1 unit per 8 grams CHO consumed * 01,05 checks with same parameters PLAN FOR DISCHARGE: * HbA1c is well-controlled at 6.1% * Continue current outpatient regimen, provided patient not experiencing hypoglycemia
--- NOTE | 2021-01-17 10:59 | Gastroenterology Progress Note ---
Date of Service January 17, 2021 Assessment & Plan (1) Esophageal stricture: Plan: Pt now requests esophageal dilation and if does not provide relief then he wishes to have an esophageal stent again - aware that he didn't tolerate it in the past but believes that the discomfort of the stent was more bearable that the continual secretions in his throat. He would not use the stent to eat or drink, just to drain saliva. For now, continue Robinol. (2) Esophageal cancer: Plan: Continue chemo/radiation. (3) Dysphagia: Plan: See esophageal stricture. Admission and Anticipated Discharge Date Admission Date: January 15, 2021 Supervising Physician Co-Signing Physician Notes I saw and evaluated the patient this afternoon. He is not certain of how he would like to proceed. After a long discussion with the patient he would like us to proceed with an upper endoscopy with possible esophageal dilation. If this is ineffective he may consider repeat placement of esophageal stenting at a later date. Recommendations N.p.o./stop PEG tube feeding at midnight Upper endoscopy scheduled for tomorrow Subjective Mr. Nicola Banks is an 86 yr old male with mid esophageal adenocarcinoma. On Robinal now since the evening of 01/15. Briefly had some relief from the phlegm in the back of his throat but returned this morning. Continual throat clearing, frequent coughing, occasionally productive of clear saliva/phlegm. Nausea is well controlled with zofran Review of Systems Review of Systems: ROS: Gen: + weakness. No fevers; + weight loss Eyes: No eye redness, or pain, no recent vision changes Resp: + frequent cough, throat clearing, mild chronic SOB Cardio: No palpitations/irregular beats, no chest pain GI: No abdominal pain, + nausea - controlled with antiemetics : Denies pain on urination Skin: No jaundice, itching or new rashes Physical Exam Constitutional: WD/WN, vitals as above + ill appearing and + underweight Eyes: PERRL, conjunctivae normal, anicteric sclerae ENMT: external ear and nose normal, oropharynx normal Neck: trachea midline, no thyromegaly Respiratory: + cough; no respiratory distress + rhonchi Cardiovascular: Rate/Rhythm: regular rate and regular rhythm Heart Sounds: + murmur (3/6 systolic murmur) Gastrointestinal (Abdomen): PEG tube in place, no leaking, no surrounding redness; abd is soft, non tender Musculoskeletal: no cyanosis or clubbing, extremities motor strength 5/5 Skin: no rashes, warm and dry Neurologic: PERRL, EOMI, accommodation nl, no face palsy, no dysarthria Psychiatric: A+Ox3, euthymic affect Lymphatic: no cervical or axillary lymphadenopathy Results & Data ([facility]) Vital Signs (Past 12 Hours) Vital Signs Temp Pulse Pulse Resp BP Pulse Ox 01/17/21 07:00 36.8 C 87 20 118/64 94 01/17/21 03:00 36.8 C 82 20 108/54 L 98 01/17/21 01:04 88 01/16/21 23:00 36.4 C L 90 20 107/55 L 99 Laboratory Results WBC 1.6, Hb 8.5, Hct 24.9, Plats 97, Na 130, K 4.2, Cl 99, CO2 25, BUN 52, Cr 1.57, glucose [address] chest, abd pelvis with IV contrast 01/15/21: 1. An approximately 4 cm segment of wall thickening of the proximal to mid e sophagus is similar in appearance to prior studies and likely corresponds to the patient's known esophageal carcinoma. 2. This likely causes complete occlusion of the esophageal lumen. 3. The esophagus above this lesion is distended and filled with fluid to the thoracic inlet. Note that this may place the patient at risk for aspiration. 4. Postoperative change and complete fibrosis/consolidation of the remaining right lung parenchyma is similar to previous. 5. The transplanted left lung appears hyperinflated and clear. 6. A chronic loculated pleural collection at the right lung base has been p resent on multiple prior studies and is chronic. 7. There is increasing loculated fluid anterior to the liver as compared to 11/20/2020 which is extraperitoneal and appears to be located above the diap hragm. This may represent increasing pleural fluid. 8. Subcentimeter mediastinal lymph nodes are similar to previous. 9. No acute infectious or inflammatory findings are seen in the abdomen or pelvis. 10. Trace perisplenic ascites. 11. Colonic diverticulosis without CT evidence of acute diverticulosis. 12. A gastrostomy tube is in place. 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
--- NOTE | 2021-01-17 17:56 | Hospitalist Progress Note ---
Date of Service January 17, 2021 Assessment & Plan (1) Esophageal stricture: Plan: Secondary to esophageal cancer making it difficult to handle his secretions Some blood in the secretions due to oozing from the tumor most likely-has resolved Continue NPO-feeding through the PEG tube - GI consultation for evaluation of re-stenting- appreciate GI consultation-patient initially declines esophageal stenting-but now agreeable to esophageal dilatation tomorrow If this does not help, he may reconsider repeat esophageal stent -Continue Glycopyrolate 0.1mg IV [id number] can be converted to 2 mg per PEG tube every 12 hours and can be crushed as I confirmed with the pharmacist-this is helping somewhat also - Continue with enteral nutritional support through PEG tube- Glucerna or equivalent while in house- follow blood glucose levels and adjust based on nutrition/CHO3 intake based on our enteral formulation (2) Hematemesis: Plan: Protonix 40mg IV BID is provided Most likely secondary to oozing from the tumor Has resolved (3) Dysphagia: Plan: As above- appreciate GI consultation Continue tube feeds (4) 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: Plan: undergoing chemo/radiation Missed chemotherapy session with oncology due to hospitalization-will need to be rescheduled Contacted radiation oncology-they would do his XRT here but he declined to do so today citing fatigue (5) DMII (diabetes mellitus, type 2): Plan: With significant hyperglycemia shortly after admission in the 300s Added Lantus 8 units once daily and adjusted Novolog but persists in 200s today consult Pharmacy appreciated continue Lantus and Novolog (6) Urinary retention: Plan: Had straight catheterization for 1250 mL overnight and then Boyd catheter placed the next morning for 800 mL of urine Did receive IV morphine as well as Robinul which could both be contributing Started Flomax Maintain Boyd catheter for now Hopefully with starting Flomax and no further morphine, he will be able to urinate on his own even with Robinul on board, however he is reported even an antihistamine in the past has caused him urinary retention will consult urology and will need outpt f/u (7) Antineoplastic chemotherapy induced pancytopenia: Plan: Pancytopenia with neutropenia Secondary to chemotherapy stable to improved today Follow CBC in the morning Some blood loss anemia likely as well No transfusion needed at this point (8) 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 - 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 as well as RUL wedge biopsy in 2009 Continue tacrolimus, prednisone, Bactrim Continue supplemental O2 (9) Chronic kidney disease: Plan: Stable at this time CKD III b - avoid further nephrotoxic mediations (10) Aortic stenosis: Plan: Follow hemodynamic status and volume status while in house - no new or worsening symptoms- recent ECHO classified as severe (11) Immunosuppression: Plan: As above Plan: DVT prophylaxis-no anticoagulation due to ongoing bleeding, SCDs only Disposition-continued stay, but may be able to discharge home tomorrow after EGD Admission and Anticipated Discharge Date Admission Date: January 15, 2021 Subjective Feels he had some good stretches of time today where he had less secretions in throat. Reports he would rather keep the Boyd in than stop the Robinul when he goes home. WIll place Urol consult in AM to get established for TOV as outpt. He has decided to get esophageal dilation tomorrow. No CP or SOB. Tele with NSR normal rates Review of Systems Review of Systems: All systems reviewed & are unremarkable except as noted in HPI & below Physical Exam Constitutional: WD/WN, vitals as above Eyes: + anicteric sclerae Neck: trachea midline, no thyromegaly Respiratory: normal respiratory effort Auscultation: + crackles (Right lung throughout) and + rhonchi (much improved rhonchi today upper airway); no wheezes Cardiovascular: Rate/Rhythm: regular rate and regular rhythm Heart Sounds: + murmur (3/6 GABBI at RUSB) Extremities: no calf tenderness and no edema Chest (Breasts): Chest: normal inspection of chest Gastrointestinal (Abdomen): normal bowel sounds, soft, nontender, no hepatosplenomegaly Inspection/Auscultation: + abdomen abnormal to inspection (PEG tube in place) Musculoskeletal: Extremities: extremities normal to inspection; no cyanosis and no clubbing Skin: no rashes, warm and dry Neurologic: moves all extremities and awake; no focal motor deficits Psychiatric: A+Ox3, euthymic affect Lymphatic: no lymphedema Results & Data Results & Data ([facility]) Vital Signs (Past 12 Hours) Vital Signs Temp Pulse Resp BP BP Pulse Ox 01/17/21 15:31 36.6 C 80 18 97/53 L 95 01/17/21 11:14 37.0 C 85 18 117/64 96 01/17/21 07:00 36.8 C 87 20 118/64 94 Laboratory Results 01/17/21 06:57 01/17/21 06:57 PG Care Time/CCT Total # of Minutes Spent Total Time Spent with Patient: Total time spent is greater than 50% in coordination of care (as documented) at patient's floor/unit and/or counseling patient: Coding Level of Care Code 34611 Subseq Hosp Care Lvl 3 Diagnoses Esophageal stricture K22.2 Hematemesis K92.0 Dysphagia R13.10 Dysphagia type: unspecified 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
[2021-01-17] MEDS ORDERED: INSULIN GLARGINE SOLOSTAR 100 UNITS/ML 3 ML PEN SC SCH (21:00)
[2021-01-17] MEDS: TAMSULOSIN HCL 0.4 MG CAP PEG SCH (21:06)
[2021-01-18] MEDS: INSULIN ASPART 100 UNITS/ML 3 ML PEN SC SCH ×6 (01:06→23:52)
[2021-01-18] MEDS: NON-FORMULARY PATIENT'S OWN MED PEG SCH ×3 (06:15→20:09)
[2021-01-18 07:44] LABS: Hematocrit (blood only) 24.1 % (42-52); Hemoglobin 8.4 g/dL (14.0-18.0); Mean Corpuscular Hemoglobin 29.4 pg (25-34); Mean Corpuscular Hgb Conc 34.9 g/dL (32-36); Mean Corpuscular Volume 84.3 fL (80-100); RDW Coefficient of Variation 14.3 % (11.5-14.5); RDW Standard Deviation 43.3 fL (36.4-46.3); Red Blood Count 2.86 M/uL (4.7-6.1); White Blood Count 2.04 K/uL (4.8-10.8)
[2021-01-18] MEDS: TUBE FEEDING WATER FLUSH GT SCH ×8 (08:14→22:49)
[2021-01-18] MEDS: hydrALAZINE TAB 50 MG TAB PEG SCH ×4 (08:14→21:37)
[2021-01-18] MEDS: amLODIPine BESYLATE 5 MG TAB PEG SCH ×2 (08:14→21:37)
[2021-01-18 08:22] LABS: BUN Creatinine Ratio 42.8 (10-20); Calcium 8.5 mg/dl (8.5-10.1); Creatinine Clr Calc Pharmacy 35.4 ml/min; Est GFR (African American) 54.7 ml/min; Est GFR (Non-African American) 47.2 ml/min; Potassium 4.4 mmol/L (3.5-5.1)
[2021-01-18] MEDS: PANTOprazole 40 MG in SYRINGE 0 ML IV SCH ×2 (08:52→21:35)
[2021-01-18] MEDS: GLYCOPYRROLATE 0.2 MG/ML VIAL IV SCH ×2 (08:53→21:36)
[2021-01-18 09:16] LABS: Dohle Bodies 1+; Lymphocytes # (auto) 0.32 K/uL (1.2-3.4); Lymphocytes % (auto) 15.7 %; Mean Platelet Volume 8.4 fL (7.4-10.4); Monocytes # (auto) 0.28 K/uL (0.11-0.59); Monocytes % (auto) 13.7 %; Neutrophils # (auto) 1.44 K/uL (1.4-6.5); Neutrophils % (auto) 70.6 %; Platelet Count 87 K/uL (130-400); Toxic Granulation 1+
--- NOTE | 2021-01-18 09:17 | Urology Consultation ---
Date of Consultation January 18, 2021 Assessment & Plan (1) Urinary retention: (2) Paraphimosis: 86yo M with multiple comorbidities admitted with esophageal stricture and hematemesis secondary to esophageal cancer who subsequently developed acute urinary retention - Plan of care reviewed with Dr. Kwan, on-call urologist and Dr. Henriquez. - Urinary retention likely multifactorial -- BPH, possibly medication induced - CTAP from 01/15 noted a markedly enlarged prostate gland with median lobe hypertrophy and thickened bladder wall indicating chronic BARAKAT. - Afebrile, VSS. - Labs reviewed -Wbc 2.04, Cr 1.35 and Hgb 8.4. - Boyd catheter draining clear, yellow urine - Paraphimosis reduced at bedside today by Dr. Henriquez, patient tolerated procedure without any issues - Recommend continuing Boyd catheter until outpatient follow-up with urology to allow for continued bladder decompression and rest - Continue flomax and consider addition of finasteride for dual therapy - Continue supportive care and management per primary team - Will arrange outpatient follow-up with urology following discharge for voiding trial and outpatient cystoscopy - Expected clinical course reviewed with patient, all questions were answered. - Thank you for allowing us to participate in the acute care of Mr. Banks. - Please reconsult us with additional questions, concerns or changes in patient status. Attending note: I independently evaluated and assessed the patient and interviewed him to d sunshine brownlee. I performed personally the reduction of the paraphimosis. Patient had catheter placed. Is dealing with retention issues. Discussed at length management of the retention. He has noticed in the past that cold medications has caused significant problems. He is on a number of different medications due to the recent exacerbation of his swallowing issues. He has a history of esophageal strictures and is planning to undergo a procedure later today in order to treat this. Patient had a catheter placed and over 1200 cc of urine was drained. Plan is to maintain the catheter for the next 2 to 3 weeks while patient is undergoing intervention with plans for possible removal in the office. Will likely need cystoscopy at that time. Incidentally patient developed a paraphimosis likely due to retraction of foreskin within the fibrotic ring causing significant swelling of the glans and internal tissues. The glans and foreskin were gently compressed in order to reduce edema. The glans was then lubricated with a lidocaine lubricating jelly. The paraphimosis was then able to be reduced with gentle pressure and the glans was able to be advanced past the fibrotic ring. The glans became considerably less tender once the paraphimosis was reduced. Did discuss possible need for management of 5 monitoring if this becomes an ongoing issue. Patient has prior not had any issu es with this. Has not had previous issues other than the incomplete emptying and other bother especially with cold medications. No previous prostate surgeries and no major family history of major concerns or bother We will plan to have patient follow-up in the office in the next few weeks for catheter removal and possible cystoscopy and further work-up of significant retention issues. We will continue to monitor for recurrence of the paraphimosis. 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 Patient admitted with esophageal stricture and hematemesis secondary to esophageal cancer making it difficult to handle his secretions. He had been receiving IV morphine as well as Robinul which likely contributed to his acute urinary retention. He had attempted to void in urinal and toilet with no output. He was bladder scanned for greater than 700 and was straight catheterized for 1250ml. Given his continued inability to void, a Boyd catheter was then placed with 800ml of urine returned. He was started on Flomax. Patient examined at bedside this AM. Awake, alert, and resting in bed on arrival. Patient reported some discomfort and swelling at the end of his penis. He stated that is he uncircumcised and has been unable to replace his foreskin since having the Boyd catheter placed. On exam, penile swelling and paraphimosis was noted. This was reduced at bedside by Dr. Henriquez without any issues. Boyd catheter was intact, and draining clear yellow urine. He denied fever or chills. Denied nausea or vomiting. He has a PEG tube. He has been NPO. He is scheduled for an EGD later today. At baseline, he reports bothersome urinary symptoms. Nocturia 4. Some hesitancy and feeling he has to push/strain at times. Stream is slow. Some oc casional mild dysuria. Denies urgency. Denies dribbling/leakage. Denies hematuria. He is unsure if he is completely emptying his bladder. He reports previously seeing a urologist in [place], however this has been at least 10 years ago. He is unsure of his last PSA/FELICITY. He was not taking any urinary medications prior to this hospitalization. He denies history of prostate, kidney, or bladder cancers. He reports his brother has prostate cancer. Offers no additional complaints Allergies Allergy/AdvReac Type Severity Reaction Status Date / Time metronidazole Allergy Severe NEUROPATHY Verified 01/15/21 16:00 LEG lisinopril Allergy Intermediate NAUSEA, Verified 01/15/21 16:00 STOMACH UPSET, DEATHLY SICK Home Medications Medication Instructions Recorded Confirmed Type amlodipine 5 mg tablet 5 mg FEEDING TUBE QPM 07/27/18 01/15/21 History aspirin 81 mg tablet,delayed 81 mg FEEDING TUBE QPM 07/27/18 01/15/21 History release calcium carbonate 500 mg (1,250 2 tabs FEEDING TUBE BID 07/27/18 01/15/21 History mg)-vitamin D3 400 unit tablet (Calcium 500 + D) hydralazine 50 mg tablet 50 mg FEEDING TUBE QID 07/27/18 01/15/21 History omeprazole 20 mg capsule,delayed 20 mg FEEDING TUBE QAM 07/27/18 01/15/21 History release ipratropium bromide 42 mcg (0.06 2 spray INTRANASAL TID PRN ml 03/16/19 01/15/21 History %) nasal spray repaglinide 2 mg tablet (Prandin) See Rx Instructions PO TID tab 10/20/19 01/15/21 History losartan 25 mg tablet 25 mg FEEDING TUBE HS tab 05/17/20 01/15/21 History pravastatin 40 mg tablet 20 mg FEEDING TUBE HS tab 11/22/20 01/15/21 History ciclopirox 8 % topical solution 1 applic TOPICAL DAILY 12/07/20 01/15/21 History fluorouracil 5 % topical cream 1 applic TOPICAL BID PRN 12/07/20 01/15/21 History (Efudex) magnesium chloride 64 mg 95 mg PO QID tab 12/07/20 01/15/21 History (magnesium chloride) tablet,delayed release nutrition tx glu 237 ea FEEDING TUBE QID ml 12/07/20 01/15/21 History intol,lac-free,soy-fiber 0.08 gram-1.5 kcal/mL liquid (Glucerna 1.5 Javier) sulfamethoxazole 400 1 tab FEEDING TUBE 2XWK tab 12/07/20 01/15/21 History mg-trimethoprim 80 mg tablet Tacrolimus Liquid 3 ml FEEDING TUBE BID 01/15/21 01/15/21 History amlodipine 2.5 mg tablet 2.5 mg FEEDING TUBE QAM 01/15/21 01/15/21 History azithromycin 250 mg tablet 250 mg FEEDING TUBE 3XWK 01/15/21 01/15/21 History glipizide 5 mg tablet 5 mg FEEDING TUBE UD 01/15/21 01/15/21 History ondansetron HCl 4 mg/5 mL oral 4 mg FEEDING TUBE Q8H PRN 01/15/21 01/15/21 History solution prednisone 5 mg/5 mL oral solution 5 mg FEEDING TUBE DAILY 01/15/21 01/15/21 History tamsulosin 0.4 mg capsule See Rx Instructions .ROUTE 01/17/21 Rx .COMPLEX #180 cap Patient History Medical History Aortic stenosis Per 09/2020 echo, Severe aortic stenosis is presentpeak CW Doppler velocities 4 m/s, mean gradient 39 mmHg, calculated SHANTAL =0.8 cm. Cardiology aware, not yet surgical severity. Atrial fibrillation In the past- paroxysmal- no recurrence per cardio records. Pt not anticoagulated. 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 LEFT 2005 [place] Nausea, vomiting, and diarrhea Paraphimosis Pulmonary fibrosis 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 Right foot drop related to spine surgery in 2017 Severe aortic stenosis SIRS (systemic inflammatory response syndrome) Surgical History H/O lung transplant (2005) LEFT History of anesthesia reaction "SLOW TO WAKE UP" PER SPOUSE History of back surgery (2016) X 2-INCLUDING FUSION > LUMBAR History of bronchoscopy (06/19/05) Thoracoscopy with Lung Biopsy History of cardiac cath 2005 NO STENTS-BEFORE LUNG TRANSPLANT SURGERY History of cataract surgery R/L History of colonoscopy History of esophagogastroduodenoscopy (EGD) (10/17/20) and EUS with FNA of Esophageal Mass History of incision and drainage (03/29/09) Groin Abscess History of lobectomy of lung (2008) right upper for cancer History of tooth extraction Status post insertion of percutaneous endoscopic gastrostomy (PEG) tube Family History Mother , Passed age 83 of Stomach Cancer Colon cancer Father , Passed age 73 of Leukemia No problems noted. Brother , Passed age 68 of metastatic colon cancer Colon cancer Stomach cancer Brother , Passed age 68 of smoke inhalation complications (lung problems) No problems noted. Brother Prostate cancer, Onset Age: 90 metastatic to bone - currently being worked up Sister , Passed age 42 of Lung Cancer No problems noted. Sister , Passed age 94 of "bowel cancer" Breast cancer, Onset Age: 60 Mastectomy Sister , Passed age 73 of Lung Cancer No problems noted. Sister , Passed age 68 of Pulmonary Fibrosis No problems noted. Sister , Passed age 17 of seizure complications (drowned) No problems noted. Sister , Passed age 94 of Alzheimer's Complications No problems noted. Son No problems noted. Son Melanoma Excised and doing well currently Daughter Dermatomyositis Currently being worked up for at [facility] Other Family history non-contributory No family history of adverse response to anesthesia Social History Smoking Status: Never smoker Second Hand Exposure: No; Hx Alcohol Use: No Hx Substance Use: No Preferred Language: Vietnamese Communication Ability: Effective Communication Ability Comment: pt voice very hoarse Visual Impairment: Limited Hearing Ability: Use of Hearing Aid Dope Dry House Operator Required: No Beliefs That Will Affect Care: None marital status: Current Living Situation: Spouse current occupational status: retired 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 How many Children do You have: 3 Feels Safe at Home: Yes Safety Concerns: Feels Safe At This Time Childhood Exposure to Second-Hand Smoke: No Diet Comment: Tube Feedings Glucerna QID, does still have "soft & slippery foods" caffeine: No Dental Care, Regularly: Yes Physical Activity Frequency: 1-2 Times per Week Seatbelt Use: always Sunscreen Use: Yes Assistive Devices: Cane Review of Systems Review of Systems: All systems reviewed & are unremarkable except as noted in HPI & below Physical Exam Constitutional: cooperative; no acute distress Respiratory: normal respiratory effort and able to speak in complete sentences; no labored breathing and no audible wheezes Gastrointestinal (Abdomen): Inspection/Auscultation: abdomen normal to inspection; abdomen not distended Percussion/Palpation: abdomen soft; abdomen nontender Peg tube in place Musculoskeletal: Head/Neck/Chest: normocephalic Skin: No visible rashes or lesions to exposed skin areas Neurologic: moves all extremities and awake Psychiatric: Orientation: alert, oriented x 3 and cooperative Genitourinary: Boyd catheter intact, draining clear, yellow urine Penile swelling with paraphimosis noted on exam Results & Data ([facility]) Vital Signs (Past 12 Hours) Vital Signs Temp Pulse Resp BP Pulse Ox 01/18/21 07:00 36.8 C 85 20 133/66 96 01/18/21 03:00 36.9 C 101 H 20 133/62 99 01/17/21 23:00 36.6 C 94 H 20 105/55 L 96 PG Care Time/CCT Total # of Minutes Spent Total Time Spent with Patient: Total time spent is greater than 50% in coordination of care (as documented) at patient's floor/unit and/or counseling patient: Coding Level of Care Code 27991 Initial Inpt Care Lvl 3 Diagnoses Urinary retention R33.9 Paraphimosis N47.2
[2021-01-18] MEDS ORDERED: LIDOCAINE 2% JELLY 5 ML TUBE ONE (09:24)
--- NOTE | 2021-01-18 09:36 | Anesthesiology Consultation ---
Date of Service January 18, 2021 Assessment & Plan Chart Review Chart Review: Acceptable Risk for Surgery and Patient NOT seen in Pre Admission Testing Consults Requested none ASA ASA4 Proposed Anesthesia Anesthesia Type: MAC Risk / Benefits Reviewed With: PT / POA / Parent / Guardian, Accepts Plan and Informed Consent Obtained History Surgery Operation Date: 01/18/21 17:00 Proposed Procedures p Esophagogastroduodenoscopy Dr Ej Pagan, DO Height/Weight Height: 5 ft 6 in Weight: 72.3 kg Allergies Allergy/AdvReac Type Severity Reaction Status Date / Time metronidazole Allergy Severe NEUROPATHY Verified 01/15/21 16:00 LEG lisinopril Allergy Intermediate NAUSEA, Verified 01/15/21 16:00 STOMACH UPSET, DEATHLY SICK Medications Home Medications Medication Instructions Recorded Confirmed Last Taken amlodipine 5 mg tablet 5 mg FEEDING TUBE QPM 07/27/18 01/15/21 10/29/20 18:00 aspirin 81 mg tablet,delayed 81 mg FEEDING TUBE QPM 07/27/18 01/15/21 09/25/20 release calcium carbonate 500 mg (1,250 2 tabs FEEDING TUBE BID 07/27/18 01/15/21 10/29/20 17:00 mg)-vitamin D3 400 unit tablet (Calcium 500 + D) hydralazine 50 mg tablet 50 mg FEEDING TUBE QID 07/27/18 01/15/21 10/16/20 23:00 omeprazole 20 mg capsule,delayed 20 mg FEEDING TUBE QAM 07/27/18 01/15/21 10/30/20 09:00 release ipratropium bromide 42 mcg (0.06 2 spray INTRANASAL TID PRN ml 03/16/19 01/15/21 10/29/20 %) nasal spray repaglinide 2 mg tablet (Prandin) See Rx Instructions PO TID tab 10/20/19 01/15/21 10/23/20 losartan 25 mg tablet 25 mg FEEDING TUBE HS tab 05/17/20 01/15/21 10/29/20 23:00 pravastatin 40 mg tablet 20 mg FEEDING TUBE HS tab 11/22/20 01/15/21 Unknown ciclopirox 8 % topical solution 1 applic TOPICAL DAILY 12/07/20 01/15/21 Unknown fluorouracil 5 % topical cream 1 applic TOPICAL BID PRN 12/07/20 01/15/21 Unknown (Efudex) magnesium chloride 64 mg 95 mg PO QID tab 12/07/20 01/15/21 Unknown (magnesium chloride) tablet,delayed release nutrition tx glu 237 ea FEEDING TUBE QID ml 12/07/20 01/15/21 Unknown intol,lac-free,soy-fiber 0.08 gram-1.5 kcal/mL liquid (Glucerna 1.5 Javier) sulfamethoxazole 400 1 tab FEEDING TUBE 2XWK tab 12/07/20 01/15/21 Unknown mg-trimethoprim 80 mg tablet Tacrolimus Liquid 3 ml FEEDING TUBE BID 01/15/21 01/15/21 Unknown amlodipine 2.5 mg tablet 2.5 mg FEEDING TUBE QAM 01/15/21 01/15/21 Unknown azithromycin 250 mg tablet 250 mg FEEDING TUBE 3XWK 01/15/21 01/15/21 Unknown glipizide 5 mg tablet 5 mg FEEDING TUBE UD 01/15/21 01/15/21 Unknown ondansetron HCl 4 mg/5 mL oral 4 mg FEEDING TUBE Q8H PRN 01/15/21 01/15/21 Unknown solution prednisone 5 mg/5 mL oral solution 5 mg FEEDING TUBE DAILY 01/15/21 01/15/21 Unknown tamsulosin 0.4 mg capsule See Rx Instructions .ROUTE 01/17/21 Unknown .COMPLEX #180 cap Active Medications Generic Name Dose Route Start Last Admin Trade Name Freq PRN Reason Stop Dose Admin Amlodipine Besylate 2.5 mg 01/16/21 09:00 01/18/21 08:14 Amlodipine Besylate 5 Mg Tab PEG 02/15/21 08:59 Not Given QAM SHELLI Amlodipine Besylate 5 mg 01/15/21 21:00 01/17/21 21:05 Amlodipine Besylate 5 Mg Tab PEG 02/14/21 20:59 5 mg QPM SHELLI Administration Docusate Sodium 100 mg 01/17/21 00:43 01/17/21 05:49 Docusate Sodium Syrup 100 Mg/10 Ml Udc PEG 02/16/21 00:44 100 mg BID PRN Administration Constipation Enteral Nutritional Formula 315 ml 01/16/21 12:30 01/17/21 22:06 Peptamen 1.5 Javier 1,000 Ml Bag PEG 02/15/21 12:29 315 ml QID@0900,1230,1730,2200 SHELLI Administration Protocol Glycopyrrolate 0.1 mg 01/15/21 21:00 01/18/21 08:53 Glycopyrrolate 0.2 Mg/Ml Vial IV 02/14/21 20:59 0.1 mg Q12 SHELLI Administration Hydralazine HCl 50 mg 01/15/21 17:31 01/18/21 08:14 Hydralazine Tab 50 Mg Tab PEG 02/14/21 17:30 Not Given QID SHELLI Pantoprazole Sodium 40 mg/ 10 mls @ 5 mls/min 01/15/21 21:00 01/18/21 08:52 Syringe IV 02/14/21 20:59 5 mls/min BID SHELLI Administration Insulin Aspart 0 units 01/17/21 12:30 01/18/21 08:18 Insulin Aspart 100 Units/Ml 3 Ml Pen SC 01/18/21 11:00 Not Given 0900,1230,1730,2200 SHELLI Insulin Glargine 0 units 01/17/21 21:00 01/17/21 21:54 Insulin Glargine Solostar 100 Units/Ml 3 Ml Pen SC 02/16/21 20:59 12 units HS SHELLI Administration Protocol Non-Formulary Medication 5 ea 01/16/21 09:00 01/18/21 08:14 Non-Formulary Patient's Own Med PEG 02/15/21 08:59 Not Given DAILY SHELLI Non-Formulary Medication 2 ea 01/16/21 09:00 01/18/21 06:15 Non-Formulary Patient's Own Med PEG 02/15/21 08:59 3 ml DAILY SHELLI Administration Non-Formulary Medication 1 ea 01/15/21 21:00 01/17/21 20:01 Non-Formulary Patient's Own Med PEG 02/14/21 20:59 3 ml HS SHELLI Administration Nutritional Formula 30 ml 01/17/21 09:00 01/17/21 07:42 Prosource No Carb 30 Ml/Pkt PEG 02/16/21 08:59 30 ml DAILY SHELLI Administration Ondansetron HCl 4 mg 01/15/21 17:31 01/15/21 21:09 Ondansetron Inj 2 Mg/Ml 2 Ml Vial IV 02/14/21 17:30 4 mg Q6H PRN Administration Nausea Sterile Water 120 ml 01/16/21 11:30 01/18/21 09:35 Tube Feeding Water Flush GT 02/15/21 11:29 Not Given QID@0800,1130,1630,2100 SHELLI Sterile Water 120 ml 01/16/21 13:30 01/18/21 09:35 Tube Feeding Water Flush GT 02/15/21 13:29 Not Given QID@1000,1330,1830,2300 SHELLI Tamsulosin HCl 0.4 mg 01/16/21 21:00 01/17/21 21:06 Tamsulosin Hcl 0.4 Mg Cap PEG 02/15/21 20:59 0.4 mg HS SHELLI Administration Trimethoprim/Sulfamethoxazole 80 mg 01/15/21 21:00 01/15/21 21:01 Sulfamethoxazole/Trimethoprim 200mg/40mg/5ml Susp PO 02/14/21 20:59 80 mg MoFr@2100 SHELLI Administration NPO Date Last Intake of Fluids: 01/18/21 Time Last Intake of Fluids: 07:00 Last Intake of Fluids Comment: via feeding tube Date Last Intake of Solids: 01/17/21 Time Last Intake of Solids: 22:00 Last Intake of Solids Comment: last tube feeding at 2200 Past Medical History Medical History (Updated 01/16/21 @ 17:41 by Margie Barnett MD) Aortic stenosis Per 09/2020 echo, Severe aortic stenosis is presentpeak CW Doppler velocities 4 m/s, mean gradient 39 mmHg, calculated SHANTAL =0.8 cm. Cardiology aware, not yet surgical severity. Atrial fibrillation In the past- paroxysmal- no recurrence per cardio records. Pt not anticoagulated. BPH (benign prostatic hyperplasia) Chest pain Chronic kidney disease STAGE 3 -F/U DR BARBARA ELDRIDGE LAST SEEN 09/21/20 Diabetes mellitus, type 2 DJD (degenerative joint disease) Dysphagia Exposure to COVID-19 virus High risk medication use History of chemotherapy (2008) @ [facility] for Lung Cancer History of skin cancer WITH REMOVAL FROM FACE HTN (hypertension) Hyperlipidemia Hypokalemia UNDER CONTROL Hypomagnesemia UNDER CONTROL Hyponatremia secondary to CKD and hypotonic fluids per 09/21/20 nephro note Immunosuppression Lung cancer Right adenocarcinoma of lung- s/p chemo and resection in 12/2008 Lung transplant recipient LEFT 2005 [place] Nausea, vomiting, and diarrhea Pulmonary fibrosis 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 Brother , Passed age 68 of metastatic colon cancer Colon cancer Stomach cancer Brother , Passed age 68 of smoke inhalation complications (lung problems) No problems noted. Brother Prostate cancer, Onset Age: 90 metastatic to bone - currently being worked up Sister , Passed age 42 of Lung Cancer No problems noted. Sister , Passed age 94 of "bowel cancer" Breast cancer, Onset Age: 60 Mastectomy Sister , Passed age 73 of Lung Cancer No problems noted. Sister , Passed age 68 of Pulmonary Fibrosis No problems noted. Sister , Passed age 17 of seizure complications (drowned) No problems noted. Sister , Passed age 94 of Alzheimer's Complications No problems noted. Son No problems noted. Son Melanoma Excised and doing well currently Daughter Dermatomyositis Currently being worked up for at [facility] Other Family history non-contributory No family history of adverse response to anesthesia Past Surgical History Surgical History H/O lung transplant (2005) LEFT History of anesthesia reaction "SLOW TO WAKE UP" PER SPOUSE History of back surgery (2016) X 2-INCLUDING FUSION > LUMBAR History of bronchoscopy (06/19/05) Thoracoscopy with Lung Biopsy History of cardiac cath 2005 NO STENTS-BEFORE LUNG TRANSPLANT SURGERY History of cataract surgery R/L History of colonoscopy History of esophagogastroduodenoscopy (EGD) (10/17/20) and EUS with FNA of Esophageal Mass History of incision and drainage (03/29/09) Groin Abscess History of lobectomy of lung (2008) right upper for cancer History of tooth extraction Status post insertion of percutaneous endoscopic gastrostomy (PEG) tube Social History Smoking Status: Never smoker Hx Alcohol Use: No Hx Substance Use: No substance use type: does not use Physical Exam Vital Signs Last Vital Signs Temp 36.6 C 01/18/21 09:22 Pulse 95 H 01/18/21 09:22 Resp 18 01/18/21 09:22 BP 131/77 01/18/21 09:22 Pulse Ox 97 01/18/21 09:22 Testing Laboratory Results 01/18/21 07:26 01/18/21 07:26 PT 9.6 Seconds (9.0-12.0) 01/15/21 11:56 INR 0.9 (0.9-1.1) 01/15/21 11:56 APTT 26.1 Seconds (21.0-31.0) 01/15/21 11:56 Blood Type B Positive 01/15/21 11:53 Antibody Screen NEGATIVE 01/15/21 11:53 01/18/21 01/18/21 01/18/21 07:30 05:10 01:03 POC Glucose 132 H 103 H 110 H
--- NOTE | 2021-01-18 09:38 | History & Physical Bridge Note ---
Date of Service January 18, 2021 History & Physical Bridge Note I have examined the patient, reviewed the History & Physical and in the interval since the performance of the History & Physical I have noted the following changes of clinical significance: no changes noted. I saw and evaluated the patient, we are planning to do upper endoscopy today for dysphagia and potential dilation of his known esophageal mass. At the present time the patient is hesitant to have placement of a new esophageal stent due to pain that he experienced with the first 1 that have been placed earlier this year. We have discussed the risks of the procedure to include bleeding, infection perforation, pain, aspiration and need for follow-up studies.
[2021-01-18] MEDS ORDERED: LIDOCAINE 2% 2 ML VIAL/AMP(20MG/ML) INFIL ONE (10:14)
[2021-01-18] MEDS ORDERED: PROPOFOL IV EMULSION 10 MG/ML 20 ML VIAL IV ONE (10:14)
--- NOTE | 2021-01-18 10:15 | GI REPORT ---
Patient Name: Nicola Banks Procedure Date: 01/18/2021 9:43 AM Date of : 1935 Admit Type: Inpatient Age: 86 Gender: Male Attending MD: Victor M Pagan DO Procedure: Upper GI endoscopy Providers: Victor M Pagan DO Referring MD: Margie Barnett Md Indications: Stricture of the esophagus, For therapy of esophageal stricture Medicines: Monitored Anesthesia Care Complications: No immediate complications. Estimated blood loss: Minimal. Estimated Blood Loss: Estimated blood loss was minimal. Procedure: Pre-Anesthesia Assessment: - Prior to the procedure, a History and Physical was performed, and patient medications, allergies and sensitivities were reviewed. The patient's tolerance of previous anesthesia was reviewed. - The risks and benefits of the procedure and the sedation options and risks were discussed with the patient. All questions were answered and informed consent was obtained. - Patient identification and proposed procedure were verified prior to the procedure by the physician, the nurse and the typesetting machine operator/tender. The procedure was verified in the procedure room. - Pre-procedure physical examination revealed no contraindications to sedation. - ASA Grade Assessment: IV - A patient with severe systemic disease that is a constant threat to life. - After reviewing the risks and benefits, the patient was deemed in satisfactory condition to undergo the procedure. - The anesthesia plan was to use monitored anesthesia care (MAC). - Immediately prior to administration of medications, the patient was re-assessed for adequacy to receive sedatives. - The heart rate, respiratory rate, oxygen saturations, blood pressure, adequacy of pulmonary ventilation, and response to care were monitored throughout the procedure. - The physical status of the patient was re-assessed after the procedure. After obtaining informed consent, the endoscope was passed under direct vision. Throughout the procedure, the patient's blood pressure, pulse, and oxygen saturations were monitored continuously. The Loaner was introduced through the mouth, and advanced to the upper third of esophagus. The Endoscope was introduced through the mouth, and advanced to the second part of duodenum. The upper GI endoscopy was accomplished without difficulty. The patient tolerated the procedure well. Findings: A large, ulcerating mass with no bleeding and stigmata of recent bleeding was found in the middle third of the esophagus, 24 to 32 cm from the incisors. The mass was partially obstructing and circumferential. A TTS dilator was passed through the scope. Dilation with an 8-9-10 mm balloon dilator was performed to [address] for 2 minutes. The Z-line was regular and was found 40 cm from the incisors. The PEG was found in the gastric antrum. The examined duodenum was normal. Impression: - Partially obstructing, malignant esophageal tumor was found in the middle third of the esophagus. Dilated to 10 mm today. - Z-line regular, 40 cm from the incisors. - Normal examined duodenum. - Normal examined duodenum. - No specimens collected. Recommendation: - Return patient to hospital [facility] for ongoing care. - We will discuss further dilation with patient pending recovery this afternoon Victor M Pagan D.O. Victor M Pagan, 01/18/2021 10:14:57 AM This report has been signed electronically. Note Initiated On: 01/18/2021 9:43 AM Number of Addenda: 0 I attest to the content of the Intraoperative Record and orders documented therein, exceptions below {[id number]}
--- NOTE | 2021-01-18 10:16 | Communication Note ---
Date of Service: January 18, 2021 The patient underwent upper endoscopy this morning. We were able to dilate the malignant stricture to 10 mm today. The stricture begins at 24 mm from the incisors and is likely the reason why he felt so much discomfort with placement of the stent earlier this year. Given this we have limited options, I would suggest observation of the patient today, we could consider further dilation of the stricture pending his symptom response.
--- NOTE | 2021-01-18 10:26 | Pharmacy Report ---
Pharmacy Glycemic Short Note 2 - Date of Service January 18, 2021 - Glycemic Short BSG Results (Last 24 hours): 01/17/21 01/17/21 01/17/21 11:29 16:35 21:30 Glucose POC Glucose 280 H 194 H 234 H 01/18/21 01/18/21 01/18/21 01:03 05:10 07:26 Glucose 106 H POC Glucose 110 H 103 H 01/18/21 07:30 Glucose POC Glucose 132 H OUTPATIENT ANTIDIABETIC REGIMEN: * Repaglinide * Glipizide w/ chemotherapy * HbA1c: 6.1% (10/18/20) ASSESSMENT: 01/18 * Pt has received 70 units of insulin over the past 24hrs * 24 units of basal with Lantus * 46 units of bolus with NovoLog * BSGs [phone] mg/dl * BSGs well controlled with the increase in basal insulin yesterday. Pt NPO for endocopy procedure this morning. Will hold basal insulin this morning for NPO and below goal range BSG. Will give Lantus after procedure. Less insulin likely without continuous tube feeds. 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, and esophageal adenocarcinoma * Presented with abdominal pain and hematemesis * BSGs were elevated yesterday, ranging 109-364 mg/dL * Pharmacy consulted for glycemic management this morning 01/17/21 for BSG of 291 mg/dL * Bolus tube feeds with Peptamen 1.5 QID (~58 g carbs/feed) * Will increase Lantus and tighten Novolog parameters PLAN FOR INPATIENT GLYCEMIC CONTROL: * Hold outpatient oral diabetes medications * Basal insulin * Lantus scale this evening to provide 15-20 units (see EHR for details) * Bolus insulin * NovoLog per scale ACHS or Q6hrs while NPO * Goal Range: Low 110 mg/dL - High 140 mg/dL * Correction Factor: 25 mg/dL/unit * Nutritional / Prandial insulin per carb ratio of 1 unit per 8 grams CHO consumed PLAN FOR DISCHARGE: * HbA1c is well-controlled at 6.1% * Continue current outpatient regimen, provided patient not experiencing hypoglycemia
--- NOTE | 2021-01-18 10:53 | Anesthesiology Progress Note ---
Date of Service January 18, 2021 Anesthesia Post Procedure Vital Signs Vital Signs: Temp Pulse Resp BP BP Pulse Ox 01/18/21 10:26 85 16 119/57 L 96 01/18/21 10:18 100 H 20 114/59 L 97 01/18/21 09:22 36.6 C 95 H 18 131/77 97 01/18/21 07:00 36.8 C 85 20 133/66 96 01/18/21 03:00 36.9 C 101 H 20 133/62 99 01/17/21 23:00 36.6 C 94 H 20 105/55 L 96 01/17/21 18:25 36.8 C 89 18 138/65 95 01/17/21 15:31 36.6 C 80 18 97/53 L 95 01/17/21 11:14 37.0 C 85 18 117/64 96 Pain Intensity Left Abdomen: Pain Intensity: 5 Transfer of Care Handoff Completed per policy Notes Mental Status: alert / awake / arousable and participated in evaluation Patient Amnestic to Procedure: Yes Nausea / Vomiting: adequately controlled Pain: adequately controlled Airway Patency, RR, SpO2: stable & adequate BP & HR: stable & adequate Hydration State: stable & adequate Anesthetic Complications: no major complications apparent
[2021-01-18] MEDS ORDERED: INSULIN GLARGINE SOLOSTAR 100 UNITS/ML 3 ML PEN SC ONE (11:45)
[2021-01-18] MEDS: PROSOURCE NO CARB 30 ML/PKT PEG SCH (12:37)
[2021-01-18] MEDS: PEPTAMEN 1.5 CAL 1,000 ML BAG PEG SCH ×3 (12:39→21:59)
--- NOTE | 2021-01-18 17:34 | Hospitalist Progress Note ---
Date of Service January 18, 2021 Assessment & Plan (1) Esophageal stricture: Plan: Secondary to esophageal cancer making it difficult to handle his secretions Some blood in the secretions due to oozing from the tumor most likely-has resolved Continue NPO-feeding through the PEG tube - GI consultation for evaluation of re-stenting- appreciate GI consultation- patient initially declined esophageal stenting-but now agreeable to esophageal dilatation -performed 01/18 If this does not help, will repeat dilatation tomorrow, 01/19 HOLD tube feeds again this evening -Continue Glycopyrolate 0.1mg IV [id number] can be converted to 2 mg per PEG tube every 12 hours after discharge- can be crushed as I confirmed with the pharmacist-this is helping him with secretions - Continue with enteral nutritional support through PEG tube (2) Hematemesis: Plan: Protonix 40mg IV BID is provided Most likely secondary to oozing from the tumor Has resolved (3) Dysphagia: Plan: As above- appreciate GI consultation Continue tube feeds (4) 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: Plan: undergoing chemo/radiation Missed chemotherapy session with oncology due to hospitalization-will need to be rescheduled Contacted radiation oncology-they would do his XRT here but he declined to do so today citing fatigue (5) DMII (diabetes mellitus, type 2): Plan: With significant hyperglycemia shortly after admission in the 300s hyperglycemia now improved with increased doses of Lantus and Novolog consult Pharmacy appreciated continue Lantus and Novolog (6) Urinary retention: Plan: Had straight catheterization for 1250 mL on night of admission and then Boyd catheter placed the next morning for 800 mL of urine Did receive IV morphine as well as Robinul which could both be contributing Started Flomax Maintain Boyd catheter for now Hopefully with starting Flomax and no further morphine, he will be able to urinate on his own even with Robinul on board, however he is reported even an antihistamine in the past has caused him urinary retention Appreciate consult urology and will need outpt f/u in 2-3 weeks for possible cystoscopy and TOV (7) Antineoplastic chemotherapy induced pancytopenia: Plan: Pancytopenia with neutropenia Secondary to chemotherapy stable to improved today Follow CBC in the morning Some blood loss anemia likely as well No transfusion needed at this point (8) 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 - 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 as well as RUL wedge biopsy in 2008 Continue tacrolimus, prednisone, Bactrim Continue supplemental O2 (9) Chronic kidney disease: Plan: Stable at this time CKD III b, 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 - avoid further nephrotoxic mediations (10) Aortic stenosis: Plan: Follow hemodynamic status and volume status while in house - no new or worsening symptoms- recent ECHO classified as severe (11) Immunosuppression: Plan: As above (12) Paraphimosis: Plan: noted on exam by Urology on 01/18 reduced successfully by Urologist on 01/18 Plan: DVT prophylaxis-no anticoagulation due to ongoing bleeding, SCDs only Disposition-continued stay, but may be able to discharge home tomorrow after repeat EGD Admission and Anticipated Discharge Date Admission Date: January 15, 2021 Anticipated date of discharge: 01/19/21 Subjective Pt had EGD this AM with dilatation of esophagus at sit eof mass. Pt reports not much difference in secreation management since then, is agreeable to repeat dilatation tomorrow. He does note overall a decrease in secretions since starting Robinul. No abd pain. Is moving his bowels No chest pain Tele with NSR, PVCs, rates 70-90s Review of Systems Review of Systems: All systems reviewed & are unremarkable except as noted in HPI & below Physical Exam Constitutional: WD/WN, vitals as above Eyes: + anicteric sclerae Neck: trachea midline, no thyromegaly Respiratory: normal respiratory effort Auscultation: + crackles (Right lung throughout) and + rhonchi (much improved rhonchi today upper airway); no wheezes Cardiovascular: RRR, no murmur, no edema Rate/Rhythm: regular rate and regular rhythm Heart Sounds: + murmur (3/6 GABBI at RUSB) Extremities: no calf tenderness and no edema Chest (Breasts): Chest: normal inspection of chest Gastrointestinal (Abdomen): normal bowel sounds, soft, nontender, no hepatosplenomegaly Inspection/Auscultation: + abdomen abnormal to inspection (PEG tube in place) Musculoskeletal: Extremities: extremities normal to inspection; no cyanosis and no clubbing Skin: no rashes, warm and dry Neurologic: moves all extremities and awake; no focal motor deficits Psychiatric: A+Ox3, euthymic affect Lymphatic: no lymphedema Results & Data Results & Data ([facility]) Vital Signs (Past 12 Hours) Vital Signs Temp Pulse Resp BP BP Pulse Ox 01/18/21 15:00 36.4 C L 83 20 122/68 96 01/18/21 10:41 85 16 112/61 95 01/18/21 10:26 85 16 119/57 L 96 01/18/21 10:18 100 H 20 114/59 L 97 01/18/21 09:22 36.6 C 95 H 18 131/77 97 01/18/21 07:00 36.8 C 85 20 133/66 96 Laboratory Results 01/18/21 01/18/21 01/18/21 Range/Units 16:44 11:29 07:30 WBC (4.8-10.8) K/uL RBC (4.7-6.1) M/uL Hgb (14.0-18.0) g/dL Hct (42-52) % MCV (80-100) fL MCH (25-34) pg MCHC (32-36) g/dL RDW Std Deviation (36.4-46.3) fL RDW Coeff of Flavia (11.5-14.5) % Plt Count (130-400) K/uL MPV (7.4-10.4) fL Immature Gran % (Auto) % Neut % (Auto) % Lymph % (Auto) % [place] % (Auto) % Eos % (Auto) % Baso % (Auto) % Neut # (Auto) (1.4-6.5) K/uL Lymph # (Auto) (1.2-3.4) K/uL [place] # (Auto) (0.11-0.59) K/uL Eos # (Auto) (0-0.5) K/uL Baso # (Auto) (0-0.2) K/uL Immature Gran # (Auto) (0.00-0.02) K/uL Toxic Granulation Dohle Bodies Sodium (136-145) mmol/L Potassium (3.5-5.1) mmol/L Chloride (98-107) mmol/L Carbon Dioxide (21-32) mmol/L Anion Gap (3-11) BUN (7-18) mg/dl Creatinine (0.6-1.4) mg/dl Est Cr Clr Drug Dosing ml/min Est GFR ( Amer) ml/min Est GFR (Non-Af Amer) ml/min BUN/Creatinine Ratio (10-20) Glucose (70-99) mg/dl POC Glucose 236 H 154 H 132 H (70-99) mg/dl Calcium (8.5-10.1) mg/dl Magnesium (1.8-2.4) mg/dl 01/18/21 01/18/21 01/18/21 Range/Units 07:26 07:26 05:10 WBC 2.04 L (4.8-10.8) K/uL RBC 2.86 L (4.7-6.1) M/uL Hgb 8.4 L (14.0-18.0) g/dL Hct 24.1 L (42-52) % MCV 84.3 (80-100) fL MCH 29.4 (25-34) pg MCHC 34.9 (32-36) g/dL RDW Std Deviation 43.3 (36.4-46.3) fL RDW Coeff of Flavia 14.3 (11.5-14.5) % Plt Count 87 L (130-400) K/uL MPV 8.4 (7.4-10.4) fL Immature Gran % (Auto) 0.0 % Neut % (Auto) 70.6 % Lymph % (Auto) 15.7 % [place] % (Auto) 13.7 % Eos % (Auto) 0.0 % Baso % (Auto) 0.0 % Neut # (Auto) 1.44 (1.4-6.5) K/uL Lymph # (Auto) 0.32 L (1.2-3.4) K/uL [place] # (Auto) 0.28 (0.11-0.59) K/uL Eos # (Auto) 0.00 (0-0.5) K/uL Baso # (Auto) 0.00 (0-0.2) K/uL Immature Gran # (Auto) 0.00 (0.00-0.02) K/uL Toxic Granulation 1+ Dohle Bodies 1+ Sodium 132 L (136-145) mmol/L Potassium 4.4 (3.5-5.1) mmol/L Chloride 101 (98-107) mmol/L Carbon Dioxide 24 (21-32) mmol/L Anion Gap 7.0 (3-11) BUN 58 H (7-18) mg/dl Creatinine 1.35 (0.6-1.4) mg/dl Est Cr Clr Drug Dosing 35.4 ml/min Est GFR ( Amer) 54.7 ml/min Est GFR (Non-Af Amer) 47.2 ml/min BUN/Creatinine Ratio 42.8 H (10-20) Glucose 106 H (70-99) mg/dl POC Glucose 103 H (70-99) mg/dl Calcium 8.5 (8.5-10.1) mg/dl Magnesium 2.0 (1.8-2.4) mg/dl 01/18/21 01/17/21 Range/Units 01:03 21:30 WBC (4.8-10.8) K/uL RBC (4.7-6.1) M/uL Hgb (14.0-18.0) g/dL Hct (42-52) % MCV (80-100) fL MCH (25-34) pg MCHC (32-36) g/dL RDW Std Deviation (36.4-46.3) fL RDW Coeff of Flavia (11.5-14.5) % Plt Count (130-400) K/uL MPV (7.4-10.4) fL Immature Gran % (Auto) % Neut % (Auto) % Lymph % (Auto) % [place] % (Auto) % Eos % (Auto) % Baso % (Auto) % Neut # (Auto) (1.4-6.5) K/uL Lymph # (Auto) (1.2-3.4) K/uL [place] # (Auto) (0.11-0.59) K/uL Eos # (Auto) (0-0.5) K/uL Baso # (Auto) (0-0.2) K/uL Immature Gran # (Auto) (0.00-0.02) K/uL Toxic Granulation Dohle Bodies Sodium (136-145) mmol/L Potassium (3.5-5.1) mmol/L Chloride (98-107) mmol/L Carbon Dioxide (21-32) mmol/L Anion Gap (3-11) BUN (7-18) mg/dl Creatinine (0.6-1.4) mg/dl Est Cr Clr Drug Dosing ml/min Est GFR ( Amer) ml/min Est GFR (Non-Af Amer) ml/min BUN/Creatinine Ratio (10-20) Glucose (70-99) mg/dl POC Glucose 110 H 234 H (70-99) mg/dl Calcium (8.5-10.1) mg/dl Magnesium (1.8-2.4) mg/dl PG Care Time/CCT Total # of Minutes Spent Total Time Spent with Patient: Total time spent is greater than 50% in coordination of care (as documented) at patient's floor/unit and/or counseling patient: Coding Level of Care Code 45899 Subseq Hosp Care Lvl 2 Diagnoses Esophageal stricture K22.2 Hematemesis K92.0 Dysphagia R13.10 Dysphagia type: unspecified 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
[2021-01-18] MEDS ORDERED: INSULIN GLARGINE SOLOSTAR 100 UNITS/ML 3 ML PEN SC SCH (21:00)
[2021-01-18] MEDS: TAMSULOSIN HCL 0.4 MG CAP PEG SCH (21:38)
[2021-01-19] MEDS: NON-FORMULARY PATIENT'S OWN MED PEG SCH ×3 (06:17→19:55)
[2021-01-19] MEDS: INSULIN ASPART 100 UNITS/ML 3 ML PEN SC SCH ×4 (06:17→21:55)
[2021-01-19] MEDS ORDERED: INSULIN GLARGINE SOLOSTAR 100 UNITS/ML 3 ML PEN SC SCH ×2 (08:00→21:00)
[2021-01-19 08:21] LABS: Hematocrit (blood only) 24.1 % (42-52); Hemoglobin 8.1 g/dL (14.0-18.0); Immature Granulocytes # (auto) 0.02 K/uL (0.00-0.02); Lymphocytes # (auto) 0.29 K/uL (1.2-3.4); Lymphocytes % (auto) 15.1 %; Mean Corpuscular Hemoglobin 29.1 pg (25-34); Mean Corpuscular Hgb Conc 33.6 g/dL (32-36); Mean Corpuscular Volume 86.7 fL (80-100); Mean Platelet Volume 9.4 fL (7.4-10.4); Monocytes # (auto) 0.29 K/uL (0.11-0.59); Monocytes % (auto) 15.1 %; Neutrophils # (auto) 1.32 K/uL (1.4-6.5); Neutrophils % (auto) 68.8 %; Platelet Count 103 K/uL (130-400); RDW Coefficient of Variation 14.5 % (11.5-14.5); RDW Standard Deviation 45.5 fL (36.4-46.3); Red Blood Count 2.78 M/uL (4.7-6.1); White Blood Count 1.92 K/uL (4.8-10.8)
[2021-01-19 08:57] LABS: BUN Creatinine Ratio 42.9 (10-20); Calcium 8.6 mg/dl (8.5-10.1); Creatinine Clr Calc Pharmacy 39.2 ml/min; Est GFR (African American) 61.8 ml/min; Est GFR (Non-African American) 53.4 ml/min; Magnesium 1.7 mg/dl (1.8-2.4); Potassium 4.8 mmol/L (3.5-5.1)
[2021-01-19 08:59] LABS: Phosphorus 3.3 mg/dl (2.5-4.9)
--- NOTE | 2021-01-19 08:59 | Gastroenterology Progress Note ---
Date of Service January 19, 2021 Assessment & Plan (1) Esophageal stricture: Plan: 86 y/o male with history of mid esophageal adenocarcinoma w/ malignant stricture. He had esophageal dilation 01/18/21; today pt still notes difficulty handling secretions (saliva/phlegm) and he would like to proceed with repeat EGD w/ dilation today. - Keep NPO, hold tube feeds - Plan for repeat EGD today - Continue supportive care (2) Dysphagia: Plan: See above stricture Admission and Anticipated Discharge Date Admission Date: January 15, 2021 Supervising Physician Co-Signing Physician Notes I saw and evaluated the patient. He has a history of an esophageal malignancy and was intolerant of an esophageal stent in the past. We did perform dilation of the stricture yesterday and plan to do further dilation today. Would recommend discharge if feasible with follow-up endoscopy as needed. Should the patient's symptoms not improve with today's endoscopy he would then need to consider replacement of a new esophageal stent. Subjective Patient seen and examined, chart reviewed. No acute events overnight. Pt doesn't feel significant improvement from esophageal dilation yesterday. Continues to have trouble handling saliva/phlegm. No nausea, vomiting, hematemesis, melena, hematochezia, abd pain, CP, SOB. Tube feeds are being held; pt is NPO. Review of Systems Constitutional: + weight loss; no fever and no chills Eyes: no icterus Respiratory: as per HPI Cardiovascular: Additional Comments: as per HPI Gastrointestinal: as per HPI Integumentary: no rash and no lesions Physical Exam Constitutional: WD/WN, vitals as above + chronically ill Eyes: PERRL, conjunctivae normal, anicteric sclerae Neck: trachea midline, no thyromegaly Respiratory: + rhonchi, no resp distress Cardiovascular: Rate/Rhythm: regular rate and regular rhythm 3/6 systolic murmur, no edema Gastrointestinal (Abdomen): PEG tube in place, no leaking, surrounding erythema. Abd is soft, nontender, nondistended Skin: no rashes, warm and dry Psychiatric: A+Ox3, euthymic affect Results & Data ([facility]) Vital Signs (Past 12 Hours) Vital Signs Temp Pulse Pulse Resp BP Pulse Ox 01/19/21 07:54 37.0 C 88 22 122/78 99 01/19/21 06:45 37.1 C 95 H 18 131/70 96 01/19/21 02:57 37.4 C 103 H 18 131/71 94 01/19/21 00:17 99 H 01/18/21 22:54 36.7 C 98 H 18 117/59 L 96 Laboratory Results 01/19/21 01/19/21 01/19/21 Range/Units 07:08 07:08 06:15 WBC 1.92 L (4.8-10.8) K/uL RBC 2.78 L (4.7-6.1) M/uL Hgb 8.1 L (14.0-18.0) g/dL Hct 24.1 L (42-52) % MCV 86.7 (80-100) fL MCH 29.1 (25-34) pg MCHC 33.6 (32-36) g/dL RDW Std Deviation 45.5 (36.4-46.3) fL RDW Coeff of Flavia 14.5 (11.5-14.5) % Plt Count 103 L (130-400) K/uL MPV 9.4 (7.4-10.4) fL Immature Gran % (Auto) 1.0 % Neut % (Auto) 68.8 % Lymph % (Auto) 15.1 % Yell % (Auto) 15.1 % Eos % (Auto) 0.0 % Baso % (Auto) 0.0 % Neut # (Auto) 1.32 L (1.4-6.5) K/uL Lymph # (Auto) 0.29 L (1.2-3.4) K/uL Yell # (Auto) 0.29 (0.11-0.59) K/uL Eos # (Auto) 0.00 (0-0.5) K/uL Baso # (Auto) 0.00 (0-0.2) K/uL Immature Gran # (Auto) 0.02 (0.00-0.02) K/uL Toxic Granulation Dohle Bodies Sodium 132 L (136-145) mmol/L Potassium 4.8 (3.5-5.1) mmol/L Chloride 101 (98-107) mmol/L Carbon Dioxide 25 (21-32) mmol/L Anion Gap 7.0 (3-11) BUN 52 H (7-18) mg/dl Creatinine 1.22 (0.6-1.4) mg/dl Est Cr Clr Drug Dosing 39.2 ml/min Est GFR ( Amer) 61.8 ml/min Est GFR (Non-Af Amer) 53.4 ml/min BUN/Creatinine Ratio 42.9 H (10-20) Glucose 149 H (70-99) mg/dl POC Glucose 181 H (70-99) mg/dl Calcium 8.6 (8.5-10.1) mg/dl Phosphorus 3.3 (2.5-4.9) mg/dl Magnesium 1.7 L (1.8-2.4) mg/dl 01/18/21 01/18/21 01/18/21 Range/Units 23:43 19:55 16:44 WBC (4.8-10.8) K/uL RBC (4.7-6.1) M/uL Hgb (14.0-18.0) g/dL Hct (42-52) % MCV (80-100) fL MCH (25-34) pg MCHC (32-36) g/dL RDW Std Deviation (36.4-46.3) fL RDW Coeff of Flavia (11.5-14.5) % Plt Count (130-400) K/uL MPV (7.4-10.4) fL Immature Gran % (Auto) % Neut % (Auto) % Lymph % (Auto) % Yell % (Auto) % Eos % (Auto) % Baso % (Auto) % Neut # (Auto) (1.4-6.5) K/uL Lymph # (Auto) (1.2-3.4) K/uL Yell # (Auto) (0.11-0.59) K/uL Eos # (Auto) (0-0.5) K/uL Baso # (Auto) (0-0.2) K/uL Immature Gran # (Auto) (0.00-0.02) K/uL Toxic Granulation Dohle Bodies Sodium (136-145) mmol/L Potassium (3.5-5.1) mmol/L Chloride (98-107) mmol/L Carbon Dioxide (21-32) mmol/L Anion Gap (3-11) BUN (7-18) mg/dl Creatinine (0.6-1.4) mg/dl Est Cr Clr Drug Dosing ml/min Est GFR ( Amer) ml/min Est GFR (Non-Af Amer) ml/min BUN/Creatinine Ratio (10-20) Glucose (70-99) mg/dl POC Glucose 234 H 168 H 236 H (70-99) mg/dl Calcium (8.5-10.1) mg/dl Phosphorus (2.5-4.9) mg/dl Magnesium (1.8-2.4) mg/dl 01/18/21 01/18/21 Range/Units 11:29 07:26 WBC (4.8-10.8) K/uL RBC (4.7-6.1) M/uL Hgb (14.0-18.0) g/dL Hct (42-52) % MCV (80-100) fL MCH (25-34) pg MCHC (32-36) g/dL RDW Std Deviation (36.4-46.3) fL RDW Coeff of Flavia (11.5-14.5) % Plt Count 87 L (130-400) K/uL MPV 8.4 (7.4-10.4) fL Immature Gran % (Auto) 0.0 % Neut % (Auto) 70.6 % Lymph % (Auto) 15.7 % Yell % (Auto) 13.7 % Eos % (Auto) 0.0 % Baso % (Auto) 0.0 % Neut # (Auto) 1.44 (1.4-6.5) K/uL Lymph # (Auto) 0.32 L (1.2-3.4) K/uL Yell # (Auto) 0.28 (0.11-0.59) K/uL Eos # (Auto) 0.00 (0-0.5) K/uL Baso # (Auto) 0.00 (0-0.2) K/uL Immature Gran # (Auto) 0.00 (0.00-0.02) K/uL Toxic Granulation 1+ Dohle Bodies 1+ Sodium (136-145) mmol/L Potassium (3.5-5.1) mmol/L Chloride (98-107) mmol/L Carbon Dioxide (21-32) mmol/L Anion Gap (3-11) BUN (7-18) mg/dl Creatinine (0.6-1.4) mg/dl Est Cr Clr Drug Dosing ml/min Est GFR ( Amer) ml/min Est GFR (Non-Af Amer) ml/min BUN/Creatinine Ratio (10-20) Glucose (70-99) mg/dl POC Glucose 154 H (70-99) mg/dl Calcium (8.5-10.1) mg/dl Phosphorus (2.5-4.9) mg/dl Magnesium (1.8-2.4) mg/dl Diagnostic Findings Procedures: EGD 01/18/21: (1) Dysphagia Dysphagia type: unspecified Qualified Code(s): R13.10 - Dysphagia, unspecified
[2021-01-19] MEDS: TUBE FEEDING WATER FLUSH GT SCH ×8 (09:48→22:55)
[2021-01-19] MEDS: hydrALAZINE TAB 50 MG TAB PEG SCH ×4 (09:48→19:57)
[2021-01-19] MEDS: amLODIPine BESYLATE 5 MG TAB PEG SCH ×2 (09:48→19:59)
[2021-01-19] MEDS: PROSOURCE NO CARB 30 ML/PKT PEG SCH (09:53)
[2021-01-19] MEDS: GLYCOPYRROLATE 0.2 MG/ML VIAL IV SCH ×2 (10:13→19:58)
[2021-01-19] MEDS: PANTOprazole 40 MG in SYRINGE 0 ML IV SCH ×2 (10:14→20:23)
--- NOTE | 2021-01-19 11:21 | Pharmacy Report ---
Pharmacy Glycemic Short Note 2 - Date of Service January 19, 2021 - Glycemic Short BSG Results (Last 24 hours): 01/18/21 01/18/21 01/18/21 11:29 16:44 19:55 Glucose POC Glucose 154 H 236 H 168 H 01/18/21 01/19/21 01/19/21 23:43 06:15 07:08 Glucose 149 H POC Glucose 234 H 181 H OUTPATIENT ANTIDIABETIC REGIMEN: * Repaglinide * Glipizide w/ chemotherapy * HbA1c: 6.1% (10/18/20) ASSESSMENT: 01/19 * Pt NPO (i.e. tube feedings on hold) for repeat esophageal dilation today around 1430. * BSGs elevated this morning despite tube feeds on hold since yesterday afternoon. Will still give AM Lantus at reduced dose. Tube feedings will be resumed after procedure therefore will continue with HS Lantus dosing as well. Hold NovoLog while NPO. 01/18 * Pt has received 70 units of insulin over the past 24hrs * 24 units of basal with Lantus * 46 units of bolus with NovoLog * BSGs [phone] mg/dl * BSGs well controlled with the increase in basal insulin yesterday. Pt NPO for endocopy procedure this morning. Will hold basal insulin this morning for NPO and below goal range BSG. Will give Lantus after procedure. Less insulin likely without continuous tube feeds. 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 Lantus 12-14 units SQ HS - dose based on BSG * Bolus insulin * NovoLog per scale ACHS or Q6hrs while NPO * Goal Range: Low 110 mg/dL - High 140 mg/dL * Correction Factor: 25 mg/dL/unit * Nutritional / Prandial insulin per carb ratio of 1 unit per 8 grams CHO consumed PLAN FOR DISCHARGE: * HbA1c is well-controlled at 6.1% * Continue current outpatient regimen, provided patient not experiencing hypoglycemia
--- NOTE | 2021-01-19 11:46 | Anesthesiology Consultation ---
Date of Service January 19, 2021 Assessment & Plan (1) Encounter for pre-operative examination: Chart Review Chart Review: Acceptable Risk for Surgery and Patient NOT seen in Pre Admission Testing Consults Requested none History Surgery Operation Date: 01/18/21 17:00 Proposed Procedures p Esophagogastroduodenoscopy Dr Ej Pagan DO Operation Date: 01/19/21 15:30 Proposed Procedures p Esophagogastroduodenoscopy Dr Ej Pagan, DO Height/Weight Height: 5 ft 6 in Weight: 69.8 kg Allergies Allergy/AdvReac Type Severity Reaction Status Date / Time metronidazole Allergy Severe NEUROPATHY Verified 01/15/21 16:00 LEG lisinopril Allergy Intermediate NAUSEA, Verified 01/15/21 16:00 STOMACH UPSET, DEATHLY SICK Medications Home Medications Medication Instructions Recorded Confirmed Last Taken amlodipine 5 mg tablet 5 mg FEEDING TUBE QPM 07/27/18 01/15/21 10/29/20 18:00 aspirin 81 mg tablet,delayed 81 mg FEEDING TUBE QPM 07/27/18 01/15/21 09/25/20 release calcium carbonate 500 mg (1,250 2 tabs FEEDING TUBE BID 07/27/18 01/15/21 17:00 mg)-vitamin D3 400 unit tablet (Calcium 500 + D) hydralazine 50 mg tablet 50 mg FEEDING TUBE QID 07/27/18 01/15/21 10/16/20 23:00 omeprazole 20 mg capsule,delayed 20 mg FEEDING TUBE QAM 07/27/18 01/15/21 10/30/20 09:00 release ipratropium bromide 42 mcg (0.06 2 spray INTRANASAL TID PRN ml 03/16/19 01/15/21 10/29/20 %) nasal spray repaglinide 2 mg tablet (Prandin) See Rx Instructions PO TID tab 10/20/19 01/15/21 10/23/20 losartan 25 mg tablet 25 mg FEEDING TUBE HS tab 05/17/20 01/15/21 10/29/20 23:00 pravastatin 40 mg tablet 20 mg FEEDING TUBE HS tab 11/22/20 01/15/21 Unknown ciclopirox 8 % topical solution 1 applic TOPICAL DAILY 12/07/20 01/15/21 Unknown fluorouracil 5 % topical cream 1 applic TOPICAL BID PRN 12/07/20 01/15/21 Unknown (Efudex) magnesium chloride 64 mg 95 mg PO QID tab 12/07/20 01/15/21 Unknown (magnesium chloride) tablet,delayed release nutrition tx glu 237 ea FEEDING TUBE QID ml 12/07/20 01/15/21 Unknown intol,lac-free,soy-fiber 0.08 gram-1.5 kcal/mL liquid (Glucerna 1.5 Javier) sulfamethoxazole 400 1 tab FEEDING TUBE 2XWK tab 12/07/20 01/15/21 Unknown mg-trimethoprim 80 mg tablet Tacrolimus Liquid 3 ml FEEDING TUBE BID 01/15/21 01/15/21 Unknown amlodipine 2.5 mg tablet 2.5 mg FEEDING TUBE QAM 01/15/21 01/15/21 Unknown azithromycin 250 mg tablet 250 mg FEEDING TUBE 3XWK 01/15/21 01/15/21 Unknown glipizide 5 mg tablet 5 mg FEEDING TUBE UD 01/15/21 01/15/21 Unknown ondansetron HCl 4 mg/5 mL oral 4 mg FEEDING TUBE Q8H PRN 01/15/21 01/15/21 Unknown solution prednisone 5 mg/5 mL oral solution 5 mg FEEDING TUBE DAILY 01/15/21 01/15/21 Unknown tamsulosin 0.4 mg capsule See Rx Instructions .ROUTE 01/17/21 Unknown .COMPLEX #180 cap acetaminophen 120 mg-codeine 12 5 - 10 ml PO Q6H PRN #200 ml 01/18/21 Unknown mg/5 mL (5 mL) oral solution Active Medications Generic Name Dose Route Start Last Admin Trade Name Freq PRN Reason Stop Dose Admin Acetaminophen 650 mg 01/15/21 17:36 01/18/21 12:42 Acetaminophen Susp 325 Mg/10.15 Ml Udc PEG 02/14/21 17:35 650 mg Q4H PRN Administration Pain or Fever Amlodipine Besylate 2.5 mg 01/16/21 09:00 01/19/21 09:48 Amlodipine Besylate 5 Mg Tab PEG 02/15/21 08:59 2.5 mg QAM SHELLI Administration Amlodipine Besylate 5 mg 01/15/21 21:00 01/18/21 21:37 Amlodipine Besylate 5 Mg Tab PEG 02/14/21 20:59 5 mg QPM SHELLI Administration Docusate Sodium 100 mg 01/17/21 00:43 01/17/21 05:49 Docusate Sodium Syrup 100 Mg/10 Ml Udc PEG 02/16/21 00:44 100 mg BID PRN Administration Constipation Enteral Nutritional Formula 315 ml 01/16/21 12:30 01/18/21 21:59 Peptamen 1.5 Javier 1,000 Ml Bag PEG 02/15/21 12:29 315 ml QID@0900,1230,1730,2200 SHELLI Administration Protocol Glycopyrrolate 0.1 mg 01/15/21 21:00 01/19/21 10:13 Glycopyrrolate 0.2 Mg/Ml Vial IV 02/14/21 20:59 0.1 mg Q12 SHELLI Administration Hydralazine HCl 50 mg 01/15/21 17:31 01/19/21 09:48 Hydralazine Tab 50 Mg Tab PEG 02/14/21 17:30 50 mg QID SHELLI Administration Pantoprazole Sodium 40 mg/ 10 mls @ 5 mls/min 01/15/21 21:00 01/19/21 10:14 Syringe IV 02/14/21 20:59 5 mls/min BID SHELLI Administration Insulin Aspart 0 units 01/18/21 12:00 01/19/21 06:17 Insulin Aspart 100 Units/Ml 3 Ml Pen SC 02/17/21 11:59 2 units Q6 SHELLI Administration Non-Formulary Medication 5 ea 01/16/21 09:00 01/19/21 09:52 Non-Formulary Patient's Own Med PEG 02/15/21 08:59 5 mg DAILY SHELLI Administration Non-Formulary Medication 2 ea 01/16/21 09:00 01/19/21 06:17 Non-Formulary Patient's Own Med PEG 02/15/21 08:59 3 ml DAILY SHELLI Administration Non-Formulary Medication 1 ea 01/15/21 21:00 01/18/21 20:09 Non-Formulary Patient's Own Med PEG 02/14/21 20:59 3 ml HS SHELLI Administration Nutritional Formula 30 ml 01/17/21 09:00 01/19/21 09:53 Prosource No Carb 30 Ml/Pkt PEG 02/16/21 08:59 30 ml DAILY SHELLI Administration Ondansetron HCl 4 mg 01/15/21 17:31 01/15/21 21:09 Ondansetron Inj 2 Mg/Ml 2 Ml Vial IV 02/14/21 17:30 4 mg Q6H PRN Administration Nausea Sterile Water 120 ml 01/16/21 11:30 01/19/21 09:48 Tube Feeding Water Flush GT 02/15/21 11:29 120 ml QID@0800,1130,1630,2100 SHELLI Administration Sterile Water 120 ml 01/16/21 13:30 01/19/21 10:57 Tube Feeding Water Flush GT 02/15/21 13:29 120 ml QID@1000,1330,1830,2300 SHELLI Administration Tamsulosin HCl 0.4 mg 01/16/21 21:00 01/18/21 21:38 Tamsulosin Hcl 0.4 Mg Cap PEG 02/15/21 20:59 0.4 mg HS SHELLI Administration Trimethoprim/Sulfamethoxazole 80 mg 01/15/21 21:00 01/15/21 21:01 Sulfamethoxazole/Trimethoprim 200mg/40mg/5ml Susp PO 02/14/21 20:59 80 mg MoFr@2100 SHELLI Administration NPO Date Last Intake of Fluids: 01/18/21 Time Last Intake of Fluids: 07:00 Last Intake of Fluids Comment: via feeding tube Date Last Intake of Solids: 01/17/21 Time Last Intake of Solids: 22:00 Last Intake of Solids Comment: last tube feeding at 2200 Past Medical History Medical History Aortic stenosis Per 09/2020 echo, Severe aortic stenosis is presentpeak CW Doppler velocities 4 m/s, mean gradient 39 mmHg, calculated SHANTAL =0.8 cm. Cardiology aware, not yet surgical severity. Atrial fibrillation In the past- paroxysmal- no recurrence per cardio records. Pt not anticoagulated. 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 Brother , Passed age 68 of metastatic colon cancer Colon cancer Stomach cancer Brother , Passed age 68 of smoke inhalation complications (lung problems) No problems noted. Brother Prostate cancer, Onset Age: 90 metastatic to bone - currently being worked up Sister , Passed age 42 of Lung Cancer No problems noted. Sister , Passed age 94 of "bowel cancer" Breast cancer, Onset Age: 60 Mastectomy Sister , Passed age 73 of Lung Cancer No problems noted. Sister , Passed age 68 of Pulmonary Fibrosis No problems noted. Sister , Passed age 17 of seizure complications (drowned) No problems noted. Sister , Passed age 94 of Alzheimer's Complications No problems noted. Son No problems noted. Son Melanoma Excised and doing well currently Daughter Dermatomyositis Currently being worked up for at [facility] Other Family history non-contributory No family history of adverse response to anesthesia Past Surgical History Surgical History H/O lung transplant (2005) LEFT History of anesthesia reaction "SLOW TO WAKE UP" PER SPOUSE History of back surgery (2016) X 2-INCLUDING FUSION > LUMBAR History of bronchoscopy (06/19/05) Thoracoscopy with Lung Biopsy History of cardiac cath 2005 NO STENTS-BEFORE LUNG TRANSPLANT SURGERY History of cataract surgery R/L History of colonoscopy History of esophagogastroduodenoscopy (EGD) (10/17/20) and EUS with FNA of Esophageal Mass History of incision and drainage (03/29/09) Groin Abscess History of lobectomy of lung (2008) right upper for cancer History of tooth extraction Status post insertion of percutaneous endoscopic gastrostomy (PEG) tube Past Anesthesia History No Hx of Anesthesia Complications and No Family Hx of Anesthesia Complications History of PONV No Hx of PONV and No Hx of Motion Sickness Social History Smoking Status: Never smoker Hx Alcohol Use: No Hx Substance Use: No substance use type: does not use Physical Exam Vital Signs Last Vital Signs Temp 37.0 C 01/19/21 07:54 Pulse 81 01/19/21 09:46 Resp 22 01/19/21 07:54 BP 126/74 01/19/21 09:46 Pulse Ox 99 01/19/21 07:54 Testing Laboratory Results 01/19/21 07:08 01/19/21 07:08 PT 9.6 Seconds (9.0-12.0) 01/15/21 11:56 INR 0.9 (0.9-1.1) 01/15/21 11:56 APTT 26.1 Seconds (21.0-31.0) 01/15/21 11:56 Blood Type B Positive 01/15/21 11:53 Antibody Screen NEGATIVE 01/15/21 11:53 01/19/21 01/18/21 06:15 23:43 POC Glucose 181 H 234 H Electrocardiogram Date: 01/15/21 DICTATED BY: Sravan Dumont MD Test Reason : Blood Pressure : / mmHG Vent. Rate : 091 BPM Atrial Rate : 091 BPM P-R Int : 190 ms QRS Dur : 090 ms QT Int : 330 ms P-R-T Axes : 037 072 045 degrees QTc Int : 405 ms Normal sinus rhythm Nonspecific T wave abnormality Anterolateral leads Abnormal ECG When compared with ECG of 17-OCT-2020 20:35, Premature atrial complexes are no longer Present SD interval has decreased Nonspecific T wave abnormality now evident in Anterolateral leads Confirmed by Sravan Dumont ([id number]) on 01/16/2021 8:20:17 AM
[2021-01-19] MEDS ORDERED: ONDANSETRON INJ 2 MG/ML 2 ML VIAL ONE ×2 (13:35→13:41)
[2021-01-19] MEDS ORDERED: PROPOFOL IV EMULSION 10 MG/ML 20 ML VIAL IV ONE (13:35)
[2021-01-19] MEDS ORDERED: LIDOCAINE 2% 2 ML VIAL/AMP(20MG/ML) INFIL ONE (13:35)
[2021-01-19] MEDS ORDERED: ETOMIDATE 2 MG/ML 20 ML VIAL IV ONE (13:35)
--- NOTE | 2021-01-19 14:09 | Communication Note ---
Date of Service: January 19, 2021 The patient underwent repeat upper endoscopy today with further dilation of his esophageal stricture to 13.5 mm. If the patient continues to have problems with secretion clearance despite today's dilation he may need to consider a repeat esophageal stent. As he had significant amount of pain in the past the patient is somewhat reluctant for placement of a new device. Recommendations: Continue with PEG tube feeding Please call with any questions or concerns GI to sign off.
--- NOTE | 2021-01-19 14:14 | GI REPORT ---
Patient Name: Nicola Banks Procedure Date: 01/19/2021 1:55 PM Date of : 1935 Admit Type: Inpatient Age: 86 Gender: Male Attending MD: Victor M Pagan DO Procedure: Upper GI endoscopy Providers: Victor M Pagan DO Referring MD: Margie Barnett Md Indications: Malignant esophageal tumor, For therapy of malignant esophageal tumor Medicines: Monitored Anesthesia Care Complications: No immediate complications. Estimated blood loss: Minimal. Estimated Blood Loss: Estimated blood loss was minimal. Procedure: Pre-Anesthesia Assessment: - Prior to the procedure, a History and Physical was performed, and patient medications, allergies and sensitivities were reviewed. The patient's tolerance of previous anesthesia was reviewed. - The risks and benefits of the procedure and the sedation options and risks were discussed with the patient. All questions were answered and informed consent was obtained. - Patient identification and proposed procedure were verified prior to the procedure by the physician, the nurse and the team guide. The procedure was verified in the procedure room. - Pre-procedure physical examination revealed no contraindications to sedation. - ASA Grade Assessment: IV - A patient with severe systemic disease that is a constant threat to life. - After reviewing the risks and benefits, the patient was deemed in satisfactory condition to undergo the procedure. - The anesthesia plan was to use monitored anesthesia care (MAC). - Immediately prior to administration of medications, the patient was re-assessed for adequacy to receive sedatives. - The heart rate, respiratory rate, oxygen saturations, blood pressure, adequacy of pulmonary ventilation, and response to care were monitored throughout the procedure. - The physical status of the patient was re-assessed after the procedure. After obtaining informed consent, the endoscope was passed under direct vision. Throughout the procedure, the patient's blood pressure, pulse, and oxygen saturations were monitored continuously. The Scope was introduced through the mouth, and advanced to the second part of duodenum. The upper GI endoscopy was accomplished without difficulty. The patient tolerated the procedure well. Findings: One malignant-appearing, intrinsic moderate stenosis was found 24 to 32 cm from the incisors. This stenosis measured 8 mm (inner diameter) x 8 cm (in length). The stenosis was traversed after dilation. A TTS dilator was passed through the scope. Dilation with a 10-11-12 mm balloon and a 12-13.5-15 mm balloon dilator was performed to 13.5 mm. The dilation site was examined following endoscope reinsertion and showed mild mucosal disruption. Estimated blood loss was minimal. The PEG was found in the gastric antrum. The examined duodenum was normal. Impression: - Malignant-appearing esophageal stenosis. Dilated to 13.5 mm today. - The PEG was found in the stomach. - Normal examined duodenum. Recommendation: - The patient will be observed post-procedure, until all discharge criteria are met. - Resume previous diet. - Observe patient's clinical course following today's procedure with therapeutic intervention. If patient unable to clear secretions despite today's dilation he would need to consider replacement of a esophageal stent. Victor M Pagan D.O. Victor M Pagan, 01/19/2021 2:13:57 PM This report has been signed electronically. Note Initiated On: 01/19/2021 1:55 PM Number of Addenda: 0 I attest to the content of the Intraoperative Record and orders documented therein, exceptions below {[id number]}
--- NOTE | 2021-01-19 14:49 | Anesthesiology Progress Note ---
Date of Service January 19, 2021 Anesthesia Post Procedure Vital Signs Vital Signs: Temp Pulse Pulse Resp BP Pulse Ox 01/19/21 14:48 77 20 147/69 H 95 01/19/21 14:27 96 H 20 124/66 98 01/19/21 14:13 83 20 116/63 97 01/19/21 12:55 36.9 C 86 20 140/77 97 01/19/21 12:27 36.9 C 98 H 23 128/78 98 01/19/21 09:46 81 126/74 01/19/21 09:25 87 01/19/21 07:54 37.0 C 88 22 122/78 99 01/19/21 06:45 37.1 C 95 H 18 131/70 96 01/19/21 02:57 37.4 C 103 H 18 131/71 94 01/19/21 00:17 99 H 01/18/21 22:54 36.7 C 98 H 18 117/59 L 96 01/18/21 19:35 36.8 C 81 18 104/63 97 01/18/21 15:00 36.4 C L 83 20 122/68 96 Pain Intensity Left Abdomen: Pain Intensity: 5 Transfer of Care Handoff Completed per policy Notes Mental Status: alert / awake / arousable and participated in evaluation Patient Amnestic to Procedure: Yes Nausea / Vomiting: adequately controlled Pain: adequately controlled Airway Patency, RR, SpO2: stable & adequate BP & HR: stable & adequate Hydration State: stable & adequate Anesthetic Complications: no major complications apparent and Pt Satisfied with anesthetic care
[2021-01-19] MEDS ORDERED: MAGNESIUM SULFATE / D5W 1 GM/100 ML BAG IV ONE (16:30)
[2021-01-19] MEDS: PEPTAMEN 1.5 CAL 1,000 ML BAG PEG SCH ×2 (18:12→21:56)
[2021-01-19] MEDS: TAMSULOSIN HCL 0.4 MG CAP PEG SCH (19:56)
[2021-01-19] MEDS: SULFAMETHOXAZOLE/TRIMETHOPRIM 200MG/40MG/5ML SUSP PO SCH (19:57)
[2021-01-19] MEDS: DOCUSATE SODIUM SYRUP 100 MG/10 ML UDC PEG PRN (19:59)
--- NOTE | 2021-01-19 22:51 | Hospitalist Progress Note ---
Date of Service January 19, 2021 Assessment & Plan (1) Esophageal stricture: Plan: Secondary to esophageal cancer making it difficult to handle his secretions Some blood in the secretions due to oozing from the tumor most likely-has resolved Continue NPO-feeding through the PEG tube - GI consultation for evaluation of re-stenting- appreciate GI consultation-patient initially declined esophageal stenting-but now agreeable to esophageal dilatation -performed 01/18 and again on 01/19-dilated to 13.5 mm If this does not help, only option left would be to replace another esophageal stent which patient did not tolerate well previously Restart tube feeds -Continue Glycopyrolate 0.1mg IV [id number] can be converted to 2 mg per PEG tube every 12 hours after discharge- can be crushed as I confirmed with the pharmacist-this is helping him with secretions - Continue with enteral nutritional support through PEG tube Hopeful for discharge to home tomorrow if does well overnight (2) Hematemesis: Plan: Protonix 40mg IV BID is provided Convert to Prevacid through PEG tube upon discharge Most likely secondary to oozing from the tumor Has resolved (3) Dysphagia: Plan: As above- appreciate GI consultation Continue tube feeds (4) 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: Plan: undergoing chemo/radiation Missed chemotherapy session with oncology due to hospitalization-will need to be rescheduled Contacted radiation oncology-they would do his XRT here but he declined to do so today citing fatigue (5) DMII (diabetes mellitus, type 2): Plan: With significant hyperglycemia shortly after admission in the 300s hyperglycemia now improved with increased doses of Lantus and Novolog consult Pharmacy appreciated continue Lantus and Novolog (6) Urinary retention: Plan: Had straight catheterization for 1250 mL on night of admission and then Boyd catheter placed the next morning for 800 mL of urine Did receive IV morphine as well as Robinul which could both be contributing Started Flomax Maintain Boyd catheter for now Hopefully with starting Flomax and no further morphine, he will be able to urinate on his own even with Robinul on board, however he is reported even an antihistamine in the past has caused him urinary retention Appreciate consult urology and will need outpt f/u in 2-3 weeks for possible cystoscopy and TOV (7) Antineoplastic chemotherapy induced pancytopenia: Plan: Pancytopenia with neutropenia Secondary to chemotherapy stable to improved today Follow CBC in the morning Some blood loss anemia likely as well No transfusion needed at this point (8) 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 - 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 as well as RUL wedge biopsy in 2008 Continue tacrolimus, prednisone, Bactrim Continue supplemental O2 (9) Chronic kidney disease: Plan: Stable at this time 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 III b, 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 - avoid further nephrotoxic mediations (10) Aortic stenosis: Plan: Follow hemodynamic status and volume status while in house - no new or worsening symptoms- recent ECHO classified as severe (11) Immunosuppression: Plan: As above (12) Paraphimosis: Plan: noted on exam by Urology on 01/18 reduced successfully by Urologist on 01/18 (13) Hypomagnesemia: Plan: Magnesium mildly low today 1.7 Give 1 g magnesium sulfate through the IV Check level in the morning Plan: DVT prophylaxis-no anticoagulation due to ongoing bleeding, SCDs only Disposition-continued stay, but may be able to discharge home tomorrow morning Discussed his care with his on the phone Admission and Anticipated Discharge Date Admission Date: January 15, 2021 Subjective Patient had repeat EGD and esophageal dilatation performed today. I saw him after his procedure and he continued to be drowsy but would wake up and answer questions. His felt that it would be better if he stayed overnight and he agrees with this. He denies any chest pain or shortness of breath, no abdominal pains. He cannot tell just yet if the dilatation has made his secretions improved as it was just done. Restarted tube feeds Telemetry with normal sinus rhythm and PVCs with rates in the 80s to 100s Review of Systems Review of Systems: All systems reviewed & are unremarkable except as noted in HPI & below Physical Exam Constitutional: WD/WN, vitals as above Eyes: + anicteric sclerae Neck: trachea midline, no thyromegaly Respiratory: normal respiratory effort Auscultation: + crackles (Right lung throughout) and + rhonchi (Some coarse upper airway sounds); no wheezes Cardiovascular: RRR, no murmur, no edema Rate/Rhythm: regular rate and regular rhythm Heart Sounds: + murmur (3/6 GABBI at RUSB) Extremities: no calf tenderness and no edema Chest (Breasts): Chest: normal inspection of chest Gastrointestinal (Abdomen): normal bowel sounds, soft, nontender, no hepatosplenomegaly Inspection/Auscultation: + abdomen abnormal to inspection (PEG tube in place) Musculoskeletal: Extremities: extremities normal to inspection; no cyanosis and no clubbing Skin: no rashes, warm and dry Neurologic: moves all extremities and awake; no focal motor deficits Psychiatric: A+Ox3, euthymic affect Lymphatic: no lymphedema Results & Data Results & Data ([facility]) Vital Signs (Past 12 Hours) Vital Signs Temp Pulse Resp BP BP Pulse Ox 01/19/21 19:21 37 C 76 16 146/69 H 94 01/19/21 15:29 36.6 C 80 18 129/66 96 01/19/21 14:48 77 20 147/69 H 95 01/19/21 14:27 96 H 20 124/66 98 01/19/21 14:13 83 20 116/63 97 01/19/21 12:55 36.9 C 86 20 140/77 97 01/19/21 12:27 36.9 C 98 H 23 128/78 98 Laboratory Results 01/19/21 07:08 01/19/21 07:08 Magnesium 1.7 PG Care Time/CCT Total # of Minutes Spent Total Time Spent with Patient: Total time spent is greater than 50% in child care coordinator rdination of care (as documented) at patient's floor/unit and/or counseling patient: Coding Level of Care Code 11799 Subseq Hosp Care Lvl 2 Diagnoses Esophageal stricture K22.2 Hematemesis K92.0 Dysphagia R13.10 Dysphagia type: unspecified 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
[2021-01-20 03:40] VITALS: TEMP 98.2
[2021-01-20] MEDS: NON-FORMULARY PATIENT'S OWN MED PEG SCH ×2 (06:12→08:42)
[2021-01-20 07:13] VITALS: O2SAT 95
[2021-01-20 08:11] LABS: Hematocrit (blood only) 23.3 % (42-52); Mean Corpuscular Hemoglobin 29.2 pg (25-34); Mean Corpuscular Hgb Conc 34.3 g/dL (32-36); RDW Coefficient of Variation 14.7 % (11.5-14.5); RDW Standard Deviation 44.4 fL (36.4-46.3); Red Blood Count 2.74 M/uL (4.7-6.1); White Blood Count 1.88 K/uL (4.8-10.8)
[2021-01-20 08:12] LABS: Mean Platelet Volume 8.5 fL (7.4-10.4); Platelet Count 91 K/uL (130-400)
[2021-01-20 08:32] LABS: Eosinophils # (auto) 0.01 K/uL (0-0.5); Eosinophils % (auto) 0.5 %; Immature Granulocytes # (auto) 0.02 K/uL (0.00-0.02); Immature Granulocytes % (auto) 1.1 %; Lymphocytes # (auto) 0.25 K/uL (1.2-3.4); Lymphocytes % (auto) 13.3 %; Monocytes # (auto) 0.42 K/uL (0.11-0.59); Monocytes % (auto) 22.3 %; Neutrophils # (auto) 1.18 K/uL (1.4-6.5); Neutrophils % (auto) 62.8 %
[2021-01-20 08:39] VITALS: BP 146/69
[2021-01-20] MEDS: TUBE FEEDING WATER FLUSH GT SCH ×2 (08:39→10:15)
[2021-01-20 08:40] LABS: BUN Creatinine Ratio 39.9 (10-20); Calcium 8.4 mg/dl (8.5-10.1); Creatinine Clr Calc Pharmacy 37.1 ml/min; Est GFR (African American) 57.8 ml/min; Est GFR (Non-African American) 49.9 ml/min; Magnesium 2.1 mg/dl (1.8-2.4); Potassium 4.5 mmol/L (3.5-5.1)
[2021-01-20] MEDS: amLODIPine BESYLATE 5 MG TAB PEG SCH (08:40)
[2021-01-20] MEDS: PEPTAMEN 1.5 CAL 1,000 ML BAG PEG SCH (08:40)
[2021-01-20] MEDS: PANTOprazole 40 MG in SYRINGE 0 ML IV SCH (08:40)
[2021-01-20] MEDS: hydrALAZINE TAB 50 MG TAB PEG SCH (08:40)
[2021-01-20] MEDS: GLYCOPYRROLATE 0.2 MG/ML VIAL IV SCH (08:41)
[2021-01-20] MEDS: PROSOURCE NO CARB 30 ML/PKT PEG SCH (08:42)
[2021-01-20] MEDS: INSULIN ASPART 100 UNITS/ML 3 ML PEN SC SCH (08:44)
[2021-01-20] MEDS ORDERED: INSULIN GLARGINE SOLOSTAR 100 UNITS/ML 3 ML PEN SC SCH (09:00)
[2021-01-20 10:56] VITALS: PULSE 74
--- NOTE | 2021-01-20 11:07 | Discharge Summary ---
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 Patient was found to have high grade stenosis of midesophagus on barium swallow in September 2020, following a benign biopsy of that mass compressing the esophagus the patient underwent stenting of the esophagus by [facility] Gastroenterology. The patient had chest pain following that procedure and was admitted overnight for observation, there was no complications and the patient was discharged home. He subsequently had the stent removed in October as he continued to have chest discomfort, he also had a PEG tube inserted following the removal of the stent. The patient states he has been doing fine and continues to go through chemoradiation weekly with Paclitaxel and Carboplatin and radiation. His next scheduled treatment was to be on 01/16/21. Patient comes to the EMD today for complaints of nausea/vomiting and stomach pain last night that resulted in some- coughing up/emesis of blood tinged sputum which patient states went on for an hour. He feels that there was allot of mucous in his throat at that time and when he got it out there was "mostly blood with thick sputum". In the EMD the patient had a CT scan of his chest and abdomen performed. The CT scan of his chest and abdomen again show collapse of the esophagus and wall thickening of the proximal to mid esophagus. Patient will be admitted for Gastroenterology consultation for evaluation of/benefit of stenting again, symptom control with glycopyrrolate BID, Protonix IV BID. No evidence of hemodynamic instability or active bleeding at this time. Will keep NPO after midnight. He has been typed and crossed already as well. Patient has received both his COVID vaccines and his COVID test on admission is NEGATIVE. Principal Diagnosis Esophageal stricture, cancer, Urinary retention Discharge Exam Constitutional WD/WN, vitals as above Eyes + anicteric sclerae Neck trachea midline, no thyromegaly Respiratory normal respiratory effort; no cough Auscultation: + crackles (right lung throughout) and + rhonchi (some coarse upper airway sounds); no wheezes Cardiovascular RRR, no murmur, no edema Chest (Breasts) Chest: normal inspection of chest Gastrointestinal (Abdomen) normal bowel sounds, soft, nontender, no hepatosplenomegaly Musculoskeletal Extremities: extremities normal to inspection; no cyanosis and no clubbing Skin no rashes, warm and dry Neurologic moves all extremities and awake; no focal motor deficits Psychiatric A+Ox3, euthymic affect Genitourinary Boyd in place draining clear yellow urine Lymphatic no lymphedema Discharge Data Allergies Allergy/AdvReac Type Severity Reaction Status Date / Time metronidazole Allergy Severe NEUROPATHY Verified 01/15/21 16:00 LEG lisinopril Allergy Intermediate NAUSEA, Verified 01/15/21 16:00 STOMACH UPSET, DEATHLY SICK Consultations 01/15/21 14:34 ED Decision to Admit Stat 01/15/21 17:31 Consult Gastroenterology Routine 01/17/21 17:57 Consult Urology Routine Procedures Performed Operation Date: 01/18/21 17:00 Actual Procedures p EGD Dilatation - Victor M Pagan DO Operation Date: 01/19/21 15:30 Actual Procedures p EGD Dilatation - Victor M Pagan DO Ordered Studies 01/15/21 12:31 CT abd pelvis IV con only Stat 01/15/21 12:33 CT chest diagnostic w con Stat Hospital Course (1) Esophageal stricture: Secondary to esophageal cancer making it difficult to handle his secretions Some blood in the secretions due to oozing from the tumor most likely-has resolved Continue NPO-feeding through the PEG tube - GI consultation for evaluation of re-stenting- appreciate GI consultation- patient initially declined esophageal stenting-but now agreeable to esophageal dilatation -performed 01/18 and again on 01/19-dilated to 13.5 mm If this does not help, only option left would be to replace another esophageal stent which patient did not tolerate well previously cont tube feeds -received Glycopyrrolate 0.1mg IV q12 during admission and this can be converted to 2 mg per PEG tube every 12 hours after discharge- can be crushed as I confirmed with the pharmacist-this is helping him with secretions - Continue with enteral nutritional support through PEG tube Overall feels his secretions are able to be better managed at this point between the two esophageal dilations and the Robinul (2) Hematemesis: Protonix 40mg IV BID is provided here Convert to Prevacid through PEG tube upon discharge rather than ext release prilosec which really shouldn't be crushed Most likely secondary to oozing from the tumor Has resolved dc ASA from home (3) Dysphagia: As above- appreciate GI consultation Continue tube feeds (4) 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: undergoing chemo/radiation Missed chemotherapy session with oncology due to hospitalization-will need to be rescheduled Contacted radiation oncology-they would do his XRT here but he declined to do so today citing fatigue (5) DMII (diabetes mellitus, type 2): With significant hyperglycemia shortly after admission in the 300s hyperglycemia now improved with increased doses of Lantus and Novolog consult Pharmacy appreciated received Lantus and Novolog here, convert back to home pills on dc (6) Urinary retention: Had straight catheterization for 1250 mL on night of admission and then Boyd catheter placed the next morning for 800 mL of urine Did receive IV morphine as well as Robinul which could both be contributing continue on Flomax I do not believe finasteride can be crushed through a PEG Maintain Boyd catheter for now on discharge Hopefully in future he will be able to urinate on his own even with Robinul on board, however he is reported even an antihistamine in the past has caused him urinary retention Appreciate consult urology and will need outpt f/u in 2-3 weeks for possible cystoscopy and TOV (7) Antineoplastic chemotherapy induced pancytopenia: Pancytopenia with neutropenia Secondary to chemotherapy stable to improved today Follow CBC in the morning Some blood loss anemia likely as well No transfusion needed at this point (8) Lung transplant recipient: 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 - 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 as well as RUL wedge biopsy in 2008 Continue tacrolimus, prednisone, Bactrim, azithro prophylaxis (9) Chronic kidney disease: Stable at this time 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, 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 - avoid further 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 mediations (10) Aortic stenosis: Follow hemodynamic status and volume status while in house - no new or worsening symptoms- recent ECHO classified as severe (11) Immunosuppression: As above (12) Paraphimosis: noted on exam by Urology on 01/18 reduced successfully by Urologist on 01/18 (13) Hypomagnesemia: Magnesium mildly low and was replaced DVT prophylaxis-no anticoagulation due to ongoing bleeding, SCDs only Disposition-stable for dc to home Discussed his care with his on the phone Total Time Total Time Spent Total Time Spent (In Minutes): 35 min Discharge Plan Discharge Items Patient Disposition: Home - Home Health Services Reason For Visit: ESOPHAGEAL STENOSIS/CANCER Discharge Diagnosis: Esophageal stenosis,cancer, Urinary retention Condition on Discharge: Fair Activity: Resume your previous activity Non-emergency contact: Primary Care Provider, Bias Cutter and Oncologist Call non-emergency contact if: you have any medication questions and your symptoms worsen Follow-up/Referrals: Eber Sands MD [Primary Care Provider] - (Follow up within 1-2 weeks) Solitario Henriquez DO [Physician] - (Dr. Henriquez' office should be cont acting you to schedule an appointment within 2 weeks to follow up on your bladder catheter.) Diet: Other - See Diet Comment Diet Comment: Resume home tube feeds Addtl Attending Provider Instructions: You were admitted with difficulty swallowing your secretions due to narrowing in your esophagus. You were started on a new medication called glycopyrrolate which helps dry up the secretions. Unfortunately this also made you retain your urine and a Boyd catheter was placed and should remain in your bladder for now. Follow up with the Urologist in 2 weeks to further discuss catheter management. The GI doctor stretched out your esophagus narrowing on two occasions and this did seem to help you. Please STOP taking your aspirin as this thins the blood and you were having some blood in your secretions coming from your esophageal cancer. Your omeprazole is an extended release pill and really shouldn't be crushed and placed through a tube so this was changed to Prevacid Solutab which can be crushed and mixed with water and pushed through with a syringe. Please follow up with your Radiation Oncologist and Medical Oncologist next week to resume treatment. Follow up with your PCP within 1-2 weeks as well. Pending Studies at Discharge: No Stand-Alone Forms: [facility] Medications and DC Order Prescriptions: New glycopyrrolate 2 mg tablet 2 mg feeding tube BID Qty: 60 RF: 0 lansoprazole [Prevacid SoluTab] 15 mg tablet,disintegrat, delay rel 15 mg feeding tube DAILY Qty: 30 RF: 0 Continued Glucerna 1.5 Javier 0.08-1.5 gram-kcal/mL liquid 237 ea feeding tube QID RF: 0 ciclopirox 8 % solution 1 applic topical DAILY RF: 0 fluorouracil [Efudex] 5 % cream 1 applic topical BID PRN (Reason: ..) RF: 0 magnesium chloride 64 mg tablet,delayed release (DR/EC) 95 mg PO QID RF: 0 tamsulosin 0.4 mg capsule See Rx Instructions .ROUTE .COMPLEX Qty: 180 RF: 3 acetaminophen-codeine 120 mg-12 mg /5 mL (5 mL) solution 5 - 10 ml PO Q6H PRN (Reason: pain) Qty: 200 RF: 0 repaglinide [Prandin] 2 mg tablet See Rx Instructions PO TID RF: 0 losartan 25 mg tablet 25 mg feeding tube HS RF: 0 amlodipine 5 mg tablet 5 mg feeding tube QPM RF: 0 hydralazine 50 mg tablet 50 mg feeding tube QID RF: 0 calcium carbonate-vitamin D3 [Calcium 500 + D] 500 mg(1,250mg) -400 unit Tablet 2 tabs feeding tube BID RF: 0 ipratropium bromide 42 mcg (0.06 %) spray,non-aerosol 2 spray Intranasal TID PRN (Reason: Allergy Symptoms) RF: 0 pravastatin 40 mg tablet 20 mg feeding tube HS RF: 0 sulfamethoxazole-trimethoprim 400-80 mg tablet 1 tab feeding tube 2XWK RF: 0 prednisone 5 mg/5 mL solution 5 mg feeding tube DAILY RF: 0 azithromycin 250 mg tablet 250 mg feeding tube 3XWK RF: 0 amlodipine 2.5 mg tablet 2.5 mg feeding tube QAM RF: 0 ondansetron HCl 4 mg/5 mL solution 4 mg feeding tube Q8H PRN (Reason: nausea and vomiting) RF: 0 glipizide 5 mg tablet 5 mg feeding tube UD RF: 0 Tacrolimus Liquid 3 ml feeding tube BID RF: 0 Discontinued aspirin 81 mg Tablet,Delayed Release (Dr/Ec) 81 mg feeding tube QPM RF: 0 omeprazole 20 mg capsule,delayed release(DR/EC) 20 mg feeding tube QAM RF: 0 Discharge Orders: Discharge Order (Routine); Ordered 01/20/21 Ordered By: Margie Barnett Admission Data Admit Date/Time: 01/15/21 15:55 Attending Provider: Margie Barnett Admit Provider: Joe Bernstein Primary Care Provider: Eber Sands Other Providers: Edward Olivares ; Brady Melendez ; Solitario Henriquez Other Interventions: Discharge Summary Assessment (RN) Last Done: 01/20/21 10:55 Coding Level of Care Code D/C DAY MANAGEMENT >30 MINS Diagnoses Esophageal stricture K22.2 Hematemesis K92.0 Dysphagia R13.10 Dysphagia type: unspecified 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
== END 2021-01-20 12:00 | disposition home health service (06) | DRG 374 ==
LOC: ED 10:11 → 2W 15:55 → SUATTDRO 15:55 → 2W 16:55

== ENCOUNTER 2021-06-20 18:51 | Inpatient (IN) ==
--- NOTE | 2021-06-20 19:38 | Emergency Department Note ---
Impression & Plan Complicated urinary tract infection, Lung transplant recipient, Immunosuppression, Aortic stenosis, Esophageal cancer, Acute hyperglycemia, Acute hyperkalemia, Hypomagnesemia ED Provider Note NAME: TWYLA ROLLINS AGE: 86 SEX: M : 1935 ARRIVES VIA: Walk-In INFORMANT: Patient, ED PROVIDER(S): Johnnie Donaldson MD Chief Complaint: Positive urine culture, urology referral for evaluation and antibiotic treatment HPI: Patient did present at the behest of the outpatient urologist Dr. Henriquez as the patient did have a recent urinalysis completed that was positive for infection. Patient was scheduled to have a cystoscopy and likely TURP completed by Dr. Henriquez tomorrow. Patient is not had any fevers or chills and denies any chest pain shortness of breath nausea or vomiting. The patient does have a histo ry of esophageal cancer status post radiation treatment and is primarily receiving nutrition via G-tube. This been placed for long time ago. The patient is on tacrolimus for history of a lung transplant. Patient had urinalysis completed for preoperative purposes. Patient's daughter is also at bedside and states that this was the main reason for presenting. I did review the patient's urine culture which showed likely Pseudomonas and Enterococcus. No prior other cultures present. ROS: See HPI for pertinent positives and negatives. A total of 10 systems were reviewed and otherwise negative. Past medical history: See below Surgical history: See below Social history: See below Physical Exam: GENERAL: Chronically ill in appearance, NAD, wearing a mask, non-toxic. EYE EXAM: Normal conjunctiva. PERRL, no anisocoria and EOM's grossly intact w/o pain. NECK: Supple, no nuchal rigidity, no adenopathy, non-tender. No signs of meningismus. LUNGS: Clear to auscultation. Normal chest wall mechanics. HEART: NSR, no systolic ejection murmur noted. ABDOMEN: Abdomen soft, non-tender, PEG tube in left upper quadrant, no surrounding erythema no pain. Normo-active bowel sounds, no masses, no rebound or guarding. BACK: No CVA TTP. SKIN: No rashes and no bruising. UPPER EXTREMITIES: Upper extremities are grossly normal. LOWER EXTREMITIES: Grossly normal, no edema. NEURO EXAM: A&O x3, cranial nerves II-XII grossly intact, normal speech, moves all 4 extremities on command w/o issue. Differential diagnoses: Sepsis, UTI, pneumonia, metabolic, electrolyte abnormalities, cardiac sources, intracerebral event, toxicologic, neurologic, as well as other pathologies. Course: Patient was seen and evaluated the bedside. Full history physical exam was performed. Imaging Studies: See Below Cardiac monitoring: An order was placed for continuous cardiac monitoring. The monitor shows a rate of 95 with sinus rhythm. MDM: Patient was seen due to concern for recent positive urine culture. Blood work was obtained. I did speak with the inpatient pharmacist to discuss treatment options given the patient's concomitant likely Pseudomonas and Enterococcus but without sensitivities. Recommendation was to start on Zosyn and then also daptomycin as sometimes the Enterococcus may not be sensitive to penicillins. I did speak with on-call urology Wale Ibarra PA-C with Dr. Henriquez and did admit the patient to the medicine service given the patient's history of immunosuppression with a lung transplant to Dr. Madison. Patient was given a small fluid fluid bolus in light of the patient's history of aortic stenosis. Patient had a white count of 7 with a hemoglobin of 10.8. This is chronic and stable. The patient's platelet count is unremarkable. The patient's kidney function is unchanged with the patient does have elevated BUN to creatinine ratio. Patient does have elevated potassium of 5.6 and hyponatremia 125. Sugar of 320. Magnesium 1.5. Past Med/Surg History Medical History Aortic stenosis Per 09/2020 echo, Severe aortic stenosis is presentpeak CW Doppler velocities 4 m/s, mean gradient 39 mmHg, calculated SHANTAL =0.8 cm. Cardiology aware, "Ao rtic stenosis is borderline severe but not yet surgical severity." per 10/16/20 cardio phone note Atrial fibrillation In the past- paroxysmal- no recurrence per cardio records. Pt not anticoagulated. Bladder stones BPH (benign prostatic hyperplasia) Chronic kidney disease Multifactorial including anti rejection medications, immunosuppression, hypertension, age. 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 History of anesthesia reaction "SLOW TO WAKE UP" PER SPOUSE History of back surgery (2016) X 2-INCLUDING FUSION > LUMBAR History of bronchoscopy (06/19/05) Thoracoscopy with Lung Biopsy History of cardiac cath 2005 NO STENTS-BEFORE LUNG TRANSPLANT SURGERY @ [facility] History of cataract surgery R/L History of colonoscopy History of esophageal dilatation History of esophagogastroduodenoscopy (EGD) (10/17/20) and EUS with FNA of Esophageal Mass had last EGD 01/2021 @ [facility] History of incision and drainage (03/29/09) Groin Abscess History of lobectomy of lung (2008) right upper for cancer History of tooth extraction Status post insertion of percutaneous endoscopic gastrostomy (PEG) tube currently takes all nutritional feedings and all meds through PEG Family History Mother , Passed age 83 of Stomach Cancer Colon cancer Father , Passed age 73 of Leukemia No problems noted. Brother , Passed age 68 of metastatic colon cancer Colon cancer Stomach cancer Brother , Passed age 68 of smoke inhalation complications (lung problems) No problems noted. Brother Prostate cancer, Onset Age: 90 metastatic to bone - currently being worked up Sister , Passed age 42 of Lung Cancer No problems noted. Sister , Passed age 94 of "bowel cancer" Breast cancer, Onset Age: 60 Mastectomy Sister , Passed age 73 of Lung Cancer No problems noted. Sister , Passed age 68 of Pulmonary Fibrosis No problems noted. Sister , Passed age 17 of seizure complications (drowned) No problems noted. Sister , Passed age 94 of Alzheimer's Complications No problems noted. Son No problems noted. Son Melanoma Excised and doing well currently Daughter Dermatomyositis Currently being worked up for at 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 How many Children do You have: 3 Feels Safe at Home: No Is there a partner from a previous relationship who is making you feel unsafe now?: No Childhood Exposure to Second-Hand Smoke: No Diet Comment: Tube Feedings Glucerna QID caffeine: No Dental Care, Regularly: Yes Physical Activity Frequency: 1-2 Times per Week Seatbelt Use: always Sunscreen Use: Yes Assistive Devices: Glasses, Hearing Aid - Left, Hearing Aid - Right and Walker Allergies Allergies Allergy/AdvReac Type Severity Reaction Status Date / Time metronidazole Allergy Severe NEUROPATHY Verified 06/20/21 20:27 LEG lisinopril Allergy Intermediate NAUSEA, Verified 06/20/21 20:27 STOMACH UPSET, DEATHLY SICK Home Meds Home Medications Medication Instructions Recorded Confirmed hydralazine 50 mg tablet 50 mg FEEDING TUBE QID 07/27/18 06/20/21 ipratropium bromide 42 mcg (0.06 2 spray INTRANASAL TID PRN ml 03/16/19 06/20/21 %) nasal spray losartan 25 mg tablet 25 mg FEEDING TUBE HS tab 05/17/20 06/20/21 pravastatin 40 mg tablet 20 mg FEEDING TUBE HS tab 11/22/20 06/20/21 fluorouracil 5 % topical cream 1 applic TOPICAL BID PRN 12/07/20 06/20/21 (Efudex) nutrition tx glu 237 ea FEEDING TUBE QID ml 12/07/20 06/20/21 intol,lac-free,soy-fiber 0.08 gram-1.5 kcal/mL liquid (Glucerna 1.5 Javier) ondansetron HCl 4 mg/5 mL oral 4 mg FEEDING TUBE Q8H PRN 01/15/21 06/20/21 solution prednisone 5 mg/5 mL oral solution 5 mg FEEDING TUBE DAILY@1230 01/15/21 06/20/21 amlodipine 2.5 mg tablet 2.5 mg FEEDING TUBE BID tab 03/08/21 06/20/21 finasteride 5 mg tablet 5 mg FEEDING TUBE DAILY@1230 06/19/21 06/20/21 lansoprazole 15 mg delayed 15 mg FEEDING TUBE QAM 06/19/21 06/20/21 release,disintegrating tablet (Prevacid SoluTab) tamsulosin 0.4 mg capsule 0.4 mg PO DAILY@1730,2200 06/19/21 06/20/21 azithromycin 200 mg/5 mL oral 250 mg FEEDING TUBE TUTHSA 06/20/21 06/20/21 suspension diclofenac sodium 1 % topical gel 2 g TOPICAL BID PRN 06/20/21 06/20/21 (Voltaren Arthritis Pain) repaglinide 2 mg tablet 4 mg PO TID PRN 06/20/21 06/20/21 sulfamethoxazole 200 10 ml FEEDING TUBE MOFR 06/20/21 06/20/21 mg-trimethoprim 40 mg/5 mL oral suspension tacrolimus 0.5 mg capsule, 0.5 mg FEEDING TUBE BID 06/20/21 06/20/21 immediate-release tacrolimus 1 mg capsule, 1 mg FEEDING TUBE BID 06/20/21 06/20/21 immediate-release Previous Rx's Medication Instructions Recorded acetaminophen 120 mg-codeine 12 5 - 10 ml PO Q6H PRN #200 ml 01/18/21 mg/5 mL (5 mL) oral solution glycopyrrolate 2 mg tablet 4 mg FEEDING TUBE BID #360 tab 02/01/21 lorazepam 0.5 mg tablet 0.5 mg BUCCAL BID PRN #60 tab 06/05/21 Results & Data (ED) Vital Signs Vital Signs - 24 hr 06/20/21 18:57 Temperature 36.3 C L Temperature Source Temporal Artery Scan Pulse Rate 94 H Respiratory Rate 14 Respiratory Effort / Characteristics Non-Labored Spontaneous Respiratory Depth Normal Blood Pressure 144/84 H Blood Pressure Mean 104 Pulse Oximetry 94 Oxygen Delivery Method Room Air Sepsis Recent Fever Within 48 Hours Yes Sepsis New/Unexplained Change in Mental Status No Sepsis Action Taken by Nursing No Action Required Home Medications Current Medication List: was personally reviewed by me Laboratory Data Attestation: I reviewed the patient's lab results. Result diagrams: 06/20/21 19:14 06/20/21 19:14 Lab Results 06/20/21 06/20/21 06/20/21 Range/Units 19:14 19:14 19:14 WBC 7.14 (4.8-10.8) K/uL RBC 3.82 L (4.7-6.1) M/uL Hgb 10.8 L (14.0-18.0) g/dL Hct 32.1 L (42-52) % MCV 84.0 (80-100) fL MCH 28.3 (25-34) pg MCHC 33.6 (32-36) g/dL RDW Std Deviation 49.6 H (36.4-46.3) fL RDW Coeff of Flavia 16.3 H (11.5-14.5) % Plt Count 183 (130-400) K/uL MPV 9.1 (7.4-10.4) fL Immature Gran % (Auto) 0.1 % Neut % (Auto) 85.3 % Lymph % (Auto) 8.7 % [place] % (Auto) 5.5 % Eos % (Auto) 0.3 % Baso % (Auto) 0.1 % Neut # (Auto) 6.09 (1.4-6.5) K/uL Lymph # (Auto) 0.62 L (1.2-3.4) K/uL [place] # (Auto) 0.39 (0.11-0.59) K/uL Eos # (Auto) 0.02 (0-0.5) K/uL Baso # (Auto) 0.01 (0-0.2) K/uL Immature Gran # (Auto) 0.01 (0.00-0.02) K/uL Sodium 125 L (136-145) mmol/L Potassium 5.6 H (3.5-5.1) mmol/L Chloride 92 L (98-107) mmol/L Carbon Dioxide 26 (21-32) mmol/L Anion Gap 7 (3-11) BUN 57 H (6-23) mg/dl Creatinine 1.12 (0.6-1.4) mg/dl Est Cr Clr Drug Dosing Not Reportable Est GFR ( Amer) 68.6 ml/min Est GFR (Non-Af Amer) 59.2 ml/min BUN/Creatinine Ratio 50.9 H (10-20) Glucose 320 H* (70-99(Fasting)) mg/dl Lactate (0.4-2.0) mmol/L Calcium 8.9 (8.5-10.1) mg/dl Phosphorus 3.5 (2.5-4.9) mg/dl Magnesium 1.5 L (1.7-2.4) mg/dl Total Bilirubin 0.4 (0.2-1.0) mg/dl AST 15 (13-39) U/L ALT 16 (7-52) U/L Alkaline Phosphatase 90 (34-104) U/L Total Protein 6.4 (6.0-8.3) gm/dl Albumin 3.5 (3.4-5.0) gm/dl Globulin 2.9 (2.5-4.0) gm/dl Albumin/Globulin Ratio 1.2 (0.9-2) 06/20/21 Range/Units 20:18 WBC (4.8-10.8) K/uL RBC (4.7-6.1) M/uL Hgb (14.0-18.0) g/dL Hct (42-52) % MCV (80-100) fL MCH (25-34) pg MCHC (32-36) g/dL RDW Std Deviation (36.4-46.3) fL RDW Coeff of Flavia (11.5-14.5) % Plt Count (130-400) K/uL MPV (7.4-10.4) fL Immature Gran % (Auto) % Neut % (Auto) % Lymph % (Auto) % [place] % (Auto) % Eos % (Auto) % Baso % (Auto) % Neut # (Auto) (1.4-6.5) K/uL Lymph # (Auto) (1.2-3.4) K/uL [place] # (Auto) (0.11-0.59) K/uL Eos # (Auto) (0-0.5) K/uL Baso # (Auto) (0-0.2) K/uL Immature Gran # (Auto) (0.00-0.02) K/uL Sodium (136-145) mmol/L Potassium (3.5-5.1) mmol/L Chloride (98-107) mmol/L Carbon Dioxide (21-32) mmol/L Anion Gap (3-11) BUN (6-23) mg/dl Creatinine (0.6-1.4) mg/dl Est Cr Clr Drug Dosing Est GFR ( Amer) ml/min Est GFR (Non-Af Amer) ml/min BUN/Creatinine Ratio (10-20) Glucose (70-99(Fasting)) mg/dl Lactate 1.7 (0.4-2.0) mmol/L Calcium (8.5-10.1) mg/dl Phosphorus (2.5-4.9) mg/dl Magnesium (1.7-2.4) mg/dl Total Bilirubin (0.2-1.0) mg/dl AST (13-39) U/L ALT (7-52) U/L Alkaline Phosphatase (34-104) U/L Total Protein (6.0-8.3) gm/dl Albumin (3.4-5.0) gm/dl Globulin (2.5-4.0) gm/dl Albumin/Globulin Ratio (0.9-2) Administered Medications Discontinued Medications Sodium Chloride (Nss 1000ml) 500 mls @ 999 mls/hr IV .Q31M ONE Stop: 06/20/21 20:13 Last Infusion: 06/20/21 21:38 Dose: 0 mls/hr Documented by: [id number] Admin: 06/20/21 20:54 Dose: 999 mls/hr Documented by: [id number] Piperacillin Sod/Tazobactam Sod (Zosyn) 4.5 gm in 120 mls @ 240 mls/hr IV NOW ONE Stop: 06/20/21 20:12 Last Infusion: 06/20/21 21:38 Dose: 0 mls/hr Documented by: [id number] Admin: 06/20/21 20:49 Dose: 240 mls/hr Documented by: [id number] Discharge Plan Visit Data Chief Complaint: Abnormal Labs/Diagnostic Testing Stated Complaint: INFECTION FOUND IN URINE ED Provider: Johnnie Donaldson Discharge Problem: Complicated urinary tract infection, Lung transplant recipient, Immunosuppression, Aortic stenosis, Esophageal cancer, Acute hyperglycemia, Acute hyperkalemia, Hypomagnesemia Patient Disposition: Admitted As Inpatient Discharge Instructions Interventions: ED Discharge Assessment Last Done: 06/20/21 22:35
[2021-06-20] MEDS ORDERED: PIPERACILLIN/TAZOBACTAM 4.5 GM/120 ML BAG IV ONE (19:43)
[2021-06-20] MEDS ORDERED: ACETAMINOPHEN 500 MG TAB PO STA (19:43)
[2021-06-20] MEDS ORDERED: PIPERACILL/TAZOBAC CONSULT ACTIVE PRN (19:43)
[2021-06-20] MEDS ORDERED: SODIUM CHLORIDE 0.9% 1000ML 500 ML IV ONE (19:43)
[2021-06-20] MEDS ORDERED: DAPTOmycin 400 MG in SYRINGE 0 ML IV ONE (19:45)
[2021-06-20 19:51] LABS: Alanine Aminotransferase 16 U/L (7-52); Albumin Globulin Ratio 1.2 (0.9-2); Albumin Level 3.5 gm/dl (3.4-5.0); Alkaline Phosphatase 90 U/L (34-104); Anion Gap 7 (3-11); Aspartate Aminotransferase 15 U/L (13-39); BUN Creatinine Ratio 50.9 (10-20); Bilirubin,Total 0.4 mg/dl (0.2-1.0); Blood Urea Nitrogen 57 mg/dl (6-23); Calcium 8.9 mg/dl (8.5-10.1); Carbon Dioxide 26 mmol/L (21-32); Chloride 92 mmol/L (98-107); Est GFR (African American) 68.6 ml/min; Est GFR (Non-African American) 59.2 ml/min; Globulin 2.9 gm/dl (2.5-4.0); Glucose 320 mg/dl (70-99(Fasting)); Potassium 5.6 mmol/L (3.5-5.1); Sodium 125 mmol/L (136-145); Total Protein 6.4 gm/dl (6.0-8.3)
[2021-06-20 19:53] LABS: Hematocrit (blood only) 32.1 % (42-52); Hemoglobin 10.8 g/dL (14.0-18.0); Mean Corpuscular Hemoglobin 28.3 pg (25-34); Mean Corpuscular Hgb Conc 33.6 g/dL (32-36); Mean Platelet Volume 9.1 fL (7.4-10.4); Platelet Count 183 K/uL (130-400); RDW Coefficient of Variation 16.3 % (11.5-14.5); RDW Standard Deviation 49.6 fL (36.4-46.3); Red Blood Count 3.82 M/uL (4.7-6.1); White Blood Count 7.14 K/uL (4.8-10.8)
[2021-06-20 20:29] LABS: Basophils # (auto) 0.01 K/uL (0-0.2); Basophils % (auto) 0.1 %; Eosinophils # (auto) 0.02 K/uL (0-0.5); Eosinophils % (auto) 0.3 %; Immature Granulocytes # (auto) 0.01 K/uL (0.00-0.02); Immature Granulocytes % (auto) 0.1 %; Lymphocytes # (auto) 0.62 K/uL (1.2-3.4); Lymphocytes % (auto) 8.7 %; Monocytes # (auto) 0.39 K/uL (0.11-0.59); Monocytes % (auto) 5.5 %; Neutrophils # (auto) 6.09 K/uL (1.4-6.5); Neutrophils % (auto) 85.3 %
--- NOTE | 2021-06-20 21:06 | History & Physical Report ---
Date of Service June 20, 2021 Assessment & Plan (1) Urinary tract infection associated with indwelling urethral catheter: Plan: Patient with chronic indwelling Boyd catheter. Urine culture from 06/19/21 as probable pseudomonas and enterococcus. 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 He has diagnosis of IPF as well as wedge resection of right lung for prior malignancy. No respiratory complaints. -Continue Tacrolimus 0.5mg po BID -Continue Prednisone -Continue Azithromycin and bactrim suppressive therapy (3) Esophageal cancer: Plan: History of esophageal adenocarcinoma s/p XRT and chemotherapy, s/p stent placement with subsequent removal. PEG tube in place. -Aspiration precautions -Medications through PEG, routine care q shift (4) DMII (diabetes mellitus, type 2): Plan: Elevated blood sugar of 320 today. Last HgbAIC on 04/09/21 = 6.3. Patient is on Rapaglinide 4mg po TID PRN -Hold Prandin -Lantus 5u BID -ISS (5) HTN (hypertension): Plan: Chronic. Stable -Continue Amlodipine -Monitor (6) Chronic kidney disease: Plan: Near baseline, Cr of 1.12 -Continue to monitor -Avoid nephrotoxic agents (7) Aortic stenosis: Plan: Stable. Echo from September 2020 with mild concentric LVH, EF of 55-59%, severe aortic valve stenosis with SHANTAL of 0.8cm2, trace AR. Normal aortic root. -Monitor (8) Hyperlipidemia: Plan: Chronic -Continue Simvastatin History of Present Illness Chief Complaint: UTI Primary Care Provider: Eber Sands MD Nicola Banks is an 86yo male with multiple medical comorbidities to include esophageal cancer s/p XRT, HTN, HLP, DM, s/p Lung transplant on Prednisone, Tacrolimus immunosuppressive therapy and Azithromycin/SMZ suppression therapy. He has a PEG tube in place as well as chronic indwelling Boyd catheter. Patient follows with Urology and was to have a TURP performed tomorrow. He had a pre-operative UA performed which was found to be positive for Probable Psudomonas species as well as probable Enterococcus. Patient has had some intermittent nausea and vomiting associated with oral intake - occasional food getting stuck in the esophagus. Also complaining of intermittent dizziness. Otherwise he denies fever, chills, back pain, chest pain, cough, SOB, diarrhea or constipation. In the ER he is afebrile, HD stable, NAD. Resting comfortably. Labs as below with hyponatremia Iw=489, Xel=553. ER Course: Zosyn 4.5gm Allergies Allergy/AdvReac Type Severity Reaction Status Date / Time metronidazole Allergy Severe NEUROPATHY Verified 06/20/21 20:27 LEG lisinopril Allergy Intermediate NAUSEA, Verified 06/20/21 20:27 STOMACH UPSET, DEATHLY SICK Home Medications Medication Instructions Recorded Confirmed Type hydralazine 50 mg tablet 50 mg FEEDING TUBE QID 07/27/18 06/20/21 History ipratropium bromide 42 mcg (0.06 2 spray INTRANASAL TID PRN ml 03/16/19 06/20/21 History %) nasal spray losartan 25 mg tablet 25 mg FEEDING TUBE HS tab 05/17/20 06/20/21 History pravastatin 40 mg tablet 20 mg FEEDING TUBE HS tab 11/22/20 06/20/21 History fluorouracil 5 % topical cream 1 applic TOPICAL BID PRN 12/07/20 06/20/21 History (Efudex) nutrition tx glu 237 ea FEEDING TUBE QID ml 12/07/20 06/20/21 History intol,lac-free,soy-fiber 0.08 gram-1.5 kcal/mL liquid (Glucerna 1.5 Javier) ondansetron HCl 4 mg/5 mL oral 4 mg FEEDING TUBE Q8H PRN 01/15/21 06/20/21 History solution prednisone 5 mg/5 mL oral solution 5 mg FEEDING TUBE DAILY@1230 01/15/21 06/20/21 History acetaminophen 120 mg-codeine 12 5 - 10 ml PO Q6H PRN #200 ml 01/18/21 06/20/21 Rx mg/5 mL (5 mL) oral solution glycopyrrolate 2 mg tablet 4 mg FEEDING TUBE BID #360 tab 02/01/21 06/20/21 Rx amlodipine 2.5 mg tablet 2.5 mg FEEDING TUBE BID tab 03/08/21 06/20/21 History lorazepam 0.5 mg tablet 0.5 mg BUCCAL BID PRN #60 tab 06/05/21 06/20/21 Rx finasteride 5 mg tablet 5 mg FEEDING TUBE DAILY@1230 06/19/21 06/20/21 History lansoprazole 15 mg delayed 15 mg FEEDING TUBE QAM 06/19/21 06/20/21 History release,disintegrating tablet (Prevacid SoluTab) tamsulosin 0.4 mg capsule 0.4 mg PO DAILY@1730,2200 06/19/21 06/20/21 History azithromycin 200 mg/5 mL oral 250 mg FEEDING TUBE TUTHSA 06/20/21 06/20/21 History suspension diclofenac sodium 1 % topical gel 2 g TOPICAL BID PRN 06/20/21 06/20/21 History (Voltaren Arthritis Pain) repaglinide 2 mg tablet 4 mg PO TID PRN 06/20/21 06/20/21 History sulfamethoxazole 200 10 ml FEEDING TUBE MOFR 06/20/21 06/20/21 History mg-trimethoprim 40 mg/5 mL oral suspension tacrolimus 0.5 mg capsule, 0.5 mg FEEDING TUBE BID 06/20/21 06/20/21 History immediate-release tacrolimus 1 mg capsule, 1 mg FEEDING TUBE BID 06/20/21 06/20/21 History immediate-release Past Med/Surg History Medical History (Updated 06/20/21 @ 21:22 by Heather Madison DO) Aortic stenosis Per 09/2020 echo, Severe aortic stenosis is presentpeak CW Doppler velocities 4 m/s, mean gradient 39 mmHg, calculated SHANTAL =0.8 cm. Cardiology aware, "Aortic stenosis is borderline severe but not yet surgical severity." per 10/16/20 cardio phone note Atrial fibrillation In the past- paroxysmal- no recurrence per cardio records. Pt not anticoagulated. Bladder stones BPH (benign prostatic hyperplasia) Chronic kidney disease Multifactorial including anti rejection medications, immunosuppression, hypertension, age. 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 LEFT 2005 [place] Pulmonary fibrosis 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 Right foot drop Related to spine surgery in 2017 Surgical History H/O lung transplant (2005) LEFT @ [facility], [place], operated by [facility] History of anesthesia reaction "SLOW TO WAKE UP" PER SPOUSE History of back surgery (2016) X 2-INCLUDING FUSION > LUMBAR History of bronchoscopy (06/19/05) Thoracoscopy with Lung Biopsy History of cardiac cath 2005 NO STENTS-BEFORE LUNG TRANSPLANT SURGERY @ [facility], [place], operated by [facility] History of cataract surgery R/L History of colonoscopy History of esophageal dilatation History of esophagogastroduodenoscopy (EGD) (10/17/20) and EUS with FNA of Esophageal Mass had last EGD 01/2021 @ [facility] History of incision and drainage (03/29/09) Groin Abscess History of lobectomy of lung (2008) right upper for cancer History of tooth extraction Status post insertion of percutaneous endoscopic gastrostomy (PEG) tube currently takes all nutritional feedings and all meds through PEG Family History Mother , Passed age 83 of Stomach Cancer Colon cancer Father , Passed age 73 of Leukemia No problems noted. Brother , Passed age 68 of metastatic colon cancer Colon cancer Stomach cancer Brother , Passed age 68 of smoke inhalation complications (lung problems) No problems noted. Brother Prostate cancer, Onset Age: 90 metastatic to bone - currently being worked up Sister , Passed age 42 of Lung Cancer No problems noted. Sister , Passed age 94 of "bowel cancer" Breast cancer, Onset Age: 60 Mastectomy Sister , Passed age 73 of Lung Cancer No problems noted. Sister , Passed age 68 of Pulmonary Fibrosis No problems noted. Sister , Passed age 17 of seizure complications (drowned) No problems noted. Sister , Passed age 94 of Alzheimer's Complications No problems noted. Son No problems noted. Son Melanoma Excised and doing well currently Daughter Dermatomyositis Currently being worked up for at [facility] Other Family history non-contributory No family history of adverse response to anesthesia Social History Smoking Status: Never smoker Second Hand Exposure: No; Hx Alcohol Use: No Hx Substance Use: No Preferred Language: Bangladeshi Communication Ability: Effective Visual Impairment: Limited Hearing Ability: Use of Hearing Aid Petrology Teacher Required: No Beliefs That Will Affect Care: None marital status: Current Living Situation: Spouse current occupational status: retired 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 How many Children do You have: 3 Feels Safe at Home: Yes Childhood Exposure to Second-Hand Smoke: No Diet Comment: Tube Feedings Glucerna QID caffeine: No Dental Care, Regularly: Yes Physical Activity Frequency: 1-2 Times per Week Seatbelt Use: always Sunscreen Use: Yes Assistive Devices: Glasses, Hearing Aid - Bilateral and Wheelchair Review of Systems Review of Systems: All systems reviewed & are unremarkable except as noted in HPI & below Physical Exam Physical Exam: General: patient resting comfortably, NAD, non-toxic in appearance, AA&O x 4 Skin: warm, dry, intact, flaking skin present HEENT: NC/AT, PERRL, EOMI, anicteric sclera, conjunctiva without injection, external ear normal to inspection and nontender, nares patent, moist mucus membranes, dentition intact, no oropharyngeal lesions, neck supple, trachea midline, no LAD, no thyromegaly, no JVD Heart: +S1/S2, regular, holosystolic ejection murmur across precordium with radiation to carotids bilaterally Lungs: equal air entry bilaterally, no rales/rhonchi/wheezes Abd: +BS, soft, NT/ND, no masses/organomegaly/ascites, PEG tube in place Ext: warm, 2+ pulses in UE/LE bilaterally, no clubbing/cyanosis, trace edema Neuro: nonfocal, patient AA&O x 4, speech intact, no facial droop, moving all extremities on command with equal strength 5/5 Results & Data Results & Data ([place]) Vital Signs (Past 12 Hours) Vital Signs Temp Pulse Resp BP Pulse Ox 06/20/21 18:57 36.3 C L 94 H 14 144/84 H 94 Laboratory Results Laboratory Results WBC 7.14 K/uL (4.8-10.8) 06/20/21 19:14 RBC 3.82 M/uL (4.7-6.1) L 06/20/21 19:14 Hgb 10.8 g/dL (14.0-18.0) L 06/20/21 19:14 Hct 32.1 % (42-52) L 06/20/21 19:14 MCV 84.0 fL (80-100) 06/20/21 19:14 MCH 28.3 pg (25-34) 06/20/21 19:14 MCHC 33.6 g/dL (32-36) 06/20/21 19:14 RDW Std Deviation 49.6 fL (36.4-46.3) H 06/20/21 19:14 RDW Coeff of Flavia 16.3 % (11.5-14.5) H 06/20/21 19:14 Plt Count 183 K/uL (130-400) 06/20/21 19:14 MPV 9.1 fL (7.4-10.4) 06/20/21 19:14 Immature Gran % (Auto) 0.1 % 06/20/21 19:14 Neut % (Auto) 85.3 % 06/20/21 19:14 Lymph % (Auto) 8.7 % 06/20/21 19:14 [place] % (Auto) 5.5 % 06/20/21 19:14 Eos % (Auto) 0.3 % 06/20/21 19:14 Baso % (Auto) 0.1 % 06/20/21 19:14 Neut # (Auto) 6.09 K/uL (1.4-6.5) 06/20/21 19:14 Lymph # (Auto) 0.62 K/uL (1.2-3.4) L 06/20/21 19:14 [place] # (Auto) 0.39 K/uL (0.11-0.59) 06/20/21 19:14 Eos # (Auto) 0.02 K/uL (0-0.5) 06/20/21 19:14 Baso # (Auto) 0.01 K/uL (0-0.2) 06/20/21 19:14 Immature Gran # (Auto) 0.01 K/uL (0.00-0.02) 06/20/21 19:14 Sodium 125 mmol/L (136-145) L 06/20/21 19:14 Potassium 5.6 mmol/L (3.5-5.1) H 06/20/21 19:14 Chloride 92 mmol/L (98-107) L 06/20/21 19:14 Carbon Dioxide 26 mmol/L (21-32) 06/20/21 19:14 Anion Gap 7 (3-11) 06/20/21 19:14 BUN 57 mg/dl (6-23) H 06/20/21 19:14 Creatinine 1.12 mg/dl (0.6-1.4) 06/20/21 19:14 Est Cr Clr Drug Dosing Not Reportable 06/20/21 19:14 Est GFR ( Amer) 68.6 ml/min 06/20/21 19:14 Est GFR (Non-Af Amer) 59.2 ml/min 06/20/21 19:14 BUN/Creatinine Ratio 50.9 (10-20) H 06/20/21 19:14 Glucose 320 mg/dl (70-99(Fasting)) H* 06/20/21 19:14 Lactate 1.7 mmol/L (0.4-2.0) 06/20/21 20:18 Calcium 8.9 mg/dl (8.5-10.1) 06/20/21 19:14 Total Bilirubin 0.4 mg/dl (0.2-1.0) 06/20/21 19:14 AST 15 U/L (13-39) 06/20/21 19:14 ALT 16 U/L (7-52) 06/20/21 19:14 Alkaline Phosphatase 90 U/L (34-104) 06/20/21 19:14 Total Protein 6.4 gm/dl (6.0-8.3) 06/20/21 19:14 Albumin 3.5 gm/dl (3.4-5.0) 06/20/21 19:14 Globulin 2.9 gm/dl (2.5-4.0) 06/20/21 19:14 Albumin/Globulin Ratio 1.2 (0.9-2) 06/20/21 19:14 Code Status & VTE Plan VTE Prophylaxis Plan VTE Prophylaxis will be ordered: Yes PG Care Time/CCT Total # of Minutes Spent Total Time Spent with Patient: Total time spent is greater than 50% in coordination of care (as documented) at patient's floor/unit and/or counseling patient: Coding Level of Care Code 35701 Initial Inpt Care Lvl 3 Diagnoses Urinary tract infection associated with indwelling urethral catheter T83.511A; N39.0 Esophageal cancer C15.4 Malignant neoplasm of esophagus location: middle third DMII (diabetes mellitus, type 2) E11.9 HTN (hypertension) I10 Hypertension type: essential hypertension Lung transplant recipient Z94.2 Chronic kidney disease N18.9 Aortic stenosis I35.0 Cardiac valve disease etiology: etiology unspecified Hyperlipidemia E78.5 (1) Esophageal cancer Malignant neoplasm of esophagus location: middle third Qualified Code(s): C15.4 - 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 (2) Aortic stenosis Cardiac valve disease etiology: etiology unspecified Qualified Code(s): I35.0 - Nonrheumatic aortic (valve) stenosis (3) HTN (hypertension) Hypertension type: essential hypertension Qualified Code(s): I10 - Essential (primary) hypertension
[2021-06-21] MEDS ORDERED: DEXTROSE 50% 50 ML SYRINGE IV PRN (00:06)
[2021-06-21] MEDS ORDERED: PIPERACILL/TAZOBAC CONSULT ACTIVE PRN (00:06)
[2021-06-21] MEDS ORDERED: GLUCOSE 10 TABS/TUBE PO PRN (00:06)
[2021-06-21] MEDS ORDERED: CARBOHYDRATES FOR HYPOGLYCEMIA PO PRN (00:06)
[2021-06-21] MEDS ORDERED: GLUCAGON FOR INJ 1 MG VIAL SQ PRN (00:06)
[2021-06-21] MEDS ORDERED: GLUCOSE 40% GEL 15 GM TUBE PO PRN (00:06)
[2021-06-21] MEDS ORDERED: [UNRECOGNIZED DRUG - OTHER] feeding tube SCH (00:06)
[2021-06-21] MEDS ORDERED: NUT TX GLUC INTOL LF SOY FIBER feeding tube SCH (00:06)
[2021-06-21 00:52] LABS: Magnesium 1.5 mg/dl (1.7-2.4); Phosphorus 3.5 mg/dl (2.5-4.9)
[2021-06-21] MEDS: INSULIN ASPART PER UNIT SC SCH ×5 (01:12→22:26)
[2021-06-21] MEDS: INSULIN GLARGINE SOLOSTAR 100 UNITS/ML 3 ML PEN SC SCH ×3 (01:13→22:26)
[2021-06-21] MEDS: TACROLIMUS 1 MG CAP PO SCH ×3 (01:18→20:00)
[2021-06-21] MEDS: hydrALAZINE TAB 50 MG TAB GT SCH ×5 (01:18→22:18)
[2021-06-21] MEDS: LOSARTAN POTASSIUM 25 MG TAB GT SCH ×2 (01:18→22:18)
[2021-06-21] MEDS: amLODIPine BESYLATE 5 MG TAB GT SCH ×3 (01:18→17:14)
[2021-06-21] MEDS: GLYCOPYRROLATE 1 MG TAB PO SCH ×3 (01:18→22:18)
[2021-06-21] MEDS: TAMSULOSIN HCL 0.4 MG CAP PO SCH ×3 (01:19→22:21)
[2021-06-21] MEDS: TACROLIMUS 0.5 MG CAP PO SCH ×3 (01:19→20:00)
[2021-06-21] MEDS: ENOXAPARIN INJ 40 MG/0.4 ML SYR SQ SCH ×2 (01:20→20:28)
[2021-06-21] MEDS: PIPERACILLIN/TAZOBACTAM 3.375 GM in DEXTROSE 5% 100 ML IV SCH ×3 (01:23→17:13)
[2021-06-21 02:28] LABS: Appearance Urine Cloudy (Clear); Bacteria Urine Automated 4+ (Negative); Bilirubin Urine Negative (Negative); Blood Urine Trace (Negative); Color Urine Yellow; Glucose Urine UA 2+ (Negative); Ketones Urine Negative (Negative); Leukocyte Esterase Urine 2+ (Negative); Nitrite Urine Positive (Negative); Specific Gravity Urine 1.015 (1.000-1.030); Urobilinogen Urine Negative (Negative); pH Urine 8.5 (4.5-7.5)
[2021-06-21 02:31] LABS: Protein Urine 1+ (Negative)
[2021-06-21 02:59] LABS: Cast Urine Automated 0 /lpf (0-5); Triple Phosphate Crystal Urine Present (None Prsent)
[2021-06-21 03:00] LABS: RBC Urine Automated 0-4 /hpf (0-4)
[2021-06-21] MEDS ORDERED: AZITHROMYCIN 250 MG/6.25 ML UDP GT SCH ×2 (09:00→22:00)
[2021-06-21] MEDS: LANSOPRAZOLE 15 MG SOLTAB GT SCH (09:17)
--- NOTE | 2021-06-21 09:30 | Medical Student Progress Note ---
Date of Service June 21, 2021 Assessment & Plan (1) Complicated urinary tract infection: (2) Chronic indwelling Agarwal catheter: (3) Hyperlipidemia: (4) Esophageal cancer: Malignant neoplasm of esophagus location: unspecified location Qualified Code(s): C15.9 - Malignant neoplasm of esophagus, unspecified (5) DMII (diabetes mellitus, type 2): (6) HTN (hypertension): Hypertension type: essential hypertension Qualified Code(s): I10 - Essential (primary) hypertension (7) Chronic kidney disease: Plan: Nicola is an 86yoM w notable PMHx of esophageal cancer s/p XRT, HTN, HLP, DM, s/p lung transplant on prednisone, Tacrolimus immunotherapy and azithromycin/SMZ suppression therapy with peg tube and chronic indwelling agarwal catheter who presented to the ED with TURP preop UA evident for pseudomonas and enterococcus infection. Dr. Henriquez recommended pt present to [facility]. Nicola was initially scheduled to have TURP today (06/21) by Dr. Henriquez. 1. Urinary tract infection associated with indwelling urethral catheter: - Patient with chronic indwelling Agarwal catheter since January. - Urine culture from 06/19/21 probable pseudomonas and enterococcus. 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 - He has diagnosis of IPF as well as wedge resection of right lung for prior malignancy. No respiratory complaints. - Continue Tacrolimus 0.5mg po BID - Continue Prednisone - Continue Azithromycin and bactrim suppressive therapy (3) Esophageal cancer: - History of esophageal adenocarcinoma s/p XRT and chemotherapy, s/p stent placement with subsequent removal. - PEG tube in place. - Aspiration precautions - Medications through PEG, routine care q shift (4) DMII (diabetes mellitus, type 2): - Elevated blood sugar of 320 - Last HgbAIC on 04/09/21 = 6.3. - Patient is on Rapaglinide 4mg po TID PRN - Hold Prandin - Lantus 5u BID - ISS (5) HTN (hypertension): - Continue home Amlodipine (6) Chronic kidney disease: - Near baseline, Cr of 1.12 - Continue to monitor - Avoid nephrotoxic agents (8) Hyperlipidemia: -Continue Simvastatin FEN/GI: easy to chew diet CODE: full code status Dispo: med/surg DVT: Lovenox Admission and Anticipated Discharge Date Admission Date: June 20, 2021 Supervising Attestation Medical Student Supervision Note: I was personally present during medical student patient encounter and independently interviewed and examined the patient and verified the wells history and physical, reviewed labs and image studies, discussed the case with Argelia Noonan and agree with the findings and care plan. Continue IV abx. await final culture results. Subjective at bedside helping with history. Says pt is at mental/cognitive baseline and that he hasn't had any typical UTI-like symptoms. No concern other than wanting the catheter out. Pt has had indwelling catheter since January from previous hospitalization and was unable to be weaned off. Was scheduled for a TURP with Dr. Henriquez today (06/21) but was found to have UTI upon preop routine UA testing. Review of Systems Review of Systems: denies CHANG, SOB, chest pain, back pain, confusion. Physical Exam Constitutional: Comfortable in bed, appears tired Cardiovascular: RRR, cap refill <2 sec, warm and well perfused limbs Gastrointestinal (Abdomen): active bowel sounds, soft, no pain with palpation Musculoskeletal: lower extremities non-edematous Neurologic: AOx3, remembers 2/3 words @ 1 minute, can state days of the week backwards DTR 1+ b/l upper and lower extremities Results & Data ([facility]) Vital Signs (Past 12 Hours) Vital Signs Temp Pulse Resp BP Pulse Ox 06/21/21 07:20 36.6 C 77 18 141/74 H 98 06/21/21 00:17 36.5 C 96 H 16 159/89 H 96 06/20/21 23:45 36.5 C 96 H 16 159/84 H 96 Laboratory Results Laboratory Results - last 24 hr 06/20/21 06/20/21 06/20/21 19:14 19:14 19:14 WBC 7.14 RBC 3.82 L Hgb 10.8 L Hct 32.1 L MCV 84.0 MCH 28.3 MCHC 33.6 RDW Std Deviation 49.6 H RDW Coeff of Flavia 16.3 H Plt Count 183 MPV 9.1 Immature Gran % (Auto) 0.1 Neut % (Auto) 85.3 Lymph % (Auto) 8.7 [place] % (Auto) 5.5 Eos % (Auto) 0.3 Baso % (Auto) 0.1 Neut # (Auto) 6.09 Lymph # (Auto) 0.62 L [place] # (Auto) 0.39 Eos # (Auto) 0.02 Baso # (Auto) 0.01 Immature Gran # (Auto) 0.01 Sodium 125 L Potassium 5.6 H Chloride 92 L Carbon Dioxide 26 Anion Gap 7 BUN 57 H Creatinine 1.12 Est Cr Clr Drug Dosing Not Reportable Est GFR ( Amer) 68.6 Est GFR (Non-Af Amer) 59.2 BUN/Creatinine Ratio 50.9 H Glucose 320 H* POC Glucose Lactate Calcium 8.9 Phosphorus 3.5 Magnesium 1.5 L Total Bilirubin 0.4 AST 15 ALT 16 Alkaline Phosphatase 90 Total Protein 6.4 Albumin 3.5 Globulin 2.9 Albumin/Globulin Ratio 1.2 Urine Color Urine Appearance Urine pH Ur Specific [place] Urine Protein Urine Glucose (UA) Urine Ketones Urine Blood Urine Nitrite Urine Bilirubin Urine Urobilinogen Ur Leukocyte Esterase Urine WBC (Auto) Urine RBC (Auto) U Hyaline Cast (Auto) U Epithel Cells (Auto) Urine Bacteria (Auto) Triple Phos Crystals Urine Yeast Tacrolimus 06/20/21 06/20/21 06/20/21 20:13 20:18 23:48 WBC RBC Hgb Hct MCV MCH MCHC RDW Std Deviation RDW Coeff of Flavia Plt Count MPV Immature Gran % (Auto) Neut % (Auto) Lymph % (Auto) [place] % (Auto) Eos % (Auto) Baso % (Auto) Neut # (Auto) Lymph # (Auto) [place] # (Auto) Eos # (Auto) Baso # (Auto) Immature Gran # (Auto) Sodium Potassium Chloride Carbon Dioxide Anion Gap BUN Creatinine Est Cr Clr Drug Dosing Est GFR ( Amer) Est GFR (Non-Af Amer) BUN/Creatinine Ratio Glucose POC Glucose 340 H* Lactate 1.7 Calcium Phosphorus Magnesium Total Bilirubin AST ALT Alkaline Phosphatase Total Protein Albumin Globulin Albumin/Globulin Ratio Urine Color Urine Appearance Urine pH Ur Specific [place] Urine Protein Urine Glucose (UA) Urine Ketones Urine Blood Urine Nitrite Urine Bilirubin Urine Urobilinogen Ur Leukocyte Esterase Urine WBC (Auto) Urine RBC (Auto) U Hyaline Cast (Auto) U Epithel Cells (Auto) Urine Bacteria (Auto) Triple Phos Crystals Urine Yeast Tacrolimus Pending 06/20/21 06/21/21 06/21/21 23:50 01:40 03:21 WBC RBC Hgb Hct MCV MCH MCHC RDW Std Deviation RDW Coeff of Flavia Plt Count MPV Immature Gran % (Auto) Neut % (Auto) Lymph % (Auto) [place] % (Auto) Eos % (Auto) Baso % (Auto) Neut # (Auto) Lymph # (Auto) [place] # (Auto) Eos # (Auto) Baso # (Auto) Immature Gran # (Auto) Sodium Potassium Chloride Carbon Dioxide Anion Gap BUN Creatinine Est Cr Clr Drug Dosing Est GFR ( Amer) Est GFR (Non-Af Amer) BUN/Creatinine Ratio Glucose POC Glucose 339 H* 171 H Lactate Calcium Phosphorus Magnesium Total Bilirubin AST ALT Alkaline Phosphatase Total Protein Albumin Globulin Albumin/Globulin Ratio Urine Color Yellow Urine Appearance Cloudy A Urine pH 8.5 H Ur Specific [place] 1.015 Urine Protein 1+ H Urine Glucose (UA) 2+ H Urine Ketones Negative Urine Blood Trace H Urine Nitrite Positive A Urine Bilirubin Negative Urine Urobilinogen Negative Ur Leukocyte Esterase 2+ H Urine WBC (Auto) 5-10 H Urine RBC (Auto) 0-4 U Hyaline Cast (Auto) 0 U Epithel Cells (Auto) 10-20 H Urine Bacteria (Auto) 4+ H Triple Phos Crystals Present A Urine Yeast Not Reportable Tacrolimus 06/21/21 07:59 WBC RBC Hgb Hct MCV MCH MCHC RDW Std Deviation RDW Coeff of Flavai Plt Count MPV Immature Gran % (Auto) Neut % (Auto) Lymph % (Auto) [place] % (Auto) Eos % (Auto) Baso % (Auto) Neut # (Auto) Lymph # (Auto) [place] # (Auto) Eos # (Auto) Baso # (Auto) Immature Gran # (Auto) Sodium Potassium Chloride Carbon Dioxide Anion Gap BUN Creatinine Est Cr Clr Drug Dosing Est GFR ( Amer) Est GFR (Non-Af Amer) BUN/Creatinine Ratio Glucose POC Glucose 95 Lactate Calcium Phosphorus Magnesium Total Bilirubin AST ALT Alkaline Phosphatase Total Protein Albumin Globulin Albumin/Globulin Ratio Urine Color Urine Appearance Urine pH Ur Specific [place] Urine Protein Urine Glucose (UA) Urine Ketones Urine Blood Urine Nitrite Urine Bilirubin Urine Urobilinogen Ur Leukocyte Esterase Urine WBC (Auto) Urine RBC (Auto) U Hyaline Cast (Auto) U Epithel Cells (Auto) Urine Bacteria (Auto) Triple Phos Crystals Urine Yeast Tacrolimus
--- NOTE | 2021-06-21 11:32 | Urology Progress Note ---
Date of Service June 21, 2021 Assessment & Plan (1) Complicated urinary tract infection: (2) Chronic indwelling Boyd catheter: (3) Bladder stones: Plan: 86yo M with multiple comorbidities including hx of lung transplant and esophageal cancer admitted with complicated UTI in the setting of chronic indwelling Boyd catheter. - Reviewed plan of care with Dr. Henriquez. - Patient was initially scheduled to have TURP and Cystolitholapaxy today (06/21) by Dr. Henriquez, however his preop UC&S showed evidence of infection. - Due to the patient's immunocompromised state and underlying urinary tract infection his surgery has been canceled and will be postponed until his urinary tract infection has been adequately treated. - Pt is afebrile, Labs reviewed - Wbc and creatinine normal. - Urine culture 06/19 preliminary Enterococcus and Pseudomonas, Repeat pending; Blood cultures pending. - Continues on IV Dapto and Zosyn, follow cultures. - Boyd catheter intact, draining clear yellow urine. - Recommend maintaining current Boyd catheter for now. - Continue supportive care, antibiotic therapy, and management per primary team. - If patient remains hospitalized, we may consider intervention next week presuming he remains stable and infection treated. - Will continue to follow and will reassess surgical intervention while inpatient. Admission and Anticipated Discharge Date Admission Date: June 20, 2021 Subjective Pt examined at bedside this AM. Patients daughter at bedside. Awake, resting in bed on arrival. No acute distress. Denies any pain or discomfort at present. No fevers. Boyd catheter intact, draining clear yellow urine. Pt denies hematuria/dysuria. Has a peg tube. No additional complaints. Review of Systems Constitutional: as per Subjective / HPI Gastrointestinal: as per Subjective / HPI Genitourinary: + as per Subjective / HPI Physical Exam Constitutional: no acute distress and not ill appearing Neck: normal visual inspection Respiratory: normal respiratory effort; no respiratory distress and no labored breathing Gastrointestinal (Abdomen): Inspection/Auscultation: abdomen normal to inspection; abdomen not distended Peg tube in place. Musculoskeletal: No calf tenderness Skin: no rashes Neurologic: moves all extremities Psychiatric: Orientation: alert, oriented x 3 and cooperative Genitourinary: Boyd catheter intact, draining clear yellow urine Results & Data ([facility]) Vital Signs (Past 12 Hours) Vital Signs Temp Pulse Resp BP Pulse Ox 06/21/21 07:20 36.6 C 77 18 141/74 H 98 06/21/21 00:17 36.5 C 96 H 16 159/89 H 96 06/20/21 23:45 36.5 C 96 H 16 159/84 H 96 PG Care Time/CCT Total # of Minutes Spent Total Time Spent with Patient: Total time spent is greater than 50% in coordination of care (as documented) at patient's floor/unit and/or counseling patient: Coding Level of Care Code 77216 Subseq Hosp Care Lvl 2 Diagnoses Complicated urinary tract infection N39.0 Bladder stones N21.0 Chronic indwelling Boyd catheter Z97.8
[2021-06-21] MEDS: predniSONE 5 MG TAB GT SCH (12:38)
[2021-06-21] MEDS: FINASTERIDE 5 MG TAB PEG SCH (12:38)
[2021-06-21] MEDS: LORazepam 0.5 MG TAB SL PRN ×2 (12:38→22:21)
[2021-06-21 19:23] LABS: Hematocrit (blood only) 30.1 % (42-52); Mean Corpuscular Hemoglobin 27.7 pg (25-34); Mean Corpuscular Hgb Conc 33.2 g/dL (32-36); Mean Corpuscular Volume 83.4 fL (80-100); Mean Platelet Volume 8.4 fL (7.4-10.4); Platelet Count 141 K/uL (130-400); RDW Coefficient of Variation 16.1 % (11.5-14.5); RDW Standard Deviation 49.8 fL (36.4-46.3); Red Blood Count 3.61 M/uL (4.7-6.1); White Blood Count 6.38 K/uL (4.8-10.8)
[2021-06-21 19:44] LABS: BUN Creatinine Ratio 42.9 (10-20); Calcium 8.5 mg/dl (8.5-10.1); Creatinine Clr Calc Pharmacy 45.6 ml/min; Est GFR (African American) 74.1 ml/min; Potassium 4.9 mmol/L (3.5-5.1)
[2021-06-21 20:00] LABS: Basophils # (auto) 0.01 K/uL (0-0.2); Basophils % (auto) 0.2 %; Eosinophils # (auto) 0.06 K/uL (0-0.5); Eosinophils % (auto) 0.9 %; Immature Granulocytes # (auto) 0.02 K/uL (0.00-0.02); Immature Granulocytes % (auto) 0.3 %; Lymphocytes # (auto) 0.47 K/uL (1.2-3.4); Lymphocytes % (auto) 7.4 %; Monocytes # (auto) 0.39 K/uL (0.11-0.59); Monocytes % (auto) 6.1 %; Neutrophils # (auto) 5.43 K/uL (1.4-6.5); Neutrophils % (auto) 85.1 %; RBC Morphology Unremarkable
[2021-06-21] MEDS ORDERED: DAPTOmycin 400 MG in SYRINGE 0 ML IV SCH (20:00)
[2021-06-21] MEDS: MAGNESIUM SULFATE / D5W 1 GM/100 ML BAG IV SCH ×2 (20:06→20:07)
[2021-06-21] MEDS: AZITHROMYCIN SUSP 200 MG/5 ML 22.5 ML GT SCH (22:19)
[2021-06-22] MEDS: PIPERACILLIN/TAZOBACTAM 3.375 GM in DEXTROSE 5% 100 ML IV SCH ×3 (02:11→17:54)
[2021-06-22 07:35] LABS: Basophils # (auto) 0.01 K/uL (0-0.2); Basophils % (auto) 0.2 %; Eosinophils # (auto) 0.08 K/uL (0-0.5); Eosinophils % (auto) 1.4 %; Hematocrit (blood only) 30.1 % (42-52); Immature Granulocytes # (auto) 0.01 K/uL (0.00-0.02); Immature Granulocytes % (auto) 0.2 %; Lymphocytes # (auto) 0.84 K/uL (1.2-3.4); Lymphocytes % (auto) 14.9 %; Mean Corpuscular Hemoglobin 27.9 pg (25-34); Mean Corpuscular Hgb Conc 33.2 g/dL (32-36); Mean Corpuscular Volume 83.8 fL (80-100); Mean Platelet Volume 8.9 fL (7.4-10.4); Monocytes # (auto) 0.49 K/uL (0.11-0.59); Monocytes % (auto) 8.7 %; Neutrophils # (auto) 4.19 K/uL (1.4-6.5); Neutrophils % (auto) 74.6 %; Platelet Count 154 K/uL (130-400); RDW Coefficient of Variation 16.2 % (11.5-14.5); RDW Standard Deviation 49.9 fL (36.4-46.3); Red Blood Count 3.59 M/uL (4.7-6.1); White Blood Count 5.62 K/uL (4.8-10.8)
[2021-06-22] MEDS: TACROLIMUS 0.5 MG CAP PO SCH ×2 (08:17→20:12)
[2021-06-22] MEDS: TACROLIMUS 1 MG CAP PO SCH ×2 (08:17→20:12)
[2021-06-22] MEDS: INSULIN ASPART PER UNIT SC SCH ×4 (08:39→22:08)
[2021-06-22] MEDS: INSULIN GLARGINE SOLOSTAR 100 UNITS/ML 3 ML PEN SC SCH ×2 (08:40→22:01)
[2021-06-22] MEDS ORDERED: SULFAMETHOXAZOLE/TRIMETHOPRIM 200MG/40MG/5ML SUSP GT SCH (09:00)
[2021-06-22] MEDS: hydrALAZINE TAB 50 MG TAB GT SCH ×4 (09:10→21:59)
[2021-06-22] MEDS: GLYCOPYRROLATE 1 MG TAB PO SCH ×2 (09:10→22:00)
[2021-06-22] MEDS: ADVANCED PROBIOTIC 1250 MG CAPSULE PO SCH (09:10)
[2021-06-22] MEDS: LANSOPRAZOLE 15 MG SOLTAB GT SCH (09:10)
--- NOTE | 2021-06-22 09:15 | Urology Progress Note ---
Date of Service June 22, 2021 Assessment & Plan (1) Complicated urinary tract infection: (2) Chronic indwelling Boyd catheter: (3) Bladder stones: Plan: 86yo M with multiple comorbidities including hx of lung transplant and esophageal cancer admitted with complicated UTI in the setting of chronic indwelling Boyd catheter. - Patient was initially scheduled to have TURP and Cystolitholapaxy on 06/[address] Henriquez, however his preop UC&S showed evidence of infection. - Due to the patient's immunocompromised state and underlying urinary tract infection his surgery has been canceled and will be postponed until his urinary tract infection has been adequately treated. - Pt is afebrile, Labs reviewed - Wbc and creatinine normal. - Urine culture 06/19 final with Enterococcus and Pseudomonas, Repeat pending; Blood cultures preliminary no growth x 24hour. - Continues on IV Dapto and Zosyn, follow cultures. - Boyd catheter intact, draining yellow urine. - Recommend maintaining current Boyd catheter for now. - Continue supportive care, IV antibiotic therapy, and management per primary team. - Discussed plan of care with hospital team. - Will tentatively plan to proceed to the OR on Friday (06/25) for TURP and Cystolitholapaxy with Dr. Henriquez given patient remains stable. Will need to be NPO/hold feeds for potential procedure. - Will continue to follow Admission and Anticipated Discharge Date Admission Date: June 20, 2021 Subjective Pt examined at bedside this AM. Daughter at bedside. Awake, resting in bed on arrival. No acute distress. Denies any pain or discomfort at present. No fevers. Has c/o diarrhea last night and this morning, has requested probiotics. Boyd catheter intact, draining yellow urine. Pt denies hematuria/dysuria. Has a peg tube. No additional complaints. Review of Systems Constitutional: as per Subjective / HPI Gastrointestinal: as per Subjective / HPI Genitourinary: + as per Subjective / HPI Physical Exam Constitutional: no acute distress and not ill appearing Respiratory: normal respiratory effort; no respiratory distress and no labored breathing Gastrointestinal (Abdomen): Inspection/Auscultation: abdomen normal to inspection; abdomen not distended Peg tube in place. Musculoskeletal: No calf tenderness Skin: no rashes Neurologic: moves all extremities Psychiatric: Orientation: alert, oriented x 3 and cooperative Genitourinary: Boyd catheter intact, draining yellow urine Results & Data ([place]) Vital Signs (Past 12 Hours) Vital Signs Temp Pulse Resp BP Pulse Ox 06/22/21 08:11 36.6 C 76 18 142/83 H 95 06/21/21 22:25 36.7 C 79 18 129/78 94 PG Care Time/CCT Total # of Minutes Spent Total Time Spent with Patient: Total time spent is greater than 50% in coordination of care (as documented) at patient's floor/unit and/or counseling patient: Coding Level of Care Code 91167 Subseq Hosp Care Lvl 2 Diagnoses Complicated urinary tract infection N39.0 Chronic indwelling Boyd catheter Z97.8 Bladder stones N21.0
[2021-06-22] MEDS: amLODIPine BESYLATE 5 MG TAB GT SCH ×2 (09:31→17:47)
[2021-06-22 09:58] LABS: BUN Creatinine Ratio 41.4 (10-20); Calcium 8.4 mg/dl (8.5-10.1); Creatinine Clr Calc Pharmacy 48.3 ml/min; Est GFR (African American) 79.6 ml/min; Est GFR (Non-African American) 68.7 ml/min; Potassium 4.2 mmol/L (3.5-5.1)
--- NOTE | 2021-06-22 10:35 | Medical Student Progress Note ---
Date of Service June 22, 2021 Assessment & Plan (1) Complicated urinary tract infection: (2) Chronic indwelling Boyd catheter: (3) Hyperlipidemia: (4) Esophageal cancer: Malignant neoplasm of esophagus location: unspecified location Qualified Code(s): C15.9 - Malignant neoplasm of esophagus, unspecified (5) DMII (diabetes mellitus, type 2): (6) HTN (hypertension): Hypertension type: essential hypertension Qualified Code(s): I10 - Essential (primary) hypertension (7) Chronic kidney disease: Plan: 86yo M with multiple comorbidities including hx of lung transplant and esophageal cancer admitted with complicated UTI in the setting of chronic indwelling Boyd catheter. (1) complicated urinary tract infection - Patient was initially scheduled to have TURP and Cystolitholapaxy today (06/21) by Dr. Henriquez, however his preop UC&S showed evidence of infection. - Pt is afebrile and continues to be asymptomatic - WBC WNL - Urine culture 06/19 final with Enterococcus and Pseudomonas - Repeat pending; Blood cultures preliminary no growth x 24hour. 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 - He has diagnosis of IPF as well as wedge resection of right lung for prior malignancy. No respiratory complaints. - Continue Tacrolimus 0.5mg po BID - Continue Prednisone - Continue Azithromycin and bactrim suppressive therapy (3) Esophageal cancer: - History of esophageal adenocarcinoma s/p XRT and chemotherapy, s/p stent placement with subsequent removal. - PEG tube in place. - Aspiration precautions - Medications through PEG, routine care q shift (4) DMII (diabetes mellitus, type 2): - Elevated blood sugar of 320 - Last HgbAIC on 04/09/21 = 6.3. - Patient is on Rapaglinide 4mg po TID PRN - Hold Prandin - Lantus 5u BID - ISS (5) HTN (hypertension): - Continue home Amlodipine (6) Chronic kidney disease: - Near baseline, Cr of 1.12 - Continue to monitor - Avoid nephrotoxic agents (7) Hyperlipidemia: -Continue Simvastatin FEN/GI: NPO, feedings through peg CODE: full code status Dispo: med/surg DVT: Lovenox Admission and Anticipated Discharge Date Admission Date: June 20, 2021 Supervising Attestation Medical Student Supervision Note: I was personally present during medical student patient encounter and independently interviewed and examined the patient and verified the wells history and physical, reviewed labs and image studies, discussed the case with Argelia Noonan and agree with the findings and care plan. Urine culture results reviewed. Continue IV zosyn anticipated TURP on friday Subjective - no acute events overnight - pt seen at bedside, daughter in room - pt has been complaining of diarrhea. Has alerted his nurse and will be getting probiotics. - pt continues to deny any urinary sx. - otherwise, no concerns. Review of Systems Review of Systems: denies SOB, chest pain Physical Exam Constitutional: appears tired but no acute distress Cardiovascular: RRR, systolic murmur appreciated best at right upper sternal border Gastrointestinal (Abdomen): active bowel sounds non-tender to palpation clean and dry peg tube Musculoskeletal: non-edematous Neurologic: AOx3 Results & Data ([facility]) Vital Signs (Past 12 Hours) Vital Signs Temp Pulse Resp BP Pulse Ox 06/22/21 08:11 36.6 C 76 18 142/83 H 95 Laboratory Results Laboratory Results - last 24 hr 06/21/21 06/21/21 06/21/21 17:01 19:12 19:12 WBC 6.38 RBC 3.61 L Hgb 10.0 L Hct 30.1 L MCV 83.4 MCH 27.7 MCHC 33.2 RDW Std Deviation 49.8 H RDW Coeff of Flavia 16.1 H Plt Count 141 MPV 8.4 Immature Gran % (Auto) 0.3 Neut % (Auto) 85.1 Lymph % (Auto) 7.4 Love % (Auto) 6.1 Eos % (Auto) 0.9 Baso % (Auto) 0.2 Neut # (Auto) 5.43 Lymph # (Auto) 0.47 L Love # (Auto) 0.39 Eos # (Auto) 0.06 Baso # (Auto) 0.01 Immature Gran # (Auto) 0.02 RBC Morphology Unremarkable Sodium 127 L Potassium 4.9 Chloride 95 L Carbon Dioxide 26 Anion Gap 6 BUN 45 H Creatinine 1.05 Est Cr Clr Drug Dosing 45.6 Est GFR ( Amer) 74.1 Est GFR (Non-Af Amer) 64.0 BUN/Creatinine Ratio 42.9 H Glucose 199 H POC Glucose 134 H Calcium 8.5 06/21/21 06/22/21 06/22/21 20:33 07:00 07:00 WBC 5.62 RBC 3.59 L Hgb 10.0 L Hct 30.1 L MCV 83.8 MCH 27.9 MCHC 33.2 RDW Std Deviation 49.9 H RDW Coeff of Flavia 16.2 H Plt Count 154 MPV 8.9 Immature Gran % (Auto) 0.2 Neut % (Auto) 74.6 Lymph % (Auto) 14.9 Love % (Auto) 8.7 Eos % (Auto) 1.4 Baso % (Auto) 0.2 Neut # (Auto) 4.19 Lymph # (Auto) 0.84 L Love # (Auto) 0.49 Eos # (Auto) 0.08 Baso # (Auto) 0.01 Immature Gran # (Auto) 0.01 RBC Morphology Sodium 128 L Potassium 4.2 Chloride 96 L Carbon Dioxide 27 Anion Gap 5 BUN 41 H Creatinine 0.99 Est Cr Clr Drug Dosing 48.3 Est GFR ( Amer) 79.6 Est GFR (Non-Af Amer) 68.7 BUN/Creatinine Ratio 41.4 H Glucose 150 H POC Glucose 218 H Calcium 8.4 L 06/22/21 06/22/21 08:00 12:02 WBC RBC Hgb Hct MCV MCH MCHC RDW Std Deviation RDW Coeff of Flavia Plt Count MPV Immature Gran % (Auto) Neut % (Auto) Lymph % (Auto) Love % (Auto) Eos % (Auto) Baso % (Auto) Neut # (Auto) Lymph # (Auto) Love # (Auto) Eos # (Auto) Baso # (Auto) Immature Gran # (Auto) RBC Morphology Sodium Potassium Chloride Carbon Dioxide Anion Gap BUN Creatinine Est Cr Clr Drug Dosing Est GFR ( Amer) Est GFR (Non-Af Amer) BUN/Creatinine Ratio Glucose POC Glucose 152 H 168 H Calcium
[2021-06-22] MEDS: predniSONE 5 MG TAB GT SCH (12:09)
[2021-06-22] MEDS: FINASTERIDE 5 MG TAB PEG SCH (12:09)
[2021-06-22] MEDS: LORazepam 0.5 MG TAB SL PRN ×2 (12:12→22:04)
[2021-06-22] MEDS: TAMSULOSIN HCL 0.4 MG CAP PO SCH ×2 (17:46→21:59)
[2021-06-22] MEDS ORDERED: Nursing to Pharmacy Communication SCH ×2 (19:30→20:30)
[2021-06-22] MEDS: SULFAMETHOXAZOLE/TRIMETHOPRIM 200MG/40MG/5ML SUSP GT SCH (21:59)
[2021-06-22] MEDS: LOSARTAN POTASSIUM 25 MG TAB GT SCH (21:59)
[2021-06-22] MEDS: ENOXAPARIN INJ 40 MG/0.4 ML SYR SQ SCH (22:01)
[2021-06-22] MEDS: ONDANSETRON 4 MG/5 ML UDP GT PRN (23:18)
[2021-06-23] MEDS ORDERED: INSULIN ASPART PER UNIT SC SCH
[2021-06-23] MEDS: PIPERACILLIN/TAZOBACTAM 3.375 GM in DEXTROSE 5% 100 ML IV SCH ×3 (02:42→17:48)
[2021-06-23 06:42] LABS: Basophils # (auto) 0.01 K/uL (0-0.2); Basophils % (auto) 0.2 %; Eosinophils # (auto) 0.08 K/uL (0-0.5); Eosinophils % (auto) 1.7 %; Hematocrit (blood only) 29.6 % (42-52); Hemoglobin 9.8 g/dL (14.0-18.0); Immature Granulocytes # (auto) 0.01 K/uL (0.00-0.02); Immature Granulocytes % (auto) 0.2 %; Lymphocytes # (auto) 0.77 K/uL (1.2-3.4); Lymphocytes % (auto) 16.2 %; Mean Corpuscular Hemoglobin 27.8 pg (25-34); Mean Corpuscular Hgb Conc 33.1 g/dL (32-36); Mean Corpuscular Volume 83.9 fL (80-100); Monocytes # (auto) 0.49 K/uL (0.11-0.59); Monocytes % (auto) 10.3 %; Neutrophils # (auto) 3.38 K/uL (1.4-6.5); Neutrophils % (auto) 71.4 %; Platelet Count 157 K/uL (130-400); RDW Coefficient of Variation 16.3 % (11.5-14.5); RDW Standard Deviation 49.8 fL (36.4-46.3); Red Blood Count 3.53 M/uL (4.7-6.1); White Blood Count 4.74 K/uL (4.8-10.8)
[2021-06-23 06:47] LABS: BUN Creatinine Ratio 40.2 (10-20); Calcium 8.5 mg/dl (8.5-10.1); Magnesium 1.5 mg/dl (1.7-2.4); Potassium 4.3 mmol/L (3.5-5.1)
[2021-06-23] MEDS: TACROLIMUS 0.5 MG CAP PO SCH ×2 (07:17→20:18)
[2021-06-23] MEDS: TACROLIMUS 1 MG CAP PO SCH ×2 (07:17→20:18)
[2021-06-23] MEDS: hydrALAZINE TAB 50 MG TAB GT SCH ×4 (08:22→21:51)
[2021-06-23] MEDS: ADVANCED PROBIOTIC 1250 MG CAPSULE PO SCH ×2 (08:23→20:22)
[2021-06-23] MEDS: amLODIPine BESYLATE 5 MG TAB GT SCH ×2 (08:23→17:08)
[2021-06-23] MEDS: GLYCOPYRROLATE 1 MG TAB PO SCH ×2 (08:23→21:50)
[2021-06-23] MEDS: LANSOPRAZOLE 15 MG SOLTAB GT SCH (08:23)
[2021-06-23] MEDS: INSULIN GLARGINE SOLOSTAR 100 UNITS/ML 3 ML PEN SC SCH ×2 (08:25→22:11)
[2021-06-23] MEDS: INSULIN ASPART PER UNIT SC SCH ×4 (08:26→22:09)
[2021-06-23] MEDS: LOSARTAN POTASSIUM 25 MG TAB GT SCH (10:00)
--- NOTE | 2021-06-23 10:06 | Urology Progress Note ---
Date of Service June 23, 2021 Assessment & Plan (1) Chronic indwelling Boyd catheter: (2) Urinary tract infection associated with indwelling urethral catheter: Plan: Continue IV antibiotics with anticipated surgery on Friday Okay to continue diet/PEG feedings Ambulate Activity essentially ad maldonado. Plan for n.p.o. after midnight tomorrow night in anticipation of surgery on Friday Admission and Anticipated Discharge Date Admission Date: June 20, 2021 Subjective No issues overnight Tolerating his catheter Afebrile, vital signs stable On antibiotics in anticipation of surgery on Friday Physical Exam Constitutional: well developed and well nourished Respiratory: no respiratory distress Cardiovascular: Extremities: no pedal edema Gastrointestinal (Abdomen): Inspection/Auscultation: abdomen normal to inspection Results & Data ([facility]) Vital Signs (Past 12 Hours) Vital Signs Temp Pulse Resp BP Pulse Ox 06/23/21 08:09 36.6 C 73 18 135/77 95 06/22/21 22:18 36.6 C 80 18 132/74 97 PG Care Time/CCT Total # of Minutes Spent Total Time Spent with Patient: Total time spent is greater than 50% in coordination of care (as documented) at patient's floor/unit and/or counseling patient: Coding Level of Care Code 32967 Subseq Hosp Care Lvl 2 Diagnoses Chronic indwelling Boyd catheter Z97.8 Urinary tract infection associated with indwelling urethral catheter T83.511A; N39.0
--- NOTE | 2021-06-23 10:38 | Hospitalist Progress Note ---
Date of Service June 23, 2021 Assessment & Plan (1) Chronic indwelling Boyd catheter: Plan: 86yo M with multiple comorbidities including hx. of DM, HTN, CKD and lung transplant and esophageal cancer admitted with complicated UTI in the setting of chronic indwelling Boyd catheter. complicated urinary tract infection - Patient was initially scheduled to have TURP and Cystolitholapaxy today (06/21) by Dr. Henriquez, however his preop UC&S showed evidence of infection. - Pt is afebrile and continues to be asymptomatic - WBC WNL - Urine culture 06/19 final with Enterococcus and Pseudomonas - Repeat pending; Blood cultures preliminary no growth x 24hour. 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 - He has diagnosis of IPF as well as wedge resection of right lung for prior malignancy. No respiratory complaints. - Continue Tacrolimus 0.5mg po BID - Continue Prednisone - Continue Azithromycin and bactrim suppressive therapy - added Duo nebs QID Esophageal cancer: - History of esophageal adenocarcinoma s/p XRT and chemotherapy, s/p stent placement with subsequent removal. - PEG tube in place. - Aspiration precautions - Medications through PEG, routine care q shift DMII (diabetes mellitus, type 2): - Elevated blood sugar of 320 - Last HgbAIC on 04/09/21 = 6.3. - Patient is on Rapaglinide 4mg po TID PRN - Hold Prandin - Lantus 5u BID - ISS Hyponatremia - ordered serum, urine osm and urine sodium to further evaluate HTN (hypertension): - Continue home Amlodipine Chronic kidney disease: - at baseline, Cr of 0.92 - Continue to monitor - Avoid nephrotoxic agents Hyperlipidemia: -Continue Simvastatin FEN/GI: NPO, feedings through peg CODE: full code status Dispo: med/surg DVT: Lovenox (2) Complicated urinary tract infection: (3) Acute hyperglycemia: (4) Acute hyperkalemia: (5) Hypomagnesemia: (6) Hyperlipidemia: (7) Urinary tract infection associated with indwelling urethral catheter: (8) Encounter for pre-operative examination: (9) Esophageal cancer: (10) 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: (11) Esophageal stricture: (12) DMII (diabetes mellitus, type 2): (13) Phlegm in throat: (14) Antineoplastic chemotherapy induced pancytopenia: (15) Copious oral secretions: (16) Palliative care encounter: (17) Pain: (18) Insomnia: (19) Fatigue: (20) Neuropathy: (21) Urinary retention: (22) Bladder stones: (23) Wrist pain: (24) HTN (hypertension): (25) Lung transplant recipient: (26) Immunosuppression: (27) Dysphagia: (28) Chronic kidney disease: (29) Aortic stenosis: Admission and Anticipated Discharge Date Admission Date: June 20, 2021 Supervising Physician Co-Signing Physician Notes Resident Physician Supervision Note: I independently interviewed and examined the patient and verified the wells history and physical, reviewed labs and image studies and agree with resident Dr. Galvez findings and care plan. Subjective Nicoal Banks was doing well today. He did not have any questions or concerns this morning. Review of Systems Review of Systems: Constitutional: denies fevers, chills Cardiac: denies chest pain, palpitations GI: admits nausea last night Pulm.: admits stable chronic cough Physical Exam Constitutional: well developed and well nourished; no acute distress Eyes: PERRL, conjunctivae normal, anicteric sclerae ENMT: external ear and nose normal, oropharynx normal Neck: normal visual inspection Respiratory: - no increased work of breathing - coarse breath sounds in all lung champagne Cardiovascular: RRR, no murmur, no edema Gastrointestinal (Abdomen): normal bowel sounds, soft, nontender, no hepatosplenomegaly Musculoskeletal: no cyanosis or clubbing, extremities motor strength 5/5 Skin: no rashes, warm and dry Neurologic: no focal motor deficits Psychiatric: A+Ox3, euthymic affect Results & Data Results & Data ([facility]) Vital Signs (Past 12 Hours) Vital Signs Temp Pulse Resp BP Pulse Ox 06/23/21 08:09 36.6 C 73 18 135/77 95 Resident Activity Tracking Resident Involvement: Resident Care Provided Care Provided: Adult [facility] Medicine (1) Esophageal cancer Malignant neoplasm of esophagus location: unspecified location Qualified Code(s): C15.9 - Malignant neoplasm of esophagus, unspecified (2) Aortic stenosis Cardiac valve disease etiology: etiology unspecified Qualified Code(s): I35.0 - Nonrheumatic aortic (valve) stenosis (3) Dysphagia Dysphagia type: unspecified Qualified Code(s): R13.10 - Dysphagia, unspecified (4) HTN (hypertension) Hypertension type: essential hypertension Qualified Code(s): I10 - Essential (primary) hypertension
[2021-06-23] MEDS: predniSONE 5 MG TAB GT SCH (12:02)
[2021-06-23] MEDS: FINASTERIDE 5 MG TAB PEG SCH (12:02)
[2021-06-23] MEDS: LORazepam 0.5 MG TAB SL PRN ×2 (12:06→22:12)
[2021-06-23] MEDS: TAMSULOSIN HCL 0.4 MG CAP PO SCH ×2 (17:08→21:49)
[2021-06-23] MEDS: ENOXAPARIN INJ 40 MG/0.4 ML SYR SQ SCH (20:23)
[2021-06-23] MEDS: AZITHROMYCIN SUSP 200 MG/5 ML 22.5 ML GT SCH (21:52)
[2021-06-24] MEDS: PIPERACILLIN/TAZOBACTAM 3.375 GM in DEXTROSE 5% 100 ML IV SCH ×3 (02:47→18:04)
--- NOTE | 2021-06-24 06:24 | Hospitalist Progress Note ---
Date of Service June 24, 2021 Assessment & Plan (1) Chronic indwelling Boyd catheter: Plan: 86yo M with multiple comorbidities including hx. of DM, HTN, CKD and lung transplant and esophageal cancer admitted with complicated UTI in the setting of chronic indwelling Boyd catheter. complicated urinary tract infection - Patient was initially scheduled to have TURP and Cystolitholapaxy (06/21) by Dr. Henriquez, however his preop UC&S showed evidence of infection. - Pt is afebrile and continues to be asymptomatic - WBC WNL - Urine culture 06/19 and 06/21 final with Enterococcus and Pseudomonas, [place] sensitive - Blood cultures no growth. - continue Zosyn - Boyd catheter intact - plan for TURP and Cystolitholapaxy Friday (06/25) loose stools - C diff. 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 - He has diagnosis of IPF as well as wedge resection of right lung for prior malignancy. No respiratory complaints. - Continue Tacrolimus 0.5mg po BID - Continue Prednisone - Continue Azithromycin and Bactrim suppressive therapy - added Duo nebs QID Esophageal cancer: - History of esophageal adenocarcinoma s/p XRT and chemotherapy, s/p stent placement with subsequent removal. - PEG tube in place. - Aspiration precautions - Medications through PEG, routine care q shift DMII (diabetes mellitus, type 2): - Elevated blood sugar of 320 - Last HgbA1C on 04/09/21 = 6.3. - Patient is on Rapaglinide 4mg po TID PRN - Hold Prandin - Lantus 5u BID - ISS Hyponatremia - Chronic SIADH. 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: (11) Esophageal stricture: (12) DMII (diabetes mellitus, type 2): (13) Pain: (14) Insomnia: (15) Fatigue: (16) Neuropathy: (17) Urinary retention: (18) Bladder stones: (19) Lung transplant recipient: (20) Immunosuppression: (21) Dysphagia: (22) Chronic kidney disease: (23) Aortic stenosis: Admission and Anticipated Discharge Date Admission Date: June 20, 2021 Supervising Physician Co-Signing Physician Notes Resident Physician Supervision Note: I independently interviewed and examined the patient and verified the wells history and physical, reviewed labs and image studies and agree with resident Dr. Galvez findings and care plan. Subjective Nicola Banks was feeling, "not too bad" when I saw him this morning. He did bring up that he had some diarrhea since starting antibiotics. He also brought up he has a chronic cough that has been unchanged while hospitalized. Review of Systems Review of Systems: Constitutional: denies fevers, admits chills Cardiac: denies chest pain, palpitations GI: denies nausea, vomiting, admits diarrhea Pulm.: admits cough and shortness of breath Physical Exam Constitutional: well developed and well nourished; no acute distress Eyes: PERRL, conjunctivae normal, anicteric sclerae ENMT: external ear and nose normal, oropharynx normal Neck: normal visual inspection Cardiovascular: RRR, no murmur, no edema Gastrointestinal (Abdomen): normal bowel sounds, soft, nontender, no hepatosplenomegaly Musculoskeletal: no cyanosis or clubbing, extremities motor strength 5/5 Skin: no rashes, warm and dry Neurologic: no focal motor deficits Psychiatric: A+Ox3, euthymic affect Results & Data Results & Data ([facility]) Vital Signs (Past 12 Hours) Vital Signs Temp Pulse Resp BP Pulse Ox 06/23/21 21:54 36.6 C 78 18 131/78 95 (1) Esophageal cancer Malignant neoplasm of esophagus location: unspecified location Qualified Code(s): C15.9 - Malignant neoplasm of esophagus, unspecified (2) Aortic stenosis Cardiac valve disease etiology: etiology unspecified Qualified Code(s): I35.0 - Nonrheumatic aortic (valve) stenosis (3) Dysphagia Dysphagia type: unspecified Qualified Code(s): R13.10 - Dysphagia, unspecified
[2021-06-24 06:30] LABS: Basophils # (auto) 0.01 K/uL (0-0.2); Basophils % (auto) 0.2 %; Eosinophils # (auto) 0.08 K/uL (0-0.5); Eosinophils % (auto) 1.6 %; Hematocrit (blood only) 29.7 % (42-52); Hemoglobin 9.9 g/dL (14.0-18.0); Immature Granulocytes # (auto) 0.01 K/uL (0.00-0.02); Immature Granulocytes % (auto) 0.2 %; Lymphocytes # (auto) 0.68 K/uL (1.2-3.4); Lymphocytes % (auto) 13.5 %; Mean Corpuscular Hgb Conc 33.3 g/dL (32-36); Mean Corpuscular Volume 83.9 fL (80-100); Mean Platelet Volume 8.7 fL (7.4-10.4); Monocytes # (auto) 0.57 K/uL (0.11-0.59); Monocytes % (auto) 11.3 %; Neutrophils % (auto) 73.2 %; Platelet Count 148 K/uL (130-400); RDW Coefficient of Variation 16.1 % (11.5-14.5); RDW Standard Deviation 49.8 fL (36.4-46.3); Red Blood Count 3.54 M/uL (4.7-6.1); White Blood Count 5.05 K/uL (4.8-10.8)
[2021-06-24 06:57] LABS: BUN Creatinine Ratio 34.3 (10-20); Calcium 8.5 mg/dl (8.5-10.1); Creatinine Clr Calc Pharmacy 44.3 ml/min; Est GFR (African American) 71.6 ml/min; Est GFR (Non-African American) 61.8 ml/min; Potassium 4.3 mmol/L (3.5-5.1)
[2021-06-24] MEDS: TACROLIMUS 1 MG CAP PO SCH ×2 (07:28→20:33)
[2021-06-24] MEDS: TACROLIMUS 0.5 MG CAP PO SCH ×2 (07:30→20:32)
[2021-06-24] MEDS: INSULIN GLARGINE SOLOSTAR 100 UNITS/ML 3 ML PEN SC SCH ×2 (09:15→20:43)
[2021-06-24] MEDS: INSULIN ASPART PER UNIT SC SCH ×4 (09:16→20:47)
[2021-06-24] MEDS: amLODIPine BESYLATE 5 MG TAB GT SCH ×2 (09:18→22:06)
[2021-06-24] MEDS: ADVANCED PROBIOTIC 1250 MG CAPSULE PO SCH ×3 (09:20→22:07)
[2021-06-24] MEDS: hydrALAZINE TAB 50 MG TAB GT SCH ×4 (09:21→22:07)
[2021-06-24] MEDS: GLYCOPYRROLATE 1 MG TAB PO SCH ×2 (09:22→22:07)
[2021-06-24] MEDS: LANSOPRAZOLE 15 MG SOLTAB GT SCH (09:23)
--- NOTE | 2021-06-24 10:08 | Urology Progress Note ---
Date of Service June 24, 2021 Assessment & Plan (1) Complicated urinary tract infection: (2) Chronic indwelling Boyd catheter: Plan: Continue IV antibiotics given his immunosuppressed status and significant comorbidities Plan for n.p.o. after midnight in anticipation of a procedure tomorrow with Dr. Henriquez Admission and Anticipated Discharge Date Admission Date: June 20, 2021 Subjective Doing well overall No major complaints aside from some GI upset secondary to the antibiotics Physical Exam Constitutional: well developed and well nourished Respiratory: no respiratory distress Cardiovascular: Extremities: no pedal edema Gastrointestinal (Abdomen): Inspection/Auscultation: abdomen normal to inspection Results & Data ([facility]) Vital Signs (Past 12 Hours) Vital Signs Temp Pulse Resp BP Pulse Ox 06/24/21 07:22 36.7 C 77 16 141/78 H 95 PG Care Time/CCT Total # of Minutes Spent Total Time Spent with Patient: Total time spent is greater than 50% in coordination of care (as documented) at patient's floor/unit and/or counseling patient: Coding Level of Care Code 44942 Subseq Hosp Care Lvl 2 Diagnoses Complicated urinary tract infection N39.0 Chronic indwelling Boyd catheter Z97.8
[2021-06-24] MEDS: FINASTERIDE 5 MG TAB PEG SCH (13:19)
[2021-06-24] MEDS: LORazepam 0.5 MG TAB SL PRN ×2 (13:19→22:06)
[2021-06-24] MEDS: predniSONE 5 MG TAB GT SCH (13:19)
[2021-06-24] MEDS: TAMSULOSIN HCL 0.4 MG CAP PO SCH ×2 (17:51→22:08)
[2021-06-24] MEDS: ENOXAPARIN INJ 40 MG/0.4 ML SYR SQ SCH (20:40)
[2021-06-24] MEDS: LOSARTAN POTASSIUM 25 MG TAB GT SCH (22:08)
[2021-06-25] MEDS: PIPERACILLIN/TAZOBACTAM 3.375 GM in DEXTROSE 5% 100 ML IV SCH ×3 (02:23→17:52)
[2021-06-25] MEDS: INSULIN ASPART PER UNIT SC SCH ×4 (06:16→20:36)
[2021-06-25 06:30] LABS: Basophils # (auto) 0.01 K/uL (0-0.2); Basophils % (auto) 0.2 %; Eosinophils # (auto) 0.06 K/uL (0-0.5); Hematocrit (blood only) 29.4 % (42-52); Hemoglobin 9.8 g/dL (14.0-18.0); Immature Granulocytes # (auto) 0.02 K/uL (0.00-0.02); Immature Granulocytes % (auto) 0.3 %; Lymphocytes # (auto) 0.64 K/uL (1.2-3.4); Lymphocytes % (auto) 10.8 %; Mean Corpuscular Hemoglobin 28.1 pg (25-34); Mean Corpuscular Hgb Conc 33.3 g/dL (32-36); Mean Corpuscular Volume 84.2 fL (80-100); Monocytes # (auto) 0.68 K/uL (0.11-0.59); Monocytes % (auto) 11.5 %; Neutrophils # (auto) 4.49 K/uL (1.4-6.5); Neutrophils % (auto) 76.2 %; Platelet Count 145 K/uL (130-400); RDW Coefficient of Variation 16.4 % (11.5-14.5); RDW Standard Deviation 50.1 fL (36.4-46.3); Red Blood Count 3.49 M/uL (4.7-6.1)
[2021-06-25 06:32] LABS: BUN Creatinine Ratio 34.5 (10-20); Calcium 8.5 mg/dl (8.5-10.1); Creatinine Clr Calc Pharmacy 43.5 ml/min; Est GFR (African American) 70.1 ml/min; Est GFR (Non-African American) 60.5 ml/min; Potassium 4.1 mmol/L (3.5-5.1)
[2021-06-25] MEDS ORDERED: Nursing to Pharmacy Communication SCH ×3 (07:15→16:45)
--- NOTE | 2021-06-25 07:41 | Hospitalist Progress Note ---
Date of Service June 25, 2021 Assessment & Plan (1) Chronic indwelling Agarwal catheter: Plan: 86yo M with multiple comorbidities including hx. of DM, HTN, CKD and lung transplant and esophageal cancer admitted with complicated UTI in the setting of chronic indwelling Agarwal catheter. BPH w/ LUTS - Patient was initially scheduled to have TURP and Cystolitholapaxy (06/21) by Dr. Henriquez, however his preop UC&S showed evidence of infection. - Pt is afebrile and continues to be asymptomatic - WBC WNL - Urine culture 06/19 and 06/21 final with Enterococcus and Pseudomonas, davenport sensitive - Blood cultures no growth. - continue Zosyn. 06/25: adding IV cipro per urology - Agarwal catheter intact - s/p TURP and Cystolitholapaxy 06/25 right upper extremity swelling - venous doppler neg for DVT - poor lymph drainage vs arthritis/tendonitis loose stools - C diff. gene neg. 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 - He has diagnosis of IPF as well as wedge resection of right lung for prior malignancy. No respiratory complaints. - Continue Tacrolimus 0.5mg po BID - Continue Prednisone - Continue Azithromycin and Bactrim suppressive therapy Esophageal cancer: - History of esophageal adenocarcinoma s/p XRT and chemotherapy, s/p stent placement with subsequent removal. - PEG tube in place. - Aspiration precautions - Medications through PEG, routine care q shift DMII (diabetes mellitus, type 2): - Last HgbA1C on 04/09/21 = 6.3. - Hold home Prandin - Lantus 5u BID; noted that patient had refused AM dose. BSGs 200s, above goal. - SSI ordered Hyponatremia - Chronic SIADH 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: (11) Esophageal stricture: (12) DMII (diabetes mellitus, type 2): (13) Pain: (14) Insomnia: (15) Fatigue: (16) Neuropathy: (17) Urinary retention: (18) Bladder stones: (19) Lung transplant recipient: (20) Immunosuppression: (21) Dysphagia: (22) Chronic kidney disease: (23) Aortic stenosis: Admission and Anticipated Discharge Date Admission Date: June 20, 2021 Supervising Physician Co-Signing Physician Notes I personally examined the patient and verified all wells points of history and exam, discussed case, and agree with decision making with Dr Shawn banda and mostly sleepy post op. d/w family. does OK at home but weak and usually requires some assistance vitals ntoed nad heent nc at mmm breathing unlabored no accessory muscles good effort skin no rashes no pallor or icterus UTI/stone/BPH - now post op. conitnue current care weakness - PT/OT eval and treat. goal is home w home PT. otherwise as above Subjective Declined breathing treatment. + diarrhea x 2 days. Chronic intermittent dyspnea. 3 wks of R forearm/hand swelling, swelling milder now, but still hurting. Had neg xr as outpatient. Review of Systems Review of Systems: All systems reviewed & are unremarkable except as noted in HPI & below Physical Exam Physical Exam: General: Grossly A&O. NAD. Cooperative. HEENT: Atraumatic, normocephalic. Pulm: Faint end exp wheeze on L. Fine insp crackles on R. Breaths slightly quick/shallow. No respiratory distress. Cardiac: RRR, 3/6 systolic murmur. No LE edema. Abdominal: Nontender, nondistended, soft. : Has leg agarwal bag Msk: R hand mild swelling. Neurovasc intact. Results & Data Results & Data ([facility]) Vital Signs (Past 12 Hours) Vital Signs vitals reviewed, stable Temp Pulse Resp BP Pulse Ox 06/24/21 22:18 37.2 C 79 16 130/77 95 Laboratory Results cbc stable. Hb 9.8 stable. HypoNa 126 stable. Cr 1.10 stable. BSGS slightly high, POC up to 240. A1c 6.3 04/09/21. Resident Activity Tracking Resident Involvement: Resident Care Provided Care Provided: Adult [facility] Medicine (1) Esophageal cancer Malignant neoplasm of esophagus location: unspecified location Qualified Code(s): C15.9 - Malignant neoplasm of esophagus, unspecified (2) Aortic stenosis Cardiac valve disease etiology: etiology unspecified Qualified Code(s): I35.0 - Nonrheumatic aortic (valve) stenosis (3) Dysphagia Dysphagia type: unspecified Qualified Code(s): R13.10 - Dysphagia, unspecified
--- NOTE | 2021-06-25 08:01 | Urology Progress Note ---
Date of Service June 25, 2021 Assessment & Plan (1) Complicated urinary tract infection: (2) Chronic indwelling Boyd catheter: (3) Bladder stones: Plan: 86yo M with multiple comorbidities including hx of lung transplant and esophageal cancer admitted with complicated UTI in the setting of chronic indwelling Boyd catheter. - Plan of care reviewed with Dr. Henriquez - Pt is afebrile, Labs reviewed - Wbc and creatinine normal. - Urine culture 06/19 and repeat 06/21 both final with Enterococcus and Pseudomonas; Blood cultures preliminary no growth x 48hour. - On IV Zosyn and will also add IV Ciprofloxacin - Continue IV antibiotics given his immunosuppressed status and significant comorbidities - Maintain Boyd catheter. - Given patient remains inpatient and stable, will plan to proceed to the OR today for TURP and Cystolitholapaxy with Dr. Henriquez. OR notified. Covid test negative. Covered with scheduled IV Zosyn and Ciprofloxacin. - Risks and benefits to be reviewed with patient by Dr. Henriquez. - Patient agreeable to plan, all questions were answered. - Keep NPO. - Continue supportive care and management per primary team. - Recommend discussing right hand discomfort with primary team. - Will continue to follow. ATTENDING NOTE: Independently evaluated, assessed, examined, and interviewed. Agree with above information. Patient with extremely large prostate with obstructive issues. Calcified mass vs stone in bladder with considerable edema. Multiple failed voiding attempts. Severe comorbidities with multiple issues. Risks and benefits discussed at length for procedure. These include bleeding, infection, injury to surrounding tissues or organs, and risks associated with anesthesia. Patient states understanding and agrees to proceed. Will sign consent and proceed. Plan for Cystoscopy with possible transurethral resection of prostate and cystolithalopaxy. Admission and Anticipated Discharge Date Admission Date: June 20, 2021 Subjective Pt examined at bedside this AM. Son-in-law at bedside. Awake, resting in bed on arrival. No acute distress. No fevers. Denies abdominal, flank, and suprapubic pain at present. Having some diarrhea secondary to the antibiotics. Reports right hand discomfort with mild swelling. Boyd intact, draining clear yellow urine. Has peg tube. Has been NPO. Review of Systems Constitutional: as per Subjective / HPI Gastrointestinal: as per Subjective / HPI Genitourinary: + as per Subjective / HPI Physical Exam Constitutional: no acute distress and not ill appearing Respiratory: normal respiratory effort; no respiratory distress and no labored breathing Cardiovascular: Extremities: no calf tenderness and no pedal edema Gastrointestinal (Abdomen): Inspection/Auscultation: abdomen normal to inspection; abdomen not distended Peg tube in place. Musculoskeletal: No calf tenderness Skin: no rashes Neurologic: moves all extremities Psychiatric: Orientation: alert, oriented x 3 and cooperative Genitourinary: Boyd catheter intact, draining clear yellow urine Results & Data ([facility]) Vital Signs (Past 12 Hours) Vital Signs Temp Pulse Resp BP Pulse Ox 06/25/21 07:45 36.9 C 82 19 166/89 H 96 06/24/21 22:18 37.2 C 79 16 130/77 95 PG Care Time/CCT Total # of Minutes Spent Total Time Spent with Patient: Total time spent is greater than 50% in coordination of care (as documented) at patient's floor/unit and/or counseling patient: Coding Level of Care Code 61439 Subseq Hosp Care Lvl 2 Diagnoses Complicated urinary tract infection N39.0 Chronic indwelling Boyd catheter Z97.8 Bladder stones N21.0
[2021-06-25] MEDS: TACROLIMUS 0.5 MG CAP PO SCH ×2 (08:12→20:27)
[2021-06-25] MEDS: TACROLIMUS 1 MG CAP PO SCH ×2 (08:12→20:26)
[2021-06-25] MEDS: GLYCOPYRROLATE 1 MG TAB PO SCH ×2 (08:29→22:38)
[2021-06-25] MEDS: INSULIN GLARGINE SOLOSTAR 100 UNITS/ML 3 ML PEN SC SCH ×2 (08:30→20:37)
[2021-06-25] MEDS: ADVANCED PROBIOTIC 1250 MG CAPSULE PO SCH ×3 (08:30→22:07)
[2021-06-25] MEDS: hydrALAZINE TAB 50 MG TAB GT SCH ×4 (10:12→22:08)
[2021-06-25] MEDS: amLODIPine BESYLATE 5 MG TAB GT SCH ×2 (10:12→17:18)
[2021-06-25] MEDS: LANSOPRAZOLE 15 MG SOLTAB GT SCH (10:13)
[2021-06-25] MEDS: CIPROFLOXACIN / D5W 400 MG/200 ML BAG IV SCH ×2 (11:03→22:07)
--- NOTE | 2021-06-25 11:06 | Ultrasound Report ---
US venous doppler UE RT CLINICAL HISTORY: RUE swelling Procedure: Right upper extremity real-time compression venous ultrasound with Duplex and Color Dopple r imaging. Utilizing real-time ultrasonic imaging multiple real time high-resolution ultrasonic images of the de ep venous system were performed from the forearm through the subclavian vein including evaluation of the jugular vein. Compression real time ultrasonic imaging was performed in addition to color Dopple r imaging and duplex Doppler ultrasound with velocity spectral profile analysis. There is normal compressibility of the deep venous system from the forearm through the subclavian vei n. Normal vascular flow is currently identified. No evidence of acute thrombosis is identified. Impression: No evidence of deep venous thrombus. ACT 112: Negative or not required by law. Electronically signed by: Donovan Gutierrez M.D. 06/25/2021 11:04 AM
[2021-06-25] MEDS ORDERED: fentaNYL citrate 100 MCG/2 ML VIAL ONE (12:33)
[2021-06-25] MEDS: FINASTERIDE 5 MG TAB PEG SCH (12:35)
[2021-06-25] MEDS: predniSONE 5 MG TAB GT SCH (12:35)
[2021-06-25] MEDS ORDERED: LIDOCAINE 2% 2 ML VIAL/AMP(20MG/ML) INFIL ONE (13:55)
[2021-06-25] MEDS ORDERED: PROPOFOL IV EMULSION 10 MG/ML 20 ML VIAL IV ONE (13:55)
[2021-06-25] MEDS ORDERED: ePHEDrine sulfate 50 MG/ML SYR ONE (13:55)
[2021-06-25] MEDS ORDERED: ONDANSETRON INJ 2 MG/ML 2 ML VIAL ONE (13:55)
--- NOTE | 2021-06-25 14:15 | Operative Report ---
PG Post Operative Report Pre & Post Diagnosis Operation Date: 06/21/21 08:40 <No data on this case meets the specified criteria> Operation Date: 06/25/21 11:25 Pre-Op Diagnosis: Complicated Urinary Tract Infection, Chronic Indwelling Boyd Catheter, Bladder Stones Post-Op Diagnosis: Complicated Urinary Tract Infection, Chronic Indwelling Byod Catheter, Bladder Stones I identified the patient and participated in the time-out.: Yes Procedure Operation Date: 06/25/21 11:25 Actual Procedures p Cystoscopy with Transurethral Resection Prostate and Cystolitholapaxy and fulguration of bladder ulceration - Solitario Henriquez, DO Surgeon Solitario Henriquez, II, DO Lead Material Handler None Estimated Blood Loss 10 Findings Consistent with Post-Op Diagnosis Large Prostate with obstruction. Large varicosity throughout prostate. Bleeding ulcerated area on left lateral wall at site of large bladder stone. Approx 3 cm soft stone of bladder. Specimens Prostate adenoma. Bladder Stones Drains [address]ter Anesthesia Type General Complications none Disposition Disposition: Recovery Room Indications Patient with obstruction due to prostate enlargement. Large stone in left base of bladder. Risks and benefits discussed at length. Description of Procedure Patient was consented and brought back to the operating room. Patient was placed under anesthesia in the supine position and moved to the dorsal lithotomy position. Patient was prepped and draped in the regular sterile fashion. A time out was completed. A 30degree Cystoscope was placed into the bladder and the entire bladder was examined. The UO's were identified as well as the bladder neck, trigone, dome, and the other important landmarks. The prostatic urethra and large lobes/adenoma was assessed and the veru and bladder neck identified and area/size was assessed. The stone was better identified at this time. It was approx 3 cm in size and multiple smaller stones were also discovered. The stone was fairly soft and easily was destroyed to dust and small fragments. The fragments were irrigated and removed. All stone was removed. The base of the left bladder was found to be severely irritated and ulcerated likely from the stone. The resection scope was placed and the fine bipolar loop was selected. The ul cerated area on the left wall/base was fulgurated and all bleeding controlled. Starting at the 5 and 7 o'clock positions, a channel was created from bladder neck to the veru. The channel allowed improved flow. Starting at 1 and 11 o'clock, the lateral lobes were resected down to capsule fibers. A large amount of tissue was able to be resected. The Specimen was removed and sent for analysis. The resection bed and any bleeding areas were fulgurated/cauterized and the entire area inspected. All bleeding was controlled. The bladder was inspected a final time. The bladder was emptied and irrigated. All specimen and debris was removed. The scope was removed with the bladder partially full. A catheter was placed and balloon elevated. This was easily irrigated. The patient was cleaned, aroused from anesthesia, and transferred to the pacu in stable condition having tolerated the procedure well with no complications. I was present and participated in all aspects of the procedure. The patient will be monitored in the PACU until transferred. Plan to monitor in hospital during this admission. Will need catheter likely 2- 3 weeks. Will plan removal in office. I attest to the content of the Intraoperative Record and any orders documented therein. Any exceptions are noted below.
[2021-06-25] MEDS ORDERED: fentaNYL citrate 100 MCG/2 ML VIAL IV STA (14:55)
[2021-06-25] MEDS: fentaNYL citrate 100 MCG/2 ML VIAL IV PRN ×3 (15:05→15:16)
[2021-06-25] MEDS ORDERED: ePHEDrine sulfate 50 MG/ML AMP IV PRN ×2 (15:06→15:07)
[2021-06-25] MEDS ORDERED: ATROPINE SULFATE 0.1 MG/ML 10ML SYR IV PRN ×2 (15:06→15:07)
[2021-06-25] MEDS ORDERED: ONDANSETRON INJ 2 MG/ML 2 ML VIAL IV PRN (15:07)
[2021-06-25] MEDS ORDERED: PROMETHAZINE HCL 12.5 MG in SODIUM CHLORIDE 0.9% 50 ML IV PRN (15:07)
[2021-06-25] MEDS ORDERED: fentaNYL citrate 100 MCG/2 ML VIAL IV PRN ×2 (15:07→15:15)
--- NOTE | 2021-06-25 15:16 | Anesthesiology Progress Note ---
Date of Service June 25, 2021 Anesthesia Post Procedure Vital Signs Vital Signs: Temp Pulse Pulse Resp BP BP Pulse Ox 06/25/21 15:10 90 21 114/65 97 06/25/21 15:00 91 H 20 126/59 L 96 06/25/21 14:50 96 H 19 109/67 96 06/25/21 14:40 96 H 18 122/60 96 06/25/21 14:30 95 H 22 119/60 100 06/25/21 14:23 36.8 C 98 H 84 22 133/66 100 06/25/21 11:57 36.7 C 84 18 133/72 96 06/25/21 07:45 36.9 C 82 19 166/89 H 96 06/24/21 22:18 37.2 C 79 16 130/77 95 Pain Intensity Groin: Pain Intensity: 7 Transfer of Care Handoff Completed per policy Notes Mental Status: alert / awake / arousable and participated in evaluation Patient Amnestic to Procedure: Yes Nausea / Vomiting: adequately controlled Pain: adequately controlled Airway Patency, RR, SpO2: stable & adequate BP & HR: stable & adequate Hydration State: stable & adequate Anesthetic Complications: no major complications apparent
[2021-06-25] MEDS: ONDANSETRON 4 MG/5 ML UDP GT PRN (16:39)
[2021-06-25] MEDS: TAMSULOSIN HCL 0.4 MG CAP PO SCH ×2 (17:54→22:09)
--- NOTE | 2021-06-25 18:15 | Billing Data ---
Date of Service June 25, 2021 Coding Level of Care Code 51304 Subseq Hosp Care Lvl 3
[2021-06-25] MEDS: SULFAMETHOXAZOLE/TRIMETHOPRIM 200MG/40MG/5ML SUSP GT SCH (22:10)
[2021-06-25] MEDS: LOSARTAN POTASSIUM 25 MG TAB GT SCH (22:11)
[2021-06-25] MEDS: ENOXAPARIN INJ 40 MG/0.4 ML SYR SQ SCH (22:13)
[2021-06-25] MEDS: LORazepam 0.5 MG TAB SL PRN (22:38)
[2021-06-26] MEDS: PIPERACILLIN/TAZOBACTAM 3.375 GM in DEXTROSE 5% 100 ML IV SCH (01:52)
[2021-06-26 05:52] LABS: Hematocrit (blood only) 26.2 % (42-52); Hemoglobin 8.7 g/dL (14.0-18.0); Mean Corpuscular Hemoglobin 27.9 pg (25-34); Mean Corpuscular Hgb Conc 33.2 g/dL (32-36); Mean Platelet Volume 8.9 fL (7.4-10.4); Platelet Count 136 K/uL (130-400); RDW Coefficient of Variation 16.3 % (11.5-14.5); Red Blood Count 3.12 M/uL (4.7-6.1)
[2021-06-26 06:14] LABS: BUN Creatinine Ratio 30.6 (10-20); Calcium 8.4 mg/dl (8.5-10.1); Creatinine Clr Calc Pharmacy 39.5 ml/min; Est GFR (African American) 62.5 ml/min; Est GFR (Non-African American) 53.9 ml/min; Magnesium 1.3 mg/dl (1.7-2.4); Potassium 4.4 mmol/L (3.5-5.1)
[2021-06-26 07:39] LABS: Anisocytosis Present; Basophils # (auto) 0.01 K/uL (0-0.2); Basophils % (auto) 0.1 %; Eosinophils # (auto) 0.01 K/uL (0-0.5); Eosinophils % (auto) 0.1 %; Immature Granulocytes # (auto) 0.01 K/uL (0.00-0.02); Immature Granulocytes % (auto) 0.1 %; Lymphocytes # (auto) 0.62 K/uL (1.2-3.4); Lymphocytes % (auto) 7.8 %; Monocytes # (auto) 0.86 K/uL (0.11-0.59); Monocytes % (auto) 10.8 %; Neutrophils # (auto) 6.49 K/uL (1.4-6.5); Neutrophils % (auto) 81.1 %
[2021-06-26] MEDS: TACROLIMUS 1 MG CAP PO SCH ×2 (07:57→20:05)
[2021-06-26] MEDS: TACROLIMUS 0.5 MG CAP PO SCH ×2 (07:57→20:05)
--- NOTE | 2021-06-26 07:59 | Hospitalist Progress Note ---
Date of Service June 26, 2021 Assessment & Plan (1) Chronic indwelling Agarwal catheter: Plan: 86yo M with multiple comorbidities including hx. of DM, HTN, CKD and lung transplant and esophageal cancer admitted with complicated UTI in the setting of chronic indwelling Agarwal catheter. BPH w/ LUTS - Patient was initially scheduled to have TURP and Cystolitholapaxy (06/21) by Dr. Henriquez, however his preop UC&S showed evidence of infection. - Pt is afebrile and continues to be asymptomatic - WBC WNL - Urine culture 06/19 and 06/21 final with Enterococcus and Pseudomonas, davenport sensitive - Blood cultures no growth. - continue Zosyn. 06/25: adding IV cipro per urology - Agarwal catheter intact - s/p TURP and Cystolitholapaxy 06/25 right upper extremity swelling - venous doppler neg for DVT - poor lymph drainage vs arthritis/tendonitis Hyponatremia - Chronic SIADH - Water restriction - 124 on 06/26/21, starting on NSS 110/hr DMII (diabetes mellitus, type 2): - Last HgbA1C on 04/09/21 = 6.3. - Hold home Prandin - Lantus 5u BID increased to 7u BID for BSGs in 200s. Received 15u Aspart past 24 hrs - SSI ordered loose stools - C diff. gene neg. 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 - He has diagnosis of IPF as well as wedge resection of right lung for prior malignancy. No respiratory complaints. - Continue Tacrolimus 0.5mg po BID - Continue Prednisone - Continue Azithromycin and Bactrim suppressive therapy Esophageal cancer: - History of esophageal adenocarcinoma s/p XRT and chemotherapy, s/p stent placement with subsequent removal. - PEG tube in place. - Aspiration precautions - Medications through PEG, routine care q shift HTN (hypertension): - Continue home Amlodipine Chronic kidney disease: - at baseline, Cr of 0.92 - Continue to monitor - Avoid nephrotoxic agents Hyperlipidemia: -Continue Simvastatin FEN/GI: NPO, feedings (Glucerna) through peg. NSS 110/hr, started because of soft BPs 88/54 CODE: full code Dispo: med/surg. home? DVT: Lovenox PT/OT: SNF recommended by OT. Patient prefers home. Discussion ongoing. PT: home w/ home health. (2) Complicated urinary tract infection: (3) Acute hyperglycemia: (4) Acute hyperkalemia: (5) Hypomagnesemia: (6) Hyperlipidemia: (7) Urinary tract infection associated with indwelling urethral catheter: (8) Encounter for pre-operative examination: (9) Esophageal cancer: (10) 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: (11) Esophageal stricture: (12) DMII (diabetes mellitus, type 2): (13) Pain: (14) Insomnia: (15) Fatigue: (16) Neuropathy: (17) Urinary retention: (18) Bladder stones: (19) Lung transplant recipient: (20) Immunosuppression: (21) Dysphagia: (22) Chronic kidney disease: (23) Aortic stenosis: Admission and Anticipated Discharge Date Admission Date: June 20, 2021 Supervising Physician Co-Signing Physician Notes I personally examined the patient and verified all wells points of history and exam, discussed case, and agree with decision making with Dr Escobar feeling reasonably OK. R wrist hurts vitals noted nad heent nc at mmm breathing unlabored no accessory muscles good effort skin no rashes no pallor or icterus. R wrist tender at thumb extensor tendon (+) donnell UTI/stone/BPH - now post op. continue current care and appreciate urology input. can stop zosyn since cipro will cover both bugs well weakness - PT/OT eval and treat. goal is home w home PT. dequarvain's tendoniits - thumb spica, voltaren gel pharmacologic DVT proph contraindicated due to post turp hematuria. mechanical of dubious benefit at best, small risk of skin breakdown or falls at worst. otherwise as above Subjective Had increased swelling at R arm/hand last night. This AM had discomfort at bladder. Clots flushed out and bag changed. Currently has discomfort post PT, generalized weakness/discomfort. Declines IV tylenol. Review of Systems Review of Systems: All systems reviewed & are unremarkable except as noted in HPI & below Physical Exam Physical Exam: General: Grossly A&O. NAD. Cooperative. HEENT: Atraumatic, normocephalic. Pulm: Faint end exp wheeze on L. Fine insp crackles on R. Breaths slightly quick/shallow. No respiratory distress. Cardiac: RRR, 3/6 systolic murmur. No LE edema. Abdominal: Nontender, nondistended, soft. : Has leg agarwal bag Msk: R hand mild swelling. Neurovasc intact. Results & Data Results & Data ([facility]) Vital Signs (Past 12 Hours) Vital Signs HR 90s. BP 88/54. 97 on room air Temp Pulse Pulse Resp BP Pulse Ox 06/26/21 07:30 36.7 C 96 H 18 88/54 L 97 06/26/21 03:04 36.9 C 91 H 16 94/61 L 97 06/25/21 22:00 36.7 C 90 18 118/75 96 Laboratory Results Hb 9.8->8.7. Chronic HypoNa. upper 120s->124. Mg 1.3. Resident Activity Tracking Resident Involvement: Resident Care Provided Care Provided: Adult Hospital Medicine (1) Esophageal cancer Malignant neoplasm of esophagus location: unspecified location Qualified Code(s): C15.9 - Malignant neoplasm of esophagus, unspecified (2) Aortic stenosis Cardiac valve disease etiology: etiology unspecified Qualified Code(s): I35.0 - Nonrheumatic aortic (valve) stenosis (3) Dysphagia Dysphagia type: unspecified Qualified Code(s): R13.10 - Dysphagia, unspecified
--- NOTE | 2021-06-26 08:03 | Urology Progress Note ---
Date of Service June 26, 2021 Assessment & Plan (1) Complicated urinary tract infection: (2) Bladder stones: (3) Urinary retention: (4) Chronic indwelling Boyd catheter: Plan: - Pt POD #1 s/p Cystoscopy with Transurethral Resection Prostate and Cystolitholapaxy and fulguration of bladder ulceration. - Pt afebrile, lab work reviewed - creatinine 1.21, WBC 8.00, Hgb 8.7. - Boyd catheter intact, patent and draining clear to light pink urine with CBI on slow, long stranded clot noted in tubing. - Catheter required manual irrigation x1 by nursing early this morning. - Tubing/drainage bag changed at bedside by urology due to stranded clot within tubing. Urine remained pink after tubing exchange. - Maintain Boyd catheter. - Will continue CBI on slow for now with plan to titrate down as appropriate. - Okay to do manual irrigation prn clot retention, suprapubic pain. - Continue antibiotic therapy, likely d/c Ciprofloxacin today and continue IV Zosyn. - Okay to resume his diet from perspective. - Continue supportive care and management per primary team. - Will continue to follow closely. Admission and Anticipated Discharge Date Admission Date: June 20, 2021 Subjective Pt seen and examined at bedside this AM. Awake, alert and resting in bed. Son-in-law at bedside. Boyd catheter intact, patent and draining clear to light pink urine with CBI on slow, long stranded clot noted in tubing. Family reports catheter required manual irrigation x1 earlier this AM due to developing bladder pain and clot in tubing. Catheter tubing/drainage bag changed at bedside due to clot. Urine remained pink after tubing exchange. Currently no abdominal or suprapubic pain. Continues to have right hand discomfort, swelling improved. Venous Doppler RUE 06/25 showed no evidence of deep venous thrombus. Reports mild nausea, no vomiting. No fever or chills. Offers no additional complaints at this time. Review of Systems Constitutional: as per Subjective / HPI Gastrointestinal: as per Subjective / HPI Genitourinary: + as per Subjective / HPI Musculoskeletal: as per Subjective / HPI Physical Exam Constitutional: comfortable; no acute distress Respiratory: no respiratory distress, no labored breathing and no audible wheezes Cardiovascular: Extremities: no pedal edema Gastrointestinal (Abdomen): Inspection/Auscultation: abdomen normal to inspect ion; abdomen not distended Percussion/Palpation: abdomen soft; abdomen nontender Musculoskeletal: Head/Neck/Chest: normocephalic and head atraumatic trace edema right hand Skin: + dry skin ecchymosis right hand Neurologic: moves all extremities and awake Psychiatric: Orientation: alert and oriented x 3 Genitourinary: Boyd catheter intact, patent and draining clear to light pink urine with CBI on slow, long stranded clot noted in tubing. Catheter tubing/drainage bag changed at bedside due to clot. Urine remained pink after tubing exchange. Results & Data ([facility]) Vital Signs (Past 12 Hours) Vital Signs Temp Pulse Pulse Resp BP Pulse Ox 06/26/21 07:30 36.7 C 96 H 18 88/54 L 97 06/26/21 03:04 36.9 C 91 H 16 94/61 L 97 06/25/21 22:00 36.7 C 90 18 118/75 96 PG Care Time/CCT Total # of Minutes Spent Total Time Spent with Patient: Total time spent is greater than 50% in coordination of care (as documented) at patient's floor/unit and/or counseling patient: Coding Level of Care Code 15019 Subseq Hosp Care Lvl 2 Diagnoses Complicated urinary tract infection N39.0 Bladder stones N21.0 Urinary retention R33.9 Chronic indwelling Boyd catheter Z97.8
[2021-06-26] MEDS ORDERED: LACTATED RINGER'S 1,000 ML IV SCH (08:15)
[2021-06-26] MEDS: INSULIN ASPART PER UNIT SC SCH ×4 (08:46→21:54)
[2021-06-26] MEDS: INSULIN GLARGINE SOLOSTAR 100 UNITS/ML 3 ML PEN SC SCH ×2 (08:47→21:51)
[2021-06-26] MEDS: MAGNESIUM SULFATE / D5W 1 GM/100 ML BAG IV SCH ×3 (08:47→16:40)
[2021-06-26] MEDS: amLODIPine BESYLATE 5 MG TAB GT SCH ×2 (09:12→17:20)
[2021-06-26] MEDS: LANSOPRAZOLE 15 MG SOLTAB GT SCH (09:12)
[2021-06-26] MEDS: hydrALAZINE TAB 50 MG TAB GT SCH ×4 (09:13→21:46)
[2021-06-26] MEDS: ADVANCED PROBIOTIC 1250 MG CAPSULE PO SCH ×3 (09:13→21:43)
[2021-06-26] MEDS: GLYCOPYRROLATE 1 MG TAB PO SCH ×2 (09:13→21:43)
[2021-06-26] MEDS: SODIUM CHLORIDE 0.9% 1000ML 1,000 ML IV SCH ×2 (09:18→18:41)
[2021-06-26] MEDS: LORazepam 0.5 MG TAB SL PRN ×2 (09:20→21:51)
[2021-06-26] MEDS: ONDANSETRON 4 MG/5 ML UDP GT PRN (10:16)
[2021-06-26] MEDS: FINASTERIDE 5 MG TAB PEG SCH (12:27)
[2021-06-26] MEDS: predniSONE 5 MG TAB GT SCH (12:27)
[2021-06-26] MEDS: TAMSULOSIN HCL 0.4 MG CAP PO SCH ×2 (17:21→21:47)
--- NOTE | 2021-06-26 17:50 | Billing Data ---
Date of Service June 26, 2021 Coding Level of Care Code 75242 Subseq Hosp Care Lvl 3
[2021-06-26] MEDS: ENOXAPARIN INJ 40 MG/0.4 ML SYR SQ SCH (20:10)
[2021-06-26] MEDS: CIPROFLOXACIN / D5W 400 MG/200 ML BAG IV SCH (20:40)
[2021-06-26] MEDS: LOSARTAN POTASSIUM 25 MG TAB GT SCH (21:44)
[2021-06-26] MEDS: AZITHROMYCIN SUSP 200 MG/5 ML 22.5 ML GT SCH (21:50)
[2021-06-26] MEDS: DICLOFENAC SOD 1% GEL 100 GM TUBE EXT SCH (21:56)
[2021-06-27] MEDS: MAGNESIUM SULFATE / D5W 1 GM/100 ML BAG IV SCH (00:29)
[2021-06-27] MEDS: SODIUM CHLORIDE 0.9% 1000ML 1,000 ML IV SCH (05:29)
[2021-06-27] MEDS: TACROLIMUS 1 MG CAP PO SCH ×2 (06:00→20:47)
[2021-06-27] MEDS: TACROLIMUS 0.5 MG CAP PO SCH ×2 (06:00→20:46)
[2021-06-27 06:14] LABS: Eosinophils # (auto) 0.04 K/uL (0-0.5); Eosinophils % (auto) 0.5 %; Hematocrit (blood only) 24.3 % (42-52); Hemoglobin 8.3 g/dL (14.0-18.0); Immature Granulocytes # (auto) 0.03 K/uL (0.00-0.02); Immature Granulocytes % (auto) 0.4 %; Lymphocytes # (auto) 0.54 K/uL (1.2-3.4); Lymphocytes % (auto) 6.5 %; Mean Corpuscular Hemoglobin 28.4 pg (25-34); Mean Corpuscular Hgb Conc 34.2 g/dL (32-36); Mean Corpuscular Volume 83.2 fL (80-100); Mean Platelet Volume 9.1 fL (7.4-10.4); Monocytes # (auto) 0.67 K/uL (0.11-0.59); Monocytes % (auto) 8.1 %; Neutrophils # (auto) 6.97 K/uL (1.4-6.5); Neutrophils % (auto) 84.5 %; Platelet Count 147 K/uL (130-400); RDW Coefficient of Variation 16.2 % (11.5-14.5); RDW Standard Deviation 49.1 fL (36.4-46.3); Red Blood Count 2.92 M/uL (4.7-6.1); White Blood Count 8.25 K/uL (4.8-10.8)
[2021-06-27 06:30] LABS: BUN Creatinine Ratio 29.3 (10-20); Calcium 8.1 mg/dl (8.5-10.1); Creatinine Clr Calc Pharmacy 31.9 ml/min; Est GFR (African American) 48.2 ml/min; Est GFR (Non-African American) 41.6 ml/min; Magnesium 2.3 mg/dl (1.7-2.4); Potassium 4.3 mmol/L (3.5-5.1)
[2021-06-27] MEDS ORDERED: SODIUM CHLORIDE 1 GM TABLET PO STA (07:19)
[2021-06-27] MEDS ORDERED: FUROSEMIDE INJ 20 MG/2 ML VIAL IV ONE ×2 (07:20→19:00)
[2021-06-27] MEDS: CIPROFLOXACIN / D5W 400 MG/200 ML BAG IV SCH ×2 (07:35→20:31)
--- NOTE | 2021-06-27 08:15 | Hospitalist Progress Note ---
Date of Service June 27, 2021 Assessment & Plan (1) Chronic indwelling Agarwal catheter: Plan: 86yo M with multiple comorbidities including hx. of DM, HTN, CKD and lung transplant and esophageal cancer admitted for positive urine culture prior to TURP. He is status post TURP; admission complicated by increased O2 requirement. Respiratory distress - 06/27 increased work of breathing after getting up to use restroom. Cxr w/ mild pulmonary edema. ABG w/ slight metabolic acidosis. - Diuresing and currently using 35L HFNC. Hb 7.9. Defer transfusing at this time as initially considered if anemia contributed, but reassuring w/ resolution of tachycardia. - Continue Xopenex/ipratropium neb treatments - Continuous pulse ox. - There is component of anxiety, but use home Ativan 0.5mg SL BID PRN w/ caution. Avoid additional doses of Ativan. - Continue flutter valve and BID hypertonic saline neb treatments for mucus clearance Hyponatremia - Chronic SIADH per initial urine studies on 06/23/21. Continue water restriction - Consider CHF as contributor t - 124 on 06/26/21, started on 100mL/hr NSS. 121 on 06/27/21. Stopped fluids. Started 1gram TID of NaCl tab. BPH w/ LUTS - Patient was initially scheduled to have TURP and Cystolitholapaxy (06/21) by Dr. Henriquez, however his preop UC&S showed evidence of infection. - Pt is afebrile and continues to be asymptomatic - WBC WNL - Urine culture 06/19 and 06/21 final with Enterococcus and Pseudomonas, davenport sensitive - Blood cultures no growth. - continue Zosyn. 06/25: adding IV cipro per urology - Agarwal catheter intact - s/p TURP and Cystolitholapaxy 06/25 Right upper extremity swelling - venous doppler neg for DVT - checked XR wrist/hand: multiple areas of arthritis - continue Voltaren gel - Tylenol suspension PRN DMII (diabetes mellitus, type 2): - Last HgbA1C on 04/09/21 = 6.3. - Hold home Prandin - Lantus 5u BID increased to 7u BID for BSGs in 200s. Received 15u Aspart past 24 hrs - SSI ordered Loose stools - C diff. gene neg. 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 - He has diagnosis of IPF as well as wedge resection of right lung for prior malignancy. No respiratory complaints. - Continue Tacrolimus 0.5mg po BID - Continue Prednisone - Continue Azithromycin and Bactrim suppressive therapy Esophageal cancer: - History of esophageal adenocarcinoma s/p XRT and chemotherapy, s/p stent placement with subsequent removal. - PEG tube in place. - Aspiration precautions - Medications through PEG, routine care q shift HTN (hypertension): - Continue home Amlodipine Chronic kidney disease: - at baseline, Cr of 0.92 - Continue to monitor - Avoid nephrotoxic agents Hyperlipidemia: -Continue Simvastatin FEN/GI: NPO, feedings (Glucerna) through peg. IV fluids stopped CODE: full code Dispo: med/surg DVT: Lovenox (2) Complicated urinary tract infection: (3) Acute hyperglycemia: (4) Acute hyperkalemia: (5) Hypomagnesemia: (6) Hyperlipidemia: (7) Urinary tract infection associated with indwelling urethral catheter: (8) Encounter for pre-operative examination: (9) Esophageal cancer: (10) 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: (11) Esophageal stricture: (12) DMII (diabetes mellitus, type 2): (13) Pain: (14) Insomnia: (15) Fatigue: (16) Neuropathy: (17) Urinary retention: (18) Bladder stones: (19) Lung transplant recipient: (20) Immunosuppression: (21) Dysphagia: (22) Chronic kidney disease: (23) Aortic stenosis: Admission and Anticipated Discharge Date Admission Date: June 20, 2021 Supervising Physician Co-Signing Physician Notes I personally examined the patient and verified all wells points of history and exam, discussed case, and agree with decision making with Dr Shawn souza. on revisit several hours later resting more comfortably no sob vitals noted nad heent nc at mmm lungs coarse harsh wheeze ealrier, better air entry diffuse wet sounding rhonchi later. earlier some tachypnea w mild accessory muscles. later revisit relaxed, unlabored breathing UTI/stone/BPH - now post op. continue current care and appreciate urology input. cipro hypoxia - acute diastolic chf related to severe aortic stenosis but likely precipitated by absorption of fluids from post TURP irrigation. since breathing more stable now and bladder clotting would cause misery - d/w pt/family who agree for now we will manage CHF and try to keep bladder irrigation to minimal necessary - but not stop it -- if breathing were to worsen then would need to consider outright cessation but i doubt this will be needed. lasix, O2, supporitve care weakness - continue PT/OT eval and treat. goal is home w home PT. ania's tendoniits - thumb spica, continue voltaren gel pharmacologic DVT proph contraindicated due to post turp hematuria. mechanical of dubious benefit at best, small risk of skin breakdown or falls at worst. otherwise as above Subjective Son at bedside. Patient had intermittent SOB overnight and was briefly on 2L nasal cannula. Continues to have R hand swelling, per son, worsened after starting cipro. Continues to have diarrhea. Has wet cough. Denies other ROS. ~11AM patient had increased dyspnea after getting up to use restroom. Review of Systems Review of Systems: All systems reviewed & are unremarkable except as noted in HPI & below Physical Exam Physical Exam: General: Grossly A&O. NAD. Cooperative. HEENT: Atraumatic, normocephalic. Pulm: Transmitted upper airway sounds, raspy breathing. R lung field decreased compared to left. No respiratory distress. 11AM: + accessory muscle use. 5PM: no accessory muscle use. Cardiac: RRR, 3/6 systolic murmur. No LE edema. Abdominal: Nontender, nondistended, soft. : Has leg agarwal bag Msk: R hand mild swelling. Neurovasc intact. Results & Data Results & Data ([facility]) Vital Signs (Past 12 Hours) Vital Signs HR 90s. 96 on room air. BPs 107/64-132/78 o/n Temp Pulse Pulse Resp BP Pulse Ox 06/27/21 07:35 36.6 C 91 H 22 122/72 96 06/27/21 03:57 15 06/26/21 23:02 36.6 C 98 H 26 H 132/78 98 06/26/21 22:01 36.6 C 92 H 24 120/73 96 Laboratory Results Hb downtrending 9.8->8.7->8.3. Lovenox qhs. Na 126->124->121. Cr 1.1->1.21->1.50. BSGs low 200s. Mg 1.3->2.3. 06/21 UC final. pseudomonas insensitive to levo, sen to cipro. E faecalis pansen. Repeat Na: 121. Repeat Hb 7.9 Resident Activity Tracking Resident Involvement: Resident Care Provided Care Provided: Adult Hospital Medicine (1) Esophageal cancer Malignant neoplasm of esophagus location: unspecified location Qualified Code(s): C15.9 - Malignant neoplasm of esophagus, unspecified (2) Aortic stenosis Cardiac valve disease etiology: etiology unspecified Qualified Code(s): I35.0 - Nonrheumatic aortic (valve) stenosis (3) Dysphagia Dysphagia type: unspecified Qualified Code(s): R13.10 - Dysphagia, unspecified
[2021-06-27] MEDS: DICLOFENAC SOD 1% GEL 100 GM TUBE EXT SCH ×4 (08:19→20:49)
[2021-06-27] MEDS: ADVANCED PROBIOTIC 1250 MG CAPSULE PO SCH ×3 (08:20→20:42)
[2021-06-27] MEDS: LANSOPRAZOLE 15 MG SOLTAB GT SCH (08:20)
[2021-06-27] MEDS: hydrALAZINE TAB 50 MG TAB GT SCH ×5 (08:21→20:42)
[2021-06-27] MEDS: GLYCOPYRROLATE 1 MG TAB PO SCH (08:21)
[2021-06-27] MEDS: amLODIPine BESYLATE 5 MG TAB GT SCH ×2 (08:22→08:28)
[2021-06-27] MEDS: INSULIN GLARGINE SOLOSTAR 100 UNITS/ML 3 ML PEN SC SCH ×2 (08:35→21:20)
[2021-06-27] MEDS: INSULIN ASPART PER UNIT SC SCH ×4 (08:38→21:23)
[2021-06-27] MEDS ORDERED: SODIUM CHLORIDE 0.9% 1000ML 1,000 ML IV SCH (09:00)
[2021-06-27] MEDS ORDERED: INSULIN GLARGINE SOLOSTAR 100 UNITS/ML 3 ML PEN SC ONE (09:15)
[2021-06-27] MEDS ORDERED: ACETAMINOPHEN SUSP 160 MG/5 ML BTL PEG STA (10:53)
--- NOTE | 2021-06-27 11:09 | Urology Progress Note ---
Date of Service June 27, 2021 Assessment & Plan (1) Complicated urinary tract infection: (2) Bladder stones: (3) Urinary retention: (4) Chronic indwelling Boyd catheter: Plan: 86yo M with multiple comorbidities including hx of DM, HTN, CKD and lung transplant and esophageal cancer admitted with complicated UTI in the setting of chronic indwelling Boyd catheter. - POD #2 s/p Cystoscopy with Transurethral Resection Prostate and Cystolitholapaxy and fulguration of bladder ulceration. - Pt feeling ok this morning, no pain. Had SOB overnight and this morning, on 2L NC. - Afebrile, lab work reviewed - creatinine 1.50, WBC 8.25, Hgb 8.3. - Urine culture 06/19 and 06/21 final with Enterococcus and Pseudomonas, davenport sensitive - Blood cultures no growth. - Continue antibiotic therapy - Currently on IV Ciprofloxacin - Boyd catheter intact, patent and draining clear to light pink urine with CBI on slow. - CBI clamped at 1030, nursing aware. Will reassess later this morning. - Maintain Boyd catheter. Okay to do manual irrigation prn clot retention, s uprapubic pain. - Discussed with hospital team. - Continue supportive care and management per primary team. - Will continue to follow closely. - Pt reassessed this afternoon. - CBI restarted on slow by nursing for hematuria. - Boyd catheter intact, currently draining light pink urine with CBI on slow drip. - Maintain Boyd catheter, continue CBI on slow drip for now and continue to monitor. - Continue supportive care and acute management per primary team. - Will continue to follow closely. Admission and Anticipated Discharge Date Admission Date: June 20, 2021 Supervising Physician Co-Signing Physician Notes I have discussed Mr. Banks's case with VICENTE Nation and agree with the above documentation. Continue to gradually wean CBI. Continue ciprofloxacin for Pseudomonas and Enterococcus, should be adequate given sensitivity data. Unclear etiology of oxygen requirement, appreciate medicine management of his comorbidities. Subjective Pt seen and examined at bedside this AM. Awake, alert and resting in bed. Son-in-law at bedside. Reports feeling SOB at present, placed on 2L NC. Also reports left calf pain when lifting leg. No redness or swelling. Denies CP. Still with R hand swelling/discomfort. Boyd catheter intact, patent and draining clear to light pink urine with CBI on slow. Currently no abdominal or suprapubic pain. Continues to have diarrhea. Denies nausea or vomiting. No fever or chills. Review of Systems Constitutional: as per Subjective / HPI Respiratory: as per Subjective / HPI Cardiovascular: as per Subjective / HPI Genitourinary: + as per Subjective / HPI Physical Exam Constitutional: no acute distress Respiratory: + cough; no respiratory distress Cardiovascular: Extremities: no calf tenderness and no pedal edema Gastrointestinal (Abdomen): Inspection/Auscultation: abdomen normal to inspection; abdomen not distended Percussion/Palpation: abdomen soft; abdomen nontender Musculoskeletal: Head/Neck/Chest: normocephalic and head atraumatic trace edema right hand Skin: + dry skin ecchymosis right hand Neurologic: moves all extremities and awake Psychiatric: Orientation: alert and oriented x 3 Genitourinary: Boyd catheter intact, patent and draining clear to light pink urine with CBI on slow Results & Data ([facility]) Vital Signs (Past 12 Hours) Vital Signs Temp Pulse Pulse Resp BP Pulse Ox 06/27/21 08:25 92 H 118/70 06/27/21 07:35 36.6 C 91 H 22 122/72 96 06/27/21 03:57 15 06/26/21 23:02 36.6 C 98 H 26 H 132/78 98 PG Care Time/CCT Total # of Minutes Spent Total Time Spent with Patient: Total time spent is greater than 50% in coordination of care (as documented) at patient's floor/unit and/or counseling patient: Coding Level of Care Code 53232 Subseq Hosp Care Lvl 2 Diagnoses Complicated urinary tract infection N39.0 Bladder stones N21.0 Urinary retention R33.9 Chronic indwelling Boyd catheter Z97.8
[2021-06-27] MEDS: SODIUM CHLORIDE 1 GM TABLET PO SCH ×3 (11:11→20:47)
[2021-06-27] MEDS: SODIUM CHLOR 7% 4 ML NEB NEB SCH ×2 (11:21→20:12)
--- NOTE | 2021-06-27 11:34 | XRay Report ---
XR wrist RT min 3V routine, XR hand RT min 3V routine HISTORY: 86 years-old Male right hand/wrist swelling percutaneous spelling of the right hand and wri st COMPARISON: Right wrist radiographs 06/07/2021 TECHNIQUE: 4 views of the right wrist with 3 views of the right hand FINDINGS: WRIST: Mild to moderate multifocal osteoarthritis. Chondrocalcinosis of the TFCC. Arterial calcifications. N o definite acute fracture, dislocation or opaque foreign body. Mild circumferential soft tissue promi nence of the wrist. Ill-defined linear lucency with peripheral sclerosis is noted within the scaphoid waist. HAND: Mostly mild to moderate multifocal osteoarthritis. No acute fracture or dislocation. Diffuse soft tis lindsay prominence. No osseous erosions. IMPRESSION: 1. Soft tissue swelling without definite acute osseous abnormality. 2. Ill-defined linear lucency within the scaphoid waist is likely projectional. A subacute or chronic fracture is considered less likely. Correlate with point tenderness. ACT 112: Negative or not required by law. The above report was generated using voice recognition software. It may contain grammatical, syntax o r spelling errors. Electronically signed by: Parth Mooney M.D. 06/27/2021 11:33 AM
[2021-06-27 11:38] LABS: BUN Creatinine Ratio 30.5 (10-20); Calcium 8.1 mg/dl (8.5-10.1); Creatinine Clr Calc Pharmacy 31.7 ml/min; Est GFR (African American) 47.8 ml/min; Est GFR (Non-African American) 41.2 ml/min; Potassium 4.4 mmol/L (3.5-5.1)
[2021-06-27] MEDS: LORazepam 0.5 MG TAB SL PRN (12:04)
[2021-06-27] MEDS ORDERED: LEVALBUTEROL HCL 0.63 MG/3 ML NEB NEB STA (12:14)
[2021-06-27] MEDS ORDERED: IPRATROPIUM BROMIDE NEB SOLN 0.02% 2.5 ML VIAL INH STA (12:14)
[2021-06-27] MEDS ORDERED: XOPENEX/ATROVENT 0.63mg/0.5MG NEB COMBO NEB STA (12:14)
[2021-06-27] MEDS: predniSONE 5 MG TAB GT SCH (13:05)
[2021-06-27] MEDS: FINASTERIDE 5 MG TAB PEG SCH (13:05)
--- NOTE | 2021-06-27 13:09 | XRay Report ---
XR chest 1V portable CLINICAL HISTORY: increased wob TECHNIQUE: Single frontal radiograph of the chest was obtained. Comparison: Comparison is made to chest 2 views 05/14/2021 FINDINGS: No lines and tubes are seen. The cardiomediastinal silhouette is obscured. Opacification of the right hemidiaphragm is seen with rightward mediastinal shift. There is prominence of the pulmonary vascula ture. There is likely a small right pleural effusion. IMPRESSION: 1. Mild pulmonary edema. 2. Stable appearance of the right hemithorax with chronic volume loss of the right hemithorax and ne ar opacification of the right lung. ACT 112: Negative or not required by law. Electronically signed by: Harish Prescott M.D. 06/27/2021 1:07 PM
[2021-06-27] MEDS ORDERED: ONDANSETRON INJ 2 MG/ML 2 ML VIAL IV PRN (13:17)
[2021-06-27] MEDS ORDERED: FUROSEMIDE 40 MG/4 ML VIAL IV STA (13:20)
[2021-06-27 14:14] LABS: Base Excess ABG -2.1 mEq/L (-9-1.8); HCO3 ABG 23 mmol/L (19-24); PCO2 ABG 39 mmHg (35-46); PO2 ABG 78 mmHg (80-95); pH ABG 7.38 (7.35-7.45)
[2021-06-27 14:15] LABS: Allen Test Pos (Pos)
[2021-06-27 14:31] LABS: Calcium 8.3 mg/dl (8.5-10.1); Creatinine Clr Calc Pharmacy 30.9 ml/min; Est GFR (African American) 46.3 ml/min; Est GFR (Non-African American) 39.9 ml/min; Potassium 4.5 mmol/L (3.5-5.1)
--- NOTE | 2021-06-27 15:33 | Electrocardiogram Report ---
Test Reason : Blood Pressure : / mmHG Vent. Rate : 109 BPM Atrial Rate : 109 BPM P-R Int : 194 ms QRS Dur : 090 ms QT Int : 330 ms P-R-T Axes : 026 070 030 degrees QTc Int : 444 ms Sinus tachycardia Otherwise normal ECG When compared with ECG of 15-JAN-2021 11:50, Nonspecific T wave abnormality no longer evident in Lateral leads Confirmed by David Meadows ([id number]) on 06/27/2021 3:32:53 PM Referred By: Solitario Henriquez Confirmed By:David Meadows
[2021-06-27 16:45] LABS: Hematocrit (blood only) 23.3 % (42-52); Hemoglobin 7.9 g/dL (14.0-18.0); Mean Corpuscular Hemoglobin 28.1 pg (25-34); Mean Corpuscular Hgb Conc 33.9 g/dL (32-36); Mean Corpuscular Volume 82.9 fL (80-100); Mean Platelet Volume 8.7 fL (7.4-10.4); Platelet Count 129 K/uL (130-400); RDW Coefficient of Variation 15.9 % (11.5-14.5); RDW Standard Deviation 48.3 fL (36.4-46.3); Red Blood Count 2.81 M/uL (4.7-6.1); White Blood Count 10.26 K/uL (4.8-10.8)
[2021-06-27 17:08] LABS: BUN Creatinine Ratio 30.4 (10-20); Creatinine Clr Calc Pharmacy 29.7 ml/min; Est GFR (African American) 44.2 ml/min; Est GFR (Non-African American) 38.2 ml/min; Potassium 4.9 mmol/L (3.5-5.1)
[2021-06-27] MEDS: TAMSULOSIN HCL 0.4 MG CAP PO SCH ×2 (17:40→20:50)
--- NOTE | 2021-06-27 19:10 | Billing Data ---
Date of Service June 27, 2021 Coding Level of Care Code 82180 Subseq Hosp Care Lvl 3
[2021-06-27] MEDS: IPRATROPIUM BROMIDE NEB SOLN 0.02% 2.5 ML VIAL INH SCH (19:57)
[2021-06-27] MEDS: LEVALBUTEROL HCL 0.63 MG/3 ML NEB NEB SCH (19:57)
[2021-06-27] MEDS ORDERED: XOPENEX/ATROVENT 0.63mg/0.5MG NEB COMBO NEB SCH (20:00)
[2021-06-27] MEDS: guaiFENesin 600 MG TABCR PO SCH (20:46)
[2021-06-27] MEDS: LOSARTAN POTASSIUM 25 MG TAB GT SCH (20:50)
[2021-06-27 23:56] LABS: Hematocrit (blood only) 22.9 % (42-52); Hemoglobin 7.7 g/dL (14.0-18.0)
[2021-06-28] MEDS ORDERED: FUROSEMIDE 40 MG/4 ML VIAL IV ONE ×2 (00:05→09:00)
[2021-06-28] MEDS ORDERED: SODIUM CHLORIDE 0.9% 250 ML IV PRN (00:05)
--- NOTE | 2021-06-28 00:24 | Communication Note ---
Date of Service: June 28, 2021 Night resident note Was notified by RN that patient around 23:00 that patient had worsening SOB and was tachypneic to 26. BP was stable, and patient was maintaining adequate oxygen saturation on 35L HFNC. No chest pain or fever. I ordered an EKG, CXR, repeat Hgb/Hct, type/screen, BNP, and troponin. EKG: sinus tachycardia to 109 CXR: mild pulmonary edema, relatively unchanged from prior CXR earlier in the day, right hemithorax appearance unchanged Hgb: slight drop from 7.9 to 7.7 BMP: sodium equivocal (121 --> 122), SONIA slightly worsened (Cr 1.61 --> 1.66) BNP: bumped from 191 to 417 Troponin: 0.38 Assessment 86yo male with complex PMH including HTN, DM2, CKD, history of lung transplant, and esophageal cancer, currently on hospital day #9, originally admitted for a positive urine culture prior to TURP; patient is now s/p TURP (POD#3), but his hospital course has been complicated by an increasing oxygen requirement, SOB, and an SONIA among others. Patient's worsening SOB this evening is likely multifactorial in etiology including CHF exacerbation as well as severe anemia. Patient's CXR looks equivocal if not slightly improved from prior. I believe he is still a bit fluid overloaded. Unfortunately he also requires a blood transfusion at this time which carries a significant volume of fluid. Diuresis will be necessary, though this is further complicated by patient's SONIA. I am hopeful that the blood transfusion will increase patient's intravascular volume and lead to increased renal perfusion and improvement of his SONIA, but it may be worsened by diuresis. I believe patient's elevated troponin represents demand ischemia likely secondary to severe anemia rather than patient's respiratory status given that he has maintained adequate O2 sats this evening thus far. I will not start heparin at this time Plan Transfer to PCU Transfuse 1u pRBC - consent form complete Lasix IV 40mg x1 to be given when the transfusion starts Lasix IV 40mg x1 to be given when the transfusion is complete Tend Hgb - CBC scheduled for 04:00, and repeat Hgb/Hct are scheduled for 10:00 and 16:00 Hold lovenox d/t anemia of unclear origin Hold losartan d/t SONIA; BP well-controlled at this time Repeat echo ordered - prior study (09/2020) notable for EF 55-60%, grade II diastolic dysfunction, LVH, and severe Added CHF to patient's problem list Johnnie Mccoy MD, PGY-2 Resident Activity Tracking Resident Involvement: Resident Care Provided and Medical Imaging Director Coverage Note Care Provided: Adult Hospital Medicine
[2021-06-28] MEDS: LEVALBUTEROL HCL 0.63 MG/3 ML NEB NEB SCH ×4 (00:25→20:02)
[2021-06-28] MEDS: IPRATROPIUM BROMIDE NEB SOLN 0.02% 2.5 ML VIAL INH SCH ×4 (00:25→20:02)
[2021-06-28 00:56] LABS: BUN Creatinine Ratio 31.9 (10-20); Calcium 8.1 mg/dl (8.5-10.1); Creatinine Clr Calc Pharmacy 28.8 ml/min; Est GFR (African American) 42.6 ml/min; Est GFR (Non-African American) 36.8 ml/min
[2021-06-28 04:50] LABS: Hematocrit (blood only) 22.5 % (42-52); Hemoglobin 7.6 g/dL (14.0-18.0); Mean Corpuscular Hgb Conc 33.8 g/dL (32-36); Mean Platelet Volume 8.5 fL (7.4-10.4); Platelet Count 134 K/uL (130-400); RDW Coefficient of Variation 16.1 % (11.5-14.5); RDW Standard Deviation 48.2 fL (36.4-46.3); Red Blood Count 2.71 M/uL (4.7-6.1)
[2021-06-28 05:13] LABS: BUN Creatinine Ratio 33.7 (10-20); Calcium 8.2 mg/dl (8.5-10.1); Creatinine Clr Calc Pharmacy 28.3 ml/min; Est GFR (African American) 41.7 ml/min
[2021-06-28 05:31] LABS: Eosinophils # (auto) 0.03 K/uL (0-0.5); Eosinophils % (auto) 0.4 %; Immature Granulocytes # (auto) 0.03 K/uL (0.00-0.02); Immature Granulocytes % (auto) 0.4 %; Lymphocytes % (auto) 8.1 %; Monocytes # (auto) 0.63 K/uL (0.11-0.59); Monocytes % (auto) 8.5 %; Neutrophils # (auto) 6.11 K/uL (1.4-6.5); Neutrophils % (auto) 82.6 %; RBC Morphology Unremarkable
[2021-06-28] MEDS: TACROLIMUS 0.5 MG CAP PO SCH ×2 (06:29→19:58)
[2021-06-28] MEDS: TACROLIMUS 1 MG CAP PO SCH ×2 (06:29→19:58)
[2021-06-28] MEDS: CIPROFLOXACIN / D5W 400 MG/200 ML BAG IV SCH ×2 (06:32→19:57)
[2021-06-28] MEDS: SODIUM CHLOR 7% 4 ML NEB NEB SCH ×2 (07:04→20:02)
--- NOTE | 2021-06-28 07:12 | XRay Report ---
XR chest 1V portable CLINICAL HISTORY: tachypnea, SOB. COMPARISON STUDY: 06/27/2021 TECHNIQUE: 1 view of the chest FINDINGS: Single frontal view of the chest demonstrates no change in opacification of the left hemithorax with shift of the heart slightly to the left. Postsurgical changes are present suggesting previous right p neumonectomy. Compared to previous examination, the left hemithorax is clear. There are no alveolar o pacities present. There is no left pleural effusion. There is no evidence for vascular congestion. Th ere is no acute osseous pathology. IMPRESSION: 1. No change in the previous study with opacification of the right hemithorax. 2. The left hemithorax is clear of alveolar opacities and vascular congestion. ACT 112: Negative or not required by law. Electronically signed by: Donovan Gutierrez M.D. 06/28/2021 7:11 AM
--- NOTE | 2021-06-28 07:31 | Hospitalist Progress Note ---
Date of Service June 28, 2021 Assessment & Plan (1) Chronic indwelling Boyd catheter: Plan: 86yo M with multiple comorbidities including hx. of DM, HTN, CKD and lung transplant and esophageal cancer admitted for positive urine culture prior to TURP. He is status post TURP; admission complicated by increased O2 requirement. Respiratory distress - 06/27 increased work of breathing after getting up to use restroom. Cxr w/ mild pulmonary edema. ABG w/ slight metabolic acidosis. - Continue 25L high flow O2. Escalate to bipap if needed. - Diuresing received 80mg IV lasix for each of past 2 days. Currently has qam 40mg ordered; additional as needed. Follow Is/Os. - Continue Xopenex/ipratropium neb treatments - There is component of anxiety, but use home Ativan 0.5mg SL BID PRN w/ caution. Avoid additional doses of Ativan. - Continue flutter valve and BID hypertonic saline neb treatments for mucus clearance Anemia - stabilized after 1u prbc transfusion early AM of 06/28/21. follow cbc and clinically. Hyponatremia - Chronic SIADH per initial urine studies on 06/23/21. Continue water restriction - Considered CHF as contributor - 1 gram TID of NaCl tab. Currently stable at 123. BPH w/ LUTS - Patient was initially scheduled to have TURP and Cystolitholapaxy (06/21) by Dr. Henriquez, however his preop UC&S showed evidence of infection. - Pt is afebrile and continues to be asymptomatic - WBC WNL - Urine culture 06/19 and 06/21 final with Enterococcus and Pseudomonas, davenport sensitive - Blood cultures no growth. - continue Zosyn. 06/25: adding IV cipro per urology - Boyd catheter intact - s/p TURP and Cystolitholapaxy 06/25 Right upper extremity swelling - venous doppler neg for DVT - checked XR wrist/hand: multiple areas of arthritis - continue Voltaren gel - Tylenol suspension PRN - Continue spica brace DMII (diabetes mellitus, type 2): - Last HgbA1C on 04/09/21 = 6.3. - Hold home Prandin - Lantus 5u BID increased to 7u BID for BSGs in 200s. - SSI ordered Loose stools - C diff. gene neg. 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 - He has diagnosis of IPF as well as wedge resection of right lung for prior malignancy. No respiratory complaints. - Continue Tacrolimus 0.5mg po BID - Continue Prednisone - Continue Azithromycin and Bactrim suppressive therapy Esophageal cancer: - History of esophageal adenocarcinoma s/p XRT and chemotherapy, s/p stent placement with subsequent removal. - PEG tube in place. - Aspiration precautions - Medications through PEG, routine care q shift HTN (hypertension): - Continue home Amlodipine Chronic kidney disease: - Continue to monitor - Uptrending, w/ some contribution from diuresis. 1.69. Baseline 0.92. - Avoid nephrotoxic agents Hyperlipidemia: -Continue Simvastatin FEN/GI: NPO, feedings (Glucerna) through peg. IV fluids stopped CODE: full code Dispo: PCU DVT: Lovenox held in setting of hematuria and Hb levels (2) Complicated urinary tract infection: (3) Acute hyperglycemia: (4) Acute hyperkalemia: (5) Hypomagnesemia: (6) Hyperlipidemia: (7) Urinary tract infection associated with indwelling urethral catheter: (8) Encounter for pre-operative examination: (9) Esophageal cancer: (10) 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: (11) Esophageal stricture: (12) DMII (diabetes mellitus, type 2): (13) Pain: (14) Insomnia: (15) Fatigue: (16) Neuropathy: (17) Urinary retention: (18) Bladder stones: (19) Lung transplant recipient: (20) Immunosuppression: (21) Dysphagia: (22) Chronic kidney disease: (23) Aortic stenosis: Admission and Anticipated Discharge Date Admission Date: June 20, 2021 Supervising Physician Co-Signing Physician Notes I personally examined the patient and verified all wells points of history and exam, discussed case, and agree with decision making with Dr Escobar still some sob - can't really remember how he felt yesterday but does seem better than before. dtr notes that he will then get anxious and then sob is worse too. vitals noted nad heent nc at mmm lungs coarse harsh wheeze but much quieter than yesterday. better air entry no accessory muscles good effort UTI/stone/BPH - now post op. continue current care and appreciate urology input. continue cipro hypoxia - acute diastolic chf related to severe aortic stenosis but likely precipitated by absorption of fluids from post TURP irrigation. now off irrigation. lung exam continues to improve. continue lasix (follow BMP) and continue supportive care. weakness - continue with PT/OT eval and treat. goal is home w home PT. dirkin's tendonitis - thumb spica, continue voltaren gel otherwise as above Subjective Patient's main complaints this AM are low back pain and intermittent dyspnea. Review of Systems Review of Systems: All systems reviewed & are unremarkable except as noted in HPI & below Physical Exam Physical Exam: General: Grossly A&O. NAD. Cooperative. HEENT: Atraumatic, normocephalic. Pulm: Anterior lungs w/ raspy breathing, mostly upper airway. Air entry improved compared to prior day's exam. No accessory muscle use. No respiratory distress. Cardiac: RRR, 3/6 systolic murmur. Trace RLE edema. Abdominal: Nontender, nondistended, soft Results & Data Results & Data ([facility]) Vital Signs (Past 12 Hours) Vital Signs Temp Pulse Pulse Pulse Resp BP BP 06/28/21 07:12 74 19 121/66 06/28/21 07:09 73 20 06/28/21 06:12 73 22 121/66 06/28/21 05:42 79 20 113/66 06/28/21 05:27 36.8 C 77 18 114/68 06/28/21 05:06 36.8 C 72 33 H 122/69 06/28/21 04:53 06/28/21 04:05 36.8 C 74 30 H 123/66 06/28/21 03:26 80 16 06/28/21 00:27 70 16 06/27/21 22:49 68 18 06/27/21 22:23 36.5 C 83 28 H 119/65 06/27/21 20:13 65 18 Pulse Ox Pulse Ox 06/28/21 07:12 99 06/28/21 07:09 99 06/28/21 06:12 99 06/28/21 05:42 99 06/28/21 05:27 100 06/28/21 05:06 98 06/28/21 04:53 99 06/28/21 04:05 99 06/28/21 03:26 94 06/28/21 00:27 97 06/27/21 22:49 98 06/27/21 22:23 98 06/27/21 20:13 98 Laboratory Results Hb 7.6. Na 123. Cr 1.69 uptrending. trop peaked 0.38. bnp 417 Resident Activity Tracking Resident Involvement: Resident Care Provided Care Provided: Adult [facility] Medicine (1) Esophageal cancer Malignant neoplasm of esophagus location: unspecified location Qualified Code(s): C15.9 - Malignant neoplasm of esophagus, unspecified (2) Aortic stenosis Cardiac valve disease etiology: etiology unspecified Qualified Code(s): I35.0 - Nonrheumatic aortic (valve) stenosis (3) Dysphagia Dysphagia type: unspecified Qualified Code(s): R13.10 - Dysphagia, unspecified
[2021-06-28] MEDS: INSULIN ASPART PER UNIT SC SCH ×4 (08:47→20:08)
[2021-06-28] MEDS: DICLOFENAC SOD 1% GEL 100 GM TUBE EXT SCH ×4 (08:48→19:59)
[2021-06-28] MEDS: LANSOPRAZOLE 15 MG SOLTAB GT SCH (08:48)
[2021-06-28] MEDS: SODIUM CHLORIDE 1 GM TABLET PO SCH ×3 (08:49→19:58)
[2021-06-28] MEDS: ADVANCED PROBIOTIC 1250 MG CAPSULE PO SCH ×3 (08:49→19:58)
[2021-06-28] MEDS: INSULIN GLARGINE SOLOSTAR 100 UNITS/ML 3 ML PEN SC SCH ×2 (08:50→20:09)
[2021-06-28] MEDS: guaiFENesin 600 MG TABCR PO SCH (09:19)
[2021-06-28] MEDS: ACETAMINOPHEN SUSP 325 MG/10.15 ML UDC GT PRN (10:15)
[2021-06-28 10:20] LABS: Hematocrit (blood only) 25.5 % (42-52); Hemoglobin 8.5 g/dL (14.0-18.0)
[2021-06-28] MEDS: LORazepam 0.5 MG TAB SL PRN ×2 (10:27→22:31)
--- NOTE | 2021-06-28 10:49 | Urology Progress Note ---
Date of Service June 28, 2021 Assessment & Plan (1) Complicated urinary tract infection: (2) Chronic indwelling Boyd catheter: (3) Bladder stones: (4) Urinary retention: Plan: 86yo male with complex PMH including HTN, DM2, CKD, history of lung transplant, and esophageal cancer admitted with complicated UTI prior to TURP procedure. Patient is POD #3 s/p TURP and Cystolitholapaxy. Unfortunately, his hospital course has been complicated by increasing oxygen requirement, SOB, SONIA, and anemia. - Pt examined at bedside with Dr. Henriquez, on-call urologist. - POD #3 s/p Cystoscopy with Transurethral Resection Prostate and Cystolitholapaxy and fulguration of bladder ulceration. - Pt transferred to ICU overnight d/t worsening SOB, SONIA, and anemia. - Remains afebrile. On high flow NC. - Labs reviewed - Creatinine up to 1.69 today, Hemoglobin 8.5 (received 1unit PRBC), WBC 7.40 - Continue to trend. - Urine culture 06/19 and 06/21 final with Enterococcus and Pseudomonas, davenport sensitive - Blood cultures no growth. - Continue Ciprofloxacin for Pseudomonas and Enterococcus, should be adequate given sensitivity data. - Boyd catheter intact, patent and draining light pink urine with CBI on slow. - CBI clamped at 0945. Will continue to monitor. - Maintain Boyd catheter. Okay to do gentle manual irrigation prn clot retention, suprapubic pain. - Continue supportive care and acute management per primary team. - Will continue to follow closely. Admission and Anticipated Discharge Date Admission Date: June 20, 2021 Subjective Pt examined at bedside this AM with Dr. Henriquez. Daughter at bedside. Awake, resting in bed on arrival. Transferred to ICU overnight d/t worsening SOB, was tachypneic to 26, and anemia. Pt received 1 unit PRBC. On 30L high flow NC Boyd catheter intact, draining pink tinged urine with CBI on slow. No fevers. No complaints of pain. Review of Systems Constitutional: as per Subjective / HPI Respiratory: as per Subjective / HPI Genitourinary: + as per Subjective / HPI Physical Exam Constitutional: no acute distress Respiratory: no respiratory distress On high flow NC Gastrointestinal (Abdomen): Inspection/Auscultation: abdomen normal to inspection Musculoskeletal: Head/Neck/Chest: normocephalic Skin: No visible rashes to exposed skin areas Neurologic: moves all extremities and awake Psychiatric: Orientation: alert and oriented x 3 Genitourinary: Boyd catheter intact, patent and draining pink tinged urine with CBI on slow Results & Data ([facility]) Vital Signs (Past 12 Hours) Vital Signs Temp Pulse Pulse Resp BP BP Pulse Ox 06/28/21 08:01 36.6 C 79 28 H 124/71 95 06/28/21 07:28 36.5 C 80 18 105/68 93 06/28/21 07:12 74 19 121/66 99 06/28/21 07:09 73 20 99 06/28/21 06:12 73 22 121/66 99 06/28/21 05:42 79 20 113/66 99 06/28/21 05:27 36.8 C 77 18 114/68 100 06/28/21 05:06 36.8 C 72 33 H 122/69 98 06/28/21 04:53 06/28/21 04:05 36.8 C 74 30 H 123/66 99 06/28/21 03:26 80 16 94 06/28/21 00:27 70 16 97 06/27/21 22:49 68 18 98 Pulse Ox 06/28/21 08:01 06/28/21 07:28 06/28/21 07:12 06/28/21 07:09 06/28/21 06:12 06/28/21 05:42 06/28/21 05:27 06/28/21 05:06 06/28/21 04:53 99 06/28/21 04:05 06/28/21 03:26 06/28/21 00:27 06/27/21 22:49 PG Care Time/CCT Total # of Minutes Spent Total Time Spent with Patient: Total time spent is greater than 50% in coordination of care (as documented) at patient's floor/unit and/or counseling patient: Coding Level of Care Code 85718 Subseq Hosp Care Lvl 2 Diagnoses Complicated urinary tract infection N39.0 Chronic indwelling Boyd catheter Z97.8 Bladder stones N21.0 Urinary retention R33.9
[2021-06-28] MEDS: predniSONE 5 MG TAB GT SCH (12:55)
[2021-06-28] MEDS: FINASTERIDE 5 MG TAB PEG SCH (12:55)
[2021-06-28 16:14] LABS: Hematocrit (blood only) 27.1 % (42-52); Hemoglobin 9.2 g/dL (14.0-18.0)
[2021-06-28] MEDS: TAMSULOSIN HCL 0.4 MG CAP PO SCH ×2 (16:55→19:59)
--- NOTE | 2021-06-28 18:15 | Billing Data ---
Date of Service June 28, 2021 Coding Level of Care Code 83553 Subseq Hosp Care Lvl 3
[2021-06-28] MEDS: AZITHROMYCIN SUSP 200 MG/5 ML 22.5 ML GT SCH (19:58)
[2021-06-29] MEDS: IPRATROPIUM BROMIDE NEB SOLN 0.02% 2.5 ML VIAL INH SCH ×4 (00:33→19:26)
[2021-06-29] MEDS: LEVALBUTEROL HCL 0.63 MG/3 ML NEB NEB SCH ×4 (00:33→19:26)
[2021-06-29 00:51] LABS: Component 2 DNR; Source BLADDER STONE
[2021-06-29] MEDS ORDERED: FUROSEMIDE 40 MG/4 ML VIAL IV ONE ×2 (04:00→12:31)
[2021-06-29 05:37] LABS: Hematocrit (blood only) 25.7 % (42-52); Hemoglobin 8.7 g/dL (14.0-18.0); Mean Corpuscular Hemoglobin 28.2 pg (25-34); Mean Corpuscular Hgb Conc 33.9 g/dL (32-36); Mean Corpuscular Volume 83.2 fL (80-100); Mean Platelet Volume 9.2 fL (7.4-10.4); Platelet Count 162 K/uL (130-400); RDW Coefficient of Variation 15.9 % (11.5-14.5); RDW Standard Deviation 48.3 fL (36.4-46.3); Red Blood Count 3.09 M/uL (4.7-6.1); White Blood Count 6.58 K/uL (4.8-10.8)
[2021-06-29 05:55] LABS: BUN Creatinine Ratio 43.1 (10-20); Calcium 8.3 mg/dl (8.5-10.1); Creatinine Clr Calc Pharmacy 34.5 ml/min; Est GFR (Non-African American) 40.6 ml/min; Magnesium 1.8 mg/dl (1.7-2.4); Potassium 5.2 mmol/L (3.5-5.1)
[2021-06-29] MEDS: CIPROFLOXACIN / D5W 400 MG/200 ML BAG IV SCH ×2 (06:06→20:19)
[2021-06-29] MEDS: SODIUM CHLOR 7% 4 ML NEB NEB SCH ×2 (07:12→19:27)
[2021-06-29] MEDS: TACROLIMUS 0.5 MG CAP PO SCH ×2 (07:21→20:20)
[2021-06-29] MEDS: TACROLIMUS 1 MG CAP PO SCH ×2 (07:22→20:19)
[2021-06-29] MEDS ORDERED: PHENAZOPYRIDINE HCL 200 MG TAB PO PRN (08:02)
--- NOTE | 2021-06-29 08:40 | Urology Progress Note ---
Date of Service June 29, 2021 Assessment & Plan (1) Complicated urinary tract infection: (2) Urinary retention: (3) Bladder stones: (4) Chronic indwelling Boyd catheter: Plan: 86 yo male with complex PMH including HTN, DM2, CKD, history of lung transplant, and esophageal cancer admitted with complicated UTI prior to TURP procedure. Patient is POD #4 s/p TURP and Cystolitholapaxy. Unfortunately, his hospital course has been complicated by increasing oxygen requirement, SOB, SONIA, and anemia. - POD #4 s/p Cystoscopy with Transurethral Resection Prostate and Cystolitholapaxy and fulguration of bladder ulceration. - Pt transferred to ICU on 06/28 d/t worsening SOB, SONIA, and anemia. - Remains afebrile. On high flow NC. - Labs reviewed - Creatinine 1.53 today, Hemoglobin 8.7 (received 1 unit PRBC on 06/28), WBC 6.58 - Continue to trend. - Urine culture 06/19 and 06/21 final with Enterococcus and Pseudomonas, davenport sensitive - Blood cultures no growth. - Continue Ciprofloxacin for Pseudomonas and Enterococcus, should be adequate given sensitivity data. - Boyd catheter intact, patent and draining clear light pink urine, CBI discontinued on 06/28. - Reports some discomfort at tip of penis from catheter - can try topical Lidocaine gel for discomfort. - Maintain Boyd catheter. Okay to do gentle manual irrigation prn clot retention, suprapubic pain. - Continue supportive care and acute management per primary team. - will follow peripherally, please contact us for any questions/concerns. - Will arrange outpatient follow-up with our service. Admission and Anticipated Discharge Date Admission Date: June 20, 2021 Supervising Physician Co-Signing Physician Notes I have discussed Mr. Banks's case with VICENTE Swain and agree with the above documentation. No longer requiring continuous bladder irrigation. Okay to gently hand irrigate the catheter if needed for obstruction. We will arrange outpatient follow-up. Subjective Pt seen and examined at bedside this AM in ICU. Daughter at bedside. Pt awake and resting in bed, appears comfortable. Continues on high flow nasal cannula. Boyd catheter intact, patent, and draining clear light pink urine. CBI was discontinued yesterday. Reports pain at tip of his penis. No dysuria or bladder pain/spasms. Right wrist in splint. Reports right wrist feeling better with Diclofenac. No abdominal or flank pain. No nausea or vomiting. No fever or chills. Review of Systems Constitutional: as per Subjective / HPI Gastrointestinal: as per Subjective / HPI Genitourinary: + as per Subjective / HPI Physical Exam Constitutional: no acute distress Respiratory: no respiratory distress and no labored breathing High flow nasal cannula Cardiovascular: Extremities: no pedal edema Gastrointestinal (Abdomen): Inspection/Auscultation: abdomen normal to inspection; abdomen not distended Percussion/Palpation: abdomen soft; abdomen nontender and no guarding Musculoskeletal: Head/Neck/Chest: normocephalic and head atraumatic right wrist in splint Skin: scattered ecchymosis Neurologic: awake Psychiatric: Orientation: alert and oriented x 3 Genitourinary: Boyd intact, patent and draining clear light pink urine. Results & Data ([facility]) Vital Signs (Past 12 Hours) Vital Signs Temp Pulse Pulse Resp BP Pulse Ox Pulse Ox 06/29/21 08:10 36.7 C 78 24 153/92 H 97 06/29/21 04:00 95 06/29/21 00:18 26 H 99 06/28/21 22:58 36.7 C 85 20 142/80 H 93 PG Care Time/CCT Total # of Minutes Spent Total Time Spent with Patient: Total time spent is greater than 50% in coordination of care (as documented) at patient's floor/unit and/or counseling patient: Coding Level of Care Code 07326 Subseq Hosp Care Lvl 2 Diagnoses Complicated urinary tract infection N39.0 Urinary retention R33.9 Bladder stones N21.0 Chronic indwelling Boyd catheter Z97.8
[2021-06-29] MEDS ORDERED: Nursing to Pharmacy Communication SCH (08:45)
--- NOTE | 2021-06-29 08:48 | Hospitalist Progress Note ---
Date of Service June 29, 2021 Assessment & Plan (1) Chronic indwelling Boyd catheter: Plan: 86yo M with multiple comorbidities including hx. of DM, HTN, CKD and lung transplant and esophageal cancer admitted for positive urine culture prior to TURP. He is status post TURP; admission complicated by increased O2 requirement. Respiratory distress - resolved - transitioned from high flow to room air today - suspect secondary to pulm vascular congestion - continue to direuse with 40mg IV lasix today --> reassess volume status tomorrow - Continue Xopenex/ipratropium neb treatments - There is component of anxiety, but use home Ativan 0.5mg SL BID PRN w/ ca ution. Avoid additional doses of Ativan. - Continue flutter valve and BID hypertonic saline neb treatments for mucus clearance Anemia - stabilized after 1u prbc transfusion early AM of 06/28/21. - suspect post-surgical related blood loss - Hgb 8.7 today - trend CBC daily Hyponatremia- improving - Chronic SIADH with acute dilutional post-TURP from free water absorption via bladder irrigation - Na level slowing improving, 124 up from 123 - Continue water restriction - 1 gram TID of NaCl tab. BPH w/ LUTS - Patient was initially scheduled to have TURP and Cystolitholapaxy (06/21) by Dr. Henriquez, however his preop UC&S showed evidence of infection. - His infection was treated and he is now s/p above procedure. Continuous bladder irrigation discontinued - Boyd catheter intact Urinary Tract Infection - Urine culture 06/19 and 06/21 final with Enterococcus and Pseudomonas, davenport sensitive - Blood cultures showing no growth to date - continue monotherapy with cipro Right upper extremity swelling - venous doppler neg for DVT - checked XR wrist/hand: multiple areas of arthritis - continue Voltaren gel - Tylenol suspension PRN - Continue spica brace DMII (diabetes mellitus, type 2): - Last HgbA1C on 04/09/21 = 6.3. - Hold home Prandin - Lantus 5u BID increased to 7u BID for BSGs in 200s. 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 - He has diagnosis of IPF as well as wedge resection of right lung for prior malignancy. No respiratory complaints. - Continue Tacrolimus 0.5mg po BID - Continue Prednisone - Continue Azithromycin and Bactrim suppressive therapy Esophageal cancer: - History of esophageal adenocarcinoma s/p XRT and chemotherapy, s/p stent placement with subsequent removal. - patient does have chronic dysphagia due to mass - mucinex ordered in an attempt to thin secretions - PEG tube in place - Aspiration precautions HTN (hypertension): - Continue home Amlodipine - ARB on hold due to SONIA Acute on Chronic kidney disease: - baseline Cr (1.1-1.2) - Cr 1.5 today, down from 1.6 - continue to hold ARB - Avoid nephrotoxic agents - suspect pre-renal etiology - trend BMP daily Hyperlipidemia: -Continue Simvastatin FEN/GI: NPO, feedings (Glucerna) through peg. CODE: full code Dispo: Med/Surg. 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: (11) Esophageal stricture: (12) DMII (diabetes mellitus, type 2): (13) Pain: (14) Insomnia: (15) Fatigue: (16) Neuropathy: (17) Urinary retention: (18) Bladder stones: (19) Lung transplant recipient: (20) Immunosuppression: (21) Dysphagia: (22) Chronic kidney disease: (23) Aortic stenosis: Admission and Anticipated Discharge Date Admission Date: June 20, 2021 Supervising Physician Co-Signing Physician Notes I personally examined the patient and verified all wells points of history and exam, discussed case, and agree with decision making with Dr Huang breathing feeling better dtr wonders about EGD, esoph dilation - he's only having a little dysphagia and sticking - but does trigger some anxiety vitals noted nad heent nc at mmm lungs coarse harsh wheeze but much quieter than yesterday. better air entry no accessory muscles good effort UTI/stone/BPH - now post op. doing better continue current care and appreciate urology input. continue cipro hypoxia - acute diastolic chf related to severe aortic stenosis but likely precipitated by absorption of fluids from post TURP irrigation. now off irrigation. lung exam continues to improve - on minimal O2 when i see him, off by the time of this writing. likely now a resolved issue weakness - continue with PT/OT eval and treat. goal is home w home PT. ania's tendonitis - thumb spica, continue voltaren gel dysphagia - improves post dilation. does not appear to be severe or rapidly pro gressing, primary GI is not on for hospital this week. will reach out to him in regards to EGD and likely expedited outpt unless he feels inpt would be of benefit otherwise as above Subjective No acute events overnight. Daughter present at bedside - states patient seems to be doing better. She does mention he panics when his mucus gets stuck in throat. She asks if GI can do a procedure to stretch out his esophagus. Review of Systems Gastrointestinal: + dysphagia Physical Exam Constitutional: WD/WN, vitals as above no acute distress Eyes: + anicteric sclerae ENMT: external ear and nose normal, oropharynx normal Neck: trachea midline Respiratory: normal respiratory effort and + cough; no labored breathing Auscultation: + rhonchi Cardiovascular: Rate/Rhythm: regular rate and regular rhythm Heart Sounds: normal S1, normal S2 and + murmur (systolic ejection ) Gastrointestinal (Abdomen): normal bowel sounds, soft, nontender, no hepatosplenomegaly Musculoskeletal: Head/Neck/Chest: normocephalic and head atraumatic Skin: no rashes, warm and dry Neurologic: moves all extremities Psychiatric: A+Ox3, euthymic affect Genitourinary: Boyd cath in place, draining blood tingued urine Results & Data Results & Data ([facility]) Vital Signs (Past 12 Hours) Vital Signs Temp Pulse Pulse Resp BP Pulse Ox Pulse Ox 06/29/21 08:10 36.7 C 78 24 153/92 H 97 06/29/21 04:00 95 06/29/21 00:18 26 H 99 06/28/21 22:58 36.7 C 85 20 142/80 H 93 Resident Activity Tracking Resident Involvement: Resident Care Provided Care Provided: Adult Hospital Medicine (1) Esophageal cancer Malignant neoplasm of esophagus location: unspecified location Qualified Code(s): C15.9 - Malignant neoplasm of esophagus, unspecified (2) Aortic stenosis Cardiac valve disease etiology: etiology unspecified Qualified Code(s): I35.0 - Nonrheumatic aortic (valve) stenosis (3) Dysphagia Dysphagia type: unspecified Qualified Code(s): R13.10 - Dysphagia, unspecified
[2021-06-29] MEDS ORDERED: guaiFENesin 600 MG TABCR PO SCH (09:00)
[2021-06-29] MEDS: guaiFENesin SUGAR FREE 200 MG/10 ML UDC PO PRN (09:30)
[2021-06-29] MEDS: DICLOFENAC SOD 1% GEL 100 GM TUBE EXT SCH ×4 (09:30→20:20)
[2021-06-29] MEDS: SODIUM CHLORIDE 1 GM TABLET PO SCH ×3 (09:31→20:20)
[2021-06-29] MEDS: ADVANCED PROBIOTIC 1250 MG CAPSULE PO SCH ×3 (09:32→20:21)
[2021-06-29] MEDS: INSULIN GLARGINE SOLOSTAR 100 UNITS/ML 3 ML PEN SC SCH ×2 (09:32→20:40)
[2021-06-29] MEDS: LANSOPRAZOLE 15 MG SOLTAB GT SCH (09:34)
[2021-06-29] MEDS: INSULIN ASPART PER UNIT SC SCH ×5 (09:39→20:39)
[2021-06-29] MEDS: FINASTERIDE 5 MG TAB PEG SCH (12:51)
[2021-06-29] MEDS: predniSONE 5 MG TAB GT SCH (12:51)
[2021-06-29] MEDS ORDERED: POLYETHYLENE (MIRALAX) 17 GM PACK PO PRN (13:13)
[2021-06-29] MEDS ORDERED: DOCUSATE SODIUM 100 MG CAP PO ONE (13:14)
[2021-06-29] MEDS ORDERED: LIDOCAINE 2% JELLY 5 ML TUBE EXT PRN (13:21)
[2021-06-29] MEDS: ACETAMINOPHEN SUSP 325 MG/10.15 ML UDC GT PRN (13:37)
[2021-06-29] MEDS: LORazepam 0.5 MG TAB SL PRN (13:37)
[2021-06-29] MEDS: SENNA 8.6 MG TAB PO SCH (14:17)
[2021-06-29] MEDS: amLODIPine BESYLATE 5 MG TAB GT SCH (17:31)
[2021-06-29] MEDS: TAMSULOSIN HCL 0.4 MG CAP PO SCH ×2 (17:33→20:22)
--- NOTE | 2021-06-29 17:39 | Billing Data ---
Date of Service June 29, 2021 Coding Level of Care Code 08149 Subseq Hosp Care Lvl 3
[2021-06-29] MEDS: SULFAMETHOXAZOLE/TRIMETHOPRIM 200MG/40MG/5ML SUSP GT SCH (20:21)
[2021-06-30] MEDS: IPRATROPIUM BROMIDE NEB SOLN 0.02% 2.5 ML VIAL INH SCH ×4 (00:30→19:12)
[2021-06-30] MEDS: LEVALBUTEROL HCL 0.63 MG/3 ML NEB NEB SCH ×4 (00:30→19:12)
[2021-06-30] MEDS: LORazepam 0.5 MG TAB SL PRN ×2 (01:17→12:43)
[2021-06-30] MEDS: ACETAMINOPHEN SUSP 325 MG/10.15 ML UDC GT PRN ×2 (01:20→10:55)
[2021-06-30 05:46] LABS: Basophils # (auto) 0.01 K/uL (0-0.2); Basophils % (auto) 0.2 %; Eosinophils # (auto) 0.04 K/uL (0-0.5); Eosinophils % (auto) 0.7 %; Hematocrit (blood only) 26.7 % (42-52); Hemoglobin 8.9 g/dL (14.0-18.0); Immature Granulocytes # (auto) 0.01 K/uL (0.00-0.02); Immature Granulocytes % (auto) 0.2 %; Lymphocytes # (auto) 0.69 K/uL (1.2-3.4); Lymphocytes % (auto) 11.7 %; Mean Corpuscular Hgb Conc 33.3 g/dL (32-36); Mean Platelet Volume 8.8 fL (7.4-10.4); Monocytes # (auto) 0.56 K/uL (0.11-0.59); Monocytes % (auto) 9.5 %; Neutrophils # (auto) 4.58 K/uL (1.4-6.5); Neutrophils % (auto) 77.7 %; Platelet Count 172 K/uL (130-400); RDW Coefficient of Variation 15.7 % (11.5-14.5); RDW Standard Deviation 48.5 fL (36.4-46.3); Red Blood Count 3.18 M/uL (4.7-6.1); White Blood Count 5.89 K/uL (4.8-10.8)
[2021-06-30 06:15] LABS: BUN Creatinine Ratio 47.6 (10-20); Calcium 8.5 mg/dl (8.5-10.1); Creatinine Clr Calc Pharmacy 36.9 ml/min; Potassium 5.2 mmol/L (3.5-5.1)
[2021-06-30] MEDS: TACROLIMUS 1 MG CAP PO SCH ×2 (07:06→19:49)
[2021-06-30] MEDS: TACROLIMUS 0.5 MG CAP PO SCH ×2 (07:06→19:49)
[2021-06-30] MEDS: SODIUM CHLOR 7% 4 ML NEB NEB SCH ×2 (07:18→19:12)
[2021-06-30] MEDS: CIPROFLOXACIN / D5W 400 MG/200 ML BAG IV SCH (07:58)
[2021-06-30] MEDS: INSULIN ASPART PER UNIT SC SCH ×4 (09:18→21:56)
[2021-06-30] MEDS: INSULIN GLARGINE SOLOSTAR 100 UNITS/ML 3 ML PEN SC SCH ×2 (09:19→21:55)
[2021-06-30] MEDS: SENNA 8.6 MG TAB PO SCH ×2 (09:20→12:27)
[2021-06-30] MEDS: LANSOPRAZOLE 15 MG SOLTAB GT SCH (09:20)
[2021-06-30] MEDS: ADVANCED PROBIOTIC 1250 MG CAPSULE PO SCH ×3 (09:20→21:41)
[2021-06-30] MEDS: amLODIPine BESYLATE 5 MG TAB GT SCH ×2 (09:20→17:21)
[2021-06-30] MEDS: guaiFENesin SUGAR FREE 200 MG/10 ML UDC PO PRN (09:20)
[2021-06-30] MEDS: SODIUM CHLORIDE 1 GM TABLET PO SCH ×3 (09:20→21:41)
[2021-06-30] MEDS: DICLOFENAC SOD 1% GEL 100 GM TUBE EXT SCH ×4 (09:21→21:41)
[2021-06-30] MEDS ORDERED: FUROSEMIDE INJ 20 MG/2 ML VIAL IV ONE (10:33)
--- NOTE | 2021-06-30 11:32 | Hospitalist Progress Note ---
Date of Service June 30, 2021 Assessment & Plan (1) Chronic indwelling Boyd catheter: Plan: 86yo M with multiple comorbidities including hx. of DM, HTN, CKD and lung transplant and esophageal cancer admitted for positive urine culture prior to TURP. He is status post TURP; admission complicated by increased O2 requirement. Respiratory distress - resolved - transitioned from high flow to room air - suspect secondary to pulm vascular congestion - continue to direuse with 20mg IV lasix today --> reassess volume status tomorrow am - Continue Xopenex/ipratropium neb treatments - There is component of anxiety, but use home Ativan 0.5mg SL BID PRN w/ cautio n. Avoid additional doses of Ativan. - Continue flutter valve and BID hypertonic saline neb treatments for mucus clearance Anemia - stabilized after 1u prbc transfusion early AM of 06/28/21. - suspect post-surgical related blood loss - Hgb 8.9 today - trend CBC daily Hyponatremia- improving - Chronic SIADH with acute dilutional post-TURP from free water absorption via bladder irrigation - Na level slowing improving, 125 up from 124 - Continue water restriction - 1 gram TID of NaCl tab. BPH w/ LUTS - Patient was initially scheduled to have TURP and Cystolitholapaxy (06/21) by Dr. Henriquez, however his preop UC&S showed evidence of infection. - His infection was treated and he is now s/p above procedure. Continuous bladder irrigation discontinued - Boyd catheter intact Urinary Tract Infection - Urine culture 06/19 and 06/21 final with Enterococcus and Pseudomonas, davenport sensitive - Blood cultures showing no growth to date - continue monotherapy with cipro - today is day 10. Will discuss preferred duration with urology today Right upper extremity swelling - venous doppler neg for DVT - checked XR wrist/hand: multiple areas of arthritis - continue Voltaren gel - Tylenol suspension PRN - Continue spica brace DMII (diabetes mellitus, type 2): - Last HgbA1C on 04/09/21 = 6.3. - Hold home Prandin - Lantus 5u BID increased to 7u BID for BSGs in 200s. 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 - He has diagnosis of IPF as well as wedge resection of right lung for prior malignancy. No respiratory complaints. - Continue Tacrolimus 0.5mg po BID - Continue Prednisone - Continue Azithromycin and Bactrim suppressive therapy Esophageal cancer: - History of esophageal adenocarcinoma s/p XRT and chemotherapy, s/p stent placement with subsequent removal. - patient does have chronic dysphagia due to mass - mucinex ordered in an attempt to thin secretions - PEG tube in place - Aspiration precautions HTN (hypertension): - Continue home Amlodipine - ARB on hold due to SONIA Acute on Chronic kidney disease: - baseline Cr (1.1-1.2) - Cr 1.4 today, down from 1.5 - continue to hold ARB - Avoid nephrotoxic agents - suspect pre-renal etiology - trend BMP daily Hyperlipidemia: -Continue Simvastatin FEN/GI: NPO, feedings (Glucerna) through peg. CODE: full code Dispo: Med/Surg. 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: (11) Esophageal stricture: (12) DMII (diabetes mellitus, type 2): (13) Pain: (14) Insomnia: (15) Fatigue: (16) Neuropathy: (17) Urinary retention: (18) Bladder stones: (19) Lung transplant recipient: (20) Immunosuppression: (21) Dysphagia: (22) Chronic kidney disease: (23) Aortic stenosis: Admission and Anticipated Discharge Date Admission Date: June 20, 2021 Supervising Physician Co-Signing Physician Notes I personally examined the patient and verified all wells points of history and exam, discussed case, and agree with decision making with Dr Huang doing better overall vitals noted nad heent nc at mmm breathing unlabored no accessory muscles good effort skin no rashes no pallor or icterus UTI/stone/BPH - now post op. doing better continue current care and appreciate urology input. dc cipro hypoxia - acute diastolic chf related to severe aortic stenosis but likely precipitated by absorption of fluids from post TURP irrigation. improving nicely now off O2. reduce diuresis but continue. continue to follow weakness - continue with PT/OT eval and treat. goal is home w home PT.gettting closer to baseline dequarvain's tendonitis - thumb spica, continue voltaren gel dysphagia - improves post dilation. does not appear to be severe or rapidly progressing, primary GI is not on for hospital this week. dw pt's primary GI - asked family to either call office or portal message him and he would arrange f/u otherwise as above - ?home tomorrow Subjective overnight patient experienced pelvic pain -- a manual bladder irrigation was done and several clots removed. Son present at bedside today, says patient appears much better Review of Systems Gastrointestinal: + dysphagia Physical Exam Constitutional: WD/WN, vitals as above cooperative and comfortable; no acute distress Eyes: + anicteric sclerae ENMT: external ear and nose normal, oropharynx normal Neck: trachea midline Respiratory: normal respiratory effort and + cough; no labored breathing Auscultation: + rhonchi (still present yet much more faint compared to yesterday) Cardiovascular: Rate/Rhythm: regular rate and regular rhythm Heart Sounds: normal S1, normal S2 and + murmur (systolic ejection ) Gastrointestinal (Abdomen): normal bowel sounds, soft, nontender, no hepatosplenomegaly Musculoskeletal: Head/Neck/Chest: normocephalic and head atraumatic Skin: no rashes, warm and dry Neurologic: moves all extremities Psychiatric: A+Ox3, euthymic affect Genitourinary: Boyd catheter in place, draining blood tingued urine with several visible blood clots Results & Data Results & Data ([facility]) Vital Signs (Past 12 Hours) Vital Signs Temp Pulse Resp BP Pulse Ox 06/30/21 07:20 77 20 94 06/30/21 07:07 36.7 C 74 18 151/72 H 92 Resident Activity Tracking Resident Involvement: Resident Care Provided Care Provided: Adult Hospital Medicine (1) Esophageal cancer Malignant neoplasm of esophagus location: unspecified location Qualified Code(s): C15.9 - Malignant neoplasm of esophagus, unspecified (2) Aortic stenosis Cardiac valve disease etiology: etiology unspecified Qualified Code(s): I35.0 - Nonrheumatic aortic (valve) stenosis (3) Dysphagia Dysphagia type: unspecified Qualified Code(s): R13.10 - Dysphagia, unspecified
[2021-06-30] MEDS: predniSONE 5 MG TAB GT SCH (12:27)
[2021-06-30] MEDS: FINASTERIDE 5 MG TAB PEG SCH (12:27)
--- NOTE | 2021-06-30 15:43 | Billing Data ---
Date of Service June 30, 2021 Coding Level of Care Code 00591 Subseq Hosp Care Lvl 3
[2021-06-30] MEDS: TAMSULOSIN HCL 0.4 MG CAP PO SCH ×2 (17:20→21:41)
[2021-06-30] MEDS: AZITHROMYCIN SUSP 200 MG/5 ML 22.5 ML GT SCH (22:06)
[2021-07-01] MEDS: LEVALBUTEROL HCL 0.63 MG/3 ML NEB NEB SCH ×3 (00:01→13:37)
[2021-07-01] MEDS: IPRATROPIUM BROMIDE NEB SOLN 0.02% 2.5 ML VIAL INH SCH ×3 (00:01→13:39)
[2021-07-01 06:19] LABS: BUN Creatinine Ratio 46.2 (10-20); Calcium 8.4 mg/dl (8.5-10.1); Creatinine Clr Calc Pharmacy 36.4 ml/min; Est GFR (African American) 50.2 ml/min; Est GFR (Non-African American) 43.3 ml/min; Potassium 4.9 mmol/L (3.5-5.1)
[2021-07-01] MEDS: TACROLIMUS 0.5 MG CAP PO SCH (06:19)
[2021-07-01] MEDS: TACROLIMUS 1 MG CAP PO SCH (06:19)
[2021-07-01] MEDS: SODIUM CHLOR 7% 4 ML NEB NEB SCH (07:03)
[2021-07-01 07:53] VITALS: BP 161/82; TEMP 97.7
[2021-07-01] MEDS: ADVANCED PROBIOTIC 1250 MG CAPSULE PO SCH ×2 (08:47→12:34)
[2021-07-01] MEDS: DICLOFENAC SOD 1% GEL 100 GM TUBE EXT SCH ×2 (08:47→12:34)
[2021-07-01] MEDS: SODIUM CHLORIDE 1 GM TABLET PO SCH ×2 (08:47→12:34)
[2021-07-01] MEDS: LANSOPRAZOLE 15 MG SOLTAB GT SCH (08:47)
[2021-07-01] MEDS: SENNA 8.6 MG TAB PO SCH (08:47)
[2021-07-01] MEDS: LORazepam 0.5 MG TAB SL PRN (08:48)
[2021-07-01] MEDS: amLODIPine BESYLATE 5 MG TAB GT SCH (08:48)
[2021-07-01] MEDS: INSULIN ASPART PER UNIT SC SCH ×2 (09:00→13:05)
[2021-07-01] MEDS: INSULIN GLARGINE SOLOSTAR 100 UNITS/ML 3 ML PEN SC SCH (09:00)
[2021-07-01] MEDS ORDERED: FUROSEMIDE 20 MG TAB PO STA (09:47)
--- NOTE | 2021-07-01 10:19 | Discharge Summary ---
Date of Service July 01, 2021 Admission HPI Per Admitting Provider Nicola Banks is an 86yo male with multiple medical comorbidities to include esophageal cancer s/p XRT, HTN, HLP, DM, s/p Lung transplant on Prednisone, Tacrolimus immunosuppressive therapy and Azithromycin/SMZ suppression therapy. He has a PEG tube in place as well as chronic indwelling Agarwal catheter. Patient follows with Urology and was to have a TURP performed tomorrow. He had a pre-operative UA performed which was found to be positive for Probable Psudomonas species as well as probable Enterococcus. Patient has had some intermittent nausea and vomiting associated with oral intake - occasional food getting stuck in the esophagus. Also complaining of intermittent dizziness. Otherwise he denies fever, chills, back pain, chest pain, cough, SOB, diarrhea or constipation. In the ER he is afebrile, HD stable, NAD. Resting comfortably. Labs as below with hyponatremia Uv=970, Lvd=620. ER Course: Zosyn 4.5gm Admission Exam Per Admitting Provider General: patient resting comfortably, NAD, non-toxic in appearance, AA&O x 4 Skin: warm, dry, intact, flaking skin present HEENT: NC/AT, PERRL, EOMI, anicteric sclera, conjunctiva without injection, external ear normal to inspection and nontender, nares patent, moist mucus membranes, dentition intact, no oropharyngeal lesions, neck supple, trachea midline, no LAD, no thyromegaly, no JVD Heart: +S1/S2, regular, holosystolic ejection murmur across precordium with radiation to carotids bilaterally Lungs: equal air entry bilaterally, no rales/rhonchi/wheezes Abd: +BS, soft, NT/ND, no masses/organomegaly/ascites, PEG tube in place Ext: warm, 2+ pulses in UE/LE bilaterally, no clubbing/cyanosis, trace edema Neuro: nonfocal, patient AA&O x 4, speech intact, no facial droop, moving all extremities on command with equal strength 5/5 Principal Diagnosis Urinary tract infection Discharge Exam Constitutional WD/WN, vitals as above cooperative and comfortable; no acute distress Eyes + anicteric sclerae ENMT external ear and nose normal, oropharynx normal Neck trachea midline Respiratory normal respiratory effort; no labored breathing Auscultation: + rales (left base) Cardiovascular Rate/Rhythm: regular rate and regular rhythm Heart Sounds: normal S1, normal S2 and + murmur (systolic ejection ) Gastrointestinal (Abdomen) normal bowel sounds, soft, nontender, no hepatosplenomegaly Musculoskeletal Head/Neck/Chest: normocephalic and head atraumatic Skin no rashes, warm and dry Neurologic moves all extremities Psychiatric A+Ox3, euthymic affect Discharge Data Allergies Allergy/AdvReac Type Severity Reaction Status Date / Time metronidazole Allergy Severe NEUROPATHY Verified 06/20/21 20:27 LEG lisinopril Allergy Intermediate NAUSEA, Verified 06/20/21 20:27 STOMACH UPSET, DEATHLY SICK Consultations 06/20/21 19:55 Consult Urology Routine ED Decision to Admit Stat Procedures Performed Operation Date: 06/21/21 08:40 <No data on this case meets the specified criteria> Operation Date: 06/25/21 11:25 Actual Procedures p Cystoscopy, Transurethral Resection Prostate(Not Applicable) - Solitario Henriquez DO s Cystolithopaxy(Not Applicable) - Solitario Henriquez DO Ordered Studies 06/25/21 10:30 US venous doppler UE RT Routine Hospital Course (1) Chronic indwelling Agarawl catheter: 86yo M with multiple comorbidities including hx. of DM, HTN, CKD and lung transplant and esophageal cancer admitted for positive urine culture prior to TURP. He is status post TURP; admission complicated by increased O2 requirement. Respiratory distress - resolved - transitioned from high flow to room air - suspect secondary to pulm vascular congestion (due to underlying congestive heart failure) - he was diuresed gently over his hospital course - lung sounds improved dramatically, let still with rales in left base on day of discharge. Will send out on Lasix 20mg PO daily for next 3 days. Outpatient items to do: Assess volume status and need for additional direuetic dosing. Recheck BMP, as patient had a mild contraction alkalosis on day of discharge. Anemia - stabilized after 1u prbc transfusion early AM of 06/28/21. - suspect post-surgical related blood loss Hyponatremia- improving - Chronic SIADH with acute dilutional post-TURP from free water absorption via bladder irrigation - Na level slowing improving, up to 130 by day of discharge - he was treated with a water restriction and 1 gram TID of NaCl tab BPH w/ hgb - Patient was initially scheduled to have TURP and Cystolitholapaxy (06/21) by Dr. Henriquez, however his preop UC&S showed evidence of infection. - His infection was treated and he is now s/p above procedure - Agarwal catheter intact Urinary Tract Infection - Urine culture 06/19 and 06/21 final with Enterococcus and Pseudomonas, [place] sensitive - Blood cultures showing no growth, finalized - completed 10 day course of cipro while inpatient Right upper extremity swelling - venous doppler neg for DVT - checked XR wrist/hand: multiple areas of arthritis - continue Voltaren gel - Tylenol suspension PRN - Continue spica brace DMII (diabetes mellitus, type 2): - Last HgbA1C on 04/09/21 = 6.3. 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 - He has diagnosis of IPF as well as wedge resection of right lung for prior malignancy. - Continue Tacrolimus 0.5mg po BID - Continue Prednisone - Continue Azithromycin and Bactrim suppressive therapy Esophageal cancer: - History of esophageal adenocarcinoma s/p XRT and chemotherapy, s/p stent placement with subsequent removal. - patient does have chronic dysphagia due to mass - mucinex ordered in an attempt to thin secretions - PEG tube in place - Aspiration precautions HTN (hypertension): - Continue home Amlodipine - ARB held during hospitalization due to elevated Cr Outpatient items to do: Check BMP and blood pressure - direct when to resume ARB dose Acute on Chronic kidney disease: - baseline Cr (1.1-1.2) - Cr 1.4 today, down from 1.5 - continue to hold ARB Hyperlipidemia: -Continue Simvastatin (2) Complicated urinary tract infection: (3) Acute hyperglycemia: (4) Acute hyperkalemia: (5) Hypomagnesemia: (6) Hyperlipidemia: (7) Urinary tract infection associated with indwelling urethral catheter: (8) Encounter for pre-operative examination: (9) Esophageal cancer: (10) 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: (11) Esophageal stricture: (12) DMII (diabetes mellitus, type 2): (13) Pain: (14) Insomnia: (15) Fatigue: (16) Neuropathy: (17) Urinary retention: (18) Bladder stones: (19) Lung transplant recipient: (20) Immunosuppression: (21) Dysphagia: (22) Chronic kidney disease: (23) Aortic stenosis: Total Time Total Time Spent Total Time Spent (In Minutes): <30 Discharge Plan Discharge Items Patient Disposition: Home - Home Health Services Reason For Visit: UTI - PSEUDOMONAS, ENTEROCOCCUS Discharge Diagnosis: UTI Activity: Resume your previous activity Non-emergency contact: Primary Care Provider and Urologist Call non-emergency contact if: you have any medication questions and your symptoms worsen Follow-up/Referrals: Eber Sands MD [Primary Care Provider] - 07/10/21 3:45 pm Diet: Carb Consistent or DM2 Addtl Attending Provider Instructions: You were hospitalized at [facility] for a urinary tract infection - while hospitalized, urology performed a TURP procedure and removed stones from the bladder. Your urinary tract infection was treated with antibiotics. While in the hospital your blood counts dropped below normal - likely related to post-surgical blood loss. You were transfused one unit of blood to replenish your stores. After the transfusion, your hemoglobin level stabilized. You also experienced difficulty breathing with low oxygen while in the hospital. The cause of this was thought to be from fluid overload into your lungs (ie due to your congestive heart failure). You were treated with IV diuretic medication to pull some of the excess water out of your lungs. We recommend you continue to lasix (furosemide) 20mg, daily for three days after your discharge. A script for this was sent to your pharmacy. We temporarily held (did not administer) your home medication losartan due to a slightly impairment in your kidney function. Please continue to hold your losartan after leaving the hospital - until you see Dr. Sands for a follow up visit - at which time he will direct you on when to resume it. As for your swallowing trouble, we recommend seeing your civil rights investigator, Dr. Pagan as an outpatient to arrange an elongation procedure. Please follow up with Urology as directed - your agarwal catheter will remain in place until this visit. Please follow up with your primary care provider, Dr. Sands, within the next week. Pending Studies at Discharge: No Stand-Alone Forms: [facility] [employer], Smoking Cessation Medications and DC Order Prescriptions: New furosemide [Lasix] 20 mg tablet 20 mg PO DAILY 3 Days Qty: 3 RF: 0 Continued Glucerna 1.5 Javier 0.08-1.5 gram-kcal/mL liquid 237 ea feeding tube QID RF: 0 fluorouracil [Efudex] 5 % cream 1 applic topical BID PRN (Reason: ..) RF: 0 acetaminophen-codeine 120 mg-12 mg /5 mL (5 mL) solution 5 - 10 ml PO Q6H PRN (Reason: pain) Qty: 200 RF: 0 glycopyrrolate 2 mg tablet 4 mg feeding tube BID Qty: 360 RF: 1 lorazepam 0.5 mg tablet 0.5 mg buccal BID PRN (Reason: anxiety) Qty: 60 RF: 5 losartan 25 mg tablet 25 mg feeding tube HS RF: 0 amlodipine 2.5 mg tablet 2.5 mg feeding tube BID RF: 0 hydralazine 50 mg tablet 50 mg feeding tube QID RF: 0 ipratropium bromide 42 mcg (0.06 %) spray,non-aerosol 2 spray Intranasal TID PRN (Reason: Allergy Symptoms) RF: 0 pravastatin 40 mg tablet 20 mg feeding tube HS RF: 0 prednisone 5 mg/5 mL solution 5 mg feeding tube DAILY@1230 RF: 0 ondansetron HCl 4 mg/5 mL solution 4 mg feeding tube Q8H PRN (Reason: nausea and vomiting) RF: 0 tamsulosin 0.4 mg capsule 0.4 mg PO DAILY@1730,2200 RF: 0 finasteride 5 mg tablet 5 mg feeding tube DAILY@1230 RF: 0 lansoprazole [Prevacid SoluTab] 15 mg tablet,disintegrat, delay rel 15 mg feeding tube QAM RF: 0 repaglinide 2 mg tablet 4 mg PO TID PRN (Reason: Other) RF: 0 sulfamethoxazole-trimethoprim 200-40 mg/5 mL suspension 10 ml feeding tube MOFR RF: 0 azithromycin 200 mg/5 mL suspension for reconstitution 250 mg feeding tube TUTHSA RF: 0 tacrolimus 1 mg capsule 1 mg feeding tube BID RF: 0 tacrolimus 0.5 mg capsule 0.5 mg feeding tube BID RF: 0 diclofenac sodium [Voltaren Arthritis Pain] 1 % gel 2 g topical BID PRN (Reason: Hand Pain) RF: 0 Discharge Orders: Discharge Order (Routine); Ordered 07/01/21 Ordered By: Macie Burks/Other Patient Handouts: Furosemide Oral Tablet 20 mg Admission Data Admit Date/Time: 06/20/21 21:04 Attending Provider: Osmel Brooks Admit Provider: Heather Madison Primary Care Provider: Eber Sands Other Providers: Alexandrea Fernández ; Heather Madison ; Solitario Henriquez. Other Interventions: Discharge Summary Assessment (RN) Last Done: 07/01/21 13:27 Supervising Physician Co-Signing Physician Notes I personally examined the patient and verified all wells points of history and exam, discussed case, and agree with decision making with Dr Huang doing better overall - was about to work with PT when i saw him; later informed that he did well enough to go home vitals noted nad heent nc at mmm breathing unlabored no accessory muscles good effort skin no rashes no pallor or icterus UTI/stone/BPH - now post op. doing better continue current care and appreciate urology input. comleted course of abx w cipro hypoxia - acute diastolic chf related to severe aortic stenosis but likely precipitated by absorption of fluids from post TURP irrigation. improving nicely now off O2. reduce diuresis to PO for a few more days then stop (pending of course outpt f/u) weakness - continuewith PT/OT eval and treat @ home dequarvain's tendonitis - thumb spica, voltaren gel dysphagia - improves post dilation. does not appear to be severe or rapidly progressing, primary GI is not on for hospital this week. dw pt's primary GI - asked family to either call office or portal message him and he would arrange f/u otherwise as above - stable for home, family support, home PT Resident Activity Tracking Resident Involvement: Resident Care Provided Care Provided: Adult Hospital Medicine
[2021-07-01] MEDS: predniSONE 5 MG TAB GT SCH (12:33)
[2021-07-01] MEDS: FINASTERIDE 5 MG TAB PEG SCH (12:33)
[2021-07-01 13:43] VITALS: PULSE 99; O2SAT 95
--- NOTE | 2021-07-09 07:10 | Coding Query ---
PATHOLOGY To promote full compliance with coding requirements relating to patient care, physician participation is requested in all cases of medical biller coder uncertainty. Please assist us with the question(s) below: Please review the Pathology report and please document any relevant diagnosis(es) below: Diagnosis(es): Prostate Cancer. T1a Thank you HUDSON Santiago [facility]
== END 2021-07-01 14:15 | disposition home health service (06) | DRG 662 ==
LOC: ED 18:51 → SUATTDRO 21:04 → 3E 21:04 → 1E 06-28 04:23 → 3E 06-29 22:21
DX: I50.31 Acute diastolic (congestive) heart failure; N18.30 Chronic kidney disease, stage 3 unspecified; N40.1 Benign prostatic hyperplasia with lower urinary tract symptoms; E78.5 Hyperlipidemia, unspecified; Y92.009 Unspecified place in unspecified non-institutional (private) residence as the place of occurrence of the external cause; B96.5 Pseudomonas (aeruginosa) (mallei) (pseudomallei) as the cause of diseases classified elsewhere; E87.6 Hypokalemia; I31.3 Pericardial effusion (noninflammatory); Z92.3 Personal history of irradiation; E22.2 Syndrome of inappropriate secretion of antidiuretic hormone; R31.9 Hematuria, unspecified; N21.0 Calculus in bladder; Z79.899 Other long term (current) drug therapy; Z93.1 Gastrostomy status; D84.9 Immunodeficiency, unspecified; M77.8 Other enthesopathies, not elsewhere classified; R13.10 Dysphagia, unspecified; T45.1X5A Adverse effect of antineoplastic and immunosuppressive drugs, initial encounter; C61 Malignant neoplasm of prostate; I13.0 Hypertensive heart and chronic kidney disease with heart failure and stage 1 through stage 4 chronic kidney disease, or unspecified chronic kidney disease; E11.65 Type 2 diabetes mellitus with hyperglycemia; B95.2 Enterococcus as the cause of diseases classified elsewhere; N32.89 Other specified disorders of bladder; C15.9 Malignant neoplasm of esophagus, unspecified; I35.0 Nonrheumatic aortic (valve) stenosis; E83.42 Hypomagnesemia; D62 Acute posthemorrhagic anemia; Z20.822 Contact with and (suspected) exposure to COVID-19; R33.9 Retention of urine, unspecified; T86.819 Unspecified complication of lung transplant; E11.22 Type 2 diabetes mellitus with diabetic chronic kidney disease; T83.511A Infection and inflammatory reaction due to indwelling urethral catheter, initial encounter; N39.0 Urinary tract infection, site not specified

== ENCOUNTER 2021-07-23 17:28 | Inpatient (IN) ==
--- NOTE | 2021-07-23 18:22 | Emergency Department Note ---
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 No syncope or trauma otherwise reported. Family report this was transient and lasted minutes but unable to give exact time. Patient and family states he is back to normal with this at this time. 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 Patient states he is some baseline weakness and drop in his right foot but this is unchanged. Patient has had some chronic cough issues. He states has had some issues with urination or family report he has had issues going to the bathroom and has a history of UTIs. They state he is felt warm but did not report any significant fevers. Patient denies any abdominal pain or distention at this time. Patient denies any headache at this time. Has been following with his outpatient doctor and an echocardiogram and chest x-ray recently. Has had some elevated blood sugars recently just starting on insulin. REVIEW OF SYSTEMS: A total of 10 review of systems was obtained and negative except as stated above in the HPI. PAST MEDICAL HISTORY: As noted above MEDICATIONS: Reviewed home medications and the patient can continue his multiple medications including his transplant medications at this time. Patient will continue his Bactrim prophylaxis. SOCIAL HISTORY: Lives with PHYSICAL EXAM: GENERAL: alert and oriented in no acute distress on stretcher, somewhat fatigued in appearance Head: normocephalic and atraumatic EYES: No injection, discharge or icterus. PERRL, EOMI. NECK: Trachea midline. Supple. ENT: Mucous membranes pink and moist. Pharynx without erythema or exudate. An occasional cough is noted. LUNGS: Airway patent. No retractions. Breath sounds with no transmitted breath sounds on the right with diminished base on the left. HEART: Regular rate and rhythm. No chest wall tenderness ABDOMEN: Soft and non-tender, without guarding or rebound. PEG tube in place in the left upper abdomen. SKIN: Acyanotic, warm, dry EXTREMITIES: Without swelling or tenderness appreciated. NEUROLOGICAL: No aphasia. No facial droop or slurred speech. Tongue midline normal strength and tone in the extremities. Sensation to gross touch normal ac ross the face and lower extremities with some mild symmetric diminishment in the bilateral hands. Ambulatory with assistance. EK bpm normal sinus rhythm. No PVC or PAC. No acute ST segment elevation or depression. QTC 435. Normal axis. CONTINUOUS CARDIAC MONITORING: was ordered and showed a heart rate of 90s bpm in normal sinus rhythm Patient's laboratory studies and imaging reviewed. Differential includes Infection, dehydration, metabolic abnormality, hypo/hyperglycemia, electrolyte disturbance, anemia, hypoxia, cardiac sources, intracerebral event, toxicologic, neurologic, as well as other pathologies. IMPRESSION/MEDICAL DECISION MAKING: Given the resolution of patient's symptoms do not believe he is a candidate for thrombolytics. Patient at neurological baseline although fatigued and with some urinary symptoms by report. Question of this could represent TIA. Patient with multiple complex past medical issues. Blood cultures and broad differential were obtained for infection as well as electrolyte abnormality. Patient also has had issues with elevated blood sugars recently possible indicative of infection. Blood work without leukocytosis. Stable mild anemia. VBG without significant acidosis. Sodium is improved today. No lactate elevation. Glucose is si gnificantly elevated in the 300s. Creatinine is normal at 1. No significant transaminitis. Patient not hypoxic here and chest x-ray is similar to previous radiology report. CT of the head as well as CTA of the head and neck without significant intracranial bleed or vascular abnormality noted. Negative COVID. Patient's urine sample concerning for infection with nitrates and white blood cells. Recent microbiology reviewed with Enterococcus and Pseudomonas noted. Discussed with pharmacy will start on Zosyn at this time. Patient resting in bed. Does not appear grossly septic about increased fatigue and the family do state again he seems like he is declined the last several days. Requiring significant assistance for change in position. Question of some component this was related to the UTI. Question possibly TIA versus some change in speech and issues earlier related to the UTI. Discussed options of care with family and will recommend further care here at the hospital for clinical improvement. Patient will need optimization of his blood sugars likely elevated some degree related to his infection. DIAGNOSIS: Acute UTI, weakness, transient change in speech, hyperglycemia secondary to type 2 diabetes. DISPOSITION: Hospitalist will evaluate Patient was agreeable with this plan. Family requesting private room given his history of lung transplant. Past Med/Surg History Medical History Aortic stenosis Atrial fibrillation BPH (benign prostatic hyperplasia) Chronic kidney disease Complicated urinary tract infection Diabetes mellitus, type 2 Diastolic CHF Dysphagia Esophageal cancer History of skin cancer HTN (hypertension) Hyperlipidemia Hyponatremia Immunosuppression Lung cancer Lung transplant recipient Pulmonary fibrosis Right foot drop Surgical History H/O lung transplant (2005) History of anesthesia reaction History of back surgery (2016) History of bronchoscopy (06/19/05) History of cardiac cath History of cataract surgery History of colonoscopy History of esophageal dilatation History of esophagogastroduodenoscopy (EGD) (10/17/20) History of incision and drainage (03/29/09) History of lobectomy of lung (2008) History of tooth extraction Status post insertion of percutaneous endoscopic gastrostomy (PEG) tube Family History Mother Colon cancer Father No problems noted. Brother Colon cancer Stomach cancer Brother No problems noted. Brother Prostate cancer, Onset Age: 90 Sister No problems noted. Sister Breast cancer, Onset Age: 60 Sister No problems noted. Sister No problems noted. Sister No problems noted. Sister No problems noted. Son No problems noted. 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 How many Children do You have: 3 Feels Safe at Home: Yes Childhood Exposure to Second-Hand Smoke: No Diet Comment: Tube Feedings Glucerna QID caffeine: No Dental Care, Regularly: Yes Physical Activity Frequency: 1-2 Times per Week Seatbelt Use: always Sunscreen Use: Yes Assistive Devices: Walker Allergies Allergies Allergy/AdvReac Type Severity Reaction Status Date / Time metronidazole Allergy Severe NEUROPATHY Verified 07/23/21 21:42 LEG lisinopril Allergy Intermediate NAUSEA, Verified 07/19/21 13:06 STOMACH UPSET, DEATHLY SICK Home Meds Home Medications Medication Instructions Recorded Confirmed hydralazine 50 mg tablet 50 mg FEEDING TUBE QID 07/27/18 07/23/21 ipratropium bromide 42 mcg (0.06 2 spray INTRANASAL TID PRN ml 03/16/19 07/23/21 %) nasal spray pravastatin 40 mg tablet 20 mg FEEDING TUBE HS tab 11/22/20 07/23/21 fluorouracil 5 % topical cream 1 applic TOPICAL BID PRN 12/07/20 07/23/21 (Efudex) nutrition tx glu 237 ea FEEDING TUBE QID ml 12/07/20 07/23/21 intol,lac-free,soy-fiber 0.08 gram-1.5 kcal/mL liquid (Glucerna 1.5 Javier) ondansetron HCl 4 mg/5 mL oral 4 mg FEEDING TUBE Q8H PRN 01/15/21 07/23/21 solution prednisone 5 mg/5 mL oral solution 5 mg FEEDING TUBE DAILY@1230 01/15/21 07/23/21 amlodipine 2.5 mg tablet 2.5 mg FEEDING TUBE BID tab 03/08/21 07/23/21 finasteride 5 mg tablet 5 mg FEEDING TUBE DAILY@1230 06/19/21 07/23/21 lansoprazole 15 mg delayed 15 mg FEEDING TUBE QAM 06/19/21 07/23/21 release,disintegrating tablet (Prevacid SoluTab) diclofenac sodium 1 % topical gel 2 g TOPICAL BID PRN 06/20/21 07/23/21 (Voltaren Arthritis Pain) repaglinide 2 mg tablet 4 mg PO TID PRN 06/20/21 07/23/21 sulfamethoxazole 200 10 ml FEEDING TUBE MOFR 06/20/21 07/23/21 mg-trimethoprim 40 mg/5 mL oral suspension tacrolimus 0.5 mg capsule, 0.5 mg FEEDING TUBE BID 06/20/21 07/23/21 immediate-release tacrolimus 1 mg capsule, 1 mg FEEDING TUBE BID 06/20/21 07/23/21 immediate-release azithromycin 200 mg/5 mL oral 250 mg FEEDING TUBE TUTHSA 07/11/21 07/23/21 suspension glycopyrrolate 2 mg tablet 4 mg FEEDING TUBE BID tab 07/19/21 07/23/21 tamsulosin 0.4 mg capsule 0.4 mg DAILY@1730,2200 07/19/21 07/23/21 acetaminophen 120 mg-codeine 12 5 - 10 ml FEEDING TUBE Q6H PRN 07/23/21 07/23/21 mg/5 mL (5 mL) oral solution insulin glargine 100 unit/mL (3 0 unit SUBCUT QPM 07/23/21 07/23/21 mL) subcutaneous pen (Lantus Solostar U-100 Insulin) Previous Rx's Medication Instructions Recorded lorazepam 0.5 mg tablet 0.5 mg BUCCAL BID PRN #60 tab 06/05/21 sertraline 50 mg tablet (Zoloft) 50 mg PO DAILY #30 tab 07/16/21 blood-glucose meter,continuous #1 ea 07/20/21 (Dexcom G6 Ocean Fre[employer]er) blood-glucose transmitter (Dexcom #1 ea 07/20/21 G6 Transmitter) pen needle, diabetic 32 gauge x #100 ea 07/20/2132" (BD Moni 2nd Gen Pen Needle) insulin lispro 100 unit/mL 1 sliding scale dose SUBCUT 07/22/21 subcutaneous pen USEASDIRECTD #15 ml Oxygen Home #2 ea 07/23/21 Results & Data (ED) Vital Signs Vital Signs - 24 hr 07/23/21 17:30 07/23/21 19:04 07/23/21 19:32 Temperature 36.1 C L Temperature Source Temporal Artery Scan Pulse Rate 96 H 100 H 95 H Pulse Rate from SpO2 Sensor 98 H 89 Pulse Rhythm Regular Pulse Strength Normal Respiratory Rate 20 27 H 24 Respiratory Effort / Characteristics Non-Labored Spontaneous Respiratory Depth Normal Respiratory Pattern Regular Blood Pressure 144/95 H 142/96 H Blood Pressure Mean 111 111 Blood Pressure Position Sitting Pulse Oximetry 99 93 96 Oxygen Delivery Method Room Air Sepsis Recent Fever Within 48 Hours No Sepsis New/Unexplained Change in Mental Status No Sepsis Action Taken by Nursing No Action Required Laboratory Data Result diagrams: 07/23/21 18:17 07/23/21 19:17 Lab Results 07/23/21 07/23/21 07/23/21 Range/Units 17:54 17:56 18:17 WBC 7.19 (4.8-10.8) K/uL RBC 3.64 L (4.7-6.1) M/uL Hgb 10.1 L (14.0-18.0) g/dL POC Hgb (14.0-18.0) g/dl Hct 31.3 L (42-52) % POC Hct (42-52) % MCV 86.0 (80-100) fL MCH 27.7 (25-34) pg MCHC 32.3 (32-36) g/dL RDW Std Deviation 53.3 H (36.4-46.3) fL RDW Coeff of Flavia 16.7 H (11.5-14.5) % Plt Count 159 (130-400) K/uL MPV 9.2 (7.4-10.4) fL Immature Gran % (Auto) 0.6 % Neut % (Auto) 86.2 % Lymph % (Auto) 8.9 % [place] % (Auto) 4.0 % Eos % (Auto) 0.3 % Baso % (Auto) 0.0 % Neut # (Auto) 6.20 (1.4-6.5) K/uL Lymph # (Auto) 0.64 L (1.2-3.4) K/uL [place] # (Auto) 0.29 (0.11-0.59) K/uL Eos # (Auto) 0.02 (0-0.5) K/uL Baso # (Auto) 0.00 (0-0.2) K/uL Immature Gran # (Auto) 0.04 H (0.00-0.02) K/uL PT (9.0-12.0) Seconds INR (0.9-1.1) APTT (21.0-31.0) Seconds PTT Ratio VBG pH (7.36-7.41) VBG pCO2 (38-50) mmHg VBG pO2 mmHg VBG HCO3 mmol/L VBG O2 Saturation % VBG Base Excess mEq/L Barometric Pressure mm/Hg POC Sodium (135-144) mmol/L Sodium (136-145) mmol/L POC Potassium (3.3-5.0) mmol/L Potassium (3.5-5.1) mmol/L POC Chloride (101-112) mmol/L Chloride (98-107) mmol/L Carbon Dioxide (21-32) mmol/L POC Total CO2 (24-31) mmol/L Anion Gap (3-11) POC Anion Gap (16-25) mmol/L POC BUN (7-18) mg/dl BUN (6-23) mg/dl Creatinine (0.6-1.4) mg/dl POC Creatinine (0.6-1.3) mg/dl Est Cr Clr Drug Dosing ml/min Est GFR ( Amer) ml/min Est GFR (Non-Af Amer) ml/min BUN/Creatinine Ratio (10-20) Glucose (70-99(Fasting)) mg/dl POC Glucose 331 H* 356 H* (70-99) mg/dl POC Glucose (other) (70-99) mg/dl Lactate (0.4-2.0) mmol/L Calcium (8.5-10.1) mg/dl POC Ioniz Calcium Mehnaz (1.12-1.32) mmol/l Magnesium (1.7-2.4) mg/dl Total Bilirubin (0.2-1.0) mg/dl AST (13-39) U/L ALT (7-52) U/L Alkaline Phosphatase (34-104) U/L Troponin I (0-0.04) ng/ml Total Protein (6.0-8.3) gm/dl Albumin (3.4-5.0) gm/dl Globulin (2.5-4.0) gm/dl Albumin/Globulin Ratio (0.9-2) Procalcitonin (0-0.5) ng/ml Urine Color Urine Appearance (Clear) Urine pH (4.5-7.5) Ur Specific [place] (1.000-1.030) Urine Protein (Negative) Urine Glucose (UA) (Negative) Urine Ketones (Negative) Urine Blood (Negative) Urine Nitrite (Negative) Urine Bilirubin (Negative) Urine Urobilinogen (Negative) Ur Leukocyte Esterase (Negative) Urine WBC (Auto) (0-5) /hpf Urine RBC (Auto) (0-4) /hpf U Hyaline Cast (Auto) (0-5) /lpf U Epithel Cells (Auto) (0-5) /lpf Urine Bacteria (Auto) (Negative) SARS-CoV-2, RNA, NAAT (NEGATIVE) 07/23/21 07/23/21 07/23/21 Range/Units 18:17 18:17 18:17 WBC (4.8-10.8) K/uL RBC (4.7-6.1) M/uL Hgb (14.0-18.0) g/dL POC Hgb (14.0-18.0) g/dl Hct (42-52) % POC Hct (42-52) % MCV (80-100) fL MCH (25-34) pg MCHC (32-36) g/dL RDW Std Deviation (36.4-46.3) fL RDW Coeff of Flavia (11.5-14.5) % Plt Count (130-400) K/uL MPV (7.4-10.4) fL Immature Gran % (Auto) % Neut % (Auto) % Lymph % (Auto) % [place] % (Auto) % Eos % (Auto) % Baso % (Auto) % Neut # (Auto) (1.4-6.5) K/uL Lymph # (Auto) (1.2-3.4) K/uL [place] # (Auto) (0.11-0.59) K/uL Eos # (Auto) (0-0.5) K/uL Baso # (Auto) (0-0.2) K/uL Immature Gran # (Auto) (0.00-0.02) K/uL PT 10.6 (9.0-12.0) Seconds INR 1.0 (0.9-1.1) APTT 26.6 (21.0-31.0) Seconds PTT Ratio 1.0 VBG pH (7.36-7.41) VBG pCO2 (38-50) mmHg VBG pO2 mmHg VBG HCO3 mmol/L VBG O2 Saturation % VBG Base Excess mEq/L Barometric Pressure mm/Hg POC Sodium (135-144) mmol/L Sodium 135 L (136-145) mmol/L POC Potassium (3.3-5.0) mmol/L Potassium (3.5-5.1) mmol/L POC Chloride (101-112) mmol/L Chloride 99 (98-107) mmol/L Carbon Dioxide 30 (21-32) mmol/L POC Total CO2 (24-31) mmol/L Anion Gap 6 (3-11) POC Anion Gap (16-25) mmol/L POC BUN (7-18) mg/dl BUN 64 H (6-23) mg/dl Creatinine 1.02 (0.6-1.4) mg/dl POC Creatinine (0.6-1.3) mg/dl Est Cr Clr Drug Dosing 46.9 ml/min Est GFR ( Amer) 76.8 ml/min Est GFR (Non-Af Amer) 66.2 ml/min BUN/Creatinine Ratio 62.7 H (10-20) Glucose 311 H* (70-99(Fasting)) mg/dl POC Glucose (70-99) mg/dl POC Glucose (other) (70-99) mg/dl Lactate 0.7 (0.4-2.0) mmol/L Calcium 8.6 (8.5-10.1) mg/dl POC Ioniz Calcium Mehnaz (1.12-1.32) mmol/l Magnesium 1.8 (1.7-2.4) mg/dl Total Bilirubin 0.5 (0.2-1.0) mg/dl AST (13-39) U/L ALT 17 (7-52) U/L Alkaline Phosphatase 90 (34-104) U/L Troponin I 0.04 (0-0.04) ng/ml Total Protein 6.1 (6.0-8.3) gm/dl Albumin 3.4 (3.4-5.0) gm/dl Globulin 2.7 (2.5-4.0) gm/dl Albumin/Globulin Ratio 1.3 (0.9-2) Procalcitonin (0-0.5) ng/ml Urine Color Urine Appearance (Clear) Urine pH (4.5-7.5) Ur Specific [place] (1.000-1.030) Urine Protein (Negative) Urine Glucose (UA) (Negative) Urine Ketones (Negative) Urine Blood (Negative) Urine Nitrite (Negative) Urine Bilirubin (Negative) Urine Urobilinogen (Negative) Ur Leukocyte Esterase (Negative) Urine WBC (Auto) (0-5) /hpf Urine RBC (Auto) (0-4) /hpf U Hyaline Cast (Auto) (0-5) /lpf U Epithel Cells (Auto) (0-5) /lpf Urine Bacteria (Auto) (Negative) SARS-CoV-2, RNA, NAAT (NEGATIVE) 07/23/21 07/23/21 07/23/21 Range/Units 18:17 18:17 18:29 WBC (4.8-10.8) K/uL RBC (4.7-6.1) M/uL Hgb (14.0-18.0) g/dL POC Hgb 10.5 L (14.0-18.0) g/dl Hct (42-52) % POC Hct 31 L (42-52) % MCV (80-100) fL MCH (25-34) pg MCHC (32-36) g/dL RDW Std Deviation (36.4-46.3) fL RDW Coeff of Flavia (11.5-14.5) % Plt Count (130-400) K/uL MPV (7.4-10.4) fL Immature Gran % (Auto) % Neut % (Auto) % Lymph % (Auto) % [place] % (Auto) % Eos % (Auto) % Baso % (Auto) % Neut # (Auto) (1.4-6.5) K/uL Lymph # (Auto) (1.2-3.4) K/uL [place] # (Auto) (0.11-0.59) K/uL Eos # (Auto) (0-0.5) K/uL Baso # (Auto) (0-0.2) K/uL Immature Gran # (Auto) (0.00-0.02) K/uL PT (9.0-12.0) Seconds INR (0.9-1.1) APTT (21.0-31.0) Seconds PTT Ratio VBG pH 7.45 H (7.36-7.41) VBG pCO2 46 (38-50) mmHg VBG pO2 54 mmHg VBG HCO3 31 mmol/L VBG O2 Saturation 86.7 % VBG Base Excess 6.3 mEq/L Barometric Pressure 737.9 mm/Hg POC Sodium 136 (135-144) mmol/L Sodium (136-145) mmol/L POC Potassium 4.8 (3.3-5.0) mmol/L Potassium (3.5-5.1) mmol/L POC Chloride 97 L (101-112) mmol/L Chloride (98-107) mmol/L Carbon Dioxide (21-32) mmol/L POC Total CO2 31 (24-31) mmol/L Anion Gap (3-11) POC Anion Gap 15.0 L (16-25) mmol/L POC BUN 58 H (7-18) mg/dl BUN (6-23) mg/dl Creatinine (0.6-1.4) mg/dl POC Creatinine 1.0 (0.6-1.3) mg/dl Est Cr Clr Drug Dosing ml/min Est GFR ( Amer) ml/min Est GFR (Non-Af Amer) ml/min BUN/Creatinine Ratio (10-20) Glucose (70-99(Fasting)) mg/dl POC Glucose (70-99) mg/dl POC Glucose (other) 329 H (70-99) mg/dl Lactate (0.4-2.0) mmol/L Calcium (8.5-10.1) mg/dl POC Ioniz Calcium Mehnaz 1.23 (1.12-1.32) mmol/l Magnesium (1.7-2.4) mg/dl Total Bilirubin (0.2-1.0) mg/dl AST (13-39) U/L ALT (7-52) U/L Alkaline Phosphatase (34-104) U/L Troponin I (0-0.04) ng/ml Total Protein (6.0-8.3) gm/dl Albumin (3.4-5.0) gm/dl Globulin (2.5-4.0) gm/dl Albumin/Globulin Ratio (0.9-2) Procalcitonin 0.15 (0-0.5) ng/ml Urine Color Urine Appearance (Clear) Urine pH (4.5-7.5) Ur Specific [place] (1.000-1.030) Urine Protein (Negative) Urine Glucose (UA) (Negative) Urine Ketones (Negative) Urine Blood (Negative) Urine Nitrite (Negative) Urine Bilirubin (Negative) Urine Urobilinogen (Negative) Ur Leukocyte Esterase (Negative) Urine WBC (Auto) (0-5) /hpf Urine RBC (Auto) (0-4) /hpf U Hyaline Cast (Auto) (0-5) /lpf U Epithel Cells (Auto) (0-5) /lpf Urine Bacteria (Auto) (Negative) SARS-CoV-2, RNA, NAAT (NEGATIVE) 07/23/21 07/23/21 07/23/21 Range/Units 19:17 20:43 Unknown WBC (4.8-10.8) K/uL RBC (4.7-6.1) M/uL Hgb (14.0-18.0) g/dL POC Hgb (14.0-18.0) g/dl Hct (42-52) % POC Hct (42-52) % MCV (80-100) fL MCH (25-34) pg MCHC (32-36) g/dL RDW Std Deviation (36.4-46.3) fL RDW Coeff of Flavia (11.5-14.5) % Plt Count (130-400) K/uL MPV (7.4-10.4) fL Immature Gran % (Auto) % Neut % (Auto) % Lymph % (Auto) % [place] % (Auto) % Eos % (Auto) % Baso % (Auto) % Neut # (Auto) (1.4-6.5) K/uL Lymph # (Auto) (1.2-3.4) K/uL [place] # (Auto) (0.11-0.59) K/uL Eos # (Auto) (0-0.5) K/uL Baso # (Auto) (0-0.2) K/uL Immature Gran # (Auto) (0.00-0.02) K/uL PT (9.0-12.0) Seconds INR (0.9-1.1) APTT (21.0-31.0) Seconds PTT Ratio VBG pH (7.36-7.41) VBG pCO2 (38-50) mmHg VBG pO2 mmHg VBG HCO3 mmol/L VBG O2 Saturation % VBG Base Excess mEq/L Barometric Pressure mm/Hg POC Sodium (135-144) mmol/L Sodium (136-145) mmol/L POC Potassium (3.3-5.0) mmol/L Potassium 4.6 (3.5-5.1) mmol/L POC Chloride (101-112) mmol/L Chloride (98-107) mmol/L Carbon Dioxide (21-32) mmol/L POC Total CO2 (24-31) mmol/L Anion Gap (3-11) POC Anion Gap (16-25) mmol/L POC BUN (7-18) mg/dl BUN (6-23) mg/dl Creatinine (0.6-1.4) mg/dl POC Creatinine (0.6-1.3) mg/dl Est Cr Clr Drug Dosing ml/min Est GFR ( Amer) ml/min Est GFR (Non-Af Amer) ml/min BUN/Creatinine Ratio (10-20) Glucose (70-99(Fasting)) mg/dl POC Glucose (70-99) mg/dl POC Glucose (other) (70-99) mg/dl Lactate (0.4-2.0) mmol/L Calcium (8.5-10.1) mg/dl POC Ioniz Calcium Mehnaz (1.12-1.32) mmol/l Magnesium (1.7-2.4) mg/dl Total Bilirubin (0.2-1.0) mg/dl AST 14 (13-39) U/L ALT (7-52) U/L Alkaline Phosphatase (34-104) U/L Troponin I (0-0.04) ng/ml Total Protein (6.0-8.3) gm/dl Albumin (3.4-5.0) gm/dl Globulin (2.5-4.0) gm/dl Albumin/Globulin Ratio (0.9-2) Procalcitonin (0-0.5) ng/ml Urine Color Yellow Urine Appearance Clear (Clear) Urine pH 8.5 H (4.5-7.5) Ur Specific [place] 1.025 (1.000-1.030) Urine Protein 1+ H (Negative) Urine Glucose (UA) 2+ H (Negative) Urine Ketones Negative (Negative) Urine Blood 2+ H (Negative) Urine Nitrite Positive A (Negative) Urine Bilirubin Negative (Negative) Urine Urobilinogen Negative (Negative) Ur Leukocyte Esterase 2+ H (Negative) Urine WBC (Auto) >30 H (0-5) /hpf Urine RBC (Auto) >30 H (0-4) /hpf U Hyaline Cast (Auto) 1-5 (0-5) /lpf U Epithel Cells (Auto) 5-10 H (0-5) /lpf Urine Bacteria (Auto) 1+ H (Negative) SARS-CoV-2, RNA, NAAT NEGATIVE (NEGATIVE) Administered Medications Discontinued Medications Piperacillin Sod/Tazobactam Sod (Zosyn) 4.5 gm in 120 mls @ 240 mls/hr IV NOW ONE Stop: 07/23/21 21:53 Last Admin: 07/23/21 22:01 Dose: 240 mls/hr Documented by: [id number] Ioversol (Optiray 320 125ml) 117 ml IV ONCE ONE Stop: 07/23/21 18:52 Last Admin: 07/23/21 18:56 Dose: 117 ml Documented by: [id number] Imaging Data Radiologist's Impression: Chest X-Ray 07/23/21 18:17 SINGLE VIEW CHEST CLINICAL HISTORY: Strokelike symptoms. Cough. FINDINGS: An AP, portable, upright chest radiograph is compared to study dated 07/19/2021 and correlated with chest CT dated 01/15/2021. The heart is top normal for projection noting atherosclerotic calcification of the thoracic aorta. The pulmonary vasculature is noncongested. Postoperative change and volume loss is noted in the right lung. There is pleural fluid and complete opacification throughout the right hemithorax. A small left pleural effusion is suggested. No pneumothorax is seen. The skeletal structures are osteopenic. There are healed left-sided rib fractures. IMPRESSION: 1. Volume loss, pleural fluid, and complete opacification of the right hemithorax is similar to previous. 2. A small pleural effusion is noted on the left. ACT 112: Negative or not required by law. Electronically signed by: Dread Joshi M.D. 07/23/2021 6:[address] 07/23/21 18:[address] OF THE BRAIN; CT ANGIOGRAM OF THE BRAIN; CT ANGIOGRAM OF THE NECK CLINICAL HISTORY: Strokelike symptoms. COMPARISON STUDY: CT of the brain dated 07/27/2018. TECHNIQUE: Unenhanced axial CT scan of the brain is performed. Subsequently, following the IV administration of 117 of Optiray 320, CT angiogram of the head and neck was performed from the aortic arch to the vertex. Images are reviewed in the axial, sagittal, and coronal planes. 3-D MIPS images are created and assessed. IV contrast was administered without complication. All measurements were calculated based on NASCET criteria. A dose lowering technique was utilized adhering to the principles of ALARA. CT DOSE: 1559.64 mGy.cm FINDINGS: Brain parenchyma: There is age-related involutional change noting mild subcortical and periventricular microangiopathic disease. There is no hemorrhage, mass effect, or evidence of acute territorial ischemia by CT criteria. There is no evidence of enhancing mass lesion on the angiogram phase images. The ventricles, sulci, and cisterns are prominent secondary to involutional change. [place]-white matter differentiation is preserved. No extra- axial fluid collection is seen. Thoracic aorta: Visualized portions of the thoracic aorta are normal in caliber. The aortic arch demonstrates standard 3-vessel anatomy. Right carotid arterial system: The right common carotid artery is widely patent, as are the right internal and external carotid arteries. Calcified plaque is noted in the carotid bulb. Left carotid arterial system: The left common carotid artery is widely patent, as are the left internal and external carotid arteries. Calcified plaque is noted in the carotid bulb. Vertebral arteries: The vertebral arteries are widely patent bilaterally and codominant. Subclavian arteries: Widely patent bilaterally. Intracranial vasculature: There is atherosclerotic calcification of the cavernous carotid and vertebral arteries The internal carotid arteries are patent at the skull base, as are the anterior and middle cerebral arteries bilaterally. The vertebrobasilar system and posterior cerebral arteries are widely patent. The vertebral arteries are codominant. There is no aneurysm, high-grade stenosis, or focal vessel cut off seen throughout the intracranial circulation. Jugular veins: Patent bilaterally. Dural sinuses: Patent. Lung apices: Consolidation is seen at the right apex. The visualized left upper lobe lung parenchyma appears clear. Soft tissues: The visualized pharyngeal soft tissues are normal in appearance noting angiographic phase technique. The oropharyngeal airway appears widely patent. The salivary and thyroid glands are normal in appearance. No cervical lymphadenopathy is seen. Skeletal structures: The skeletal structures are osteopenic. The calvarium appears intact. The cervical spine is maintained noting multilevel spondylosis. Orbits: The bony orbits are intact. Orbital contents are normal as visualized noting bilateral ocular lens implants. Sinuses and mastoids: The paranasal sinuses are clear. The mastoid air cells are well pneumatized. IMPRESSION: 1. There is no hemorrhage, mass effect, or evidence of acute territorial ischemia by CT criteria. 2. Unremarkable CT angiogram of the brain. 3. Unremarkable CT angiogram of the neck. 4. Consolidation is noted at the right lung apex. ACT 112: Negative or not required by law. Electronically signed by: Dread Joshi M.D. 07/23/2021 7:10 PM Head CTA 07/23/21 18:[address] OF THE BRAIN; CT ANGIOGRAM OF THE BRAIN; CT ANGIOGRAM OF THE NECK CLINICAL HISTORY: Strokelike symptoms. COMPARISON STUDY: CT of the brain dated 07/27/2018. TECHNIQUE: Unenhanced axial CT scan of the brain is performed. Subsequently, following the IV administration of 117 of Optiray 320, CT angiogram of the head and neck was performed from the aortic arch to the vertex. Images are reviewed in the axial, sagittal, and coronal planes. 3-D MIPS images are created and assessed. IV contrast was administered without complication. All measurements were calculated based on NASCET criteria. A dose lowering technique was utilized adhering to the principles of ALARA. CT DOSE: 1559.64 mGy.cm FINDINGS: Brain parenchyma: There is age-related involutional change noting mild subcortical and periventricular microangiopathic disease. There is no hemorrhage, mass effect, or evidence of acute territorial ischemia by CT criter ia. There is no evidence of enhancing mass lesion on the angiogram phase images. The ventricles, sulci, and cisterns are prominent secondary to involutional change. De Los Santos-white matter differentiation is preserved. No extra-axial fluid collection is seen. Thoracic aorta: Visualized portions of the thoracic aorta are normal in caliber. The aortic arch demonstrates standard 3-vessel anatomy. Right carotid arterial system: The right common carotid artery is widely patent, as are the right internal and external carotid arteries. Calcified plaque is noted in the carotid bulb. Left carotid arterial system: The left common carotid artery is widely patent, as are the left internal and external carotid arteries. Calcified plaque is noted in the carotid bulb. Vertebral arteries: The vertebral arteries are widely patent bilaterally and codominant. Subclavian arteries: Widely patent bilaterally. Intracranial vasculature: There is atherosclerotic calcification of the cavernous carotid and vertebral arteries The internal carotid arteries are pa tent at the skull base, as are the anterior and middle cerebral arteries bilaterally. The vertebrobasilar system and posterior cerebral arteries are widely patent. The vertebral arteries are codominant. There is no aneurysm, high-grade stenosis, or focal vessel cut off seen throughout the intracranial circulation. Jugular veins: Patent bilaterally. Dural sinuses: Patent. Lung apices: Consolidation is seen at the right apex. The visualized left upper lobe lung parenchyma appears clear. Soft tissues: The visualized pharyngeal soft tissues are normal in appearance noting angiographic phase technique. The oropharyngeal airway appears widely patent. The salivary and thyroid glands are normal in appearance. No cervical lymphadenopathy is seen. Skeletal structures: The skeletal structures are osteopenic. The calvarium appears intact. The cervical spine is maintained noting multilevel spondylosis. Orbits: The bony orbits are intact. Orbital contents are normal as visualized noting bilateral ocular lens implants. Sinuses and mastoids: The paranasal sinuses are clear. The mastoid air cells are well pneumatized. IMPRESSION: 1. There is no hemorrhage, mass effect, or evidence of acute territorial ischemia by CT criteria. 2. Unremarkable CT angiogram of the brain. 3. Unremarkable CT angiogram of the neck. 4. Consolidation is noted at the right lung apex. ACT 112: Negative or not required by law. Electronically signed by: Dread Joshi M.D. 07/23/2021 7:10 PM Neck CTA 07/23/21 18:[address] OF THE BRAIN; CT ANGIOGRAM OF THE BRAIN; CT ANGIOGRAM OF THE NECK CLINICAL HISTORY: Strokelike symptoms. COMPARISON STUDY: CT of the brain dated 07/27/2018. TECHNIQUE: Unenhanced axial CT scan of the brain is performed. Subsequently, following the IV administration of 117 of Optiray 320, CT angiogram of the head and neck was performed from the aortic arch to the vertex. Images are reviewed in the axial, sagittal, and coronal planes. 3-D MIPS images are created and assessed. IV contrast was administered without complication. All measurements were calculated based on NASCET criteria. A dose lowering technique was utilized adhering to the principles of ALARA. CT DOSE: 1559.64 mGy.cm FINDINGS: Brain parenchyma: There is age-related involutional change noting mild subcortical and periventricular microangiopathic disease. There is no hemorrhage, mass effect, or evidence of acute territorial ischemia by CT criteria. There is no evidence of enhancing mass lesion on the angiogram phase images. The ventricles, sulci, and cisterns are prominent secondary to involutional change. De Los Santos-white matter differentiation is preserved. No extra- axial fluid collection is seen. Thoracic aorta: Visualized portions of the thoracic aorta are normal in caliber. The aortic arch demonstrates standard 3-vessel anatomy. Right carotid arterial system: The right common carotid artery is widely patent, as are the right internal and external carotid arteries. Calcified plaque is noted in the carotid bulb. Left carotid arterial system: The left common carotid artery is widely patent, as are the left internal and external carotid arteries. Calcified plaque is noted in the carotid bulb. Vertebral arteries: The vertebral arteries are widely patent bilaterally and codominant. Subclavian arteries: Widely patent bilaterally. Intracranial vasculature: There is atherosclerotic calcification of the cavernous carotid and vertebral arteries The internal carotid arteries are patent at the skull base, as are the anterior and middle cerebral arteries bilaterally. The vertebrobasilar system and posterior cerebral arteries are widely patent. The vertebral arteries are codominant. There is no aneurysm, high-grade stenosis, or focal vessel cut off seen throughout the intracranial circulation. Jugular veins: Patent bilaterally. Dural sinuses: Patent. Lung apices: Consolidation is seen at the right apex. The visualized left upper lobe lung parenchyma appears clear. Soft tissues: The visualized pharyngeal soft tissues are normal in appearance noting angiographic phase technique. The oropharyngeal airway appears widely patent. The salivary and thyroid glands are normal in appearance. No cervical lymphadenopathy is seen. Skeletal structures: The skeletal structures are osteopenic. The calvarium appears intact. The cervical spine is maintained noting multilevel spondylosis. Orbits: The bony orbits are intact. Orbital contents are normal as visualized noting bilateral ocular lens implants. Sinuses and mastoids: The paranasal sinuses are clear. The mastoid air cells are well pneumatized. IMPRESSION: 1. There is no hemorrhage, mass effect, or evidence of acute territorial ischemia by CT criteria. 2. Unremarkable CT angiogram of the brain. 3. Unremarkable CT angiogram of the neck. 4. Consolidation is noted at the right lung apex. ACT 112: Negative or not required by law. Electronically signed by: Dread Joshi M.D. 07/23/2021 7:10 PM Discharge Plan Visit Data Chief Complaint: Stroke/CVA Symptoms Stated Complaint: INABILITY TO TALK, FACIAL DROOPING ED Provider: Thien Schaefer Discharge Problem: Acute UTI, Generalized weakness, Lung transplant recipient, Transient speech disturbance, Hyperglycemia due to type 2 diabetes mellitus Patient Disposition: Being Evaluated by Hospitalist Forms Stand Alone Forms: My [facility] Prescriptions Prescriptions: No Action Glucerna 1.5 Javier 0.08-1.5 gram-kcal/mL liquid 237 ea feeding tube QID RF: 0 fluorouracil [Efudex] 5 % cream 1 applic topical BID PRN (Reason: ..) RF: 0 lorazepam 0.5 mg tablet 0.5 mg buccal BID PRN (Reason: anxiety) Qty: 60 RF: 5 sertraline [Zoloft] 50 mg tablet 50 mg PO DAILY Qty: 30 RF: 2 (DME) pen needle, diabetic [BD Moni 2nd Gen Pen Needle] 32 gauge x 5/32" needle See Rx Instructions .Route Qty: 100 RF: 3 (DME) Dexcom G6 Transmitter Device See Rx Instructions .Route Qty: 1 RF: 0 (DME) Dexcom G6 [employer] Misc See Rx Instructions .Route Qty: 1 RF: 0 (DME) Oxygen Home Liters Per Minute See Rx Instructions .Route Qty: 2 RF: 6 insulin lispro 100 unit/mL insulin pen 1 sliding scale dose subcut USEASDIRECTD Qty: 15 RF: 0 glycopyrrolate 2 mg tablet 4 mg feeding tube BID RF: 0 amlodipine 2.5 mg tablet 2.5 mg feeding tube BID RF: 0 hydralazine 50 mg tablet 50 mg feeding tube QID RF: 0 ipratropium bromide 42 mcg (0.06 %) spray,non-aerosol 2 spray Intranasal TID PRN (Reason: Allergy Symptoms) RF: 0 pravastatin 40 mg tablet 20 mg feeding tube HS RF: 0 prednisone 5 mg/5 mL solution 5 mg feeding tube DAILY@1230 RF: 0 ondansetron HCl 4 mg/5 mL solution 4 mg feeding tube Q8H PRN (Reason: nausea and vomiting) RF: 0 finasteride 5 mg tablet 5 mg feeding tube DAILY@1230 RF: 0 lansoprazole [Prevacid SoluTab] 15 mg tablet,disintegrat, delay rel 15 mg feeding tube QAM RF: 0 tamsulosin 0.4 mg capsule 0.4 mg DAILY@1730,2200 RF: 0 repaglinide 2 mg tablet 4 mg PO TID PRN (Reason: Other) RF: 0 sulfamethoxazole-trimethoprim 200-40 mg/5 mL suspension 10 ml feeding tube MOFR RF: 0 tacrolimus 1 mg capsule 1 mg feeding tube BID RF: 0 tacrolimus 0.5 mg capsule 0.5 mg feeding tube BID RF: 0 diclofenac sodium [Voltaren Arthritis Pain] 1 % gel 2 g topical BID PRN (Reason: Hand Pain) RF: 0 azithromycin 200 mg/5 mL suspension for reconstitution 250 mg feeding tube TUTHSA RF: 0 acetaminophen-codeine 120 mg-12 mg /5 mL (5 mL) solution 5 - 10 ml feeding tube Q6H PRN (Reason: pain) RF: 0 Lantus Solostar U-100 Insulin 100 unit/mL (3 mL) insulin pen 0 unit subcut QPM RF: 0 Referrals Referrals: Eber Sands MD [Primary Care Provider] -
[2021-07-23 18:37] LABS: Base Excess VBG 6.3 mEq/L; Oxygen Saturation VBG 86.7 %; pH VBG 7.45 (7.36-7.41)
[2021-07-23 18:38] LABS: Hematocrit (blood only) 31.3 % (42-52); Hemoglobin 10.1 g/dL (14.0-18.0); Mean Corpuscular Hemoglobin 27.7 pg (25-34); Mean Corpuscular Hgb Conc 32.3 g/dL (32-36); Mean Platelet Volume 9.2 fL (7.4-10.4); Platelet Count 159 K/uL (130-400); RDW Coefficient of Variation 16.7 % (11.5-14.5); RDW Standard Deviation 53.3 fL (36.4-46.3); Red Blood Count 3.64 M/uL (4.7-6.1); White Blood Count 7.19 K/uL (4.8-10.8)
[2021-07-23 18:41] LABS: iSTAT Hemoglobin 10.5 g/dl (14.0-18.0); iSTAT Ionized Calcium 1.23 mmol/l (1.12-1.32); iSTAT Potassium 4.8 mmol/L (3.3-5.0)
[2021-07-23 18:49] LABS: Partial Thromboplastin Time 26.6 Seconds (21.0-31.0); Prothrombin Time 10.6 Seconds (9.0-12.0)
[2021-07-23] MEDS ORDERED: OPTIRAY 320 125ml IV ONE (18:51)
--- NOTE | 2021-07-23 18:59 | XRay Report ---
SINGLE VIEW CHEST CLINICAL HISTORY: Strokelike symptoms. Cough. FINDINGS: An AP, portable, upright chest radiograph is compared to study dated 07/19/2021 and correlat ed with chest CT dated 01/15/2021. The heart is top normal for projection noting atherosclerotic calcif ication of the thoracic aorta. The pulmonary vasculature is noncongested. Postoperative change and vo lume loss is noted in the right lung. There is pleural fluid and complete opacification throughout th e right hemithorax. A small left pleural effusion is suggested. No pneumothorax is seen. The skeletal structures are osteopenic. There are healed left-sided rib fractures. IMPRESSION: 1. Volume loss, pleural fluid, and complete opacification of the right hemithorax is similar to previ ous. 2. A small pleural effusion is noted on the left. ACT 112: Negative or not required by law. Electronically signed by: Dread Joshi M.D. 07/23/2021 6:56 PM
[2021-07-23 19:00] LABS: Eosinophils # (auto) 0.02 K/uL (0-0.5); Eosinophils % (auto) 0.3 %; Immature Granulocytes # (auto) 0.04 K/uL (0.00-0.02); Immature Granulocytes % (auto) 0.6 %; Lymphocytes # (auto) 0.64 K/uL (1.2-3.4); Lymphocytes % (auto) 8.9 %; Monocytes # (auto) 0.29 K/uL (0.11-0.59); Neutrophils % (auto) 86.2 %
[2021-07-23 19:08] LABS: Albumin Globulin Ratio 1.3 (0.9-2); Albumin Level 3.4 gm/dl (3.4-5.0); BUN Creatinine Ratio 62.7 (10-20); Bilirubin,Total 0.5 mg/dl (0.2-1.0); Calcium 8.6 mg/dl (8.5-10.1); Creatinine Clr Calc Pharmacy 46.9 ml/min; Est GFR (African American) 76.8 ml/min; Est GFR (Non-African American) 66.2 ml/min; Globulin 2.7 gm/dl (2.5-4.0); Magnesium 1.8 mg/dl (1.7-2.4); Total Protein 6.1 gm/dl (6.0-8.3); Troponin I 0.04 ng/ml (0-0.04)
--- NOTE | 2021-07-23 19:12 | CT Scan Report ---
UNENHANCED CT OF THE BRAIN; CT ANGIOGRAM OF THE BRAIN; CT ANGIOGRAM OF THE NECK CLINICAL HISTORY: Strokelike symptoms. COMPARISON STUDY: CT of the brain dated 07/27/2018. TECHNIQUE: Unenhanced axial CT scan of the brain is performed. Subsequently, following the IV adminis tration of 117 of Optiray 320, CT angiogram of the head and neck was performed from the aortic arch t o the vertex. Images are reviewed in the axial, sagittal, and coronal planes. 3-D MIPS images are cre ated and assessed. IV contrast was administered without complication. All measurements were calculate d based on NASCET criteria. A dose lowering technique was utilized adhering to the principles of ALA RA. CT DOSE: 1559.64 mGy.cm FINDINGS: Brain parenchyma: There is age-related involutional change noting mild subcortical and periventricula r microangiopathic disease. There is no hemorrhage, mass effect, or evidence of acute territorial isc hemia by CT criteria. There is no evidence of enhancing mass lesion on the angiogram phase images. Th e ventricles, sulci, and cisterns are prominent secondary to involutional change. De Los Santos-white matter d ifferentiation is preserved. No extra-axial fluid collection is seen. Thoracic aorta: Visualized portions of the thoracic aorta are normal in caliber. The aortic arch demo nstrates standard 3-vessel anatomy. Right carotid arterial system: The right common carotid artery is widely patent, as are the right int ernal and external carotid arteries. Calcified plaque is noted in the carotid bulb. Left carotid arterial system: The left common carotid artery is widely patent, as are the left technology development intern al and external carotid arteries. Calcified plaque is noted in the carotid bulb. Vertebral arteries: The vertebral arteries are widely patent bilaterally and codominant. Subclavian arteries: Widely patent bilaterally. Intracranial vasculature: There is atherosclerotic calcification of the cavernous carotid and vertebr al arteries The internal carotid arteries are patent at the skull base, as are the anterior and middl e cerebral arteries bilaterally. The vertebrobasilar system and posterior cerebral arteries are widel y patent. The vertebral arteries are codominant. There is no aneurysm, high-grade stenosis, or focal vessel cut off seen throughout the intracranial circulation. Jugular veins: Patent bilaterally. Dural sinuses: Patent. Lung apices: Consolidation is seen at the right apex. The visualized left upper lobe lung parenchyma appears clear. Soft tissues: The visualized pharyngeal soft tissues are normal in appearance noting angiographic pha se technique. The oropharyngeal airway appears widely patent. The salivary and thyroid glands are nor mal in appearance. No cervical lymphadenopathy is seen. Skeletal structures: The skeletal structures are osteopenic. The calvarium appears intact. The cervic al spine is maintained noting multilevel spondylosis. Orbits: The bony orbits are intact. Orbital contents are normal as visualized noting bilateral ocular lens implants. Sinuses and mastoids: The paranasal sinuses are clear. The mastoid air cells are well pneumatized. IMPRESSION: 1. There is no hemorrhage, mass effect, or evidence of acute territorial ischemia by CT criteria. 2. Unremarkable CT angiogram of the brain. 3. Unremarkable CT angiogram of the neck. 4. Consolidation is noted at the right lung apex. ACT 112: Negative or not required by law. Electronically signed by: Dread Joshi M.D. 07/23/2021 7:10 PM
[2021-07-23 19:41] LABS: Potassium 4.6 mmol/L (3.5-5.1)
[2021-07-23 20:58] LABS: Appearance Urine Clear (Clear); Bacteria Urine Automated 1+ (Negative); Bilirubin Urine Negative (Negative); Blood Urine 2+ (Negative); Color Urine Yellow; Glucose Urine UA 2+ (Negative); Ketones Urine Negative (Negative); Leukocyte Esterase Urine 2+ (Negative); Nitrite Urine Positive (Negative); RBC Urine Automated >30 /hpf (0-4); Specific Gravity Urine 1.025 (1.000-1.030); Urobilinogen Urine Negative (Negative); WBC Urine Automated >30 /hpf (0-5); pH Urine 8.5 (4.5-7.5)
[2021-07-23 21:06] LABS: Protein Urine 1+ (Negative)
[2021-07-23] MEDS ORDERED: PIPERACILL/TAZOBAC CONSULT ACTIVE PRN (21:24)
[2021-07-23] MEDS ORDERED: PIPERACILLIN/TAZOBACTAM 4.5 GM/120 ML BAG IV ONE (21:24)
--- NOTE | 2021-07-23 22:30 | History & Physical Report ---
Date of Service July 23, 2021 Assessment & Plan (1) Acute UTI: (2) Transient speech disturbance: (3) Hyperglycemia due to type 2 diabetes mellitus: (4) Anxiety disorder due to general medical condition with panic attack: (5) Hyperlipidemia: (6) Chronic kidney disease: (7) Lung transplant recipient: (8) Immunosuppression: (9) HTN (hypertension): (10) Esophageal cancer: (11) DMII (diabetes mellitus, type 2): Plan: Nicola Banks is an 86yo M with multiple comorbidities including hx. of DM, HTN, CKD, lung transplant and esophageal cancer admitted for transient neurologic symptoms and UTI. Urinary Tract Infection - Urine culture 06/19 and 06/21 with pansensitive Enterococcus and Pseudomonas - Due to patient's recurrence of urinary tract infection with previous cultures as above, will admit to MedSurg and initiate IV abx with double coverage for Pseudomonas - Continue Zosyn started in ED - Start Cipro as well -Urine and blood cultures ordered -CBC in a.m. AMS - Transient confusion/garbled speech lasting a few minutes, but resolved by the time of arrival to hospital - More likely metabolic encephalopathy due to infection, with negative CT head and CTA head/neck making stroke unlikely - TIA remains a possibility but less likely than encephalopathy - Low threshold to obtain brain MRI and consult neurology if neuro symptoms recur DMII (diabetes mellitus, type 2): - BSG in ED up in 300s -- labs not consistent with HHS/DKA at this time - Per patient's daughter and son-in-law, last few days with uncontrolled BSG up to 500-600 and had been communicating with on-call doctor at PCP's office for help managing - He was scheduled to start insulin at home but had been unable to as of yet - Last HgbA1C 6.3 on 04/09/21 - Repeat Ac in AM - Hold home meds - Basal/bolus insulin while admitted -BSG checks ACHS - Pharmacy glycemic consult - Of note, patient is on chronic prednisone tx -BMP in a.m. 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 - He has diagnosis of IPF as well as wedge resection of right lung for prior malignancy. No respiratory complaints. - Continue Tacrolimus 0.5mg po BID - Continue Prednisone - Continue Azithromycin and Bactrim suppressive therapy - CTA head/neck with read stating consolidation noted at right lung apex, more likely related to chronic changes seen on multiple chest x-rays no respiratory symptoms, procal negative -While he is high risk for HCAP, at this time respiratory infection seems unlikely should he develop respiratory symptoms, low threshold to initiate MRSA coverage Esophageal cancer: - History of esophageal adenocarcinoma s/p XRT and chemotherapy, s/p stent placement with subsequent removal. - PEG tube in place -- all hydration and nutrition provided via PEG - Aspiration precautions HTN (hypertension): - Continue home Amlodipine and hydralazine Chronic kidney disease: - baseline Cr (1.1-1.2) - Avoid nephrotoxic agents Hyperlipidemia: -Continue pravastatin Depression/anxiety with panic attacks: - Continue home sertraline & prn lorazepam - Uses O2 2-4L/min when anxious or having panic attacks FEN/GI: NPO, feedings (Glucerna) through PEG, PPI daily CODE: full code Dispo: Med/Surg DVT: Lovenox SQ History of Present Illness Primary Care Provider: Eber Sands MD Nicola Banks is an 86yo M with multiple comorbidities including hx. of DM, HTN, CKD, lung transplant and esophageal cancer who was brought to [facility] due to transient confusion and garbled speech earlier today at physical therapy appointment. Per patient, daughter, and son-in-law, patient had been feeling generalized weakness and fatigue for last few days. He admits to having chills, though he states that he is very prone to feeling cold at baseline. They report that the patient had been having difficulty urinating as of late specifically, they state that the patient would frequently feel like he had to urinate so would be helped to the toilet but be unable to urinate. He would then be taken back to the bed and then shortly urinate at that time. Additionally, they state that the patient had a Boyd catheter in place until about 2 weeks ago and his urinary symptoms seem to be slowly developing since that time. They state at baseline patient usually has a bowel movement every 3 to 4 days, but shortly after removal of the Boyd catheter, patient was having 2 or 3 loose BMs per day. However, this has now resolved. He denies dysuria/burning, frequency, abdominal pain, lower back pain, fevers, shortness of breath, cough, nausea, vomiting. In the ED, patient had CT head as well as CTA head/neck which were all negative for acute intracranial pathology. CTA read was remarkable for consolidation at right lung apex. However, chest x-ray showed volume loss, pleural fluid, and complete low pacification of the right hemithorax, which was similar to previous 3 chest x-rays dating back to 06/27/2021. Labs were remarkable for hemoglobin of 10.1, which is stable for him. White count was normal at 7.19. Had VBG, which did not show respiratory or metabolic acidosis. Chemistry significant for elevated glucose to 311. Procalcitonin negative at 0.15. UA with elevated pH, 1+ protein, 2+ glucose, 2+ blood, positive nitrites, 2+ leuk esterase, >30 WBCs, >30 RBCs, 5-10 epithelial cells, 1+ bacteria. COVID-19 testing was negative. Allergies Allergy/AdvReac Type Severity Reaction Status Date / Time metronidazole Allergy Severe NEUROPATHY Verified 07/23/21 21:42 LEG lisinopril Allergy Intermediate NAUSEA, Verified 07/19/21 13:06 STOMACH UPSET, DEATHLY SICK Home Medications Medication Instructions Recorded Confirmed Type hydralazine 50 mg tablet 50 mg FEEDING TUBE QID 07/27/18 07/23/21 History ipratropium bromide 42 mcg (0.06 2 spray INTRANASAL TID PRN ml 03/16/19 07/23/21 History %) nasal spray pravastatin 40 mg tablet 20 mg FEEDING TUBE HS tab 11/22/20 07/23/21 History fluorouracil 5 % topical cream 1 applic TOPICAL BID PRN 12/07/20 07/23/21 History (Efudex) nutrition tx glu 237 ea FEEDING TUBE QID ml 12/07/20 07/23/21 History intol,lac-free,soy-fiber 0.08 gram-1.5 kcal/mL liquid (Glucerna 1.5 Javier) ondansetron HCl 4 mg/5 mL oral 4 mg FEEDING TUBE Q8H PRN 01/15/21 07/23/21 History solution prednisone 5 mg/5 mL oral solution 5 mg FEEDING TUBE DAILY@1230 01/15/21 07/23/21 History amlodipine 2.5 mg tablet 2.5 mg FEEDING TUBE BID tab 03/08/21 07/23/21 History lorazepam 0.5 mg tablet 0.5 mg BUCCAL BID PRN #60 tab 06/05/21 07/23/21 Rx finasteride 5 mg tablet 5 mg FEEDING TUBE DAILY@1230 06/19/21 07/23/21 History lansoprazole 15 mg delayed 15 mg FEEDING TUBE QAM 06/19/21 07/23/21 History release,disintegrating tablet (Prevacid SoluTab) diclofenac sodium 1 % topical gel 2 g TOPICAL BID PRN 06/20/21 07/23/21 History (Voltaren Arthritis Pain) repaglinide 2 mg tablet 4 mg PO TID PRN 06/20/21 07/23/21 History sulfamethoxazole 200 10 ml FEEDING TUBE MOFR 06/20/21 07/23/21 History mg-trimethoprim 40 mg/5 mL oral suspension tacrolimus 0.5 mg capsule, 0.5 mg FEEDING TUBE BID 06/20/21 07/23/21 History immediate-release tacrolimus 1 mg capsule, 1 mg FEEDING TUBE BID 06/20/21 07/23/21 History immediate-release azithromycin 200 mg/5 mL oral 250 mg FEEDING TUBE TUTHSA 07/11/21 07/23/21 History suspension sertraline 50 mg tablet (Zoloft) 50 mg PO DAILY #30 tab 07/16/21 07/23/21 Rx glycopyrrolate 2 mg tablet 4 mg FEEDING TUBE BID tab 07/19/21 07/23/21 History tamsulosin 0.4 mg capsule 0.4 mg DAILY@1730,2200 07/19/21 07/23/21 History blood-glucose meter,continuous #1 ea 07/20/21 Rx (Dexcom G6 Data Warehousing Manager) blood-glucose transmitter (Dexcom #1 ea 07/20/21 Rx G6 Transmitter) pen needle, diabetic 32 gauge x #100 ea 07/20/21 Rx 5/32" (BD Moin 2nd Gen Pen Needle) insulin lispro 100 unit/mL 1 sliding scale dose SUBCUT 07/22/21 07/23/21 Rx subcutaneous pen USEASDIRECTD #15 ml Oxygen Home #2 ea 07/23/21 Rx acetaminophen 120 mg-codeine 12 5 - 10 ml FEEDING TUBE Q6H PRN 07/23/21 07/23/21 History mg/5 mL (5 mL) oral solution insulin glargine 100 unit/mL (3 0 unit SUBCUT QPM 07/23/21 07/23/21 History mL) subcutaneous pen (Lantus Solostar U-100 Insulin) Past Med/Surg History Medical History Aortic stenosis Atrial fibrillation BPH (benign prostatic hyperplasia) Chronic kidney disease Complicated urinary tract infection Diabetes mellitus, type 2 Diastolic CHF Dysphagia Esophageal cancer History of skin cancer HTN (hypertension) Hyperlipidemia Hyponatremia Immunosuppression Lung cancer Lung transplant recipient Pulmonary fibrosis Right foot drop Surgical History H/O lung transplant (2005) History of anesthesia reaction History of back surgery (2016) History of bronchoscopy (06/19/05) History of cardiac cath History of cataract surgery History of colonoscopy History of esophageal dilatation History of esophagogastroduodenoscopy (EGD) (10/17/20) History of incision and drainage (03/29/09) History of lobectomy of lung (2008) History of tooth extraction Status post insertion of percutaneous endoscopic gastrostomy (PEG) tube Family History Mother Colon cancer Father No problems noted. Brother Colon cancer Stomach cancer Brother No problems noted. Brother Prostate cancer, Onset Age: 90 Sister No problems noted. Sister Breast cancer, Onset Age: 60 Sister No problems noted. Sister No problems noted. Sister No problems noted. Sister No problems noted. Son No problems noted. Son Melanoma Daughter Dermatomyositis Other Family history non-contributory No family history of adverse response to anesthesia Social History Smoking Status: Never smoker Second Hand Exposure: No; Hx Alcohol Use: No Hx Substance Use: No Preferred Language: Lithuanian Communication Ability: Impaired Communication Ability Comment: Unable to talk per admission Visual Impairment: Limited Hearing Ability: Use of Hearing Aid Cleaners Required: No Beliefs That Will Affect Care: None marital status: Current Living Situation: Spouse Current Living Situation Comment: Lives with current occupational status: retired 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 How many Children do You have: 3 Other Information That Helps Us Care for You: No Feels Safe at Home: No Is there a partner from a previous relationship who is making you feel unsafe now?: No Any Concerns about Your Family Situation: No Would You Like to Speak to Someone About Your Situation: No Safety Concerns: Feels Safe At This Time Childhood Exposure to Second-Hand Smoke: No Diet Comment: Tube Feedings Glucerna QID caffeine: No Dental Care, Regularly: Yes Physical Activity Frequency: 1-2 Times per Week Seatbelt Use: always Sunscreen Use: Yes Assistive Devices: Hearing Aid - Bilateral Review of Systems Review of Systems: All systems reviewed & are unremarkable except as noted in HPI & below Physical Exam Physical Exam: GENERAL: A&Ox3. NAD. HEENT: PERRL, EOMI. Moist mucous membranes. NECK: No JVD. No lymphadenopathy. CHEST/LUNGS: CTAB A/P. No crackles, wheezes, rales, rhonchi. HEART: RRR. 4/6 systolic murmur heard best at right sternal border. ABDOMEN: NT/ND, soft. BS+ x4. PEG in place. EXTREMITIES: No cyanosis, no clubbing, no edema SKIN: Warm and dry. No rashes or lesions. PSYCHIATRIC: Euthymic affect, no SI, no pressured speech, no hallucinations NEUROLOGIC: No FND. CN II-XII grossly intact. Results & Data Results & Data ([facility]) Vital Signs (Past 12 Hours) Vital Signs Temp Pulse Resp BP Pulse Ox 07/23/21 19:32 95 H 24 142/96 H 96 07/23/21 19:04 100 H 27 H 93 07/23/21 17:30 36.1 C L 96 H 20 144/95 H 99 Supervising Physician Co-Signing Physician Notes Attending addendum: I have physically seen this patient, have supervised the medical residents activities, and agree with the H&P unless as otherwise noted. Assessment and Plan: Urinary tract infection- Follow urine culture and sensitivity Recent UTI with Pseudomonas and Enterococcus Continue Zosyn 4.5 g IV every 8 hours begun in ED Add Cipro 40 mg IV every 12 hours IV fluids Change in mental status- Likely secondary metabolic encephalopathy associated with UTI Follow clinical examination Diabetes mellitus- Glucose 311 upon admission Likely aggravated by UTI Sliding scale Lung transplant status- Continue tacrolimus continue azithromycin and Bactrim suppressive therapy Continue prednisone, may need stress dose steroids Remaining orders and notations as noted Resident Activity Tracking Resident Involvement: Resident Care Provided Care Provided: Adult Hospital Medicine (1) Hyperglycemia due to type 2 diabetes mellitus Diabetes mellitus residential insulin use: with residential use Qualified Code(s): E11.65 - Type 2 diabetes mellitus with hyperglycemia; Z79.4 - nursing home (current) use of insulin (2) Esophageal cancer Malignant neoplasm of esophagus location: unspecified location Qualified Code(s): C15.9 - Malignant neoplasm of esophagus, unspecified (3) HTN (hypertension) Hypertension type: essential hypertension Qualified Code(s): I10 - Essential (primary) hypertension
[2021-07-23] MEDS ORDERED: ENOXAPARIN INJ 40 MG/0.4 ML SYR SQ SCH (23:15)
[2021-07-24] MEDS ORDERED: ALUMINUM/MAGNESIUM SUSP 30 ML UDC PO PRN (01:25)
[2021-07-24] MEDS ORDERED: REPAGLINIDE 1 MG TAB PO PRN (01:25)
[2021-07-24] MEDS ORDERED: PHARMACY GLYCEMIC MGMT CONSULT PRN (01:25)
[2021-07-24] MEDS ORDERED: IPRATROPIUM BROMIDE NASAL SPRAY 0.06% 15ML PRN (01:25)
[2021-07-24] MEDS ORDERED: GLUCOSE 10 TABS/TUBE PO PRN (01:25)
[2021-07-24] MEDS ORDERED: PIPERACILL/TAZOBAC CONSULT ACTIVE PRN (01:25)
[2021-07-24] MEDS ORDERED: CARBOHYDRATES FOR HYPOGLYCEMIA PO PRN (01:25)
[2021-07-24] MEDS ORDERED: ACETAMINOPHEN 325 MG TAB PO PRN (01:25)
[2021-07-24] MEDS ORDERED: LORazepam 0.5 MG TAB SL PRN (01:25)
[2021-07-24] MEDS ORDERED: ONDANSETRON 4 MG/5 ML UDP GT PRN (01:25)
[2021-07-24] MEDS ORDERED: DICLOFENAC SOD 1% GEL 100 GM TUBE EXT PRN (01:25)
[2021-07-24] MEDS ORDERED: GLUCAGON FOR INJ 1 MG VIAL SQ PRN (01:25)
[2021-07-24] MEDS ORDERED: GLUCOSE 40% GEL 15 GM TUBE PO PRN (01:25)
[2021-07-24] MEDS ORDERED: INSULIN ASPART PER UNIT SC SCH ×2 (01:45→07:30)
[2021-07-24] MEDS ORDERED: INSULIN GLARGINE SOLOSTAR 100 UNITS/ML 3 ML PEN SC ONE (01:45)
[2021-07-24] MEDS ORDERED: CIPROFLOXACIN / D5W 400 MG/200 ML BAG IV SCH (02:00)
[2021-07-24] MEDS ORDERED: Nursing to Pharmacy Communication SCH ×2 (03:45)
[2021-07-24] MEDS: PIPERACILLIN/TAZOBACTAM 3.375 GM in DEXTROSE 5% 100 ML IV SCH ×3 (04:23→21:44)
--- NOTE | 2021-07-24 05:49 | Hospitalist Progress Note ---
Date of Service July 24, 2021 Assessment & Plan (1) Acute UTI: Plan: Nicola Banks is an 86yo M with multiple comorbidities including hx. 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 Urinary Tract Infection - Urinary and constitutional symptoms over last few days-weeks in setting of recently removed Boyd approx. 2 weeks ago - UA collected in the ED demonstrating +nitrites, +LE, +bacteria, +RBC, +WBC -- in concert with symptoms, concerning for acute complicated UTI - Urine culture 06/19 and 06/21 with pansensitive Enterococcus and Pseudomonas - Of note, patient recently hospitalized in 06/2021, raising risk for MDR/Pseudomonas - Patient's immunosuppression regimen (s/p lung transplant) noted in this setting -- thankfully, no gross evidence of bacteremia or sepsis at this time - Continue Zosyn - Discontinue ciprofloxacin - Await UCX, BCX Suspected Metabolic Encephalopathy - Transient confusion/garbled speech lasting a few minutes while at PT; no noted FNDs LATHE MACHINE 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, however did not have objective assessment at that time -- resolved by the time of arrival to hospital - Head and neck +vascular imaging without acute findings -- lower concern for T IA/CVA, but considered - In setting of appreciable hyperglycemia and concerns for UTI/infection -- suspect this was likely metabolic in nature - Will require PT, OT once more medically improved DMII (diabetes mellitus, type 2), Hyperglycemia -- A1c (07/24) at _; of note, patient is on chronic steroids - BSG on arrival in the 300s -- labs not consistent with HHS/DKA - Per patient's daughter and son-in-law, last few days with uncontrolled BSG up to 500-600; had been communicating with PCP and planning on starting insulin - Hold home medications - Basal/bolus insulin initiated w/ ACHS BSGs - Glycemic consult appreciated - Monitor lytes. 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 No respiratory complaints. - Patient s/p left lung transplant performed at [facility] in 2005 for IPF on Tacrolimus, Prednisone, Azithromycin and Bactrim. - Continue Tacrolimus 0.5mg po BID - Maintain prednisone 5mg daily -- no signs of adrenal insufficiency at this time - Continue Azithromycin and Bactrim suppressive therapy - CTA head/neck with read stating consolidation noted at right lung apex, more likely related to chronic changes seen on multiple chest x-rays no respiratory symptoms, procal negative -While he is high risk for HCAP, at this time respiratory infection seems unlikely; COVID negative -Check MRSA nares (previously negative in 06/2021) Esophageal cancer - History of esophageal adenocarcinoma s/p XRT and chemotherapy, s/p stent placement with subsequent removal. - PEG tube in place -- all hydration and nutrition provided via PEG - Aspiration precautions HTN (hypertension) - Continue home amlodipine and hydralazine CKD - baseline Cr (1.1-1.2) - No e/o SONIA at present - Avoid nephrotoxic agents Hyperlipidemia -Continue pravastatin Depression/anxiety with panic attacks - Continue home sertraline & prn lorazepam - Uses O2 2-4L/min when anxious or having panic attacks FEN/GI: NPO, feedings (Glucerna) through PEG, PPI daily CODE: full code Dispo: Med/Surg DVT: Lovenox SQ (2) Transient speech disturbance: (3) Hyperglycemia due to type 2 diabetes mellitus: (4) Anxiety disorder due to general medical condition with panic attack: (5) Hyperlipidemia: (6) Chronic kidney disease: (7) Lung transplant recipient: (8) Immunosuppression: (9) HTN (hypertension): (10) Esophageal cancer: (11) DMII (diabetes mellitus, type 2): Admission and Anticipated Discharge Date Admission Date: July 23, 2021 Supervising Physician Co-Signing Physician Notes I personally examined the patient and verified all wells points of history and exam, discussed case, and agree with decision making with Dr Gallagher doing better. dtr at bedside, updated both extensively vitals noted nad heent nc at mmm breathign unlabored no accessory muscles good effort skin no rashes no pallor or icterus neuro no focal deficits metabolic encephalopathy -due to UTI and hyperglycemia, maybe mild contributions from zoloft, but given the other two factors being fairly large influences, and zoloft notably improving his anxiety already - will keep it and treat the other causes, only dc zoloft if clearly an ongoing provoking factor UTI -zosyn pending ID&S hyperglycemia -DM but likely spike from physiologic stress from above -insulin management dysphagia -for outpt EGD - will ask for help moving this up - doesn't need dilation now but sypmtoms somewhat bothersome and currently scheduled for mid-may otherwise as above Subjective NAEO. Feeling better this AM, and per daughter, also looking better. History reviewed - notable additions to add to H&P HPI include -- started Zoloft approx. 10 days ago, has been perhaps a little more sleepy since that time. She also said that he's been c/o increasing SOB over the last week or so, which has been extensively worked up by PCP with otherwise unchanged/unremarkable findings. No CP, palpitations. No fevers, though "his skin has felt warm" and he's also looked somewhat sick and not acting like himself. Review of Systems Review of Systems: as per HPI Physical Exam Physical Exam: General: Tired appearing 86yoM in NAD, daughter at bedside. HEENT: NCAT. Mucous membranes slightly dry appearing. No appreciable JVD. Cardiac: Normal rate and regular rhythm; S1 and S2 present with grade 2/6 GABBI best heard at RUSB, radiating towards apex. Pulmonary: Mildly increased respiratory effort with symmetric expansion of the chest. No use of accessory muscles. R lung with diffusely diminished breath sounds and prominent rhonchi, alongside +rhonchi and transmission of upper airway sounds heard throughout the L lung champagne. Abdominal: Normoactive bowel sounds. Abdomen was soft, nondistended, and non- tender to palpation. No CVA tenderness. Extremities: Upper and lower extremities are warm and well perfused. Radial and dorsalis pedis pulses were 2+ b/l. Neuro: CNII-XII grossly intact. UE strength 4/5 bilaterally, LEs - L knee and ankle 4/5, R knee 4/5, R ankle plantarflexion 4/5 and dorsiflexion 3/5. Endorses sensory abnormalities bilaterally in both hands. Mild tremor noted. Results & Data Results & Data ([facility]) Vital Signs (Past 12 Hours) Vital Signs Temp Pulse Pulse Pulse Resp BP BP 07/24/21 01:30 36.9 C 96 H 18 156/86 H 07/23/21 23:26 83 14 125/82 07/23/21 19:32 95 H 24 142/96 H 07/23/21 19:04 100 H 27 H Pulse Ox 07/24/21 01:30 99 07/23/21 23:26 97 07/23/21 19:32 96 07/23/21 19:04 93 Resident Activity Tracking Resident Involvement: Resident Care Provided Care Provided: Adult Hospital Medicine (1) Hyperglycemia due to type 2 diabetes mellitus Diabetes mellitus jail insulin use: with parts counterman use Qualified Code(s): E11.65 - Type 2 diabetes mellitus with hyperglycemia; Z79.4 - intermodal customer service (current) use of insulin (2) Esophageal cancer Malignant neoplasm of esophagus location: unspecified location Qualified Code(s): C15.9 - Malignant neoplasm of esophagus, unspecified (3) HTN (hypertension) Hypertension type: essential hypertension Qualified Code(s): I10 - Essential (primary) hypertension
[2021-07-24] MEDS ORDERED: ACETAMINOPHEN/CODEINE 120MG/12MG 5ML UDP PEG PRN (05:58)
[2021-07-24] MEDS: TACROLIMUS 0.5 MG CAP PO SCH ×2 (06:32→18:51)
[2021-07-24] MEDS: TACROLIMUS 1 MG CAP PO SCH ×2 (06:32→18:49)
[2021-07-24 07:10] LABS: Hematocrit (blood only) 30.2 % (42-52); Hemoglobin 9.6 g/dL (14.0-18.0); Mean Corpuscular Hemoglobin 27.6 pg (25-34); Mean Corpuscular Hgb Conc 31.8 g/dL (32-36); Mean Corpuscular Volume 86.8 fL (80-100); Mean Platelet Volume 8.8 fL (7.4-10.4); Platelet Count 128 K/uL (130-400); RDW Coefficient of Variation 16.8 % (11.5-14.5); RDW Standard Deviation 53.4 fL (36.4-46.3); Red Blood Count 3.48 M/uL (4.7-6.1); White Blood Count 4.97 K/uL (4.8-10.8)
[2021-07-24 07:30] LABS: Basophils # (auto) 0.01 K/uL (0-0.2); Basophils % (auto) 0.2 %; Eosinophils # (auto) 0.06 K/uL (0-0.5); Eosinophils % (auto) 1.2 %; Immature Granulocytes # (auto) 0.03 K/uL (0.00-0.02); Immature Granulocytes % (auto) 0.6 %; Lymphocytes # (auto) 0.56 K/uL (1.2-3.4); Lymphocytes % (auto) 11.3 %; Monocytes # (auto) 0.62 K/uL (0.11-0.59); Monocytes % (auto) 12.5 %; Neutrophils # (auto) 3.69 K/uL (1.4-6.5); Neutrophils % (auto) 74.2 %
[2021-07-24 07:41] LABS: Calcium 8.3 mg/dl (8.5-10.1); Est GFR (African American) 67.1 ml/min; Est GFR (Non-African American) 57.9 ml/min; Potassium 4.4 mmol/L (3.5-5.1)
[2021-07-24 07:59] LABS: Estimated Average Glucose 160 mg/dl; Hemoglobin A1C 7.2 % (4.5-5.6)
[2021-07-24] MEDS ORDERED: [UNRECOGNIZED DRUG - OTHER] feeding tube SCH (09:00)
[2021-07-24] MEDS ORDERED: amLODIPine BESYLATE 5 MG TAB PEG SCH (09:00)
[2021-07-24] MEDS ORDERED: NUT TX GLUC INTOL LF SOY FIBER feeding tube SCH (09:00)
--- NOTE | 2021-07-24 09:02 | Pharmacy Report ---
Pharmacy Glycemic Short Note 2 - Date of Service July 24, 2021 - Glycemic Short BSG Results (Last 24 hours): 07/23/21 07/23/21 07/23/21 17:54 17:56 18:17 Glucose 311 H* POC Glucose 331 H* 356 H* POC Glucose (other) 07/23/21 07/24/21 07/24/21 18:29 01:08 01:10 Glucose POC Glucose 376 H* 397 H* POC Glucose (other) 329 H 07/24/21 07/24/21 04:28 06:41 Glucose 155 H POC Glucose 329 H* POC Glucose (other) OUTPATIENT ANTIDIABETIC REGIMEN: * Lantus + Lispro - new medications, not yet started at time of admission * A1c = 7.2% (07/24/21) ASSESSMENT: * Nicola is a 86 yo type 2 diabetic who presented with UTI, weakness, and hyperglycemia * Patient is on chronic prednisone for h/o left lung transplant - ordered 5 mg daily. * He receives Glucerna 1.5 (237 mL) QID via PEG tube. This contains 31 grams of CHO. * Per family, BSG has been elevated at home (up to 500-600 mg/dL) and PCP was planning to start insulin * Admitted with severe hyperglycemia. He was given a one time dose of Lantus 20 units SQ @ 0228 and 10 units of Novolog. BSG overcorrected (49 mg/dL @ 0930). Will hold off on further basal insulin until fasting BSG can be evaluated on 07/25 and loosen novolog parameters. PLAN FOR INPATIENT GLYCEMIC CONTROL: * Hold outpatient oral diabetes medications * Basal insulin * Lantus 20 units SQ x 1 on admission * Further doses to be determine * Bolus insulin * NovoLog per scale ACHS or Q6hrs while NPO * Goal Range: Low 110 mg/dL - High 150 mg/dL * Correction Factor: 35 mg/dL/unit * Nutritional / Prandial insulin per carb ratio of 1 unit per 11 grams CHO consumed
[2021-07-24] MEDS ORDERED: TAMSULOSIN HCL 0.4 MG CAP PEG SCH ×2 (09:30→17:30)
[2021-07-24] MEDS: DEXTROSE 50% 50 ML SYRINGE IV PRN (09:42)
[2021-07-24] MEDS: POLYETHYLENE (MIRALAX) 17 GM PACK PEG SCH (10:02)
[2021-07-24] MEDS: amLODIPine BESYLATE 5 MG TAB PEG SCH ×2 (10:03→17:41)
[2021-07-24] MEDS: LANSOPRAZOLE 15 MG SOLTAB PEG SCH (10:04)
[2021-07-24] MEDS: GLYCOPYRROLATE 1 MG TAB PO SCH ×2 (10:04→21:22)
[2021-07-24] MEDS: SERTRALINE HCL 50 MG TABLET PEG SCH (10:05)
[2021-07-24] MEDS: TAMSULOSIN HCL 0.4 MG CAP PEG SCH ×2 (10:05→12:45)
[2021-07-24] MEDS: ENOXAPARIN INJ 40 MG/0.4 ML SYR SQ SCH (10:05)
[2021-07-24] MEDS: hydrALAZINE TAB 50 MG TAB PEG SCH ×4 (10:05→21:23)
[2021-07-24] MEDS: INSULIN ASPART PER UNIT SC SCH ×4 (10:09→22:08)
[2021-07-24] MEDS ORDERED: INSULIN ASPART PER UNIT ONE (10:12)
[2021-07-24] MEDS: FINASTERIDE 5 MG TAB PEG SCH (12:44)
[2021-07-24] MEDS: predniSONE 5 MG TAB PEG SCH (12:44)
[2021-07-24] MEDS: [UNRECOGNIZED DRUG - REMARK] PEG SCH ×3 (12:45→22:16)
--- NOTE | 2021-07-24 16:18 | Billing Data ---
Date of Service July 24, 2021 Coding Level of Care Code 29551 Subseq Hosp Care Lvl 3
[2021-07-24] MEDS ORDERED: PRAVASTATIN SOD 10 MG TAB PEG SCH (21:00)
[2021-07-24] MEDS: AZITHROMYCIN 250 MG/6.25 ML UDP GT SCH (21:21)
[2021-07-24] MEDS: PRAVASTATIN SOD 10 MG TAB PEG SCH (21:24)
--- NOTE | 2021-07-24 21:41 | Billing Data ---
Date of Service July 24, 2021 Coding Level of Care Code 12246 Initial Inpt Care Lvl 3
[2021-07-24] MEDS ORDERED: LIDOCAINE 4% INH SOLN 4 ML BTL INH ONE (23:37)
[2021-07-25] MEDS: PIPERACILLIN/TAZOBACTAM 3.375 GM in DEXTROSE 5% 100 ML IV SCH ×3 (03:59→19:55)
--- NOTE | 2021-07-25 05:59 | Electrocardiogram Report ---
Test Reason : Blood Pressure : / mmHG Vent. Rate : 093 BPM Atrial Rate : 093 BPM P-R Int : 182 ms QRS Dur : 082 ms QT Int : 350 ms P-R-T Axes : 024 063 027 degrees QTc Int : 435 ms Normal sinus rhythm Normal ECG When compared with ECG of 27-JUN-2021 14:29, No significant change was found Confirmed by Fede Larson ([id number]) on 07/25/2021 5:59:02 AM Referred By: Shari Herrera Confirmed By:Fede Larson
[2021-07-25] MEDS: TACROLIMUS 1 MG CAP PO SCH ×2 (06:37→20:30)
[2021-07-25] MEDS: TACROLIMUS 0.5 MG CAP PO SCH ×2 (06:37→19:56)
--- NOTE | 2021-07-25 06:55 | Hospitalist Progress Note ---
Date of Service July 25, 2021 Assessment & Plan (1) Acute UTI: Plan: Nicola Banks is an 86yo M with multiple comorbidities including hx. 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 Urinary Tract Infection - Urinary and constitutional symptoms over last few days-weeks in setting of recently removed Boyd approx. 2 weeks ago - UA collected in the ED demonstrating +nitrites, +LE, +bacteria, +RBC, +WBC -- in concert with symptoms, concerning for acute complicated UTI - Urine culture 06/19 and 06/21 with pansensitive Enterococcus and Pseudomonas --> Of note, patient recently hospitalized in 06/2021, raising risk for MDR/Pseudomonas - UCX currently growing Pseudomonus -- await sensitivities - BCX- NGTD - Patient's immunosuppression regimen (s/p lung transplant) noted in this se tting -- thankfully, no gross evidence of bacteremia or sepsis at this time - Continue Zosyn -- will await speciation before transitioning to PO Suspected Metabolic Encephalopathy - Transient confusion/garbled speech lasting a few minutes while at PT; 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, however did not have objective assessment at that time -- still quite tired, but more back to baseline per family - Head and neck +vascular imaging without acute findings -- lower concern for TIA/CVA, but considered - In setting of appreciable hyperglycemia and concerns for UTI/infection -- suspect this was likely metabolic in nature - Will require PT, OT once more medically improved DMII (diabetes mellitus, type 2), Hyperglycemia -- A1c (07/24) at _; of note, patient is on chronic steroids - BSG on arrival in the 300s -- labs not consistent with HHS/DKA - Per patient's daughter and son-in-law, last few days with uncontrolled BSG up to 500-600; had been communicating with PCP and planning on starting insulin - Hold home medications - Basal/bolus insulin initiated w/ ACHS BSGs - Glycemic consult appreciated - Monitor lytes. 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 No respiratory complaints. - Patient s/p left lung transplant performed at [facility] in 2005 for IPF on Tacrolimus, Prednisone, Azithromycin and Bactrim. - Continue Tacrolimus 0.5mg po BID - Maintain prednisone 5mg daily -- no signs of adrenal insufficiency at this time - Continue Azithromycin and Bactrim suppressive therapy - CTA head/neck with read stating consolidation noted at right lung apex, more likely related to chronic changes seen on multiple chest x-rays no respiratory symptoms, procal negative -While he is high risk for HCAP, at this time respiratory infection seems unlikely; COVID negative -Check MRSA nares (previously negative in 06/2021) Esophageal Cancer / Stricture, Dysphagia - History of esophageal adenocarcinoma s/p XRT and chemotherapy, s/p stent placement with subsequent removal. 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 - Try to hold off from continuous O2 unless needed -- feel this may be thickening/drying secretions and making them harder to clear HTN (hypertension) - Continue home amlodipine and hydralazine CKD - baseline Cr (1.1-1.2) - Slightly bumped BUN/Cr on labs today (BUN 62), but Cr still normal - Continue home feedings - Can consider very gentle hydration p.r.n. - Avoid nephrotoxic agents Hyperlipidemia -Continue pravastatin Depression/anxiety with panic attacks - Continue home sertraline & prn lorazepam - Uses O2 2-4L/min when anxious or having panic attacks FEN/GI: NPO, feedings (Glucerna) through PEG, PPI daily CODE: full code Dispo: Med/Surg DVT: Lovenox SQ (2) Transient speech disturbance: (3) Hyperglycemia due to type 2 diabetes mellitus: (4) Anxiety disorder due to general medical condition with panic attack: (5) Hyperlipidemia: (6) Chronic kidney disease: (7) Lung transplant recipient: (8) Immunosuppression: (9) HTN (hypertension): (10) Esophageal cancer: (11) DMII (diabetes mellitus, type 2): Admission and Anticipated Discharge Date Admission Date: July 23, 2021 Supervising Physician Co-Signing Physician Notes I personally examined the patient and verified all wells points of history and exam, discussed case, and agree with decision making with Dr Gallagher son in law notes that pt has had progressive dysphagia over the last 3-4 wks since discharge - last hospitalization symptoms were mild but present - now progressed to where he really can't handle liquids much, can't really burp so gets uncomfortable, starting to not be able to really swallow secretions which makes him feel like throat is full and feels anxious vitals noted resting comfortably nad heent nc at mmm breathing unlabored bt audible gurgling, no accessory muscles good effort skin no rashes no pallor or icterus neuro no focal deficits metabolic encephalopathy -due to UTI and hyperglycemia, maybe mild contributions from zoloft, but given the other two factors being fairly large influences, and zoloft notably improving his anxiety already - will keep it and treat the other causes, only dc zoloft if clearly an ongoing provoking factor UTI -zosyn pending ID&S (hopefully will still be sensitive to cipro to allow for PO options) hyperglycemia -DM but likely spike from physiologic stress from above -insulin management - improving dysphagia -was for outpt EGD - but symptoms seem to be fairly rapidly progressive over the last few weeks and very bothersome - family realistic overall and have quality of life goals as main focus - but note that current degree of dysphagia is really interfering w quality of life and request GI see to consider EGD while inpatient - given progression of symptoms and quality of life being impacted, this seems quite reasonable. otherwise as above Subjective Increased upper airway secretions overnight resulting in discomfort; respiratory came up to suction x 2. Otherwise doing OK. Feeling better this AM. Son-in-law at bedside, endorses that he looks more back to himself this morning. Continued to be on non-humidified O2 via NC. No CP, palpitations, SOB. No n/v. Review of Systems Review of Systems: as per HPI Physical Exam Physical Exam: General: Tired appearing 86yoM in NAD, daughter at bedside. HEENT: NCAT. Mucous membranes slightly dry appearing. No appreciable JVD. Cardiac: Normal rate and regular rhythm; S1 and S2 present with grade 2/6 GABBI best heard at RUSB, radiating towards apex. Pulmonary: Mildly increased respiratory effort with symmetric expansion of the chest. No use of accessory muscles. R lung with diffusely diminished breath sounds and prominent rhonchi, alongside +rhonchi and transmission of upper airway sounds heard throughout the L lung champagne. Abdominal: Normoactive bowel sounds. Abdomen was soft, nondistended, and non-tender to palpation. No CVA tenderness. Extremities: Upper and lower extremities are warm and well perfused. Radial and dorsalis pedis pulses were 2+ b/l. Neuro: CNII-XII grossly intact. UE strength 4/5 bilaterally, LEs - L knee and ankle 4/5, R knee 4/5, R ankle plantarflexion 4/5 and dorsiflexion 3/5. Endorses sensory abnormalities bilaterally in both hands. Mild tremor noted. 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
[2021-07-25] MEDS: amLODIPine BESYLATE 5 MG TAB PEG SCH ×2 (07:49→17:33)
[2021-07-25] MEDS: LANSOPRAZOLE 15 MG SOLTAB PEG SCH (07:49)
[2021-07-25] MEDS: TAMSULOSIN HCL 0.4 MG CAP PEG SCH ×2 (07:50→12:27)
[2021-07-25] MEDS: SERTRALINE HCL 50 MG TABLET PEG SCH (07:50)
[2021-07-25] MEDS: hydrALAZINE TAB 50 MG TAB PEG SCH ×4 (07:50→21:31)
[2021-07-25] MEDS: GLYCOPYRROLATE 1 MG TAB PO SCH ×2 (07:51→21:28)
[2021-07-25] MEDS: [UNRECOGNIZED DRUG - REMARK] PEG SCH ×4 (07:53→21:37)
[2021-07-25 07:58] LABS: Hematocrit (blood only) 31.5 % (42-52); Hemoglobin 9.8 g/dL (14.0-18.0); Mean Corpuscular Hemoglobin 27.5 pg (25-34); Mean Corpuscular Hgb Conc 31.1 g/dL (32-36); Mean Corpuscular Volume 88.5 fL (80-100); Mean Platelet Volume 8.9 fL (7.4-10.4); Nucleated RBC # (auto) 0.02 K/uL (0-0); Nucleated RBC % (auto) 0.3 %; Platelet Count 129 K/uL (130-400); RDW Coefficient of Variation 16.9 % (11.5-14.5); RDW Standard Deviation 54.5 fL (36.4-46.3); Red Blood Count 3.56 M/uL (4.7-6.1); White Blood Count 6.48 K/uL (4.8-10.8)
--- NOTE | 2021-07-25 08:02 | XRay Report ---
XR chest 1V portable CLINICAL HISTORY: SOB, crackles COMPARISON STUDY: Chest radiograph July 23, 2021. Chest CT] January 15, 2021. FINDINGS: Postoperative findings and opacification of the right hemithorax are unchanged. There is no pneumothorax. Small left pleural effusion is noted. Left basilar opacity has developed. Left lung tr ansplant is noted. Pulmonary vascular congestion within the left lung is noted. IMPRESSION: 1. Pulmonary vascular congestion with a small left pleural effusion with left basilar opacity which c ould reflect atelectasis or consolidation. 2. Postoperative findings and opacification of the right hemithorax, unchanged. ACT 112: Negative or not required by law. Electronically signed by: Grant Mistry M.D. 07/25/2021 8:00 AM
[2021-07-25 08:23] LABS: BUN Creatinine Ratio 46.6 (10-20); Basophils # (auto) 0.01 K/uL (0-0.2); Basophils % (auto) 0.2 %; Calcium 8.9 mg/dl (8.5-10.1); Eosinophils # (auto) 0.04 K/uL (0-0.5); Eosinophils % (auto) 0.6 %; Est GFR (African American) 55.7 ml/min; Est GFR (Non-African American) 48.1 ml/min; Immature Granulocytes # (auto) 0.04 K/uL (0.00-0.02); Immature Granulocytes % (auto) 0.6 %; Lymphocytes % (auto) 10.8 %; Monocytes # (auto) 0.62 K/uL (0.11-0.59); Monocytes % (auto) 9.6 %; Neutrophils # (auto) 5.07 K/uL (1.4-6.5); Neutrophils % (auto) 78.2 %
[2021-07-25] MEDS: POLYETHYLENE (MIRALAX) 17 GM PACK PEG SCH (08:24)
[2021-07-25] MEDS: INSULIN ASPART PER UNIT SC SCH ×4 (09:23→21:36)
[2021-07-25] MEDS ORDERED: INSULIN GLARGINE SOLOSTAR 100 UNITS/ML 3 ML PEN SC ONE ×2 (10:15→21:00)
[2021-07-25] MEDS: ENOXAPARIN INJ 40 MG/0.4 ML SYR SQ SCH (10:32)
--- NOTE | 2021-07-25 10:45 | Pharmacy Report ---
Pharmacy Glycemic Short Note 2 - Date of Service July 25, 2021 - Glycemic Short BSG Results (Last 24 hours): 07/23/21 07/24/21 07/24/21 18:17 12:41 17:39 Glucose 311 H* POC Glucose 135 H 176 H 07/24/21 07/24/21 07/25/21 20:15 22:00 07:45 Glucose 231 H POC Glucose 256 H 248 H 07/25/21 09:14 Glucose POC Glucose 231 H OUTPATIENT ANTIDIABETIC REGIMEN: * Lantus + Lispro - new medications, not yet started at time of admission * A1c = 7.2% (07/24/21) ASSESSMENT: 07/25 * Stressors stable * Severe hypoglycemia yesterday AM noted - likely 2nd too aggressive correction factor, which was loosened yesterday * AM fasting BSG elevated today - will increase Lantus * Post-prandial BSG's also elevated yesterday - will tighten Novolog CHO ratio 07/24 * Nicola is a 86 yo type 2 diabetic who presented with UTI, weakness, and hyperglycemia * Patient is on chronic prednisone for h/o left lung transplant - ordered 5 mg daily. * He receives Glucerna 1.5 (237 mL) QID via PEG tube. This contains 31 grams of CHO. * Per family, BSG has been elevated at home (up to 500-600 mg/dL) and PCP was planning to start insulin * Admitted with severe hyperglycemia. He was given a one time dose of Lantus 20 units SQ @ 0228 and 10 units of Novolog. BSG overcorrected (49 mg/dL @ 0930). Will hold off on further basal insulin until fasting BSG can be evaluated on 07/25 and loosen novolog parameters. PLAN FOR INPATIENT GLYCEMIC CONTROL: * Basal insulin * Lantus 30 units SQ x 1 with additional 5 units tonight if BSG remains > 180 mg/dL * Bolus insulin * NovoLog per scale ACHS or Q6hrs while NPO * Goal Range: Low 110 mg/dL - High 150 mg/dL * Correction Factor: 35 mg/dL/unit * Nutritional / Prandial insulin per carb ratio of 1 unit per 10 grams CHO consumed
[2021-07-25] MEDS: predniSONE 5 MG TAB PEG SCH (12:27)
[2021-07-25] MEDS: FINASTERIDE 5 MG TAB PEG SCH (12:27)
--- NOTE | 2021-07-25 17:49 | Billing Data ---
Date of Service July 25, 2021 Coding Level of Care Code 55880 Subseq Hosp Care Lvl 3
[2021-07-25] MEDS: guaiFENesin 600 MG TABCR PO SCH (21:28)
[2021-07-25] MEDS: PRAVASTATIN SOD 10 MG TAB PEG SCH (21:29)
[2021-07-25] MEDS: LIDOCAINE 4% INH SOLN 4 ML BTL INH PRN (21:30)
[2021-07-26] MEDS: LIDOCAINE 4% INH SOLN 4 ML BTL INH PRN (00:20)
[2021-07-26] MEDS ORDERED: SCOPOLAMINE 1 MG TDSY TD SCH (00:30)
[2021-07-26] MEDS ORDERED: LORazepam 0.5 MG TAB SL STA (01:22)
[2021-07-26] MEDS: PIPERACILLIN/TAZOBACTAM 3.375 GM in DEXTROSE 5% 100 ML IV SCH (03:58)
--- NOTE | 2021-07-26 06:34 | Hospitalist Progress Note ---
Date of Service July 26, 2021 Assessment & Plan (1) Acute UTI: Plan: Nicola Banks is an 86yo M with multiple comorbidities including hx. 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 Pseudomonas UTI - Urinary and constitutional symptoms over last few days-weeks in setting of recently removed Boyd approx. 2 weeks ago - UA collected in the ED demonstrating +nitrites, +LE, +bacteria, +RBC, +WBC -- in concert with symptoms, concerning for acute complicated UTI - Urine culture 06/19 and 06/21 with pansensitive Enterococcus and Pseudomonas --> Of note, patient recently hospitalized in 06/2021, raising risk for MDR/Pseudomonas - UCX currently growing cipro-sensitive Pseudomonas --> transition to ciprofloxacin bid x 4d, will keep as IV for now given anticipated EGD - BCX- NGTD Acute Kidney Injury -- suspect prerenal in nature - Mildly bumped BUN / Cr at 72/1.62 on AM labs today - In setting of decreased PO intake (d/t dysphagia, as outlined below), suspect prerenal in nature at present - BUN >20 - Will initiate LR @ 80cc/hr x 500cc -- can consider further fluids p.r.n. 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 - PEG tube in place -- all hydration and nutrition provided via PEG - Consult GI: given progressive dysphagia and interference with QoL, anticipate EGD on Friday -- NPO at midnight, hold AM Lovenox dose - Aspiration precautions - Add Mucinex 600 b.i.d. - Try to hold off from continuous O2 unless needed -- feel this may be thickening/drying secretions and making them harder to clear - Continue home glycopyrrolate - Suctioning p.r.n., scopolamine patch OK while here -- will monitor for side effects DMII (diabetes mellitus, type 2), Hyperglycemia -- A1c (07/24) at 7.2%; of note, patient is on chronic steroids - BSG on arrival in the 300s -- labs not consistent with HHS/DKA - Per patient's daughter and son-in-law, last few days with uncontrolled BSG up to 500-600; had been communicating with PCP and planning on starting insulin - Hold home medications - Basal/bolus insulin initiated w/ ACHS BSGs - Glycemic consult appreciated 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 No respiratory complaints. - Patient s/p left lung transplant performed at [facility] in 2005 for IPF on Tacrolimus, Prednisone, Azithromycin and Bactrim. - Continue Tacrolimus 0.5mg po BID - Maintain prednisone 5mg daily -- no signs of adrenal insufficiency at this time - Continue Azithromycin and Bactrim suppressive therapy - CTA head/neck with read stating consolidation noted at right lung apex, more likely related to chronic changes seen on multiple chest x-rays no respiratory symptoms, procal negative -While he is high risk for HCAP, at this time respiratory infection seems unlikely; COVID negative; MRSA negative HTN (hypertension) - Continue home amlodipine and hydralazine CKD - baseline Cr (1.1-1.2) - Renal function stable on day-to-day labs - Avoid nephrotoxic agents Hyperlipidemia -Continue pravastatin Depression/anxiety with panic attacks - Continue home sertraline & prn lorazepam - Uses O2 2-4L/min when anxious or having panic attacks FEN/GI: NPO, feedings (Glucerna) through PEG -- family aiding with delivery while here, PPI daily -- no PEG feedings after midnight for EGD CODE: full code Dispo: Med/Surg DVT: Lovenox SQ -- hold tomorrow AM dose, scheduled to resume on Friday (2) Transient speech disturbance: (3) Hyperglycemia due to type 2 diabetes mellitus: (4) Anxiety disorder due to general medical condition with panic attack: (5) Hyperlipidemia: (6) Chronic kidney disease: (7) Lung transplant recipient: (8) Immunosuppression: (9) HTN (hypertension): (10) Esophageal cancer: (11) DMII (diabetes mellitus, type 2): Admission and Anticipated Discharge Date Admission Date: July 23, 2021 Supervising Physician Co-Signing Physician Notes I personally examined the patient and verified all wells points of history and exam, discussed case, and agree with decision making with Dr Gallagher dtr present notes he's still having trouble w secretions. GI input appreciated -for EGD tomorrow. she asks good questions about if stent placed and discomfort, if not able to dilate, etc. answered all to the best of my ability - biggest gist of discussion being that we will obviously reassess his situation once EGD completed and move forward appropriately vitals noted resting comfortably nad heent nc at mmm breathing unlabored still with audible gurgling, no accessory muscles good effort skin no rashes no pallor or icterus neuro no focal deficits metabolic encephalopathy -due to UTI and hyperglycemia, maybe mild contributions from zoloft, but given the other two factors being fairly large influences, and zoloft notably improving his anxiety already - will keep it and treat the other causes, only dc zoloft if clearly an ongoing provoking factor. delirium overall appears stable UTI -pseudomonas - cipro S - intesteringly now zosyn I --> switch to cipro hyperglycemia -DM but likely spike from physiologic stress from above -continue insulin management - sugars reasonable dysphagia -was for outpt EGD - but symptoms seem to be fairly rapidly progressive over the last few weeks and very bothersome - family realistic overall and have quality of life goals as main focus - but note that current degree of dysphagia is really interfering w quality of life - for scope tomorrow otherwise as above Subjective Required suctioning several times overnight. Scopalamine patch placed by overnight team to aid with these. Having a lot of trouble swallowing anything at this point - notably worse compared to before. No shortness of breath. No n/v. Has been able to get up w/ assistance. Energy OK per daughter, who is at bedside this AM Review of Systems Review of Systems: as per HPI Physical Exam Physical Exam: General: Tired appearing 86yoM in NAD, daughter at bedside. Notable upper airway gargling audible upon entering the room. HEENT: NCAT. Mucous membranes slightly dry appearing. No appreciable JVD. Cardiac: Normal rate and regular rhythm; S1 and S2 present with grade 2/6 GABBI best heard at RUSB, radiating towards apex. Pulmonary: Mildly increased respiratory effort with symmetric expansion of the chest. No use of accessory muscles. R lung with diffusely diminished breath sounds and prominent rhonchi, alongside +rhonchi and appreciable transmission of upper airway sounds heard throughout the L lung champagne. Abdominal: Normoactive bowel sounds. Abdomen was soft, nondistended, and non- tender to palpation. No CVA tenderness. Extremities: Upper and lower extremities are warm and well perfused. Radial and dorsalis pedis pulses were 2+ b/l. 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
[2021-07-26] MEDS: TACROLIMUS 0.5 MG CAP PO SCH ×2 (07:15→19:34)
[2021-07-26] MEDS: TACROLIMUS 1 MG CAP PO SCH ×2 (07:15→19:34)
[2021-07-26] MEDS ORDERED: CHECK SCOPOLAMINE PATCH PLACEMENT SCH (08:00)
[2021-07-26 08:10] LABS: Hematocrit (blood only) 30.8 % (42-52); Hemoglobin 9.6 g/dL (14.0-18.0); Mean Corpuscular Hemoglobin 27.7 pg (25-34); Mean Corpuscular Hgb Conc 31.2 g/dL (32-36); Mean Corpuscular Volume 88.8 fL (80-100); Mean Platelet Volume 8.9 fL (7.4-10.4); Platelet Count 123 K/uL (130-400); RDW Coefficient of Variation 17.1 % (11.5-14.5); RDW Standard Deviation 55.5 fL (36.4-46.3); Red Blood Count 3.47 M/uL (4.7-6.1); White Blood Count 8.19 K/uL (4.8-10.8)
[2021-07-26] MEDS: LANSOPRAZOLE 15 MG SOLTAB PEG SCH (08:13)
[2021-07-26] MEDS: guaiFENesin 600 MG TABCR PO SCH ×2 (08:13→21:23)
[2021-07-26] MEDS: hydrALAZINE TAB 50 MG TAB PEG SCH ×4 (08:13→21:22)
[2021-07-26] MEDS: GLYCOPYRROLATE 1 MG TAB PO SCH ×2 (08:13→21:22)
[2021-07-26] MEDS: TAMSULOSIN HCL 0.4 MG CAP PEG SCH ×2 (08:14→12:14)
[2021-07-26] MEDS: amLODIPine BESYLATE 5 MG TAB PEG SCH ×2 (08:14→17:17)
[2021-07-26] MEDS: [UNRECOGNIZED DRUG - REMARK] PEG SCH ×4 (08:14→23:05)
[2021-07-26] MEDS: SERTRALINE HCL 50 MG TABLET PEG SCH (08:14)
[2021-07-26] MEDS: POLYETHYLENE (MIRALAX) 17 GM PACK PEG SCH (08:15)
[2021-07-26] MEDS: ENOXAPARIN INJ 40 MG/0.4 ML SYR SQ SCH (08:15)
[2021-07-26 08:31] LABS: Basophilic Stippling 1+; Eosinophils # (auto) 0.04 K/uL (0-0.5); Eosinophils % (auto) 0.5 %; Immature Granulocytes # (auto) 0.06 K/uL (0.00-0.02); Immature Granulocytes % (auto) 0.7 %; Lymphocytes # (auto) 0.85 K/uL (1.2-3.4); Lymphocytes % (auto) 10.4 %; Monocytes # (auto) 0.71 K/uL (0.11-0.59); Monocytes % (auto) 8.7 %; Neutrophils # (auto) 6.53 K/uL (1.4-6.5); Neutrophils % (auto) 79.7 %
[2021-07-26 08:41] LABS: BUN Creatinine Ratio 44.4 (10-20); Calcium 9.1 mg/dl (8.5-10.1); Creatinine Clr Calc Pharmacy 29.5 ml/min; Est GFR (African American) 43.9 ml/min; Est GFR (Non-African American) 37.9 ml/min; Potassium 5.4 mmol/L (3.5-5.1)
[2021-07-26] MEDS ORDERED: CIPROFLOXACIN / D5W 200 MG/100 ML BAG IV SCH (09:00)
[2021-07-26] MEDS ORDERED: INSULIN GLARGINE SOLOSTAR 100 UNITS/ML 3 ML PEN SC ONE (09:00)
[2021-07-26] MEDS: INSULIN ASPART PER UNIT SC SCH ×4 (09:14→23:04)
--- NOTE | 2021-07-26 09:45 | Gastrointestinal Consultation ---
Date of Consultation July 26, 2021 Assessment & Plan (1) Dysphagia: 86 year old male T2DM, CKD, dyslipidemia, HTN, lung CA, pulmonary fibrosis s/p lung transplant, esophageal adenocarcinoma s/p chemo/radiation, esophageal stent (removed) PEG placement admitted with UTI and encephalopathy - GI asked to evaluate for dysphagia, plan was in place for OP EGD in September. Given his progressively worsening symptoms, discussion with family, will arrange EGD tomorrow for therapy. They note if there is an indication for placement of an esophageal stent, they would recondier this intervention. Continue with therapy per primary team. NPO after midnight including no PEG tube feeds after midnight for EGD Friday. Please hold AM dose of lovenox. Thank you for allowing us to participate in the care of this patient. Please call with any acute changes, questions or concerns. Please see addendum below with additional recommendation from my supervising physician. Supervising Physician Co-Signing Physician Notes Elderly male sleepy initially but then arousable, abd soft nt nd, clearing his throat quite a bit Daughter at bedside Labs/imaging reviewed Reportedly with esophageal stent removed in the summer of 2020. Family reportedly feeds him at 10:30 - they asked if they should hold off today and i agreed that would be the best. Agree with further plan of care as delineated. History of Present Illness Reason for Consultation: dysphagia Requesting Physician: Cecilia Attending Physician: Osmel Brooks, DO History of Present Illness 86 year old male T2DM, CKD, dyslipidemia, HTN, lung CA, pulmonary fibrosis s/p lung transplant, esophageal adenocarcinoma s/p chemo/radiation, esophageal stent (removed) PEG placement admitted with UTI and encephalopathy. GI asked to evaluate for dysphagia. This has been progressively worsening x 1 month. Family had contacted GI as OP and was planed for EGD in September. However, since this plan was in place, symptoms worsened. Notes that pain/discomfort with any attempted PO intake and will vomiting after PO. Family in room notes that he sometimes has issues with his own secretions now. EGD 2020: Malignant-appearing esophageal stenosis. Dilated to 13.5 mm today. - The PEG was found in the stomach. - Normal examined duodenum. EGD 2020: Partially obstructing, malignant esophageal tumor was found in the middle third of the esophagus. Dilated to 10 mm today. - Z-line regular, 40 cm from the incisors. - Normal examined duodenum. - Normal examined duodenum. - No specimens collected. EGD 2020: Pre-existing esophageal stent, removed. - Normal stomach. - Normal duodenal bulb and second portion of the duodenum. - An externally removable PEG placement was successfully completed. EGD 2020: Severe esophageal stenosis. Partially covered esophageal stent placed. EUS 2020: An intramural lesion was found in the middle third of the esophagus, r/o metastatic disease given prior history of lung cancer. Fine needle aspiration performed. EGD 2020: Esophageal stenosis in the mid esophagus. Dilated up to 13.5 mm. Biopsied. - Normal stomach. - Normal duodenal bulb and second portion of the duodenum. EGD 2020: Food in the middle third of the esophagus. Removal was successful. - Esophageal plaques were found, consistent with candidiasis. Cells for cytology obtained. - Benign-appearing esophageal stenosis. - Normal stomach. - Normal examined duodenum Allergies Allergy/AdvReac Type Severity Reaction Status Date / Time metronidazole Allergy Severe NEUROPATHY Verified 07/23/21 21:42 LEG lisinopril Allergy Intermediate NAUSEA, Verified 07/19/21 13:06 STOMACH UPSET, DEATHLY SICK Home Medications Medication Instructions Recorded Confirmed Type hydralazine 50 mg tablet 50 mg FEEDING TUBE QID 07/27/18 07/23/21 History ipratropium bromide 42 mcg (0.06 2 spray INTRANASAL TID PRN ml 03/16/19 2 History %) nasal spray pravastatin 40 mg tablet 20 mg FEEDING TUBE HS tab 11/22/20 07/23/21 History fluorouracil 5 % topical cream 1 applic TOPICAL BID PRN 12/07/20 07/23/21 History (Efudex) nutrition tx glu 237 ea FEEDING TUBE QID ml 12/07/20 07/23/21 History intol,lac-free,soy-fiber 0.08 gram-1.5 kcal/mL liquid (Glucerna 1.5 Javier) ondansetron HCl 4 mg/5 mL oral 4 mg FEEDING TUBE Q8H PRN 01/15/21 07/23/21 History solution prednisone 5 mg/5 mL oral solution 5 mg FEEDING TUBE DAILY@1230 01/15/21 07/23/21 History amlodipine 2.5 mg tablet 2.5 mg FEEDING TUBE BID tab 03/08/21 07/23/21 History lorazepam 0.5 mg tablet 0.5 mg BUCCAL BID PRN #60 tab 06/05/21 07/23/21 Rx finasteride 5 mg tablet 5 mg FEEDING TUBE DAILY@1230 06/19/21 07/23/21 History lansoprazole 15 mg delayed 15 mg FEEDING TUBE QAM 06/19/21 07/23/21 History release,disintegrating tablet (Prevacid SoluTab) diclofenac sodium 1 % topical gel 2 g TOPICAL BID PRN 06/20/21 07/23/21 History (Voltaren Arthritis Pain) repaglinide 2 mg tablet 4 mg PO TID PRN 06/20/21 07/23/21 History sulfamethoxazole 200 10 ml FEEDING TUBE MOFR 06/20/21 07/23/21 History mg-trimethoprim 40 mg/5 mL oral suspension tacrolimus 0.5 mg capsule, 0.5 mg FEEDING TUBE BID 06/20/21 07/23/21 History immediate-release tacrolimus 1 mg capsule, 1 mg FEEDING TUBE BID 06/20/21 07/23/21 History immediate-release azithromycin 200 mg/5 mL oral 250 mg FEEDING TUBE TUTHSA 07/11/21 07/23/21 History suspension sertraline 50 mg tablet (Zoloft) 50 mg PO DAILY #30 tab 07/16/21 07/23/21 Rx glycopyrrolate 2 mg tablet 4 mg FEEDING TUBE BID tab 07/19/21 07/23/21 History tamsulosin 0.4 mg capsule 0.4 mg DAILY@1730,2200 07/19/21 07/23/21 History blood-glucose meter,continuous #1 ea 07/20/21 Rx (Dexcom G6 Tailman) blood-glucose transmitter (Dexcom #1 ea 07/20/21 Rx G6 Transmitter) pen needle, diabetic 32 gauge x #100 ea 07/20/21 Rx 5/32" (BD Moni 2nd Gen Pen Needle) insulin lispro 100 unit/mL 1 sliding scale dose SUBCUT 07/22/21 07/23/21 Rx subcutaneous pen USEASDIRECTD #15 ml Oxygen Home #2 ea 07/23/21 Rx acetaminophen 120 mg-codeine 12 5 - 10 ml FEEDING TUBE Q6H PRN 07/23/21 07/23/21 History mg/5 mL (5 mL) oral solution insulin glargine 100 unit/mL (3 0 unit SUBCUT QPM 07/23/21 07/23/21 History mL) subcutaneous pen (Lantus Solostar U-100 Insulin) Patient History Medical History Aortic stenosis Atrial fibrillation BPH (benign prostatic hyperplasia) Chronic kidney disease Complicated urinary tract infection Diabetes mellitus, type 2 Diastolic CHF Dysphagia Esophageal cancer History of skin cancer HTN (hypertension) Hyperlipidemia Hyponatremia Immunosuppression Lung cancer Lung transplant recipient Pulmonary fibrosis Right foot drop Surgical History H/O lung transplant (2005) History of anesthesia reaction History of back surgery (2016) History of bronchoscopy (06/19/05) History of cardiac cath History of cataract surgery History of colonoscopy History of esophageal dilatation History of esophagogastroduodenoscopy (EGD) (10/17/20) History of incision and drainage (03/29/09) History of lobectomy of lung (2008) History of tooth extraction Status post insertion of percutaneous endoscopic gastrostomy (PEG) tube Family History Mother Colon cancer Father No problems noted. Brother Colon cancer Stomach cancer Brother No problems noted. Brother Prostate cancer, Onset Age: 90 Sister No problems noted. Sister Breast cancer, Onset Age: 60 Sister No problems noted. Sister No problems noted. Sister No problems noted. Sister No problems noted. Son No problems noted. Son Melanoma Daughter Dermatomyositis Other Family history non-contributory No family history of adverse response to anesthesia Social History Smoking Status: Never smoker Second Hand Exposure: No; Hx Alcohol Use: No Hx Substance Use: No Preferred Language: Yoruba Communication Ability: Unable Communication Ability Comment: Unable to talk per admission Visual Impairment: Limited Hearing Ability: Use of Hearing Aid Personal Support Worker Required: No Beliefs That Will Affect Care: None marital status: Current Living Situation: Spouse Current Living Situation Comment: Lives with current occupational status: retired 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 Physical Exam Constitutional: WD/WN, vitals as above Chronically ill, elderly gentleman Eyes: PERRL, conjunctivae normal, anicteric sclerae Neck: trachea midline; no tracheal deviation, no neck crepitus and no anterior neck swelling Respiratory: normal respiratory effort; no respiratory distress, no labored breathing, no retractions and does not use accessory muscles Cardiovascular: Rate/Rhythm: regular rate and regular rhythm No pedal edema Gastrointestinal (Abdomen): Percussion/Palpation: abdomen soft; abdomen nontender, no guarding, abdomen not rigid and no abdominal mass Skin: no rashes, warm and dry Results & Data ([facility]) Vital Signs (Past 12 Hours) Vital Signs Temp Pulse Resp BP Pulse Ox 07/26/21 08:02 37.1 C 84 20 143/79 H 95 Laboratory Results 07/26/21 07/26/21 07/26/21 Range/Units 09:12 08:01 07:48 WBC (4.8-10.8) K/uL RBC (4.7-6.1) M/uL Hgb (14.0-18.0) g/dL Hct (42-52) % MCV (80-100) fL MCH (25-34) pg MCHC (32-36) g/dL RDW Std Deviation (36.4-46.3) fL RDW Coeff of Flavia (11.5-14.5) % Plt Count (130-400) K/uL MPV (7.4-10.4) fL Immature Gran % (Auto) % Neut % (Auto) % Lymph % (Auto) % [place] % (Auto) % Eos % (Auto) % Baso % (Auto) % Neut # (Auto) (1.4-6.5) K/uL Lymph # (Auto) (1.2-3.4) K/uL [place] # (Auto) (0.11-0.59) K/uL Eos # (Auto) (0-0.5) K/uL Baso # (Auto) (0-0.2) K/uL Immature Gran # (Auto) (0.00-0.02) K/uL Basophilic Stippling Sodium 137 (136-145) mmol/L Potassium 5.4 H (3.5-5.1) mmol/L Chloride 99 (98-107) mmol/L Carbon Dioxide 35 H (21-32) mmol/L Anion Gap 3 (3-11) BUN 72 H (6-23) mg/dl Creatinine 1.62 H (0.6-1.4) mg/dl Est Cr Clr Drug Dosing 29.5 ml/min Est GFR ( Amer) 43.9 ml/min Est GFR (Non-Af Amer) 37.9 ml/min BUN/Creatinine Ratio 44.4 H (10-20) Glucose 146 H (70-99(Fasting)) mg/dl POC Glucose 161 H 157 H (70-99) mg/dl Calcium 9.1 (8.5-10.1) mg/dl Tacrolimus mcg/L 07/26/21 07/25/21 07/25/21 Range/Units 07:48 20:07 17:36 WBC 8.19 (4.8-10.8) K/uL RBC 3.47 L (4.7-6.1) M/uL Hgb 9.6 L (14.0-18.0) g/dL Hct 30.8 L (42-52) % MCV 88.8 (80-100) fL MCH 27.7 (25-34) pg MCHC 31.2 L (32-36) g/dL RDW Std Deviation 55.5 H (36.4-46.3) fL RDW Coeff of Flavia 17.1 H (11.5-14.5) % Plt Count 123 L (130-400) K/uL MPV 8.9 (7.4-10.4) fL Immature Gran % (Auto) 0.7 % Neut % (Auto) 79.7 % Lymph % (Auto) 10.4 % [place] % (Auto) 8.7 % Eos % (Auto) 0.5 % Baso % (Auto) 0.0 % Neut # (Auto) 6.53 H (1.4-6.5) K/uL Lymph # (Auto) 0.85 L (1.2-3.4) K/uL [place] # (Auto) 0.71 H (0.11-0.59) K/uL Eos # (Auto) 0.04 (0-0.5) K/uL Baso # (Auto) 0.00 (0-0.2) K/uL Immature Gran # (Auto) 0.06 H (0.00-0.02) K/uL Basophilic Stippling 1+ Sodium (136-145) mmol/L Potassium (3.5-5.1) mmol/L Chloride (98-107) mmol/L Carbon Dioxide (21-32) mmol/L Anion Gap (3-11) BUN (6-23) mg/dl Creatinine (0.6-1.4) mg/dl Est Cr Clr Drug Dosing ml/min Est GFR ( Amer) ml/min Est GFR (Non-Af Amer) ml/min BUN/Creatinine Ratio (10-20) Glucose (70-99(Fasting)) mg/dl POC Glucose 210 H 164 H (70-99) mg/dl Calcium (8.5-10.1) mg/dl Tacrolimus mcg/L 07/25/21 07/24/21 Range/Units 12:20 06:41 WBC (4.8-10.8) K/uL RBC (4.7-6.1) M/uL Hgb (14.0-18.0) g/dL Hct (42-52) % MCV (80-100) fL MCH (25-34) pg MCHC (32-36) g/dL RDW Std Deviation (36.4-46.3) fL RDW Coeff of Flavia (11.5-14.5) % Plt Count (130-400) K/uL MPV (7.4-10.4) fL Immature Gran % (Auto) % Neut % (Auto) % Lymph % (Auto) % [place] % (Auto) % Eos % (Auto) % Baso % (Auto) % Neut # (Auto) (1.4-6.5) K/uL Lymph # (Auto) (1.2-3.4) K/uL [place] # (Auto) (0.11-0.59) K/uL Eos # (Auto) (0-0.5) K/uL Baso # (Auto) (0-0.2) K/uL Immature Gran # (Auto) (0.00-0.02) K/uL Basophilic Stippling Sodium (136-145) mmol/L Potassium (3.5-5.1) mmol/L Chloride (98-107) mmol/L Carbon Dioxide (21-32) mmol/L Anion Gap (3-11) BUN (6-23) mg/dl Creatinine (0.6-1.4) mg/dl Est Cr Clr Drug Dosing ml/min Est GFR ( Amer) ml/min Est GFR (Non-Af Amer) ml/min BUN/Creatinine Ratio (10-20) Glucose (70-99(Fasting)) mg/dl POC Glucose 200 H (70-99) mg/dl Calcium (8.5-10.1) mg/dl Tacrolimus 9.5 mcg/L (1) Dysphagia Dysphagia type: unspecified Qualified Code(s): R13.10 - Dysphagia, unspecified
[2021-07-26] MEDS: CIPROFLOXACIN / D5W 400 MG/200 ML BAG IV SCH (10:33)
[2021-07-26] MEDS ORDERED: LACTATED RINGER'S 1,000 ML IV SCH (11:00)
[2021-07-26] MEDS ORDERED: CIPROFLOXACIN 250 MG TAB PO SCH (11:00)
[2021-07-26] MEDS: predniSONE 5 MG TAB PEG SCH (12:14)
[2021-07-26] MEDS: FINASTERIDE 5 MG TAB PEG SCH (12:14)
--- NOTE | 2021-07-26 12:30 | Pharmacy Report ---
Pharmacy Glycemic Short Note 2 - Date of Service July 26, 2021 - Glycemic Short BSG Results (Last 24 hours): 07/25/21 07/25/21 07/26/21 17:36 20:07 07:48 Glucose 146 H POC Glucose 164 H 210 H 07/26/21 07/26/21 07/26/21 08:01 09:12 12:12 Glucose POC Glucose 157 H 161 H 161 H OUTPATIENT ANTIDIABETIC REGIMEN: * Lantus + Lispro - new medications, not yet started at time of admission * A1c = 7.2% (07/24/21) ASSESSMENT: 07/26/21 * Patient's BSGs yesterday were [phone] mg/dL and fasting this morning was 157 mg/dL. * Decrease Lantus by 20% to 28 units today. Fasting BSG decreased significantly. * Tighten CR as BSGs trended upwards. * Patient NPO after midnight (ordered after morning insulin given). No changes currently. Hold morning Lantus until fasting BSG established. 07/25 * Stressors stable * Severe hypoglycemia yesterday AM noted - likely 2nd too aggressive correction factor, which was loosened yesterday * AM fasting BSG elevated today - will increase Lantus * Post-prandial BSG's also elevated yesterday - will tighten Novolog CHO ratio 07/24 * Nicola is a 86 yo type 2 diabetic who presented with UTI, weakness, and hyperglycemia * Patient is on chronic prednisone for h/o left lung transplant - ordered 5 mg daily. * He receives Glucerna 1.5 (237 mL) QID via PEG tube. This contains 31 grams of CHO. * Per family, BSG has been elevated at home (up to 500-600 mg/dL) and PCP was planning to start insulin * Admitted with severe hyperglycemia. He was given a one time dose of Lantus 20 units SQ @ 0228 and 10 units of Novolog. BSG overcorrected (49 mg/dL @ 0930). Will hold off on further basal insulin until fasting BSG can be evaluated on 07/25 and loosen novolog parameters. PLAN FOR INPATIENT GLYCEMIC CONTROL: * Basal insulin * Lantus 28 units SQ x 1 * Bolus insulin * NovoLog per scale ACHS or Q6hrs while NPO * Goal Range: Low 110 mg/dL - High 150 mg/dL * Correction Factor: 35 mg/dL/unit * Nutritional / Prandial insulin per carb ratio of 1 unit per 8 grams CHO consumed
--- NOTE | 2021-07-26 14:40 | Billing Data ---
Date of Service July 26, 2021 Coding Level of Care Code 94148 Subseq Hosp Care Lvl 3
[2021-07-26] MEDS: AZITHROMYCIN 250 MG/6.25 ML UDP GT SCH (21:23)
[2021-07-26] MEDS: PRAVASTATIN SOD 10 MG TAB PEG SCH (21:24)
[2021-07-27] MEDS: TACROLIMUS 0.5 MG CAP PO SCH ×2 (06:34→20:10)
[2021-07-27] MEDS: TACROLIMUS 1 MG CAP PO SCH ×2 (06:34→20:09)
--- NOTE | 2021-07-27 07:15 | Hospitalist Progress Note ---
Date of Service July 27, 2021 Assessment & Plan (1) Acute UTI: Plan: Nicola Banks is an 86yo M with multiple comorbidities including hx. 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 Goals of Care Discussion -Family meeting today with patient's , Son, Daughter, and Granddaughter in regards to goals of care for Nicola. -They are in agreement that patients current situation is poor and that they would want him to be comfortable, however, at this time are not sure about hospice/palliative -They are still interested in regards to EGD Friday primarily for symptomatic relief of patient's difficulty breathing with secretions -They are interested in further discussions in regards to hospice/palliative -- will reach out to Case Management -The family, including patients (POA) agree that should something occur where Nicola would cease to breath or require life sustaining CPR, he would not want either intubation or CPR. -Will adjust in the chart patients CODE STATUS from Full to DNR/DNI at this time Pseudomonas UTI - Urinary and constitutional symptoms over last few days-weeks in setting of recently removed Boyd approx. 2 weeks ago - UA collected in the ED demonstrating +nitrites, +LE, +bacteria, +RBC, +WBC -- in concert with symptoms, concerning for acute complicated UTI - Urine culture 06/19 and 06/21 with pansensitive Enterococcus and Pseudomonas --> Of note, patient recently hospitalized in 06/2021, raising risk for MDR/Pseudomonas - UCX currently growing cipro-sensitive Pseudomonas --> transition to ciprofloxacin bid x 4d (completes on night of 07/29/21), will keep as IV for now given anticipated EGD - BCX- NGTD Acute Kidney Injury -- suspect prerenal in nature - baseline Cr (1.1-1.2) - Mildly worsening with BUN 77 and Cr 1.57 today - In setting of decreased PO intake (d/t dysphagia, as outlined below), suspect prerenal in nature at present - BUN >20 - Fluids 1/2 NSS 60ml/hr in addition to tube feeds - Monitor BMP Suspected Metabolic Encephalopathy - Transient confusion/garbled speech lasting a few minutes while at PT; no noted 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 - PEG tube in place -- all hydration and nutrition provided via PEG - Consult GI: given progressive dysphagia and interference with QoL -- plan was for EGD on 07/27/21, however, deferred at this time due to hyperkalemia and concerns regarding anesthesia -- Reschedule for 07/30/21 - Will require NPO including tube feeds the night of 07/29/21 in addition to holding Lovenox at that time. - Aspiration precautions - Continue Mucinex 600 b.i.d. - Try to hold off from continuous O2 unless needed -- feel this may be thickening/drying secretions and making them harder to clear - Continue home glycopyrrolate - Suctioning p.r.n., scopolamine patch OK while here -- will monitor for side effects DMII (diabetes mellitus, type 2), Hyperglycemia -- A1c (07/24) at 7.2%; of note, patient is on chronic steroids - BSG on arrival in the 300s -- labs not consistent with HHS/DKA - Per patient's daughter and son-in-law, last few days with uncontrolled BSG up to 500-600; had been communicating with PCP and planning on starting insulin - Hold home medications - Basal/bolus insulin initiated w/ ACHS BSGs - Glycemic consult appreciated 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 No respiratory complaints. - Patient s/p left lung transplant performed at [facility] in 2005 for IPF on Tacrolimus, Prednisone, Azithromycin and Bactrim. - Continue Tacrolimus 0.5mg po BID - Maintain prednisone 5mg daily -- no signs of adrenal insufficiency at this time - Continue Azithromycin and Bactrim suppressive therapy - CTA head/neck with read stating consolidation noted at right lung apex, more likely related to chronic changes seen on multiple chest x-rays no respiratory symptoms, procal negative -While he is high risk for HCAP, at this time respiratory infection seems unlikely; COVID negative; MRSA negative HTN (hypertension) - Continue home amlodipine and hydralazine Hyperlipidemia -Continue pravastatin Depression/anxiety with panic attacks - Asked to discontinue Sertraline per daughter due to sedation - will discontinue at this time - prn lorazepam - Uses O2 2-4L/min when anxious or having panic attacks FEN/GI: NPO, feedings (Glucerna) through PEG -- family aiding with delivery while here, PPI daily CODE: DNR/DNI Dispo: Med/Surg DVT: Lovenox SQ (2) Transient speech disturbance: (3) Hyperglycemia due to type 2 diabetes mellitus: (4) Anxiety disorder due to general medical condition with panic attack: (5) Hyperlipidemia: (6) Chronic kidney disease: (7) Lung transplant recipient: (8) Immunosuppression: (9) HTN (hypertension): (10) Esophageal cancer: (11) DMII (diabetes mellitus, type 2): Admission and Anticipated Discharge Date Admission Date: July 23, 2021 Supervising Physician Co-Signing Physician Notes I personally examined the patient and verified all wells points of history and exam, discussed case, and agree with decision making with Dr Ang Still having trouble with secretions. Anesthesia canceled EGD due to potassium of 5.5. Family well aware that he is higher risk than an average patient for procedural complications, are very realistic with her hopeswould just like for him to have quality of life, that right now secretion managementwhich seems to be due to inability to swallowis impairing vitals noted resting comfortably nad heent nc at mmm breathing unlabored still with audible gurgling, no accessory muscles good effort skin no rashes no pallor or icterus neuro no focal deficits metabolic encephalopathy -due to UTI and hyperglycemia, maybe mild contributions from zoloft, but given the other two factors being fairly large influences, and zoloft notably improving his anxiety already - will keep it and treat the other causes, only dc zoloft if clearly an ongoing provoking factor. delirium overall appears stable UTI -pseudomonas - cipro S -finish Cipro hyperglycemia -Sugars overall reasonable dysphagia -was for outpt EGD - but symptoms seem to be fairly rapidly progressive over the last few weeks and very bothersome - family realistic overall and have quality of life goals as main focus -and are perfectly okay with the higher than average risk of procedural complicationsreally they would just like for him to have quality of life. Palliative type discussions had in depth by resident physician earlier as well. Hyperkalemia/AKIprobably just poor fluid intakegentle IV fluids briefly. Follow labs otherwise as above Subjective Patient evaluated at the bedside this morning. Limited ROS and history provided by patient. Per son who is present at bedside patient had a "bad night" with his secretions. They had been hopeful for EGD today, however, was moved to the following week due to concerns in regards to patients electrolyte status. Discussed with son in regards to the over all picture for Nicola and he noted that he would call in family members including the patients who is current POA. Review of Systems Review of Systems: Unobtainable due to cognitive status Physical Exam Physical Exam: General: Tired appearing 86yoM in NAD, son at bedside. Notable upper airway gargling audible upon entering the room. HEENT: NCAT. Mucous membranes slightly dry appearing. No appreciable JVD. Cardiac: Normal rate and regular rhythm; S1 and S2 present with grade 2/6 GABBI best heard at RUSB, radiating towards apex. Pulmonary: Normal respiratory effort with symmetric expansion of the chest. No use of accessory muscles. +rhonchi and appreciable transmission of upper airway sounds heard throughout the L and R lung champagne. Abdominal: Normoactive bowel sounds. Abdomen was soft, nondistended, and non- tender to palpation. No CVA tenderness. Results & Data Results & Data ([facility]) Vital Signs (Past 12 Hours) Vital Signs Temp Pulse Resp BP Pulse Ox 07/26/21 22:40 37.3 C 91 H 18 148/67 H 96 Resident Activity Tracking Resident Involvement: Resident Care Provided Care Provided: Adult Hospital Medicine (1) Hyperglycemia due to type 2 diabetes mellitus Diabetes mellitus mcc insulin use: with mcc use Qualified Code(s): E11.65 - Type 2 diabetes mellitus with hyperglycemia; Z79.4 - terminal operations supervisor (current) use of insulin (2) Esophageal cancer Malignant neoplasm of esophagus location: unspecified location Qualified Code(s): C15.9 - Malignant neoplasm of esophagus, unspecified (3) HTN (hypertension) Hypertension type: essential hypertension Qualified Code(s): I10 - Essential (primary) hypertension
[2021-07-27] MEDS: amLODIPine BESYLATE 5 MG TAB PEG SCH ×2 (07:31→17:28)
[2021-07-27] MEDS: SERTRALINE HCL 50 MG TABLET PEG SCH (07:31)
[2021-07-27] MEDS: guaiFENesin 600 MG TABCR PO SCH ×2 (07:31→21:40)
[2021-07-27] MEDS: POLYETHYLENE (MIRALAX) 17 GM PACK PEG SCH (07:31)
[2021-07-27] MEDS: hydrALAZINE TAB 50 MG TAB PEG SCH ×4 (07:32→21:41)
[2021-07-27] MEDS: LANSOPRAZOLE 15 MG SOLTAB PEG SCH (07:32)
[2021-07-27] MEDS: GLYCOPYRROLATE 1 MG TAB PO SCH ×2 (07:32→21:41)
[2021-07-27] MEDS: TAMSULOSIN HCL 0.4 MG CAP PEG SCH ×2 (07:33→11:24)
[2021-07-27] MEDS: [UNRECOGNIZED DRUG - REMARK] PEG SCH ×4 (07:33→21:49)
[2021-07-27 08:53] LABS: Calcium 9.1 mg/dl (8.5-10.1); Creatinine Clr Calc Pharmacy 30.5 ml/min; Est GFR (African American) 45.6 ml/min; Est GFR (Non-African American) 39.3 ml/min; Potassium 5.5 mmol/L (3.5-5.1)
[2021-07-27] MEDS: DEXTROSE 50% 50 ML SYRINGE IV PRN (08:59)
[2021-07-27] MEDS: CIPROFLOXACIN / D5W 400 MG/200 ML BAG IV SCH (09:54)
[2021-07-27] MEDS: INSULIN ASPART PER UNIT SC SCH ×4 (10:03→21:54)
[2021-07-27] MEDS: predniSONE 5 MG TAB PEG SCH (11:24)
[2021-07-27] MEDS: FINASTERIDE 5 MG TAB PEG SCH (11:26)
[2021-07-27] MEDS ORDERED: INSULIN GLARGINE SOLOSTAR 100 UNITS/ML 3 ML PEN SC ONE (11:45)
[2021-07-27] MEDS: SODIUM CHLORIDE 0.45 % 1,000 ML IV SCH (12:27)
--- NOTE | 2021-07-27 13:54 | Communication Note ---
Date of Service: July 27, 2021 EGD cancelled today due to elevated K. Discussed with attending, hospitalist and family. Recommend family meeting regarding goals of care and plan for EGD AM pending review of labs. He will need to be NPO aftermidnight. I briefly saw the patient this afternoon and discussed his case with the patient's son who is at bedside. He has a history of esophageal cancer and was intolerant of an esophageal stent in the past due to pain. We were asked to reevaluate the patient due to problems with clearing his secretions. They the patient is not able to answer any questions due to somnolence. He had a prior upper endoscopy with my partner who placed a PEG tube in addition to performed an esophageal dilation. Pending that family's desires perhaps an upper endoscopy with dilation of a suspected radiation induced stricture would be of benefit for this patient. If the patient is found to have a malignant stricture then options could include an esophageal stent. Unfortunately the patient did not tolerate an esophageal stent in the past and I doubt that he would tolerate of a new one.
--- NOTE | 2021-07-27 15:03 | Pharmacy Report ---
Pharmacy Glycemic Short Note 2 - Date of Service July 27, 2021 - Glycemic Short BSG Results (Last 24 hours): 07/26/21 07/26/21 07/27/21 17:08 22:40 00:45 Glucose POC Glucose 97 158 H 144 H 07/27/21 07/27/21 07/27/21 07:48 09:35 11:21 Glucose 53 L* POC Glucose 161 H 145 H 07/27/21 12:24 Glucose POC Glucose 132 H OUTPATIENT ANTIDIABETIC REGIMEN: * Lantus + Lispro - new medications, not yet started at time of admission * A1c = 7.2% (07/24/21) ASSESSMENT: 07/27/21 * Patient's BSGs yesterday were [phone] and 53 mg/dL on PRP for fasting. * Patient originally NPO today for EGD but that was cancelled due to high potassium. This may occur on Friday. * Due to hypoglycemia, Lantus held until lunchtime. Lunchtime BSG was 145 mg/dL and diet ordered. Give Lantus 10 units. Overnight checks to see how much more patient requires. Unsure if patient NPO tomorrow so will be hesitant. * Continue Novolog. 07/26/21 * Patient's BSGs yesterday were [phone] mg/dL and fasting this morning was 157 mg/dL. * Decrease Lantus by 20% to 28 units today. Fasting BSG decreased significantly. * Tighten CR as BSGs trended upwards. * Patient NPO after midnight (ordered after morning insulin given). No changes currently. Hold morning Lantus until fasting BSG established. 07/25 * Stressors stable * Severe hypoglycemia yesterday AM noted - likely 2nd too aggressive correction factor, which was loosened yesterday * AM fasting BSG elevated today - will increase Lantus * Post-prandial BSG's also elevated yesterday - will tighten Novolog CHO ratio 07/24 * Nicola is a 86 yo type 2 diabetic who presented with UTI, weakness, and hyperglycemia * Patient is on chronic prednisone for h/o left lung transplant - ordered 5 mg daily. * He receives Glucerna 1.5 (237 mL) QID via PEG tube. This contains 31 grams of CHO. * Per family, BSG has been elevated at home (up to 500-600 mg/dL) and PCP was planning to start insulin * Admitted with severe hyperglycemia. He was given a one time dose of Lantus 20 units SQ @ 0228 and 10 units of Novolog. BSG overcorrected (49 mg/dL @ 0930). Will hold off on further basal insulin until fasting BSG can be evaluated on 07/25 and loosen novolog parameters. PLAN FOR INPATIENT GLYCEMIC CONTROL: * Basal insulin * Lantus 10 units SQ x 1 * Bolus insulin * NovoLog per scale ACHS or Q6hrs while NPO * Goal Range: Low 110 mg/dL - High 150 mg/dL * Correction Factor: 35 mg/dL/unit * Nutritional / Prandial insulin per carb ratio of 1 unit per 8 grams CHO consumed
--- NOTE | 2021-07-27 17:59 | Electrocardiogram Report ---
Test Reason : Blood Pressure : / mmHG Vent. Rate : 093 BPM Atrial Rate : 093 BPM P-R Int : 180 ms QRS Dur : 082 ms QT Int : 322 ms P-R-T Axes : 027 066 049 degrees QTc Int : 400 ms Normal sinus rhythm Normal ECG When compared with ECG of 23-JUL-2021 18:39, No significant change was found Confirmed by Fede Larson [id number]) on 07/27/2021 5:59:06 PM Referred By: Shari Herrera Confirmed By:Fede Larson
--- NOTE | 2021-07-27 18:50 | Billing Data ---
Date of Service July 27, 2021 Coding Level of Care Code 68701 Subseq Hosp Care Lvl 3
[2021-07-27] MEDS ORDERED: INSULIN GLARGINE SOLOSTAR 100 UNITS/ML 3 ML PEN SC SCH (21:00)
[2021-07-27] MEDS: PRAVASTATIN SOD 10 MG TAB PEG SCH (21:42)
[2021-07-27] MEDS ORDERED: SULFAMETHOXAZOLE/TRIMETHOPRIM 200MG/40MG/5ML SUSP PEG SCH (22:00)
[2021-07-27] MEDS ORDERED: SCOPOLAMINE 1 MG TDSY TD SCH (23:45)
[2021-07-28] MEDS: INSULIN ASPART PER UNIT SC SCH ×6 (00:16→22:09)
[2021-07-28] MEDS: DEXTROSE 50% 50 ML SYRINGE IV PRN (04:31)
[2021-07-28] MEDS: SODIUM CHLORIDE 0.45 % 1,000 ML IV SCH ×2 (04:39→17:47)
[2021-07-28 06:21] LABS: Basophils # (auto) 0.01 K/uL (0-0.2); Basophils % (auto) 0.1 %; Eosinophils # (auto) 0.04 K/uL (0-0.5); Eosinophils % (auto) 0.5 %; Hematocrit (blood only) 30.9 % (42-52); Hemoglobin 9.4 g/dL (14.0-18.0); Immature Granulocytes # (auto) 0.03 K/uL (0.00-0.02); Immature Granulocytes % (auto) 0.3 %; Lymphocytes # (auto) 0.66 K/uL (1.2-3.4); Lymphocytes % (auto) 7.5 %; Mean Corpuscular Hemoglobin 27.5 pg (25-34); Mean Corpuscular Hgb Conc 30.4 g/dL (32-36); Mean Corpuscular Volume 90.4 fL (80-100); Mean Platelet Volume 9.5 fL (7.4-10.4); Monocytes # (auto) 0.78 K/uL (0.11-0.59); Monocytes % (auto) 8.8 %; Neutrophils # (auto) 7.33 K/uL (1.4-6.5); Neutrophils % (auto) 82.8 %; Nucleated RBC # (auto) 0.02 K/uL (0-0); Nucleated RBC % (auto) 0.2 %; Platelet Count 134 K/uL (130-400); RDW Standard Deviation 57.1 fL (36.4-46.3); Red Blood Count 3.42 M/uL (4.7-6.1); White Blood Count 8.85 K/uL (4.8-10.8)
[2021-07-28] MEDS: TACROLIMUS 0.5 MG CAP PO SCH ×2 (06:48→19:59)
[2021-07-28] MEDS: TACROLIMUS 1 MG CAP PO SCH ×2 (06:48→19:59)
[2021-07-28 06:50] LABS: BUN Creatinine Ratio 53.5 (10-20); Calcium 9.1 mg/dl (8.5-10.1); Creatinine Clr Calc Pharmacy 33.7 ml/min; Est GFR (African American) 51.5 ml/min; Est GFR (Non-African American) 44.4 ml/min; Potassium 5.7 mmol/L (3.5-5.1)
[2021-07-28 07:13] VITALS: PULSE 96; TEMP 98.6; O2SAT 95
--- NOTE | 2021-07-28 07:25 | Hospitalist Progress Note ---
Date of Service July 28, 2021 Assessment & Plan (1) Acute UTI: Plan: Nicola Banks is an 86yo M with multiple comorbidities including hx. 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 Goals of Care Discussion: - Family meeting yesterday with patient's , Son, Daughter, and Granddaughter in regards to goals of care for Nicola. - Goal for comfort care, and family wants more information regarding hospice/palliative care. - EGD to be performed Friday for possible esophageal dilation. Patient's family aware of and accepting of possible intra-procedure risks in the interest of comfort and increased quality of life. They strongly desire to proceed, however, given that his progressive dysphagia to the point of not being able to handle secretions is having a significant impact on quality of life (and medical management of said secretion increase has been met with little success). they are aware that procedure might fail, but want to proceed given the chance of positive impact on quality of life. - Patient made DNR/DNI after discussions about goals of care. Pseudomonas UTI: - Urinary and constitutional symptoms over last few days to weeks in setting of recently removed Boyd approx. 2 weeks ago. - UA showed +nitrites, +LE, +bacteria, +RBC, +WBC. - Urine culture 06/19 and 06/21 with Enterococcus and Pseudomonas (sensitive to Cipro), with recent admission putting patient at increased risk of MDR infections. BCx negative to date. - Continue Cipro IV BID for complicated UTI; to complete 07/29/21. Acute Kidney Injury, Hyperkalemia: - Baseline Cr (1.1-1.2). - Admitted with creatinine 1.62 -> 1.42 today. Suspected prerenal in the setting of decreased PO intake. - K continues to be elevated, today up to 5.7 from 5.5 yesterday. No EKG changes. - Fluids increased to 1/2 NSS 80ml/hr in addition to tube feeds; will continue this rate during the daytime and decrease at night. - Patiromer dose x2 given today, with daytime increase to fluids as above. Goal for normal K for optimization prior to EGD. - Monitor BMP daily. Metabolic Encephalopathy: - Transient confusion intermittent while admitted. - Head and neck vascular imaging without acute findings, low concern for TIA or CVA. - Suspected metabolic in the setting of acute UTI, element of hospital delirium given unfamiliar place. Esophageal Cancer / Stricture, Dysphagia, Secretions: - History of esophageal adenocarcinoma s/p XRT and chemotherapy, s/p stent placement with subsequent removal due to intolerance. - PEG tube in place, with all hydration and nutrition provided via PEG. - GI consulted to consider repeat EGD for patient increased quality of life, hopefully dilation of stricture for secretion management. - Will require NPO including tube feeds the night of 07/29/21 in addition to holding Lovenox at that time. - Aspiration precautions. - Continue Mucinex 600 b.i.d. - Try to hold off from continuous O2 unless needed. - Continue home glycopyrrolate. - Suctioning p.r.n., scopolamine patch. DMII, Hyperglycemia: - A1c (07/24) of 7.2%. Patient on chronic steroid therapy. - BSG on arrival in the 300s; labs not consistent with HHS/DKA. - Per patient's daughter and son-in-law, last few days prior to admission with uncontrolled BSG up to 500-600; had been communicating with PCP and planning on starting insulin - Hold home medications. Basal/bolus insulin initiated w/ ACHS BSGs. - Glycemic consult appreciated. IPF s/p Lung Transplant: - He has diagnosis of IPF as well as wedge resection of right lung for prior malignancy. No respiratory complaints. - Patient s/p left lung transplant performed at [facility] in 2005 for IPF on Tacrolimus, Prednisone, Azithromycin and Bactrim. - CTA head/neck this admission notes consolidation at right lung apex, more likely related to chronic changes seen on multiple chest x-rays - No respiratory symptoms, procal negative. -While he is high risk for HCAP, at this time respiratory infection seems unlikely. - Continue Tacrolimus 0.5mg po BID. - Maintain prednisone 5mg daily; no signs of adrenal insufficiency at this time. - Continue Azithromycin and Bactrim suppressive therapies. HTN: - Continue home amlodipine and hydralazine. HLD: - Continue pravastatin. Depression/anxiety with panic attacks: - Asked to discontinue Sertraline per daughter due to sedation - will discontinue at this time. - prn lorazepam. - Uses O2 2-4L/min when anxious or having panic attacks. FEN/GI: NPO, feedings (Glucerna) through PEG -- family aiding with delivery while here. PPI daily CODE: DNR/DNI Dispo: Med/Surg DVT: Lovenox SQ (2) Transient speech disturbance: (3) Hyperglycemia due to type 2 diabetes mellitus: (4) Anxiety disorder due to general medical condition with panic attack: (5) Hyperlipidemia: (6) Chronic kidney disease: (7) Lung transplant recipient: (8) Immunosuppression: (9) HTN (hypertension): (10) Esophageal cancer: (11) DMII (diabetes mellitus, type 2): Admission and Anticipated Discharge Date Admission Date: July 23, 2021 Supervising Physician Co-Signing Physician Notes I personally examined the patient and verified all wells points of history and exam, discussed case, and agree with decision making with Dr Burgess Still having trouble with secretions. family strongly desires to proceed w EGD for hope that it can help w quality of life vitals noted resting comfortably nad heent nc at mmm breathing unlabored still with audible gurgling, no accessory muscles good effort skin no rashes no pallor or icterus neuro no focal deficits metabolic encephalopathy -due to UTI and hyperglycemia, maybe mild contributions from zoloft, but given the other two factors being fairly large influences, and zoloft notably improving his anxiety already - will keep it and treat the other causes, only dc zoloft if clearly an ongoing provoking factor. delirium overall appears stable UTI -pseudomonas - cipro S -finish ciprofloxacin hyperglycemia -Sugars overall have been reasonable given goals basically mean that sugar should be good enough to keep out of hyperglycemic dehydration dysphagia -was for outpt EGD - but symptoms seem to be fairly rapidly progressive over the last few weeks and very bothersome - family realistic overall and have quality of life goals as main focus -and are perfectly okay with the higher than average risk of procedural complicationsreally they would just like for him to have quality of life. Palliative type discussions had in depth by resident physician earlier as well. secretions management failing medications - does seem to be making him fairly uncomfortable. would greatly appreciate GI proceeding Hyperkalemia/AKIprobably just poor fluid intakegentle IV fluids and patiromer. Follow labs. truthfully not impacting acute care or symptoms at all as best i can tell, but given anesthesia concerns leading to cancelled EGD 07/27 - want to have labs optimized as well so nothing interferes with trying to have procedure done that might improve quality of life otherwise as above Subjective Limited history given by patient this morning, though did state that he feels "pretty good" this morning. Son in law Malachi at bedside reports that patient's night was much better than last. Did have suction of secretions twice overnight for comfort. Malachi today reported that their overall goal for the patient is comfort and getting him home. His had concerns that bringing patient home on either palliative care or hospice means that he would not be treated for certain things such as pneumonia and UTI. This was explained yesterday by Dr. Savage etienne and team to family's satisfaction. Per son, patient was placed on oxygen a few months ago as his oxygen sat dropped minimally, which caused patient to have a lot of panic of the sensation of being unable to breathe due to secretions. These panic attacks went away with starting oxygen. Review of Systems Review of Systems: Unobtainable due to cognitive status Physical Exam Constitutional: WD/WN, vitals as above ENMT: dry mucous membranes Respiratory: rhonchi and gurgling upper airway sounds noted on exam due to secretions; no wheezes Cardiovascular: Heart regular rate and rhythm, 2/6 systolic RUSB murmur Gastrointestinal (Abdomen): normal bowel sounds, soft, nontender, no hepatosplenomegaly Skin: no rashes, warm and dry Psychiatric: Drowsy appearing, arouses to voice Results & Data Results & Data ([facility]) Vital Signs (Past 12 Hours) Vital Signs Temp Pulse Resp BP Pulse Ox 07/28/21 07:13 37.0 C 96 H 20 142/72 H 95 07/27/21 22:12 37.7 C H 85 20 140/68 99 Resident Activity Tracking Resident Involvement: Resident Care Provided Care Provided: Adult Hospital Medicine (1) Hyperglycemia due to type 2 diabetes mellitus Diabetes mellitus watermelon inspector insulin use: with jail use Qualified Code(s): E11.65 - Type 2 diabetes mellitus with hyperglycemia; Z79.4 - penitentiary (current) use of insulin (2) Esophageal cancer Malignant neoplasm of esophagus location: unspecified location Qualified Code(s): C15.9 - Malignant neoplasm of esophagus, unspecified (3) HTN (hypertension) Hypertension type: essential hypertension Qualified Code(s): I10 - Essential (primary) hypertension
[2021-07-28] MEDS: CIPROFLOXACIN / D5W 400 MG/200 ML BAG IV SCH ×2 (09:04→21:27)
[2021-07-28] MEDS: CHECK SCOPOLAMINE PATCH PLACEMENT SCH ×2 (09:05→16:32)
[2021-07-28] MEDS: guaiFENesin 600 MG TABCR PO SCH ×2 (09:05→21:30)
[2021-07-28] MEDS: amLODIPine BESYLATE 5 MG TAB PEG SCH ×2 (09:06→17:02)
[2021-07-28] MEDS: GLYCOPYRROLATE 1 MG TAB PO SCH ×2 (09:07→21:33)
[2021-07-28] MEDS: LANSOPRAZOLE 15 MG SOLTAB PEG SCH (09:07)
[2021-07-28] MEDS: TAMSULOSIN HCL 0.4 MG CAP PEG SCH ×2 (09:07→12:15)
[2021-07-28] MEDS: hydrALAZINE TAB 50 MG TAB PEG SCH ×4 (09:07→21:28)
[2021-07-28] MEDS: [UNRECOGNIZED DRUG - REMARK] PEG SCH ×4 (09:08→22:10)
[2021-07-28] MEDS: ENOXAPARIN INJ 40 MG/0.4 ML SYR SQ SCH (09:08)
[2021-07-28] MEDS: POLYETHYLENE (MIRALAX) 17 GM PACK PEG SCH (09:10)
[2021-07-28] MEDS ORDERED: PATIROMER CALCIUM SORBITEX 8.4 GM PACK PO SCH ×2 (11:00)
--- NOTE | 2021-07-28 11:43 | Pharmacy Report ---
Pharmacy Glycemic Short Note 2 - Date of Service July 28, 2021 - Glycemic Short BSG Results (Last 24 hours): 07/27/21 07/27/21 07/27/21 11:21 12:24 17:22 Glucose POC Glucose 145 H 132 H 124 H 07/27/21 07/28/21 07/28/21 21:32 00:06 04:21 Glucose POC Glucose 126 H 131 H 57 L* 07/28/21 07/28/21 07/28/21 04:22 04:50 05:45 Glucose 80 POC Glucose 59 L* 114 H 07/28/21 07/28/21 07:22 09:14 Glucose POC Glucose 89 81 OUTPATIENT ANTIDIABETIC REGIMEN: * Lantus + Lispro - new medications, not yet started at time of admission * A1c = 7.2% (07/24/21) ASSESSMENT: 07/28/21: * Patient received total 22 units of insulin yesterday; 10 units basal and 12 units bolus. * BSGs yesterday were [phone] * Fasting BSG today was 57 mg/dl. Since patient was hypoglycemic two days in a row, discontinued basal dose today, reassess tomorrow. 07/27/21 * Patient's BSGs yesterday were [phone] and 53 mg/dL on PRP for fasting. * Patient originally NPO today for EGD but that was cancelled due to high potassium. This may occur on Friday. * Due to hypoglycemia, Lantus held until lunchtime. Lunchtime BSG was 145 mg/dL and diet ordered. Give Lantus 10 units. Overnight checks to see how much more patient requires. Unsure if patient NPO tomorrow so will be hesitant. * Continue Novolog. 07/26/21 * Patient's BSGs yesterday were [phone] mg/dL and fasting this morning was 157 mg/dL. * Decrease Lantus by 20% to 28 units today. Fasting BSG decreased significantly. * Tighten CR as BSGs trended upwards. * Patient NPO after midnight (ordered after morning insulin given). No changes currently. Hold morning Lantus until fasting BSG established. 07/25 * Stressors stable * Severe hypoglycemia yesterday AM noted - likely 2nd too aggressive correction factor, which was loosened yesterday * AM fasting BSG elevated today - will increase Lantus * Post-prandial BSG's also elevated yesterday - will tighten Novolog CHO ratio 07/24 * Nicola is a 86 yo type 2 diabetic who presented with UTI, weakness, and hyperglycemia * Patient is on chronic prednisone for h/o left lung transplant - ordered 5 mg daily. * He receives Glucerna 1.5 (237 mL) QID via PEG tube. This contains 31 grams of CHO. * Per family, BSG has been elevated at home (up to 500-600 mg/dL) and PCP was planning to start insulin * Admitted with severe hyperglycemia. He was given a one time dose of Lantus 20 units SQ @ 0228 and 10 units of Novolog. BSG overcorrected (49 mg/dL @ 0930). Will hold off on further basal insulin until fasting BSG can be evaluated on 07/25 and loosen novolog parameters. PLAN FOR INPATIENT GLYCEMIC CONTROL: * Basal insulin * None today * Bolus insulin * NovoLog per scale ACHS or Q6hrs while NPO * Goal Range: Low 110 mg/dL - High 150 mg/dL * Correction Factor: 35 mg/dL/unit * Nutritional / Prandial insulin per carb ratio of 1 unit per 8 grams CHO consumed
[2021-07-28] MEDS: predniSONE 5 MG TAB PEG SCH (12:15)
[2021-07-28] MEDS: FINASTERIDE 5 MG TAB PEG SCH (12:15)
--- NOTE | 2021-07-28 13:09 | Billing Data ---
Date of Service July 28, 2021 Coding Level of Care Code 34927 Subseq Hosp Care Lvl 3
[2021-07-28] MEDS: AZITHROMYCIN 250 MG/6.25 ML UDP GT SCH (21:29)
[2021-07-28] MEDS: PRAVASTATIN SOD 10 MG TAB PEG SCH (21:30)
--- NOTE | 2021-07-28 23:12 | Death Pronouncement Note ---
Date of Service July 28, 2021 Pronouncement Note Admission Date July 23, 2021 Date and Time of Date of : 07/28/21 Time of : 22:58 Summary Code herminia called approximately 10:50 PM. Arrived to patient making gurgling noises. Nurses were unable to obtain a pulse or blood pressure at that time. I personally attempted to find a pulse and was unable, we also attempted to find a pulse using Doppler. We were unable to find a pulse, patient had no breath sounds, no heart sounds, pupils were fixed and dilated. Time of called at 10:58 PM. Patient's son was at bedside at time of passing. He will make other family members aware. Additional Data Confirmation of : no pulse, no respirations, no heart sounds and pupils fixed and dilated Pronouncement Performed By: Resident Physician Family: at bedside Attending/PCP notified?: Yes Attending physician: Osmel Brooks, DO Was code activated?: Yes (Code purple) Resident Activity Tracking Resident Involvement: Resident Care Provided Care Provided: Adult Hospital Medicine
[2021-07-29 02:20] VITALS: BP 136/76
--- NOTE | 2021-07-29 07:23 | Discharge Summary ---
Date of Service July 29, 2021 Admission HPI Per Admitting Provider Nicola Banks is an 86yo M with multiple comorbidities including hx. of DM, HTN, CKD, lung transplant and esophageal cancer who was brought to [facility] due to transient confusion and garbled speech earlier today at physical therapy appointment. Per patient, daughter, and son-in-law, patient had been feeling generalized weakness and fatigue for last few days. He admits to having chills, though he states that he is very prone to feeling cold at baseline. They report that the patient had been having difficulty urinating as of late specifically, they state that the patient would frequently feel like he had to urinate so would be helped to the toilet but be unable to urinate. He would then be taken back to the bed and then shortly urinate at that time. Additionally, they state that the patient had a Boyd catheter in place until about 2 weeks ago and his urinary symptoms seem to be slowly developing since that time. They state at baseline patient usually has a bowel movement every 3 to 4 days, but shortly after removal of the Boyd catheter, patient was having 2 or 3 loose BMs per day. However, this has now resolved. He denies dysuria/burning, frequency, abdominal pain, lower back pain, fevers, shortness of breath, cough, nausea, vomiting. In the ED, patient had CT head as well as CTA head/neck which were all negative for acute intracranial pathology. CTA read was remarkable for consolidation at right lung apex. However, chest x-ray showed volume loss, pleural fluid, and complete low pacification of the right hemithorax, which was similar to previous 3 chest x-rays dating back to 06/27/2021. Labs were remarkable for hemoglobin of 10.1, which is stable for him. White count was normal at 7.19. Had VBG, which did not show respiratory or metabolic acidosis. Chemistry significant for elevated glucose to 311. Procalcitonin negative at 0.15. UA with elevated pH, 1+ protein, 2+ glucose, 2+ blood, positive nitrites, 2+ leuk esterase, >30 WBCs, >30 RBCs, 5-10 epithelial cells, 1+ bacteria. COVID-19 testing was negative. Admission Exam Per Admitting Provider GENERAL: A&Ox3. NAD. HEENT: PERRL, EOMI. Moist mucous membranes. NECK: No JVD. No lymphadenopathy. CHEST/LUNGS: CTAB A/P. No crackles, wheezes, rales, rhonchi. HEART: RRR. 4/6 systolic murmur heard best at right sternal border. ABDOMEN: NT/ND, soft. BS+ x4. PEG in place. EXTREMITIES: No cyanosis, no clubbing, no edema SKIN: Warm and dry. No rashes or lesions. PSYCHIATRIC: Euthymic affect, no SI, no pressured speech, no hallucinations NEUROLOGIC: No FND. CN II-XII grossly intact. Principal Diagnosis UTI, hyperglycemia, esophageal stricture Discharge Exam Patient overnight, therefore I did not perform an exam. Discharge Data Allergies Allergy/AdvReac Type Severity Reaction Status Date / Time metronidazole Allergy Severe NEUROPATHY Verified 07/23/21 21:42 LEG lisinopril Allergy Intermediate NAUSEA, Verified 07/19/21 13:06 STOMACH UPSET, DEATHLY SICK Consultations 07/23/21 21:32 ED Decision to Admit Stat 07/25/21 08:55 Consult [facility] registered vascular technologist (rvt) Routine 07/25/21 17:48 Consult Gastroenterology Routine Procedures Performed Operation Date: 07/27/21 16:30 <No data on this case meets the specified criteria> Operation Date: 07/30/21 16:30 <No data on this case meets the specified criteria> Ordered Studies 07/23/21 18:17 CT angio head w con Stat CT angio neck with con Stat CT head/brain wo con Stat Hospital Course (1) Acute UTI: 86 yo M Hx DM2, HTN, CKD, esophageal cancer with esophageal stricture admitted for hyperglycemia and Pseudomonas UTI treated with IV Abx, ultimately with goal of EGD Friday for esophageal stricture dilation, who unfortunately overnight. Goals of care discussion had with family on 07/27 regarding wants of patient and family, and goals from their perspective were to increase patient comfort with potential goal for discharge with hospice/ palliative care services. Patient was made DNR/DNI after this discussion earlier in the week. Overnight, patient was noted on nursing bedside evaluation to have agonal breathing and increased secretions. CERAMIC ENGINEER was unable to clear any of the patient's secretions. Patient then desaturated to 75% then 59% despite aggressive supplemental oxygen. Jessica hope called, and at that time patient noted to have nonreactive pupils, and ceased to breathe at 2258. Patient's family member was at bedside at time of , and will make arrangements for the patient and notify other family members. Patient's multifactorial, with ongoing current infection, worsening hyperkalemia, worsening secretions due to esophageal stricture, poor inspiratory reserve / cough reflex due to Hx single lung transplant, worsening generalized debility. (2) Transient speech disturbance: (3) Hyperglycemia due to type 2 diabetes mellitus: (4) Anxiety disorder due to general medical condition with panic attack: (5) Hyperlipidemia: (6) Chronic kidney disease: (7) Lung transplant recipient: (8) Immunosuppression: (9) HTN (hypertension): (10) Esophageal cancer: (11) DMII (diabetes mellitus, type 2): Total Time Total Time Spent Total Time Spent (In Minutes): see attending note Discharge Plan Discharge Items Patient Disposition: Other Date/Time: 07/28/21 22:58 Interventions: Discharge Summary Assessment (RN) Last Done: 07/29/21 02:11 Resident Activity Tracking Resident Involvement: Resident Care Provided Care Provided: Adult Hospital Medicine
== END 2021-07-28 22:58 | disposition expired | DRG 689 ==
LOC: ED 17:28 → 2W 23:00 → SUATTDRO 23:00 → 2W 07-24 00:24
DX: Z66 Do not resuscitate; G93.41 Metabolic encephalopathy; Z51.5 Encounter for palliative care; Z85.118 Personal history of other malignant neoplasm of bronchus and lung; N18.9 Chronic kidney disease, unspecified; N39.0 Urinary tract infection, site not specified; Z88.8 Allergy status to other drugs, medicaments and biological substances; R13.10 Dysphagia, unspecified; Z92.3 Personal history of irradiation; R29.810 Facial weakness; I35.0 Nonrheumatic aortic (valve) stenosis; Z87.440 Personal history of urinary (tract) infections; K22.2 Esophageal obstruction; F41.3 Other mixed anxiety disorders; C15.9 Malignant neoplasm of esophagus, unspecified; R47.89 Other speech disturbances; B96.5 Pseudomonas (aeruginosa) (mallei) (pseudomallei) as the cause of diseases classified elsewhere; E11.65 Type 2 diabetes mellitus with hyperglycemia; Z79.4 Long term (current) use of insulin; N17.9 Acute kidney failure, unspecified; Z93.1 Gastrostomy status; I13.0 Hypertensive heart and chronic kidney disease with heart failure and stage 1 through stage 4 chronic kidney disease, or unspecified chronic kidney disease; J84.112 Idiopathic pulmonary fibrosis; E78.5 Hyperlipidemia, unspecified; Z94.2 Lung transplant status; I50.32 Chronic diastolic (congestive) heart failure; D84.821 Immunodeficiency due to drugs; Z53.09 Procedure and treatment not carried out because of other contraindication